=== PATIENT | female | born 1940 | race Caucasian/White ===

== ENCOUNTER → 2016-04-29 | Outpatient (CLI) | payer OTHER, MEDICARE ==
[~2016-04-29] MED LIST: ACET-1256 PO; AMR2 PO; ASPCH81 PO; ASPI81TA28 PO; ATOR10TA88 PO; CHOL2000 PO; CLC100 PO; CLTP PO; DIAZ5TAB PO; DILT-119 PO; FURO-85 PO; GLC500 PO; GLIM1TAB2 PO; LSX20 PO; MECL1TAB42 PO; METO25TA56 PO; MULT-506 PO; MULTCHW PO; PRLSR20 PO; STLS PO
[2016-04-29 13:01] LABS: ESTIMATED AVERAGE GLUCOSE 163 mg/dl; HA1C FLAG Normal (Normal)
[2016-04-29 13:10] LABS: BLOOD UREA NITROGEN 42 mg/dl (7-18); BUN/CREATININE RATIO 24.9 (10-20); CALCIUM 9.4 mg/dl (8.5-10.1); CARBON DIOXIDE 29 mmol/L (21-32); CHLORIDE 107 mmol/L (98-107); GLUCOSE 173 mg/dl (70-99); PHOSPHORUS 3.7 mg/dl (2.5-4.9); POTASSIUM 4.7 mmol/L (3.5-5.1); SODIUM 142 mmol/L (136-145)
[2016-04-29 17:45] LABS: URINE APPEARANCE CLEAR (CLEAR); URINE BILIRUBIN NEG (NEG); URINE COLOR YELLOW; URINE NITRITE NEG (NEG); URINE SPECIFIC GRAVITY 1.017 (1.000-1.030); UROBILINOGEN NEG (NEG); ZZUR CULT IF INDIC CLEAN CATCH NO
[2016-04-29 17:56] LABS: MANUAL MICROSCOPIC REQUIRED? NO; REVIEW REQ? NO
[2016-04-29 18:41] LABS: RATIO 1227.3 mcg/mg (0-30.0)
== END | disposition home or self-care (01) ==
LOC: C.LABBFT 08:37
PROVIDERS: ATTEND Internal Medicine
DX: E11.9 Type 2 diabetes mellitus without complications (principal); E55.9 Vitamin D deficiency, unspecified

== ENCOUNTER → 2016-05-13 | Outpatient (CLI) | payer OTHER, MEDICARE ==
[2016-05-13 12:47] LABS: BLOOD UREA NITROGEN 37 mg/dl (7-18); BUN/CREATININE RATIO 26.7 (10-20); CALCIUM 9.1 mg/dl (8.5-10.1); CARBON DIOXIDE 28 mmol/L (21-32); CHLORIDE 105 mmol/L (98-107); GLUCOSE 201 mg/dl (70-99); PHOSPHORUS 3.3 mg/dl (2.5-4.9); POTASSIUM 4.3 mmol/L (3.5-5.1); SODIUM 141 mmol/L (136-145)
== END | disposition home or self-care (01) ==
LOC: C.LABBFT 10:59
PROVIDERS: ATTEND Internal Medicine
DX: N18.3 Chronic kidney disease, stage 3 (moderate) (principal)

== ENCOUNTER 2016-06-02 09:24 | Emergency (ER) | payer OTHER, MEDICARE ==
[~2016-06-02] VITALS: Ht 152.4 cm; Wt 81.7 kg
[~2016-06-02 09:24] MED LIST changes: -ASPI81TA28 PO; -CHOL2000 PO; -DIAZ5TAB PO; -FURO-85 PO; -GLIM1TAB2 PO; -MECL1TAB42 PO; -MULTCHW PO
[2016-06-02 09:32] VITALS: TEMP 36.7; Ht 152.4 cm; Wt 81.7 kg
[2016-06-02] MEDS ORDERED: GLIM1TAB2 PO (10:00)
[2016-06-02] MEDS ORDERED: ATOR10TA88 PO (10:00)
[2016-06-02] MEDS ORDERED: DILT-119 PO (10:00)
[2016-06-02] MEDS ORDERED: FURO-85 PO (10:00)
[2016-06-02] MEDS ORDERED: CHOL2000 PO (10:00)
[2016-06-02] MEDS ORDERED: MULTCHW PO (10:00)
[2016-06-02] MEDS ORDERED: ACET-1256 PO (10:00)
[2016-06-02] MEDS ORDERED: PRLSR20 PO (10:00)
[2016-06-02] MEDS ORDERED: ASPI81TA28 PO (10:00)
[2016-06-02 10:49] LABS: BASO % 0.4 %; BASO ABS # 0.03 K/uL (0-0.2); COMPLETE YES; EOS % 2.2 %; HEMATOCRIT 35.1 % (37-47); IG% 0.1 %; LYMPH % 21.4 %; LYMPH ABS # 1.57 K/uL (1.2-3.4); MEAN CELL VOLUME 87.8 fL (80-100); MEAN CORPUSCULAR HEMOGLOBIN 30.5 pg (25-34); MEAN CORPUSCULAR HGB CONC 34.8 g/dl (32-36); MEAN PLATELET VOLUME 10.1 fL (7.4-10.4); NEUT % 69.9 %; PLATELET COUNT 220 K/uL (130-400); WHITE BLOOD COUNT 7.32 K/uL (4.8-10.8)
[2016-06-02] MEDS ORDERED: ASPIRIN 81 MG ECTAB PO STA (10:55)
--- NOTE | 2016-06-02 10:55 | EMERGENCY ROOM VISIT NOTE ---
History Report prepared by Jazmín: [facility] Under the Supervision of: Dr. Jesse Victoria M.D. First contact with patient: 10:47 Chief Complaint: OTHER COMPLAINT Stated Complaint: VOMITING/ RINGING IN EARS History of Present Illness The patient is a 75 year old female who presents to the Emergency Room with complaints of persistent weakness for the past few days. The patient also complains of ringing in her ears, feeling dizzy and lightheaded, nausea, vomiting, and high blood pressure. She notes that this morning it was difficult for her to get out of bed and she had to use her walker for support to walk to the restroom. She denies any changes in her hearing besides the ringing, difficulty moving her bowels or urinating. Medical command was given on the patient prior to her arrival at the ED. The patient is on multiple daily medications for blood pressure and blood sugar that she has not taken yet today. Source of History: patient Onset: the past few days Position: other (global) Timing: other (persistent) Associated Symptoms: + nausea, + vomiting, No urinary symptoms Note: Other associated symptoms: ringing in her ears, feeling dizzy and lightheaded, high blood pressure Denies: difficulty moving bowels. Review of Systems All systems have been listed, reviewed, and are negative other than those previously mentioned. Please see Additional Medical History Sheet. Past Medical & Surgical Medical Problems: (1) Diabetes (2) Heart disease (3) Hypertension Surgical Problems: (1) Carpal tunnel syndrome (2) Cataract (3) History of bilateral oophorectomy Family History FH: diabetes mellitus FH: heart disease FHx: hypertension Social History Smoking Status: Former Smoker Alcohol Use: none Drug Use: none Marital Status: single Occupation Status: employed Current/Historical Medications Scheduled Aspirin (Aspirin Ec), 81 MG PO DAILY Atorvastatin (Lipitor), 10 MG PO DAILY Cholecalciferol (Vitamin D3), 2,000 UNITS PO DAILY Diltiazem Hcl Ext Rel (Tiazac), 360 MG PO DAILY Furosemide (Lasix), 20 MG PO DAILY Glimepiride (Glimepiride), 2 MG PO DAILY Multiple Vitamins W/ Minerals (Centrum Silver), 1 TAB PO DAILY Omeprazole (Prilosec), 20 MG PO BID Scheduled PRN Acetaminophen (Tylenol), 1,000 MG PO DIRECTED PRN for Pain Diazepam (Valium), 5 MG PO Q6 PRN for vertigo Meclizine Hcl (Meclizine Hcl), 1 TAB PO Q6 PRN for vertigo Allergies Coded Allergies: No Known Allergies (Verified , 04/23/05) Physical Exam Vital Signs Date Time Temp Pulse Resp B/P Pulse Ox O2 Delivery O2 Flow Rate FiO2 06/02/16 15:40 68 18 146/71 92 06/02/16 14:36 64 20 150/50 95 Room Air 06/02/16 12:54 72 20 186/114 95 Room Air 06/02/16 11:38 62 16 183/87 96 Room Air 06/02/16 10:42 62 20 175/112 97 Room Air 06/02/16 09:32 73 06/02/16 09:32 36.7 76 17 164/67 93 Room Air Physical Exam GENERAL: Patient awake, alert, oriented x 3. Patient follows commands. Patient does not appear toxic. Patient is adequately hydrated and well- nourished. SKIN: No erythema, pallor, cyanosis or rash HEENT: Normal head, pupils equal, reactive to light and accommodation. Vision diminished through macular degeneration. Ears normal. Oral cavity and posterior pharynx: mucus membranes are dry. Neck: Without adenopathy, no neck vein distention. LUNGS: Clear to auscultation. No wheezes, no rales, no rhonchi. HEART: No murmurs. No gallops. No rubs ABDOMEN: Obese, No masses, no rebound, no hepatomegaly or splenomegaly. EXTREMITIES: No signs of trauma. No pedal or pretibial edema. No calf or thigh tenderness. NEUROLOGIC: Cranial nerves II-XII within normal limits. No gross motor sensory function deficits. Medical Decision & Procedures ER Provider Diagnostic Interpretation: Radiology results as stated below per my review and radiologist interpretation:' CHEST ONE VIEW PORTABLE CLINICAL HISTORY: Dizziness, hypertension. COMPARISON STUDY: No previous studies for comparison. FINDINGS: The cardiac and mediastinal contours are normal. There is no evidence of focal pulmonary consolidation. There is no evidence of failure. No pleural effusions are visualized.[ IMPRESSION: No active disease in the chest. Electronically signed by: Shun Gonzalez M.D. 06/02/2016 11:27 AM Dictated Date/Time: 06/02/2016 11:[address] HEAD WITHOUT CONTRAST (CT) CLINICAL HISTORY: Dizziness, vomiting, tinnitus. COMPARISON STUDY: 12/18/2005, MRI the brain dated 04/25/2013 TECHNIQUE: Axial CT of the brain is performed from the vertex to the skull base. IV contrast was not administered for this examination. CT DOSE: 537.48 mGy.cm FINDINGS: No intra or extra-axial mass lesions are visualized. There is no CT evidence of acute cortical infarction. There is no evidence of midline shift. There is no acute hemorrhage. No calvarial fractures are visualized. There are mild white matter hypodensities likely on a small vessel basis. There is no evidence of pathologic ventricular dilatation. There is no evidence of acute sinusitis IMPRESSION: No acute intracranial findings Electronically signed by: Shun Gonzalez M.D. 06/02/2016 1:20 PM Dictated Date/Time: 06/02/2016 1:19 PM Laboratory Results 06/02/16 09:40 Red Blood Count 4.00, Mean Corpuscular Volume 87.8, Mean Corpuscular Hemoglobin 30.5, Mean Corpuscular Hemoglobin Concent 34.8, Mean Platelet Volume 10.1, Neutrophils (%) (Auto) 69.9, Lymphocytes (%) (Auto) 21.4, Monocytes (%) (Auto) 6.0, Eosinophils (%) (Auto) 2.2, Basophils (%) (Auto) 0.4, Neutrophils # (Auto) 5.11, Lymphocytes # (Auto) 1.57, Monocytes # (Auto) 0.44, Eosinophils # (Auto) 0.16, Basophils # (Auto) 0.03 06/02/16 09:40 Test 06/02/16 09:40 White Blood Count 7.32 K/uL (4.8-10.8) Red Blood Count 4.00 M/uL (4.2-5.4) Hemoglobin 12.2 g/dL (12.0-16.0) Hematocrit 35.1 % (37-47) Mean Corpuscular Volume 87.8 fL (80-100) Mean Corpuscular Hemoglobin 30.5 pg (25-34) Mean Corpuscular Hemoglobin Concent 34.8 g/dl (32-36) Platelet Count 220 K/uL (130-400) Mean Platelet Volume 10.1 fL (7.4-10.4) Neutrophils (%) (Auto) 69.9 % Lymphocytes (%) (Auto) 21.4 % Monocytes (%) (Auto) 6.0 % Eosinophils (%) (Auto) 2.2 % Basophils (%) (Auto) 0.4 % Neutrophils # (Auto) 5.11 K/uL (1.4-6.5) Lymphocytes # (Auto) 1.57 K/uL (1.2-3.4) Monocytes # (Auto) 0.44 K/uL (0.11-0.59) Eosinophils # (Auto) 0.16 K/uL (0-0.5) Basophils # (Auto) 0.03 K/uL (0-0.2) RDW Standard Deviation 42.4 fL (36.4-46.3) RDW Coefficient of Variation 13.1 % (11.5-14.5) Immature Granulocyte % (Auto) 0.1 % Immature Granulocyte # (Auto) 0.01 K/uL (0.00-0.02) Anion Gap 9.0 mmol/L (3-11) Est Creatinine Clear Calc Drug Dose 38.4 ml/min Estimated GFR () 51.2 Estimated GFR (Non- 44.2 BUN/Creatinine Ratio 36.5 (10-20) Calcium Level 9.4 mg/dl (8.5-10.1) Total Bilirubin 0.3 mg/dl (0.2-1) Aspartate Amino Transf (AST/SGOT) 25 U/L (15-37) Alanine Aminotransferase (ALT/SGPT) 32 U/L (12-78) Alkaline Phosphatase 95 U/L (45-117) Total Protein 7.0 gm/dl (6.4-8.2) Albumin 3.6 gm/dl (3.4-5.0) Globulin 3.4 gm/dl (2.5-4.0) Albumin/Globulin Ratio 1.1 (0.9-2) Laboratory results as stated above per my review. Medications Administered Medications (Trade) Dose Ordered Sig/Eliud Route Start Time Stop Time Status Last Admin Dose Admin Diazepam (Valium Tab) 5 mg NOW ONCE PO 06/02/16 11:00 06/02/16 11:02 DC 06/02/16 11:40 5 MG Atorvastatin Calcium (Lipitor Tab) 10 mg NOW ONCE PO 06/02/16 11:00 06/02/16 11:03 DC 06/02/16 11:39 10 MG Furosemide (Lasix Tab) 40 mg NOW ONCE PO 06/02/16 11:00 06/02/16 11:03 DC 06/02/16 11:40 40 MG Aspirin (Ecotrin Tab) 81 mg NOW STAT PO 06/02/16 10:55 06/02/16 11:02 DC 06/02/16 11:39 81 MG Glimepiride (Amaryl Tab) 1 mg NOW ONCE PO 06/02/16 11:00 06/02/16 11:03 DC 06/02/16 11:41 1 MG Pantoprazole Sodium (Protonix Tab) 20 mg NOW STAT PO 06/02/16 11:04 06/02/16 11:06 DC 06/02/16 11:40 20 MG Diltiazem HCl (Dilacor Xr Cap) 360 mg NOW STAT PO 06/02/16 12:07 06/02/16 12:08 DC 06/02/16 12:56 360 MG Meclizine HCl (Antivert Tab) 25 mg NOW STAT PO 06/02/16 12:42 06/02/16 12:46 DC 06/02/16 12:56 25 MG Acetaminophen (Tylenol Tab) 1,000 mg NOW STAT PO 06/02/16 12:42 06/02/16 12:46 DC 06/02/16 12:57 1,000 MG ED Course 1048: Past medical records reviewed. The patient was evaluated in room B8. A complete history and physical examination was performed. 1055: Ordered Aspirin 81 mg PO. 1100: Ordered Glimepiride 1 mg PO, Lasix Tab 40 mg PO, Lipitor Tab 10 mg PO, Diazepam 5 mg PO. 1104: Ordered Protonix Tab 20 mg PO. 1207: Ordered Diltiazem HCl 360 mg PO. 1242: Ordered Tylenol Tab 1000 mg PO, Antivert Tab 25 mg PO. 1420: At this time, I reevaluated the patient and she was feeling better after her nap. The patient was going to try to walk and she how if she felt well enough to go home. Medical Decision Differential diagnoses include hypertension lack of control, Meniere's disease, benign positional vertigo, vestibular neuronitis, CVA/TIA. Multiple labs, EKG and imaging were obtained. Please see above. The patient has no evidence of an acute stroke was TIA. The patient presents vestibular disequilibrium. The patient denies fever or chills. She has no dysuria or other urinary symptoms. Patient does have ringing in her ears in addition to vertigo. She does not appear to have any acute change in her hearing. Mnire' s disease remains in the differential. Patient did get some relief with Antivert and Valium. She will be sent home with prescriptions for both. The patient was able to ambulate in the ED prior to discharge. Patient should follow-up with her family physician within the next week. Impression Primary Impression: Vertigo Scribe Attestation The scribe's documentation has been prepared under my direction and personally reviewed by me in its entirety. I confirm that the note above accurately reflects all work, treatment, procedures, and medical decision making performed by me. Departure Information Dispostion Home / Self-Care Prescriptions Diazepam (VALIUM) 5 Mg Tab 5 MG PO Q6 Y for vertigo, #20 TAB Prov: Bill Mcqueen M.D. 06/02/16 Meclizine Hcl (MECLIZINE HCL) 25 Mg Tab 1 TAB PO Q6 Y for vertigo, #20 TAB Prov: Bill Mcqueen M.D. 06/02/16 Referrals Felice Stubsb M.D. (PCP) Forms HOME CARE DOCUMENTATION FORM, IMPORTANT VISIT INFORMATION, WORK / SCHOOL INSTRUCTIONS Patient Instructions My [facility] Additional Instructions 25 mg of meclizine every 6 hours as needed for vertigo. You may add 5 mg of Valium every 6 hours if meclizine is not controlling the vertigo. Both of the above medications, sedation. Continue all of your current medications as prescribed. Follow-up with your family physician within the next 7 days. Return here sooner if symptoms get worse.
[2016-06-02 10:58] LABS: BUN/CREATININE RATIO 36.5 (10-20); CALCIUM 9.4 mg/dl (8.5-10.1); CREATININE 1.2 mg/dl (0.60-1.20); POTASSIUM 4.2 mmol/L (3.5-5.1)
[2016-06-02] MEDS ORDERED: DILTIAZEM HCL 30 MG TAB PO ONE (11:00)
[2016-06-02] MEDS ORDERED: GLIMEPIRIDE 2 MG TAB PO ONE (11:00)
[2016-06-02] MEDS ORDERED: FUROSEMIDE 40 MG TAB PO ONE (11:00)
[2016-06-02] MEDS ORDERED: DIAZEPAM 5MG TAB PO ONE (11:00)
[2016-06-02] MEDS ORDERED: ATORVASTATIN 10 MG TAB PO ONE (11:00)
[2016-06-02 11:01] LABS: ALB/GLOB RATIO 1.1 (0.9-2)
[2016-06-02] MEDS ORDERED: PANTOprazole SOD 40 MG TAB PO STA (11:04)
--- NOTE | 2016-06-02 11:28 | DIAGNOSTIC IMAGING REPORT ---
CHEST ONE VIEW PORTABLE CLINICAL HISTORY: Dizziness, hypertension. COMPARISON STUDY: No previous studies for comparison. FINDINGS: The cardiac and mediastinal contours are normal. There is no evidence of focal pulmonary consolidation. There is no evidence of failure. No pleural effusions are visualized.[ IMPRESSION: No active disease in the chest. Electronically signed by: Shun Gonzalez M.D. 06/02/2016 11:27 AM Dictated Date/Time: 06/02/2016 11:26 AM
[2016-06-02] MEDS ORDERED: DILTIAZEM HCL 180 MG ER CAP PO STA (12:07)
[2016-06-02] MEDS ORDERED: ACETAMINOPHEN 500 MG TAB PO STA (12:42)
[2016-06-02] MEDS ORDERED: MECLIZINE HCL 25 MG TAB PO STA (12:42)
--- NOTE | 2016-06-02 13:22 | DIAGNOSTIC IMAGING REPORT ---
CT HEAD WITHOUT CONTRAST (CT) CLINICAL HISTORY: Dizziness, vomiting, tinnitus. COMPARISON STUDY: 12/18/2005, MRI the brain dated 04/25/2013 TECHNIQUE: Axial CT of the brain is performed from the vertex to the skull base. IV contrast was not administered for this examination. CT DOSE: 537.48 mGy.cm FINDINGS: No intra or extra-axial mass lesions are visualized. There is no CT evidence of acute cortical infarction. There is no evidence of midline shift. There is no acute hemorrhage. No calvarial fractures are visualized. There are mild white matter hypodensities likely on a small vessel basis. There is no evidence of pathologic ventricular dilatation. There is no evidence of acute sinusitis IMPRESSION: No acute intracranial findings Electronically signed by: Shun Gonzalez M.D. 06/02/2016 1:20 PM Dictated Date/Time: 06/02/2016 1:19 PM
[2016-06-02] MEDS ORDERED: DIAZ5TAB PO (15:07)
[2016-06-02] MEDS ORDERED: MECL1TAB42 PO (15:07)
[2016-06-02 15:40] VITALS: BP 146/71; PULSE 68; O2SAT 92
== END 2016-06-02 15:41 | disposition home or self-care (01) ==
LOC: EDBD 09:24 → C.EDB 09:25
DX: R42 Dizziness and giddiness (principal); I10 Essential (primary) hypertension; E11.9 Type 2 diabetes mellitus without complications; I51.9 Heart disease, unspecified; Z87.891 Personal history of nicotine dependence; Z90.722 Acquired absence of ovaries, bilateral; Z79.82 Long term (current) use of aspirin; Z79.899 Other long term (current) drug therapy; Z83.3 Family history of diabetes mellitus; Z82.49 Family history of ischemic heart disease and other diseases of the circulatory system

== ENCOUNTER → 2016-06-17 | Outpatient (CLI) | payer OTHER, MEDICARE ==
[~2016-06-17] MED LIST changes: -AMR2 PO; -ASPCH81 PO; +ASPI81TA28 PO; +ATOR10TA82 PO; -ATOR10TA88 PO; +CHOL2000 PO; -CLC100 PO; -CLTP PO; +FURO-85 PO; -GLC500 PO; +GLIM1TAB2 PO; -LSX20 PO; +MECL1TAB42 PO; -METO25TA56 PO; -MULT-506 PO; +MULTCHW PO; -STLS PO
--- NOTE | 2016-06-17 16:46 | MAMMOGRAPHY REPORT ---
BILATERAL DIGITAL SCREENING MAMMOGRAM WITH CAD: 06/17/2016 CLINICAL HISTORY: Routine screening. Patient has no complaints. TECHNIQUE: Bilateral CC and MLO views were obtained. Current study was also evaluated with a Comput er Aided Detection (CAD) system. COMPARISON: Comparison is made to exams dated: 06/14/2015 mammogram, 06/12/2014 mammogram, 06/09/2013 [facility], 06/08/2012 mammogram, 06/06/2011 mammogram, and 06/03/2010 mammogram - [facility]. BREAST COMPOSITION: The tissue of both breasts is heterogeneously dense, which may obscure small ma sses. FINDINGS: There are diffuse bilateral rodlike secretory calcifications and coarse benign calcificati ons throughout the breasts. Mild vascular calcification as well. No suspicious mass, architectural distortion or cluster of new, suspicious microcalcifications is seen. IMPRESSION: ACR BI-RADS CATEGORY 1: NEGATIVE There is no mammographic evidence of malignancy. A 1 year screening mammogram is recommended. The p atient will receive written notification of the results. Approximately 10% of breast cancers are not detected with mammography. A negative mammographic repor t should not delay biopsy if a clinically suggestive mass is present. Asuncion Moss M.D. ay/:06/17/2016 16:04:04 Wood Handler: Annie SANCHEZ)(Jeri), [facility] letter sent: Normal 1/2 BI-RADS Code: ACR BI-RADS Category 1: Negative
== END | disposition home or self-care (01) ==
LOC: C.MAMM 10:52
PROVIDERS: ATTEND Internal Medicine
DX: Z12.31 Encounter for screening mammogram for malignant neoplasm of breast (principal)

== ENCOUNTER → 2016-08-25 | Outpatient (CLI) | payer OTHER, MEDICARE ==
[2016-08-25 13:11] LABS: CALCIUM 9.5 mg/dl (8.5-10.1)
[2016-08-25 13:13] LABS: ALT/SGPT 33 U/L (12-78); AST/SGOT 17 U/L (15-37); BLOOD UREA NITROGEN 36 mg/dl (7-18); BUN/CREATININE RATIO 23.7 (10-20); CARBON DIOXIDE 27 mmol/L (21-32); CHLORIDE 109 mmol/L (98-107); CHOLESTEROL 155 mg/dl (0-200); GLUCOSE 101 mg/dl (70-99); POTASSIUM 4.3 mmol/L (3.5-5.1); SODIUM 144 mmol/L (136-145); TRIGLYCERIDES 98 mg/dl (0-150); VERY LOW DENSITY LIPOPROT CALC 20 mg/dl
[2016-08-25 13:15] LABS: ESTIMATED AVERAGE GLUCOSE 160 mg/dl; HA1C FLAG Normal (Normal)
[2016-08-25 13:19] LABS: ALB/GLOB RATIO 1.1 (0.9-2); ALKALINE PHOSPHATASE 85 U/L (45-117); CHOLESTEROL/HDL RATIO 2.3; HDL CHOLESTEROL 67 mg/dl; LDL CHOLESTEROL CALCULATED 68 mg/dl
== END | disposition home or self-care (01) ==
LOC: C.LABBFT 09:23
PROVIDERS: ATTEND Internal Medicine
DX: E11.42 Type 2 diabetes mellitus with diabetic polyneuropathy (principal); E78.00 Pure hypercholesterolemia, unspecified; N18.3 Chronic kidney disease, stage 3 (moderate)

== ENCOUNTER → 2017-04-30 | Outpatient (CLI) | payer OTHER, MEDICARE ==
[~2017-04-30] MED LIST changes: -MECL1TAB42 PO
[2017-04-30 13:16] LABS: ALBUMIN 3.7 gm/dl (3.4-5.0); BLOOD UREA NITROGEN 40 mg/dl (7-18); CALCIUM 9.5 mg/dl (8.5-10.1); CARBON DIOXIDE 27 mmol/L (21-32); CREATININE 1.46 mg/dl (0.60-1.20); GLUCOSE 136 mg/dl (70-99); POTASSIUM 4.1 mmol/L (3.5-5.1); SODIUM 140 mmol/L (136-145)
[2017-04-30 13:21] LABS: PHOSPHORUS 3.7 mg/dl (2.5-4.9)
[2017-04-30 13:22] LABS: HEMOGLOBIN A1C 7.9 % (4.5-5.6)
== END | disposition home or self-care (01) ==
LOC: C.LABBFT 08:47
PROVIDERS: ATTEND Internal Medicine
DX: E11.21 Type 2 diabetes mellitus with diabetic nephropathy (principal); E55.9 Vitamin D deficiency, unspecified; N18.3 Chronic kidney disease, stage 3 (moderate); E11.22 Type 2 diabetes mellitus with diabetic chronic kidney disease

== ENCOUNTER → 2017-05-01 | Outpatient (CLI) | payer OTHER, MEDICARE ==
[2017-05-01 17:14] LABS: CREATININE RANDOM URINE 38.2 mg/dl
== END | disposition home or self-care (01) ==
LOC: C.LABBFT 13:22
PROVIDERS: ATTEND Internal Medicine
DX: E11.21 Type 2 diabetes mellitus with diabetic nephropathy (principal)

== ENCOUNTER → 2017-06-18 | Outpatient (CLI) | payer OTHER, MEDICARE ==
--- NOTE | 2017-06-19 07:46 | MAMMOGRAPHY REPORT ---
BILATERAL DIGITAL SCREENING MAMMOGRAM TOMOSYNTHESIS WITH CAD: 06/18/2017 CLINICAL HISTORY: Routine screening. Patient has no complaints. TECHNIQUE: Breast tomosynthesis in addition to standard 2D mammography was performed. Current study was also evaluated with a Computer Aided Detection (CAD) system. COMPARISON: Comparison is made to exams dated: 06/17/2016 mammogram, 06/14/2015 mammogram, 06/12/2014 [facility], 06/09/2013 mammogram, 06/08/2012 mammogram, and 06/06/2011 mammogram - [facility] BREAST COMPOSITION: The tissue of both breasts is heterogeneously dense, which may obscure small mas ses. FINDINGS: No suspicious masses, calcifications, or areas of architectural distortion are noted in ei ther breast. There has been no significant interval change compared to prior exams. Scattered bilater al benign-appearing calcifications are not significantly changed. IMPRESSION: ACR BI-RADS CATEGORY 2: BENIGN There is no mammographic evidence of malignancy. A 1 year screening mammogram is recommended. The pa tient will receive written notification of the results. Approximately 10% of breast cancers are not detected with mammography. A negative mammographic report should not delay biopsy if a clinically suggestive mass is present. Meghan Duggan M.D. ah/:06/18/2017 14:41:31 Binder Coverstitch: Rose Marie SANCHEZ)(M), [facility] letter sent: Normal 1/2 BI-RADS Code: ACR BI-RADS Category 2: Benign
== END | disposition home or self-care (01) ==
LOC: C.MAMM 11:04
PROVIDERS: ATTEND Internal Medicine
DX: Z12.31 Encounter for screening mammogram for malignant neoplasm of breast (principal)

== ENCOUNTER → 2017-09-23 | Outpatient (CLI) | payer OTHER, MEDICARE ==
[2017-09-23 12:57] LABS: ALBUMIN 3.8 gm/dl (3.4-5.0); ALKALINE PHOSPHATASE 68 U/L (45-117); ALT/SGPT 21 U/L (12-78); AST/SGOT 18 U/L (15-37); BLOOD UREA NITROGEN 36 mg/dl (7-18); CALCIUM 9.6 mg/dl (8.5-10.1); CARBON DIOXIDE 29 mmol/L (21-32); CHOLESTEROL 159 mg/dl (0-200); CREATININE 1.68 mg/dl (0.60-1.20); GLUCOSE 115 mg/dl (70-99); LDL CHOLESTEROL CALCULATED 69 mg/dl; POTASSIUM 4.2 mmol/L (3.5-5.1); SODIUM 143 mmol/L (136-145); TOTAL PROTEIN 7.3 gm/dl (6.4-8.2)
[2017-09-23 13:18] LABS: HEMOGLOBIN A1C 7.6 % (4.5-5.6)
== END | disposition home or self-care (01) ==
LOC: C.LABBFT 08:20
PROVIDERS: ATTEND Physician Assistant Medical
DX: E11.21 Type 2 diabetes mellitus with diabetic nephropathy (principal); E78.00 Pure hypercholesterolemia, unspecified

== ENCOUNTER → 2017-10-27 | Outpatient (CLI) | payer OTHER, MEDICARE | END | disposition home or self-care (01) | LOC: C.MAMM 10:46 | PROVIDERS: ATTEND Internal Medicine | DX: M81.0 Age-related osteoporosis without current pathological fracture (principal) ==

== ENCOUNTER 2019-11-18 08:06 | Inpatient (IN) ==
[2019-11-18] MEDS ORDERED: ONDANSETRON INJ 2 MG/ML 2 ML VIAL IV STA (08:37)
[2019-11-18 09:03] LABS: Basophils # (auto) 0.03 K/uL (0-0.2); Basophils % (auto) 0.4 %; Eosinophils # (auto) 0.12 K/uL (0-0.5); Eosinophils % (auto) 1.6 %; Hematocrit (blood only) 31.3 % (37-47); Immature Granulocytes # (auto) 0.01 K/uL (0.00-0.02); Immature Granulocytes % (auto) 0.1 %; Lymphocytes # (auto) 0.81 K/uL (1.2-3.4); Lymphocytes % (auto) 10.8 %; Mean Corpuscular Hemoglobin 29.4 pg (25-34); Mean Corpuscular Hgb Conc 31.9 g/dL (32-36); Mean Corpuscular Volume 92.1 fL (80-100); Mean Platelet Volume 9.3 fL (7.4-10.4); Monocytes # (auto) 0.44 K/uL (0.11-0.59); Monocytes % (auto) 5.9 %; Neutrophils # (auto) 6.08 K/uL (1.4-6.5); Neutrophils % (auto) 81.2 %; Platelet Count 291 K/uL (130-400); RDW Coefficient of Variation 14.3 % (11.5-14.5); RDW Standard Deviation 47.4 fL (36.4-46.3); White Blood Count 7.49 K/uL (4.8-10.8)
[2019-11-18 09:16] LABS: Partial Thromboplastin Ratio 0.9; Partial Thromboplastin Time 24.2 Seconds (21.0-31.0); Prothrombin Time 10.6 Seconds (9.0-12.0)
--- NOTE | 2019-11-18 09:21 | XRay Report ---
XR chest 1V portable HISTORY: Dyspnea COMPARISON: Chest 10/20/2019. FINDINGS: No pneumothorax. The heart remains mildly enlarged. Progressive interstitial and vascular t hickening consistent with pulmonary edema. Small bilateral pleural effusions have also slightly progr essed. IMPRESSION: Interval progression of the pulmonary edema and small bilateral pleural effusions. ACT 112: Negative or not required by law. Electronically signed by: Abad Dunbar M.D. 11/18/2019 9:20 AM
[2019-11-18] MEDS ORDERED: FUROSEMIDE 40 MG/4 ML VIAL IV STA ×2 (09:24→11:06)
[2019-11-18 09:47] LABS: Alanine Aminotransferase 17 U/L (12-78); Albumin Globulin Ratio 0.9 (0.9-2); Albumin Level 3.2 gm/dl (3.4-5.0); Alkaline Phosphatase 69 U/L (45-117); Aspartate Aminotransferase 14 U/L (15-37); BUN Creatinine Ratio 11.7 (10-20); Bilirubin,Total 0.5 mg/dl (0.2-1); Blood Urea Nitrogen 60 mg/dl (7-18); Calcium 10.1 mg/dl (8.5-10.1); Carbon Dioxide 21 mmol/L (21-32); Chloride 108 mmol/L (98-107); Est GFR (African American) 8.6; Est GFR (Non-African American) 7.4; Globulin 3.4 gm/dl (2.5-4.0); Glucose 189 mg/dl (70-99); Lipase 112 U/L (73-393); NT Pro B Type Natriuretic Pept > 35000 pg/ml (0-1800); Potassium 5.5 mmol/L (3.5-5.1); Sodium 139 mmol/L (136-145); Total Protein 6.6 gm/dl (6.4-8.2); Troponin I 0.017 ng/ml (0-0.045)
--- NOTE | 2019-11-18 09:48 | Emergency Department Note ---
History of Present Illness General Chief complaint: Shortness of Breath/Dyspnea Stated complaint: SOB,VOMITING Time Seen by Provider: 11/18/19 08:16 Source: patient Mode of arrival: ambulatory Limitations: no limitations History of Present Illness Provider complaint: Shortness of breath This is a 79-year-old female who presents to the ED with a chief complaint of shortness of breath. The patient states that she has been short of breath for the past 2 to 3 weeks but it worsened over the past couple of days. She is also noticed increased pedal edema. The patient states that her breathing is worsened with lying flat as well as with exertion. She denies any sick contacts. She has been taking her Lasix 20 mg daily at home. Denies any fevers or cough. Symptoms are mild to moderate. Home Medications Home Medications Medication Instructions Recorded Confirmed Type acetaminophen 500 mg tablet 1,000 mg PO BID tab 10/11/18 11/18/19 History aspirin 81 mg tablet,delayed 81 mg PO QPM 10/11/18 11/18/19 History release cholecalciferol (vitamin D3) 2,000 units PO QAM 10/14/19 11/18/19 History fluticasone propionate [Allergy 2 sprays INTNAS DAILY PRN 10/14/19 11/18/19 History Relief (fluticasone)] furosemide 20 mg PO QAM 10/14/19 11/18/19 History multivitamin 1 tab PO QAM 10/14/19 11/18/19 History atorvastatin 10 mg PO HS 10/16/19 11/18/19 History calcitriol 0.25 mcg PO MOWEFR 10/16/19 11/18/19 History meclizine 12.5 mg PO TID PRN 10/16/19 11/18/19 History ferrous sulfate 325 mg (65 mg 325 mg PO DAILY #90 tab 11/07/19 11/18/19 Rx iron) tablet darbepoetin ilia in polysorbat 200 200 mcg SUBCUT .COMPLEX #1 ml 11/10/19 11/18/19 Rx mcg/mL in polysorbate injection diltiazem HCl 180 mg capsule,24 180 mg PO DAILY #30 cap 11/15/19 11/18/19 Rx hr,extended release metoprolol succinate 50 mg 50 mg PO DAILY #30 tab 11/15/19 11/18/19 Rx tablet,extended release 24 hr Allergies Allergy/AdvReac Type Severity Reaction Status Date / Time No Known Allergies Allergy Verified 11/18/19 08:55 Past Med/Surg History Medical History Anemia Arthritis Cardiac murmur LAST ECHO 2013- NO NOTED VALVE ISSUES- NO MURMUR NOTED ON EXAM AT PAT ON 10/20/19 Chronic kidney disease, stage V Diabetes Blood sugar fluctuates - had low blood sugar- in ER on 10/16/19- follows with PCP- had med changes Diabetic nephropathy Hyperlipidemia Hypertension Legally blind READS WITH MAGNIFYING GLASSES Surgical History History of bilateral oophorectomy History of colonoscopy History of esophagogastroduodenoscopy (EGD) Hx of cataract surgery R/L Family History Father No problems noted. Mother Family history of diabetes mellitus Denies family history of Kidney disease Social History Smoking Status: Former smoker Second Hand Exposure: Yes (ON OCC); Hx Alcohol Use: No Hx Substance Use: No Preferred Language: Mac[place] Communication Ability: Impaired Canvas Shrinker Required: No Beliefs That Will Affect Care: None Current Living Situation: Alone Feels Safe at Home: Yes Review of Systems A total of 10 systems reviewed and were otherwise negative Physical Exam Vital Signs Vital Signs - 24 hr 11/18/19 08:10 11/18/19 08:16 11/18/19 08:17 Temperature 36.9 C Temperature Source Oral Pulse Rate 92 H Pulse Rate [Left Finger] Respiratory Rate 20 Respiratory Effort / Characteristics Spontaneous Blood Pressure 162/78 H Blood Pressure [Left Arm] Blood Pressure Mean 106 Blood Pressure Mean [Left Arm] Blood Pressure Position Sitting Pulse Oximetry 97 Oxygen Delivery Method Room Air Room Air Nasal Cannula Oxygen Flow Rate 2 Sepsis Recent Fever Within 48 Hours No Sepsis New/Unexplained Change in Mental Status No Sepsis Action Taken by Nursing No Action Required 11/18/19 08:45 11/18/19 08:53 11/18/19 09:34 Temperature Temperature Source Pulse Rate Pulse Rate [Left Finger] 92 H 92 H Respiratory Rate 20 22 Respiratory Effort / Characteristics Blood Pressure Blood Pressure [Left Arm] 179/84 H 166/77 H Blood Pressure Mean Blood Pressure Mean [Left Arm] 115 106 Blood Pressure Position Pulse Oximetry 95 98 98 Oxygen Delivery Method Nasal Cannula Nasal Cannula Nasal Cannula Oxygen Flow Rate 2 2 2 Sepsis Recent Fever Within 48 Hours Sepsis New/Unexplained Change in Mental Status Sepsis Action Taken by Nursing CONSTITUTIONAL/VITAL SIGNS: Reviewed / noted above. GENERAL: Non-toxic in appearance. INTEGUMENTARY: Warm, dry, and [place]. HEAD: Normocephalic. EYES: without scleral icterus or trauma. ENT/OROPHARYNX: clear and moist. LYMPHADENOPATHY/NECK: Is supple without lymphadenopathy or meningismus. RESPIRATORY: Lungs diminished with basilar crackles bilaterally. CARDIOVASCULAR: Regular rate and rhythm. GI/ABDOMEN: Soft and nontender. No organomegaly or pulsatile mass. No rebound or guarding. Normal bowel sounds. EXTREMITIES: Warm and well perfused. BACK: No CVA tenderness. NEUROLOGICAL: Intact without focal deficits. PSYCHIATRIC: normal affect. MUSCULOSKELETAL: Normally developed with good muscle tone. TRIAGE NURSING DOCUMENTATION REVIEWED. Course Administered Medications Discontinued Medications Furosemide (Furosemide 40 Mg/4 Ml Vial) 40 mg IV NOW STA Stop: 11/18/19 09:25 Last Admin: 11/18/19 09:33 Dose: 40 mg Documented by: [id number] Ondansetron HCl (Ondansetron Inj 2 Mg/Ml 2 Ml Vial) 4 mg IV NOW STA Stop: 11/18/19 08:38 Last Admin: 11/18/19 08:52 Dose: 4 mg Documented by: [id number] Medical Decision Making Differential Diagnosis The differential was considered includes acute myocardial infarction, acute coronary syndrome, myocarditis, pericarditis, pericardial effusions /tamponad, esophageal perforation, pulmonary embolism, pneumonia, pneumothorax, cardiomyopathy, congestive heart, anemia , COPD/asthma exacerbation. Medical Records Attestation: I reviewed the patient's medical records. Home Medications Current Medication List: was personally reviewed by me Laboratory Data Attestation: I reviewed the patient's lab results. Result diagrams: 11/18/19 08:49 11/18/19 08:49 Lab Results 11/18/19 11/18/19 11/18/19 Range/Units 08:49 08:49 08:49 WBC 7.49 (4.8-10.8) K/uL RBC 3.40 L (4.2-5.4) M/uL Hgb 10.0 L (12.0-16.0) g/dL Hct 31.3 L (37-47) % MCV 92.1 (80-100) fL MCH 29.4 (25-34) pg MCHC 31.9 L (32-36) g/dL RDW Std Deviation 47.4 H (36.4-46.3) fL RDW Coeff of Yin 14.3 (11.5-14.5) % Plt Count 291 (130-400) K/uL MPV 9.3 (7.4-10.4) fL Immature Gran % (Auto) 0.1 % Neut % (Auto) 81.2 % Lymph % (Auto) 10.8 % Andrews % (Auto) 5.9 % Eos % (Auto) 1.6 % Baso % (Auto) 0.4 % Neut # (Auto) 6.08 (1.4-6.5) K/uL Lymph # (Auto) 0.81 L (1.2-3.4) K/uL Andrews # (Auto) 0.44 (0.11-0.59) K/uL Eos # (Auto) 0.12 (0-0.5) K/uL Baso # (Auto) 0.03 (0-0.2) K/uL Immature Gran # (Auto) 0.01 (0.00-0.02) K/uL PT 10.6 (9.0-12.0) Seconds INR 1.0 (0.9-1.1) APTT 24.2 (21.0-31.0) Seconds PTT Ratio 0.9 Sodium 139 (136-145) mmol/L Potassium 5.5 H (3.5-5.1) mmol/L Chloride 108 H (98-107) mmol/L Carbon Dioxide 21 (21-32) mmol/L Anion Gap 10.0 (3-11) BUN 60 H (7-18) mg/dl Creatinine 5.12 H* (0.6-1.2) mg/dl Est Cr Clr Drug Dosing Not Reportable Est GFR ( Amer) 8.6 Est GFR (Non-Af Amer) 7.4 BUN/Creatinine Ratio 11.7 (10-20) Glucose 189 H (70-99) mg/dl Calcium 10.1 (8.5-10.1) mg/dl Total Bilirubin 0.5 (0.2-1) mg/dl AST 14 L (15-37) U/L ALT 17 (12-78) U/L Alkaline Phosphatase 69 (45-117) U/L Troponin I 0.017 (0-0.045) ng/ml NT-Pro-B Natriuret Pep > 78866 H (0-1800) pg/ml Total Protein 6.6 (6.4-8.2) gm/dl Albumin 3.2 L (3.4-5.0) gm/dl Globulin 3.4 (2.5-4.0) gm/dl Albumin/Globulin Ratio 0.9 (0.9-2) Lipase 112 (73-393) U/L Imaging Data Radiologist's Impression: XR chest 1V portable HISTORY: Dyspnea COMPARISON: Chest 10/20/2019. FINDINGS: No pneumothorax. The heart remains mildly enlarged. Progressive interstitial and vascular thickening consistent with pulmonary edema. Small bilateral pleural effusions have also slightly progressed. IMPRESSION: Interval progression of the pulmonary edema and small bilateral pleural e ffusions. ECG Data Attestation: I personally reviewed and interpreted this ECG as follows: Indication: + SOB/dyspnea Rate (beats per minute): 96 Rhythm: + normal sinus ECG Intervals/blocks: + Normal QT-c ECG ST segments: + T-wave inversions (Lateral); no ST elevation ECG Findings: no PVCs Blood Pressure Blood Pressure Findings: Elevated blood pressure MDM Narrative The patient presents with worsening shortness of breath over the past couple of days with some chronic shortness of breath over the past 2 to 3 weeks. Her chest x-ray suggest congestive heart failure. The CBC was unremarkable. Potassium is 5.5. BUN is 16 creatinine is 5.12. Glucose is 189. BNP is greater than 35,000. Lipase was negative. The x-ray is suggestive of pulmonary edema and congestive heart failure. Because of the patient's ongoing issues with her chronic renal insufficiency as well as congestive heart failure pulmonary edema, the patient will require inpatient hospitalization. She was given Lasix 40 mg IV here. Impression & Plan Acute CHF (congestive heart failure), Chronic kidney insufficiency Discharge Plan Visit Data Chief Complaint: Shortness of Breath/Dyspnea Stated Complaint: SOB,VOMITING ED Provider: Sundar Fontaine ED Midlevel Provider: Raisa Willett Discharge Problem: Acute CHF (congestive heart failure), Chronic kidney insufficiency Patient Disposition: Being Evaluated by Hospitalist Forms Stand Alone Forms: My [facility], Virtual Emergency Department, Important Visit Information Prescriptions Prescriptions: No Action darbepoetin ilia in polysorbat 200 mcg/mL solution 200 mcg subcut .COMPLEX Qty: 1 RF: 0 diltiazem HCl 180 mg capsule,extended release 24 hr 180 mg PO DAILY Qty: 30 RF: 3 metoprolol succinate 50 mg tablet extended release 24 hr 50 mg PO DAILY Qty: 30 RF: 3 aspirin [Aspir-81] 81 mg tablet,delayed release (DR/EC) 81 mg PO QPM RF: 0 acetaminophen [Tylenol Extra Strength] 500 mg tablet 1,000 mg PO BID RF: 0 ferrous sulfate 325 mg (65 mg iron) tablet 325 mg PO DAILY Qty: 90 RF: 3 cholecalciferol (vitamin D3) 2,000 unit tablet 2,000 units PO QAM RF: 0 furosemide 20 mg tablet 20 mg PO QAM RF: 0 fluticasone propionate [Allergy Relief (fluticasone)] 50 mcg/actuation spray,suspension 2 sprays INTNAS DAILY PRN (Reason: Allergy Symptoms) RF: 0 multivitamin Tablet 1 tab PO QAM RF: 0 calcitriol 0.25 mcg capsule 0.25 mcg PO MOWEFR RF: 0 atorvastatin 10 mg tablet 10 mg PO HS RF: 0 meclizine 12.5 mg tablet 12.5 mg PO TID PRN (Reason: Dizziness) RF: 0 Referrals Referrals: Tramaine Stubbs MD [Primary Care Provider] -
--- NOTE | 2019-11-18 10:58 | History & Physical Report ---
Date of Service November 18, 2019 Assessment & Plan (1) Acute CHF (congestive heart failure): Patient is a 79 yo female with NYLA, CKD stage V AND acute systolic CHF, Will admit to Tele received 60 mg in ER of lasix will place on lasixIV 40 mg BID, will consult nephro concern over fact that patient may require HD Patient has AV fistula but is it not mature yet as it is only2 weeks old will closely monitor creatinine response holding diltiazem and metoprolol for now. may resume in AM. (2) Gastroesophageal reflux disease: will resume home meds and monitor. stable (3) Diabetes mellitus type 2 with complications: will monitor blood glucose ACHS. currently A1C only 6.5 if sugar is elevated will place on insulin (4) Chronic kidney disease, stage V: creatinine has worsened over course of month. will monitor (5) Hypercholesterolemia: stable resume atorvastatine (6) Legally blind: (7) Vitamin D deficiency: stable. resume home meds (8) Anemia: hemoglobin stable will monitor dvt: heparin History of Present Illness Chief Complaint: SOB Primary Care Provider: Felice Stubbs MD This is a pleasant 79 yo female with history of advacned CKD stage 5 and Systolic CHF who had a recent AV fistula placed 2 weeks ago, comes in to the ER with SOB at rest and orthopnea. She states that she has not felt herself for the past 2-3 weeks and she reports her SOB on exertion has been worsening where she walking short distances would precipitate dyspnea. She also reports she has been sleeping in her chair upright for the past couple of days as she would complain of orthopnea. This past evenening though, she could not sleep even upright which prompted to bring her to the hospital. Allergies Allergy/AdvReac Type Severity Reaction Status Date / Time No Known Allergies Allergy Verified 11/18/19 08:55 Home Medications Home Medications Medication Instructions Recorded Confirmed Type acetaminophen 500 mg tablet 1,000 mg PO BID tab 10/11/18 11/18/19 History aspirin 81 mg tablet,delayed 81 mg PO QPM 10/11/18 11/18/19 History release cholecalciferol (vitamin D3) 2,000 units PO QAM 10/14/19 11/18/19 History fluticasone propionate [Allergy 2 sprays INTNAS DAILY PRN 10/14/19 11/18/19 History Relief (fluticasone)] furosemide 20 mg PO QAM 10/14/19 11/18/19 History multivitamin 1 tab PO QAM 10/14/19 11/18/19 History atorvastatin 10 mg PO HS 10/16/19 11/18/19 History calcitriol 0.25 mcg PO MOWEFR 10/16/19 11/18/19 History meclizine 12.5 mg PO TID PRN 10/16/19 11/18/19 History ferrous sulfate 325 mg (65 mg 325 mg PO DAILY #90 tab 11/07/19 11/18/19 Rx iron) tablet darbepoetin ilia in polysorbat 200 200 mcg SUBCUT .COMPLEX #1 ml 11/10/19 11/18/19 Rx mcg/mL in polysorbate injection diltiazem HCl 180 mg capsule,24 180 mg PO DAILY #30 cap 11/15/19 11/18/19 Rx hr,extended release metoprolol succinate 50 mg 50 mg PO DAILY #30 tab 11/15/19 11/18/19 Rx tablet,extended release 24 hr Past Med/Surg History Medical History Anemia Arthritis Cardiac murmur LAST ECHO 2012- NO NOTED VALVE ISSUES- NO MURMUR NOTED ON EXAM AT PAT ON 10/20/19 Chronic kidney disease, stage V Diabetes Blood sugar fluctuates - had low blood sugar- in ER on 10/16/19- follows with PCP- had med changes Diabetic nephropathy Hyperlipidemia Hypertension Legally blind READS WITH MAGNIFYING GLASSES Surgical History History of bilateral oophorectomy History of colonoscopy History of esophagogastroduodenoscopy (EGD) Hx of cataract surgery R/L Family History Father No problems noted. 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 Required: No Beliefs That Will Affect Care: None Current Living Situation: Alone Feels Safe at Home: Yes Review of Systems Constitutional: + weakness; no fever, no sweats and no body aches Eyes: no diplopia Ear, Nose, Mouth, Throat: no ear trauma and no hyperacusis Respiratory: + dyspnea and + dyspnea on exertion; no cough Cardiovascular: + dyspnea and + orthopnea; no chest pain and no chest pain with activity Gastrointestinal: no abdominal pain and no early satiety Genitourinary: no dysuria and no difficulty urinating Musculoskeletal: no back pain Integumentary: no acne Neurologic: no gait abnormality Psychiatric: no hopelessness Endocrine: + fatigue Hematologic / Lymphatic: no easy bleeding Allergy / Immunological: no lip swelling Physical Exam Constitutional: WD/WN, vitals as above Eyes: PERRL, conjunctivae normal, anicteric sclerae ENMT: external ear and nose normal, oropharynx normal Neck: trachea midline, no thyromegaly Respiratory: normal respiratory effort and + uses accessory muscles Auscultation: + rales Cardiovascular: RRR, no murmur, no edema Gastrointestinal (Abdomen): normal bowel sounds, soft, nontender, no hepatosplenomegaly Musculoskeletal: no cyanosis or clubbing, extremities motor strength 5/5 Skin: no rashes, warm and dry Neurologic: PERRL, EOMI, accommodation nl, no face palsy, no dysarthria Psychiatric: A+Ox3, euthymic affect Results & Data Results & Data ([facility]) Vital Signs (Past 12 Hours) Vital Signs Temp Pulse Pulse Resp BP BP Pulse Ox 11/18/19 09:34 92 H 22 166/77 H 98 11/18/19 08:53 92 H 20 179/84 H 98 11/18/19 08:45 95 11/18/19 08:10 36.9 C 92 H 20 162/78 H 97 PG Care Time/CCT Total # of Minutes Spent Total Time Spent with Patient: Total time spent is greater than 50% in coordination of care (as documented) at patient's floor/unit and/or counseling patient: Coding Level of Care Code 45139 Initial Inpt Care Lvl 3 Diagnoses Acute CHF (congestive heart failure) I50.9 Heart failure type: unspecified Gastroesophageal reflux disease K21.9 Diabetes mellitus type 2 with complications E11.8 Chronic kidney disease, stage V N18.5 Hypercholesterolemia E78.00 Legally blind H54.8 Vitamin D deficiency E55.9 Anemia D64.9 (1) Acute CHF (congestive heart failure) Heart failure type: unspecified Qualified Code(s): I50.9 - Heart failure, unspecified
[2019-11-18] MEDS ORDERED: MECLIZINE 12.5 MG TAB PO PRN (11:09)
[2019-11-18 11:22] LABS: Appearance Urine Clear (Clear); Bacteria Urine Automated Negative (Negative); Bilirubin Urine Negative (Negative); Blood Urine Trace (Negative); Color Urine Yellow; Glucose Urine UA 1+ (Negative); Ketones Urine Negative (Negative); Leukocyte Esterase Urine Negative (Negative); Nitrite Urine Negative (Negative); Protein Urine 3+ (Negative); RBC Urine Automated 0-4 /hpf (0-4); Specific Gravity Urine 1.015 (1.000-1.030); Urobilinogen Urine Negative (Negative)
--- NOTE | 2019-11-18 11:32 | Emergency Department Note ---
ED Visit Note Today I saw this patient for shortness of breath and discussed my findings with Dr. Fontaine who evaluated her separately. Please see his documentation for assessment and plan. . Resident Activity Tracking Resident Involvement: Resident Care Provided Care Provided: Adult ED : Acute CHF (congestive heart failure) Qualifiers: Heart failure type: unspecified Qualified Code(s): I50.9 - Heart failure, unspecified
--- NOTE | 2019-11-18 11:37 | Nephrology Consultation ---
Date of Consultation November 18, 2019 Assessment & Plan (1) Chronic kidney disease, stage V: * Kidney function is relatively stable but patient now has mild CHF and early uremic symptoms * AVF created 11/02/19: + bruit but not yet mature for use * Will provide Furosemide 80 mg IV x1 and monitor UO and electrolyte balance * If poor response to diuretic therapy will need to consult vascular surgery Thursday for IJ THC * Recheck PRP and UO this afternoon (2) Acute CHF (congestive heart failure): * Symptomatically improved following application of O2 * Echocardiogram 11/09/19: LVEF 40 - 45%, global hypokinesis of LV, mild LVH, mod MR, mild TR * Provide trial of high dose loop diuretic therapy as outlined above (3) Anemia: * Hgb acceptable at 10.0. No acute indication for CHRIS * Continue oral iron therapy (4) Diabetes mellitus type 2 with complications: (5) Legally blind: History of Present Illness Reason for Consultation: Stage V CKD, pulmonary edema History of Present Illness Ms. Rodriguez is a 79 year old white female who is seen at the request of Dr. Epstein for evaluation of stage V CKD w/ pulmonary edema. Medical records in the EMR were reviewed today and are summarized as follows: Ms. Rodriguez has stage V CKD and has undergone Nephrology evaluation by Dr. Rock. Her renal impairment is due to diabetic nephropathy. Her medical history is also significant for HTN, iron deficiency anemia and secondary hyperparathyroidism. Ms. Rodriguez's baseline Cr has been 4.9 w/ EGFR 8 cc/min. She resides w/ a friend in [place], [place] and has completed dialysis education classes at [facility]. Ms. Rodriguez underwent L BC AVF by Dr. Mercedes 11/02/19. She reports that over the last two weeks she has suffered from progressive dyspnea and orthopnea. She now has dysgeusia as well. Evaluation in the ED revealed CHF on CXR. SaO2 improved from 88% to 93% following application of O2 at 2 L/min NC Allergies Allergy/AdvReac Type Severity Reaction Status Date / Time No Known Allergies Allergy Verified 11/18/19 08:55 Home Medications Home Medications Medication Instructions Recorded Confirmed Type acetaminophen 500 mg tablet 1,000 mg PO BID tab 10/11/18 11/18/19 History aspirin 81 mg tablet,delayed 81 mg PO QPM 10/11/18 11/18/19 History release cholecalciferol (vitamin D3) 2,000 units PO QAM 10/14/19 11/18/19 History fluticasone propionate [Allergy 2 sprays INTNAS DAILY PRN 10/14/19 11/18/19 History Relief (fluticasone)] furosemide 20 mg PO QAM 10/14/19 11/18/19 History multivitamin 1 tab PO QAM 10/14/19 11/18/19 History atorvastatin 10 mg PO HS 10/16/19 11/18/19 History calcitriol 0.25 mcg PO MOWEFR 10/16/19 11/18/19 History meclizine 12.5 mg PO TID PRN 10/16/19 11/18/19 History ferrous sulfate 325 mg (65 mg 325 mg PO DAILY #90 tab 11/07/19 11/18/19 Rx iron) tablet darbepoetin ilia in polysorbat 200 200 mcg SUBCUT .COMPLEX #1 ml 11/10/19 11/18/19 Rx mcg/mL in polysorbate injection diltiazem HCl 180 mg capsule,24 180 mg PO DAILY #30 cap 11/15/19 11/18/19 Rx hr,extended release metoprolol succinate 50 mg 50 mg PO DAILY #30 tab 11/15/19 11/18/19 Rx tablet,extended release 24 hr Patient History Medical History Anemia Arthritis Cardiac murmur LAST ECHO 2012- NO NOTED VALVE ISSUES- NO MURMUR NOTED ON EXAM AT PAT ON 10/20/19 Chronic kidney disease, stage V Diabetes Blood sugar fluctuates - had low blood sugar- in ER on 10/16/19- follows with PCP- had med changes Diabetic nephropathy Hyperlipidemia Hypertension Legally blind READS WITH MAGNIFYING GLASSES Surgical History History of bilateral oophorectomy History of colonoscopy History of esophagogastroduodenoscopy (EGD) Hx of cataract surgery R/L Family History Father No problems noted. Mother Family history of diabetes mellitus Denies family history of Kidney disease Social History Smoking Status: Former smoker Smoking End Date: 2000; Second Hand Exposure: No; Do You Dip or Chew Tobacco: No; Tobacco Cessation Education Requested by Patient: No Hx Alcohol Use: No Hx Substance Use: No Preferred Language: Czech Communication Ability: Impaired Communication Ability Comment: legally blind, uses magnifier to read American History Professor Required: No Beliefs That Will Affect Care: None Current Living Situation: Alone Other Information That Helps Us Care for You: No Feels Safe at Home: Yes Safety Concerns: Feels Safe At This Time Review of Systems Constitutional: + weakness; no fever Eyes: no problem reported Ear, Nose, Mouth, Throat: no problem reported Respiratory: + dyspnea Cardiovascular: + edema; no chest pain and no palpitations Gastrointestinal: + nausea; no abdominal pain and no vomiting Genitourinary: no dysuria and no hematuria Musculoskeletal: no back pain Integumentary: no rash Neurologic: no falls and no dizziness Physical Exam Constitutional: not in distress Eyes: PERRL, conjunctivae normal, anicteric sclerae ENMT: external ear and nose normal, oropharynx normal Neck: trachea midline, no thyromegaly Respiratory: normal respiratory effort, lungs clear to auscultation Cardiovascular: Rate/Rhythm: regular rate and regular rhythm Extremities: + edema (1+ pretibial pitting edema) Gastrointestinal (Abdomen): normal bowel sounds, soft, nontender, no hepatosplenomegaly Musculoskeletal: Extremities: no cyanosis Skin: no rashes, warm and dry Neurologic: awake; not confused Results & Data ([place]) Vital Signs (Past 12 Hours) Vital Signs Temp Pulse Pulse Resp BP BP Pulse Ox 11/18/19 11:05 93 H 22 161/80 H 94 11/18/19 09:34 92 H 22 166/77 H 98 11/18/19 08:53 92 H 20 179/84 H 98 11/18/19 08:45 95 11/18/19 08:10 36.9 C 92 H 20 162/78 H 97 Laboratory Results Laboratory Results WBC 7.49 K/uL (4.8-10.8) 11/18/19 08:49 RBC 3.40 M/uL (4.2-5.4) L 11/18/19 08:49 Hgb 10.0 g/dL (12.0-16.0) L 11/18/19 08:49 Hct 31.3 % (37-47) L 11/18/19 08:49 MCV 92.1 fL (80-100) 11/18/19 08:49 MCH 29.4 pg (25-34) 11/18/19 08:49 MCHC 31.9 g/dL (32-36) L 11/18/19 08:49 RDW Std Deviation 47.4 fL (36.4-46.3) H 11/18/19 08:49 RDW Coeff of Yin 14.3 % (11.5-14.5) 11/18/19 08:49 Plt Count 291 K/uL (130-400) 11/18/19 08:49 MPV 9.3 fL (7.4-10.4) 11/18/19 08:49 Immature Gran % (Auto) 0.1 % 11/18/19 08:49 Neut % (Auto) 81.2 % 11/18/19 08:49 Lymph % (Auto) 10.8 % 11/18/19 08:49 [place] % (Auto) 5.9 % 11/18/19 08:49 Eos % (Auto) 1.6 % 11/18/19 08:49 Baso % (Auto) 0.4 % 11/18/19 08:49 Neut # (Auto) 6.08 K/uL (1.4-6.5) 11/18/19 08:49 Lymph # (Auto) 0.81 K/uL (1.2-3.4) L 11/18/19 08:49 [place] # (Auto) 0.44 K/uL (0.11-0.59) 11/18/19 08:49 Eos # (Auto) 0.12 K/uL (0-0.5) 11/18/19 08:49 Baso # (Auto) 0.03 K/uL (0-0.2) 11/18/19 08:49 Immature Gran # (Auto) 0.01 K/uL (0.00-0.02) 11/18/19 08:49 PT 10.6 Seconds (9.0-12.0) 11/18/19 08:49 INR 1.0 (0.9-1.1) 11/18/19 08:49 APTT 24.2 Seconds (21.0-31.0) 11/18/19 08:49 PTT Ratio 0.9 11/18/19 08:49 Sodium 139 mmol/L (136-145) 11/18/19 08:49 Potassium 5.5 mmol/L (3.5-5.1) H 11/18/19 08:49 Chloride 108 mmol/L (98-107) H 11/18/19 08:49 Carbon Dioxide 21 mmol/L (21-32) 11/18/19 08:49 Anion Gap 10.0 (3-11) 11/18/19 08:49 BUN 60 mg/dl (7-18) H 11/18/19 08:49 Creatinine 5.12 mg/dl (0.6-1.2) H* 11/18/19 08:49 Est Cr Clr Drug Dosing Not Reportable 11/18/19 08:49 Est GFR ( Amer) 8.6 11/18/19 08:49 Est GFR (Non-Af Amer) 7.4 11/18/19 08:49 BUN/Creatinine Ratio 11.7 (-20) 11/18/19 08:49 Glucose 189 mg/dl (70-99) H 11/18/19 08:49 Calcium 10.1 mg/dl (8.5-10.1) 11/18/19 08:49 Total Bilirubin 0.5 mg/dl (0.2-1) 11/18/19 08:49 AST 14 U/L (15-37) L 11/18/19 08:49 ALT 17 U/L (12-78) 11/18/19 08:49 Alkaline Phosphatase 69 U/L (45-117) 11/18/19 08:49 Troponin I 0.017 ng/ml (0-0.045) 11/18/19 08:49 NT-Pro-B Natriuret Pep > 70318 pg/ml (0-1800) H 11/18/19 08:49 Total Protein 6.6 gm/dl (6.4-8.2) 11/18/19 08:49 Albumin 3.2 gm/dl (3.4-5.0) L 11/18/19 08:49 Globulin 3.4 gm/dl (2.5-4.0) 11/18/19 08:49 Albumin/Globulin Ratio 0.9 (0.9-2) 11/18/19 08:49 Lipase 112 U/L (73-393) 11/18/19 08:49 Urine Color Yellow 11/18/19 10:50 Urine Appearance Clear (Clear) 11/18/19 10:50 Urine pH 5.0 (4.5-7.5) 11/18/19 10:50 Ur Specific [place] 1.015 (1.000-1.030) 11/18/19 10:50 Urine Protein 3+ (Negative) H 11/18/19 10:50 Urine Glucose (UA) 1+ (Negative) H 11/18/19 10:50 Urine Ketones Negative (Negative) 11/18/19 10:50 Urine Blood Trace (Negative) H 11/18/19 10:50 Urine Nitrite Negative (Negative) 11/18/19 10:50 Urine Bilirubin Negative (Negative) 11/18/19 10:50 Urine Urobilinogen Negative (Negative) 11/18/19 10:50 Ur Leukocyte Esterase Negative (Negative) 11/18/19 10:50 Urine WBC (Auto) 1-5 /hpf (0-5) 11/18/19 10:50 Urine RBC (Auto) 0-4 /hpf (0-4) 11/18/19 10:50 U Hyaline Cast (Auto) 1-5 /lpf (0-5) 11/18/19 10:50 U Epithel Cells (Auto) 10-20 /lpf (0-5) H 11/18/19 10:50 Urine Bacteria (Auto) Negative (Negative) 11/18/19 10:50 PG Care Time/CCT Total # of Minutes Spent Total Time Spent with Patient: Total time spent is greater than 50% in coordination of care (as documented) at patient's floor/unit and/or counseling patient: Coding Level of Care Code 44686 Inpt Consult Level 5 Diagnoses Chronic kidney disease, stage V N18.5 Acute CHF (congestive heart failure) I50.9 Heart failure type: unspecified Anemia D64.9 Diabetes mellitus type 2 with complications E11.8 Legally blind H54.8 (1) Acute CHF (congestive heart failure) Heart failure type: unspecified Qualified Code(s): I50.9 - Heart failure, unspecified
[2019-11-18 12:16] LABS: Blood Urea Nitrogen 62 mg/dl (7-18); Calcium 9.6 mg/dl (8.5-10.1); Carbon Dioxide 22 mmol/L (21-32); Chloride 109 mmol/L (98-107); Est GFR (African American) 8.6; Est GFR (Non-African American) 7.4; Glucose 179 mg/dl (70-99); Potassium 5.9 mmol/L (3.5-5.1); Sodium 139 mmol/L (136-145)
[2019-11-18] MEDS ORDERED: SODIUM POLYSTYRENE SULFONATE 15G/60ML SUSP PO STA ×2 (12:39→15:48)
--- NOTE | 2019-11-18 12:46 | Electrocardiogram Report ---
Test Reason : Blood Pressure : / mmHG Vent. Rate : 096 BPM Atrial Rate : 096 BPM P-R Int : 198 ms QRS Dur : 084 ms QT Int : 338 ms P-R-T Axes : 053 020 194 degrees QTc Int : 427 ms Poor data quality, interpretation may be adversely affected Normal sinus rhythm Minimal voltage criteria for LVH, may be normal variant Abnormal ECG Confirmed by Felice Quinones ([id number]) on 11/18/2019 12:45:41 PM Referred By: REFERRED SELF Confirmed By:Antony Quinones
[2019-11-18] MEDS: CALCITRIOL 0.25 MCG CAPSULE PO SCH (13:49)
[2019-11-18] MEDS: HEPARIN SOD 5,000 UNIT/0.5 ML VIAL SQ SCH ×2 (14:44→20:52)
[2019-11-18 15:40] LABS: BUN Creatinine Ratio 11.9 (10-20); Calcium 9.8 mg/dl (8.5-10.1); Creatinine Clr Calc Pharmacy 7.5 ml/min; Est GFR (African American) 8.2; Est GFR (Non-African American) 7.1; Potassium 5.4 mmol/L (3.5-5.1)
[2019-11-18] MEDS ORDERED: PHARMACY GLYCEMIC MGMT CONSULT PRN (15:59)
[2019-11-18] MEDS ORDERED: DEXTROSE 50% 50 ML SYRINGE IV PRN (16:00)
[2019-11-18] MEDS ORDERED: GLUCOSE 40% GEL 15 GM TUBE PO PRN (16:00)
[2019-11-18] MEDS ORDERED: CARBOHYDRATES FOR HYPOGLYCEMIA PO PRN (16:00)
[2019-11-18] MEDS ORDERED: GLUCAGON FOR INJ 1 MG VIAL IM PRN (16:00)
[2019-11-18] MEDS ORDERED: GLUCOSE 10 TABS/TUBE PO PRN (16:00)
[2019-11-18] MEDS ORDERED: INSULIN GLARGINE SOLOSTAR 100 UNITS/ML 3 ML PEN SC ONE (16:30)
[2019-11-18] MEDS ORDERED: FUROSEMIDE 40 MG in SYRINGE 0 ML IV SCH (17:00)
[2019-11-18] MEDS: INSULIN ASPART 100 UNITS/ML 3 ML PEN SC SCH ×2 (17:06→20:53)
[2019-11-18] MEDS ORDERED: ONDANSETRON INJ 2 MG/ML 2 ML VIAL IV PRN (18:24)
[2019-11-18 20:43] LABS: BUN Creatinine Ratio 11.9 (10-20); Calcium 9.3 mg/dl (8.5-10.1); Creatinine Clr Calc Pharmacy 7.6 ml/min; Est GFR (African American) 8.3; Est GFR (Non-African American) 7.2; Potassium 4.9 mmol/L (3.5-5.1)
[2019-11-18] MEDS: ATORVASTATIN 10 MG TAB PO SCH (20:52)
[2019-11-18] MEDS: ASPIRIN 81 MG ECTAB PO SCH (20:52)
[2019-11-19 06:12] LABS: Hematocrit (blood only) 31.3 % (37-47); Hemoglobin 10.1 g/dL (12.0-16.0); Mean Corpuscular Hemoglobin 29.6 pg (25-34); Mean Corpuscular Hgb Conc 32.3 g/dL (32-36); Mean Corpuscular Volume 91.8 fL (80-100); Mean Platelet Volume 9.5 fL (7.4-10.4); Platelet Count 266 K/uL (130-400); RDW Coefficient of Variation 14.3 % (11.5-14.5); RDW Standard Deviation 47.2 fL (36.4-46.3); Red Blood Count 3.41 M/uL (4.2-5.4); White Blood Count 7.27 K/uL (4.8-10.8)
[2019-11-19] MEDS: HEPARIN SOD 5,000 UNIT/0.5 ML VIAL SQ SCH ×3 (06:12→20:22)
[2019-11-19 06:46] LABS: Estimated Average Glucose 151 mg/dl; Hemoglobin A1C 6.9 % (4.5-5.6)
[2019-11-19 06:48] LABS: Calcium 8.7 mg/dl (8.5-10.1); Creatinine Clr Calc Pharmacy 7.8 ml/min; Est GFR (African American) 8.6; Est GFR (Non-African American) 7.4
[2019-11-19] MEDS: FERROUS SULFATE 325 MG TAB PO SCH (07:56)
[2019-11-19] MEDS: CHOLECALCIFEROL 1,000 UNITS 25 MCG TAB PO SCH (07:56)
[2019-11-19] MEDS: MULTIVITAMIN TAB PO SCH (07:56)
[2019-11-19] MEDS: INSULIN ASPART 100 UNITS/ML 3 ML PEN SC SCH ×4 (08:36→20:22)
--- NOTE | 2019-11-19 12:16 | Nephrology Progress Note ---
Date of Service November 19, 2019 Assessment & Plan (1) Chronic kidney disease, stage V: Tory has stage 5 CKD, baseline creatinine lately has been around 4, secondary to diabetic nephropathy. She had left brachiocephalic AV fistula placed on which is currently maturing but not ready. She was admitted to the hospital with progressive shortness of breath over last few weeks. On admission she was found to be volume overloaded, started on IV diuretics with improvement in volume status. She was also found to have hyperkalemia, potassium was some above 6 which improved and now normalized. Renal function staying relatively stable with creatinine around 5.2, other electrolyte normal. She has been voiding normally with decent response to diuretics. Shortness of breath improved. Appetite decent with no overt uremic symptoms. -- As hyperkalemia resolved, renal function relatively stable, no indication for urgent dialysis at this time. Hopefully we can avoid dialysis this admission to avoid tunnel catheter as her fistula is not ready to be used yet. -- Strictly follow low-potassium diet, change diet to renal diet -- change diuretics to Lasix 40 mg twice a day continue to monitor her for improvement volume status, aim for net negative. If continues to have good response to diuretics, will consider decreasing Lasix eventual to 40 mg daily on discharge. -- check iron study, may need IV iron or Epogen -- dose medications for GFR less than 10, left arm nephrology precaution will follow (2) Anemia: (3) Hypertension: (4) Hyperkalemia: Admission and Anticipated Discharge Date Admission Date: November 18, 2019 Subjective Tory was seen and examined in her room this morning. She is overall feeling better, shortness of Breath improved. Having decent urine with net negative more than 600 mL. Blood pressure has been stable. Appetite decent. Hyperkalemia resolved, renal function staying relatively stable. Hemoglobin stable. Review of Systems Review of Systems: All systems reviewed & are unremarkable except as noted in HPI & below Physical Exam Constitutional: well developed and well nourished; no acute distress Respiratory: normal respiratory effort; no respiratory distress Auscultation: + crackles Cardiovascular: RRR, no murmur, no edema Neurologic: moves all extremities and awake; not confused Psychiatric: A+Ox3, euthymic affect Results & Data ([facility]) Vital Signs (Past 12 Hours) Vital Signs Temp Pulse Pulse Resp BP Pulse Ox 11/19/19 11:59 36.6 C 68 18 148/61 H 96 11/19/19 07:59 36.8 C 74 16 159/69 H 98 11/19/19 07:04 81 11/19/19 03:49 36.7 C 76 18 166/76 H 96 11/19/19 00:29 36.8 C 76 18 176/76 H 94 PG Care Time/CCT Total # of Minutes Spent Total Time Spent with Patient: Total time spent is greater than 50% in coordination of care (as documented) at patient's floor/unit and/or counseling patient: Coding Level of Care Code 77612 Subseq Hosp Care Lvl 3 Diagnoses Chronic kidney disease, stage V N18.5 Anemia D64.9 Hypertension I10 Hyperkalemia E87.5
--- NOTE | 2019-11-19 15:09 | Pharmacy Report ---
Pharmacy Glycemic Short Note 2 - Date of Service November 19, 2019 - Glycemic Short BSG Results (Last 24 hours): 11/18/19 11/18/19 11/18/19 14:57 17:02 19:28 Glucose 242 H 174 H POC Glucose 225 H 11/18/19 11/19/19 11/19/19 20:53 05:50 07:11 Glucose 89 POC Glucose 150 H 88 11/19/19 11:21 Glucose POC Glucose 255 H OUTPATIENT ANTIDIABETIC REGIMEN: * glimepiride 1 mg PO BID * A1c = 6.9& 11/19/19 ASSESSMENT: * Patient is a 79 yo female with NYLA, CKD stage V, acute systolic CHF, and T2DM * Oral agents were held for admission and patient was started on low dose Lantus + Novolog * Fasting BSG of 88 mg/dL is below goal. I would hold off on further basal insulin. * Lunch BSG was elevated at 255 mg/dL. Nursing notes indicate that patient had a late breakfast (carbs not covered) which explains BSG. PLAN FOR INPATIENT GLYCEMIC CONTROL: * Hold outpatient oral diabetes medications * Basal insulin * none * Bolus insulin * NovoLog per scale ACHS or Q6hrs while NPO * Goal Range: Low 110 mg/dL - High 140 mg/dL * Correction Factor: 35 mg/dL/unit * Nutritional / Prandial insulin per carb ratio of 1 unit per 9 grams CHO consumed PLAN FOR DISCHARGE: *
[2019-11-19] MEDS: ACETAMINOPHEN 500 MG TAB PO PRN ×2 (16:20→23:56)
[2019-11-19] MEDS: FUROSEMIDE 40 MG TAB PO SCH (16:21)
[2019-11-19] MEDS: ATORVASTATIN 10 MG TAB PO SCH (19:28)
[2019-11-19] MEDS: ASPIRIN 81 MG ECTAB PO SCH (19:29)
--- NOTE | 2019-11-19 20:07 | Hospitalist Progress Note ---
Date of Service November 19, 2019 Assessment & Plan (1) Volume overload: With a history of CKD stage V that is progressing, and now with pulmonary edema and shortness of breath secondary to volume overload from worsening renal failure, not CHF Received Lasix 80 mg IV x1 last night and is -600 mils today, and is less dyspneic today Appreciate nephrology consultation-convert to Lasix 40 mg p.o. twice daily for now Patient has AV fistula but is it not mature yet as it is only 2 weeks old-hoping to avoid need for temporary tunneled catheter placement for urgent dialysis Follow BMP, follow urine output (2) Chronic kidney disease, stage V: creatinine has worsened over course of month and now staying stable at 5.1. With early uremic symptoms as well as pulmonary edema and volume overload as above As above, appreciate nephrology consultation If poor response to diuretic therapy will need to consult vascular surgery on Thursday for IJ THC Control blood pressures-Home diltiazem and metoprolol were held upon admission- will restart metoprolol in the morning -Continue calcitriol, vitamin D, ferrous sulfate (3) Hyperkalemia: Potassium is elevated upon admission to 5.9 and this was treated with Janel xalate, IV Lasix Now improved down to 4.0 Follow BMP in the morning Low potassium diet (4) Diabetes mellitus type 2 with complications: will monitor blood glucose ACHS. With some intermittent hyperglycemia currently A1C is 6.9% It does not appear she is on medication for diabetes at home-previously was on glimepiride but appropriately held for worsening renal function Continue sliding scale insulin with NovoLog (5) Cardiomyopathy: Recent echocardiogram 2 weeks ago with LVEF 40-45% with some mild hypokinesis Cardiology PA recently prescribed metoprolol but she has not yet started it-we will start this tomorrow morning No BRIANDA inhibitor/ARB due to worsening renal failure (6) Hypertension: Blood pressures mildly elevated Starting metoprolol tomorrow morning Holding home diltiazem -Could add on amlodipine if needed instead -Continue aspirin 81 mg daily (7) Legally blind: Noted (8) Vitamin D deficiency: Continue home calcitriol and vitamin D as above (9) Anemia: Mild, secondary to chronic kidney disease, hemoglobin 10.1 -Check iron studies in the morning -Continue home ferrous sulfate (10) Hypercholesterolemia: stable Continue atorvastatin (11) Upper back pain: Seems MSK in nature Start Tylenol and heating pad Advised patient to get out of bed to chair and ambulate (12) DVT prophylaxis: Heparin SQ Disposition-remain on PCU Admission and Anticipated Discharge Date Admission Date: November 18, 2019 Subjective Patient feeling better than when she came in. Less short of breath today. She has diuresed some fluid with IV Lasix but reports that her urine output has decreased today as she did not receive IV Lasix this morning. She is having some upper back pain from being in the bed. I suggested she get out of bed to the chair and try Tylenol and heating pad. Denies chest pain or nausea, no abdominal pain. She is tolerating a diet. Telemetry with normal sinus rhythm with rates in the 70s to 80s Review of Systems Review of Systems: All systems reviewed & are unremarkable except as noted in HPI & below Physical Exam Constitutional: WD/WN, vitals as above Eyes: + anicteric sclerae ENMT: external ear and nose normal, oropharynx normal Neck: trachea midline, no thyromegaly Respiratory: normal respiratory effort Auscultation: + crackles (At the bases bilaterally); no rhonchi and no wheezes Cardiovascular: Rate/Rhythm: regular rate and regular rhythm Heart Sounds: no murmur Extremities: + edema (1+ pitting edema of the legs to the knees bilaterally) and + AV fistula (Left upper extremity, incision clean dry and intact) Chest (Breasts): Chest: normal inspection of chest Gastrointestinal (Abdomen): normal bowel sounds, soft, nontender, no hepatosplenomegaly Musculoskeletal: Extremities: extremities normal to inspection; no cyanosis and no clubbing Skin: no rashes, warm and dry Neurologic: moves all extremities and awake; no focal motor deficits Psychiatric: A+Ox3, euthymic affect Lymphatic: no lymphedema Results & Data Results & Data ([facility]) Vital Signs (Past 12 Hours) Vital Signs Temp Pulse Pulse Resp BP Pulse Ox 11/19/19 19:21 36.7 C 72 18 144/67 H 97 11/19/19 16:26 37.0 C 70 16 154/79 H 95 11/19/19 15:06 86 11/19/19 11:59 36.6 C 68 18 148/61 H 96 Laboratory Results 11/19/19 11/19/19 11/19/19 Range/Units 19:27 16:52 11:21 WBC (4.8-10.8) K/uL RBC (4.2-5.4) M/uL Hgb (12.0-16.0) g/dL Hct (37-47) % MCV (80-100) fL MCH (25-34) pg MCHC (32-36) g/dL RDW Std Deviation (36.4-46.3) fL RDW Coeff of Yin (11.5-14.5) % Plt Count (130-400) K/uL MPV (7.4-10.4) fL Sodium (136-145) mmol/L Potassium (3.5-5.1) mmol/L Chloride (98-107) mmol/L Carbon Dioxide (21-32) mmol/L Anion Gap (3-11) BUN (7-18) mg/dl Creatinine (0.6-1.2) mg/dl Est Cr Clr Drug Dosing ml/min Est GFR ( Amer) Est GFR (Non-Af Amer) BUN/Creatinine Ratio (10-20) Glucose (70-99) mg/dl POC Glucose 107 H 139 H 255 H (70-99) mg/dl Estimat Average Glucose mg/dl Hemoglobin A1c (4.5-5.6) % Calcium (8.5-10.1) mg/dl 11/19/19 11/19/19 11/19/19 Range/Units 07:11 05:50 05:50 WBC 7.27 (4.8-10.8) K/uL RBC 3.41 L (4.2-5.4) M/uL Hgb 10.1 L (12.0-16.0) g/dL Hct 31.3 L (37-47) % MCV 91.8 (80-100) fL MCH 29.6 (25-34) pg MCHC 32.3 (32-36) g/dL RDW Std Deviation 47.2 H (36.4-46.3) fL RDW Coeff of Yin 14.3 (11.5-14.5) % Plt Count 266 (130-400) K/uL MPV 9.5 (7.4-10.4) fL Sodium 142 (136-145) mmol/L Potassium 4.0 D (3.5-5.1) mmol/L Chloride 109 H (98-107) mmol/L Carbon Dioxide 23 (21-32) mmol/L Anion Gap 10.0 (3-11) BUN 62 H (7-18) mg/dl Creatinine 5.15 H* (0.6-1.2) mg/dl Est Cr Clr Drug Dosing 7.8 ml/min Est GFR ( Amer) 8.6 Est GFR (Non-Af Amer) 7.4 BUN/Creatinine Ratio 12.0 (10-20) Glucose 89 (70-99) mg/dl POC Glucose 88 (70-99) mg/dl Estimat Average Glucose mg/dl Hemoglobin A1c (4.5-5.6) % Calcium 8.7 (8.5-10.1) mg/dl 11/19/19 11/18/19 11/18/19 Range/Units 05:50 20:53 19:28 WBC (4.8-10.8) K/uL RBC (4.2-5.4) M/uL Hgb (12.0-16.0) g/dL Hct (37-47) % MCV (80-100) fL MCH (25-34) pg MCHC (32-36) g/dL RDW Std Deviation (36.4-46.3) fL RDW Coeff of Yin (11.5-14.5) % Plt Count (130-400) K/uL MPV (7.4-10.4) fL Sodium 141 (136-145) mmol/L Potassium 4.9 (3.5-5.1) mmol/L Chloride 108 H (98-107) mmol/L Carbon Dioxide 24 (21-32) mmol/L Anion Gap 9.0 (3-11) BUN 63 H (7-18) mg/dl Creatinine 5.27 H* (0.6-1.2) mg/dl Est Cr Clr Drug Dosing 7.6 ml/min Est GFR ( Amer) 8.3 Est GFR (Non-Af Amer) 7.2 BUN/Creatinine Ratio 11.9 (10-20) Glucose 174 H (70-99) mg/dl POC Glucose 150 H (70-99) mg/dl Estimat Average Glucose 151 mg/dl Hemoglobin A1c 6.9 H (4.5-5.6) % Calcium 9.3 (8.5-10.1) mg/dl PG Care Time/CCT Total # of Minutes Spent Total Time Spent with Patient: Total time spent is greater than 50% in coordination of care (as documented) at patient's floor/unit and/or counseling patient: Coding Level of Care Code 11333 Subseq Hosp Care Lvl 3 Diagnoses Volume overload E87.70 Chronic kidney disease, stage V N18.5 Hyperkalemia E87.5 Diabetes mellitus type 2 with complications E11.8 Cardiomyopathy I42.9 Hypertension I10 Legally blind H54.8 Vitamin D deficiency E55.9 Anemia D64.9 Hypercholesterolemia E78.00 Upper back pain M54.9 DVT prophylaxis Z29.9
[2019-11-20] MEDS: HEPARIN SOD 5,000 UNIT/0.5 ML VIAL SQ SCH ×3 (05:58→20:59)
[2019-11-20 06:24] LABS: Albumin Level 2.5 gm/dl (3.4-5.0); BUN Creatinine Ratio 13.9 (10-20); Calcium 8.8 mg/dl (8.5-10.1); Creatinine Clr Calc Pharmacy 7.4 ml/min; Est GFR (African American) 8.3; Est GFR (Non-African American) 7.1; Phosphorus 6.6 mg/dl (2.5-4.9); Potassium 3.7 mmol/L (3.5-5.1)
[2019-11-20] MEDS: METOPROLOL SUCC 50MG EXT REL TAB PO SCH (07:28)
[2019-11-20] MEDS: CHOLECALCIFEROL 1,000 UNITS 25 MCG TAB PO SCH (08:20)
[2019-11-20] MEDS: FUROSEMIDE 40 MG TAB PO SCH (08:20)
[2019-11-20] MEDS: FERROUS SULFATE 325 MG TAB PO SCH (08:21)
[2019-11-20] MEDS: MULTIVITAMIN TAB PO SCH (08:21)
[2019-11-20] MEDS: INSULIN ASPART 100 UNITS/ML 3 ML PEN SC SCH ×4 (08:21→20:39)
[2019-11-20] MEDS ORDERED: IRON SUCROSE 200 MG in 0.9 % SODIUM CHLORIDE 100 ML IV ONE (10:30)
[2019-11-20] MEDS: SEVELAMER HCL 800 MG TABLET PO SCH ×2 (12:07→17:19)
--- NOTE | 2019-11-20 12:13 | Nephrology Progress Note ---
Date of Service November 20, 2019 Assessment & Plan (1) Chronic kidney disease, stage V: Tory has stage 5 CKD, baseline creatinine lately has been around 4, secondary to diabetic nephropathy. She had left brachiocephalic AV fistula placed on which is currently maturing but not ready. She was admitted to the hospital with progressive shortness of breath over last few weeks. On admission she was found to be volume overloaded, started on IV diuretics with improvement in volume status. She was also found to have hyperkalemia, potassium was some above 6 which improved and now normalized. Renal function staying relatively stable with creatinine around 5.2, other electrolyte normal. She has been voiding normally with decent response to diuretics. Shortness of breath improved. Appetite decent with no overt uremic symptoms. Slight worsening renal function with shortness of breath and elevated blood pressure. Electrolyte acceptable. -- Lasix 40 mg IV x1 dose now -- start on Renvela 1 tab t.i.d. with male -- start on Venofer 100 mg IV daily for total of 5 doses -- Strictly follow low-potassium diet, change diet to renal diet -- dose medications for GFR less than 10, left arm nephrology precaution -- no indication for dialysis today if renal function continues to worsen and she continues to need dose of diuretics may need to get tunneled catheter and start hemodialysis in next 24-48 hours. will follow (2) Anemia: * Hgb acceptable at 10.0. No acute indication for CHRIS * Continue oral iron therapy (3) Hypertension: (4) Hyperkalemia: Admission and Anticipated Discharge Date Admission Date: November 18, 2019 Subjective Tory was seen and examined in her room this morning. She has been having shortness of breath this morning which now seems to be slightly better. still responding to diuretics net even. Blood pressure slightly elevated. Appetite decent. Hyperkalemia resolved, renal function slightly worsened, electrolyte acceptable. Hemoglobin with iron deficiency. Review of Systems Review of Systems: All systems reviewed & are unremarkable except as noted in HPI & below Physical Exam Constitutional: well developed and well nourished; no acute distress Respiratory: normal respiratory effort; no respiratory distress Auscultation: + crackles Cardiovascular: RRR, no murmur, no edema Neurologic: moves all extremities and awake; not confused Psychiatric: A+Ox3, euthymic affect Results & Data ([place]) Vital Signs (Past 12 Hours) Vital Signs Temp Pulse Pulse Resp BP BP Pulse Ox 11/20/19 08:20 73 154/73 H 11/20/19 07:22 36.7 C 77 18 172/82 H 95 11/20/19 07:00 68 11/20/19 03:23 36.7 C 70 18 158/74 H 95 11/20/19 00:44 86 PG Care Time/CCT Total # of Minutes Spent Total Time Spent with Patient: Total time spent is greater than 50% in coordination of care (as documented) at patient's floor/unit and/or counseling patient: Coding Level of Care Code 70224 Subseq Hosp Care Lvl 3 Diagnoses Chronic kidney disease, stage V N18.5 Anemia D64.9 Hypertension I10 Hyperkalemia E87.5
[2019-11-20] MEDS ORDERED: FUROSEMIDE 40 MG in SYRINGE 0 ML IV ONE (12:15)
--- NOTE | 2019-11-20 15:04 | Pharmacy Report ---
Pharmacy Glycemic Short Note 2 - Date of Service November 20, 2019 - Glycemic Short BSG Results (Last 24 hours): 11/19/19 11/19/19 11/20/19 16:52 19:27 05:24 Glucose 96 POC Glucose 139 H 107 H 11/20/19 11/20/19 07:36 11:18 Glucose POC Glucose 98 172 H OUTPATIENT ANTIDIABETIC REGIMEN: * glimepiride 1 mg PO BID * A1c = 6.9& 11/19/19 ASSESSMENT: 11/19: * Tory received 10 units of novolog yesterday with adequate glycemic control; BSG 88, 255, 139, 107 * Fasting BSG is at goal without basal insulin * Post prandial BSGs trending downward throughout the day yesterday, therefore carb coverage was decreased 11/18: * Patient is a 79 yo female with NYLA, CKD stage V, acute systolic CHF, and T2DM * Oral agents were held for admission and patient was started on low dose Lantus + Novolog * Fasting BSG of 88 mg/dL is below goal. I would hold off on further basal insulin. * Lunch BSG was elevated at 255 mg/dL. Nursing notes indicate that patient had a late breakfast (carbs not covered) which explains BSG. PLAN FOR INPATIENT GLYCEMIC CONTROL: * Hold outpatient oral diabetes medications * Basal insulin * none * Bolus insulin - loosen carb coverage * NovoLog per scale ACHS or Q6hrs while NPO * Goal Range: Low 110 mg/dL - High 140 mg/dL * Correction Factor: 35 mg/dL/unit * Nutritional / Prandial insulin per carb ratio of 1 unit per 11 grams CHO consumed
--- NOTE | 2019-11-20 18:59 | Hospitalist Progress Note ---
Date of Service November 20, 2019 Assessment & Plan (1) Volume overload: With a history of CKD stage V that is progressing, and now with pulmonary edema and shortness of breath secondary to volume overload from worsening renal failure, not CHF Received Lasix 80 mg IV x1 on the first day of admission and then another 40 mg IV the second day and again today as per nephrology Appreciate nephrology consultation Less dyspneic and lower extremity edema is improved, creatinine remains stable a t 5.3 -Continue furosemide 40 mg p.o. once daily Patient has AV fistula but is it not mature yet as it is only 2 weeks old-hoping to avoid need for temporary tunneled catheter placement for urgent dialysis Follow BMP, follow urine output, daily weights -Low-sodium and renal dialysis diet (2) Chronic kidney disease, stage V: creatinine has worsened over course of month and now staying stable at 5.1-5.3. With early uremic symptoms as well as pulmonary edema and volume overload as above As above, appreciate nephrology consultation If poor response to diuretic therapy will need to consult vascular surgery on Thursday for IJ THC Control blood pressures-Home diltiazem and metoprolol were held upon admission- have since restarted metoprolol -Continue calcitriol, vitamin D, ferrous sulfate -IV Venofer x5 doses started today -Starting sevelamer 800 mg p.o. 3 times daily with meals, Nephrocaps (3) Hyperkalemia: Potassium is elevated upon admission to 5.9 and this was treated with Kayexalate, IV Lasix Now improved Follow BMP in the morning Low potassium diet -Continue daily p.o. Lasix (4) Diabetes mellitus type 2 with complications: will monitor blood glucose ACHS. With some intermittent hyperglycemia, with labile glucose readings at times currently A1C is 6.9% It does not appear she is on medication for diabetes at home-previously was on glimepiride but appropriately held for worsening renal function Continue sliding scale insulin with NovoLog Consider starting Lantus once daily here and continuing on as an outpatient if continues with hyperglycemia tomorrow (5) Cardiomyopathy: Recent echocardiogram 2 weeks ago with LVEF 40-45% with some mild hypokinesis Cardiology PA recently prescribed metoprolol but she has not yet started it at home-now started here Toprol-XL 50 mg once daily every morning No BRIANDA inhibitor/ARB due to worsening renal failure Diuretics as above No need to follow in CHF clinic as volume management will be as per nephrology (6) Hypertension: Blood pressures mildly elevated Started metoprolol daily Holding home diltiazem -Could add on amlodipine if needed instead -Continue aspirin 81 mg daily (7) Legally blind: Noted (8) Vitamin D deficiency: Continue home calcitriol and vitamin D as above (9) Anemia: Mild, secondary to chronic kidney disease, hemoglobin 10.1 -Iron studies show transferrin saturation 8%, ferritin 41 Start Venofer 200 mg IV once daily x5 doses as per nephrology -Continue home ferrous sulfate (10) Hypercholesterolemia: stable Continue atorvastatin (11) Upper back pain: Seems MSK in nature-now resolved Continue Tylenol and heating pad as needed Advised patient to get out of bed to chair and ambulate which she is doing today (12) DVT prophylaxis: Heparin SQ Disposition-remain on PCU Admission and Anticipated Discharge Date Admission Date: November 18, 2019 Subjective Pt feeling better today. SOB improved, was able to get up and walk around the room today. Denies chest pain or nausea. She is eating somewhat. She feels she is urinating more today but not as much as the first day. Telemetry with normal sinus rhythm with PVCs and rates 70s-80s with a brief run of atrial tachycardia. Review of Systems Review of Systems: All systems reviewed & are unremarkable except as noted in HPI & below Physical Exam Constitutional: WD/WN, vitals as above Eyes: + anicteric sclerae Neck: trachea midline, no thyromegaly Respiratory: normal respiratory effort, lungs clear to auscultation Cardiovascular: Rate/Rhythm: regular rate and regular rhythm Heart Sounds: no murmur Extremities: + edema (Trace pitting edema of the legs to the knees bilaterally, improved from previous) and + AV fistula (Left upper extremity, incision clean dry and intact) Chest (Breasts): Chest: normal inspection of chest Gastrointestinal (Abdomen): normal bowel sounds, soft, nontender, no hepatosplenomegaly Musculoskeletal: Extremities: extremities normal to inspection; no cyanosis and no clubbing Skin: no rashes, warm and dry Neurologic: moves all extremities and awake; no focal motor deficits Psychiatric: A+Ox3, euthymic affect Lymphatic: no lymphedema Results & Data Results & Data ([facility]) Vital Signs (Past 12 Hours) Vital Signs Temp Pulse Pulse Resp BP BP Pulse Ox 11/20/19 16:00 70 11/20/19 15:48 36.5 C 80 18 158/83 H 96 11/20/19 12:13 36.5 C 80 18 160/73 H 96 11/20/19 08:20 73 154/73 H 11/20/19 07:22 36.7 C 77 18 172/82 H 95 11/20/19 07:00 68 Laboratory Results 11/20/19 11/20/19 11/20/19 Range/Units 16:15 11:18 07:36 Sodium (136-145) mmol/L Potassium (3.5-5.1) mmol/L Chloride (98-107) mmol/L Carbon Dioxide (21-32) mmol/L Anion Gap (3-11) BUN (7-18) mg/dl Creatinine (0.6-1.2) mg/dl Est Cr Clr Drug Dosing ml/min Est GFR ( Amer) Est GFR (Non-Af Amer) BUN/Creatinine Ratio (10-20) Glucose (70-99) mg/dl POC Glucose 227 H 172 H 98 (70-99) mg/dl Calcium (8.5-10.1) mg/dl Phosphorus (2.5-4.9) mg/dl Iron (35-150) mcg/dl Transferrin (200-360) mg/dl Transferrin % Sat (15-50) % Ferritin (8-388) ng/ml Albumin (3.4-5.0) gm/dl 11/20/19 Range/Units 05:24 Sodium 140 (136-145) mmol/L Potassium 3.7 (3.5-5.1) mmol/L Chloride 107 (98-107) mmol/L Carbon Dioxide 23 (21-32) mmol/L Anion Gap 9.0 (3-11) BUN 73 H (7-18) mg/dl Creatinine 5.30 H* (0.6-1.2) mg/dl Est Cr Clr Drug Dosing 7.4 ml/min Est GFR ( Amer) 8.3 Est GFR (Non-Af Amer) 7.1 BUN/Creatinine Ratio 13.9 (10-20) Glucose 96 (70-99) mg/dl POC Glucose (70-99) mg/dl Calcium 8.8 (8.5-10.1) mg/dl Phosphorus 6.6 H (2.5-4.9) mg/dl Iron 23 L (35-150) mcg/dl Transferrin 201 (200-360) mg/dl Transferrin % Sat 8 L (15-50) % Ferritin 41.0 (8-388) ng/ml Albumin 2.5 L (3.4-5.0) gm/dl PG Care Time/CCT Total # of Minutes Spent Total Time Spent with Patient: Total time spent is greater than 50% in coordination of care (as documented) at patient's floor/unit and/or counseling patient: Coding Level of Care Code 17266 Subseq Hosp Care Lvl 3 Diagnoses Volume overload E87.70 Chronic kidney disease, stage V N18.5 Hyperkalemia E87.5 Diabetes mellitus type 2 with complications E11.8 Cardiomyopathy I42.9 Hypertension I10 Legally blind H54.8 Vitamin D deficiency E55.9 Anemia D64.9 Hypercholesterolemia E78.00 Upper back pain M54.9 DVT prophylaxis Z29.9
[2019-11-20] MEDS: ATORVASTATIN 10 MG TAB PO SCH (19:46)
[2019-11-20] MEDS: ASPIRIN 81 MG ECTAB PO SCH (19:46)
[2019-11-21] MEDS: HEPARIN SOD 5,000 UNIT/0.5 ML VIAL SQ SCH ×2 (05:29→21:02)
[2019-11-21 05:46] LABS: Hematocrit (blood only) 29.4 % (37-47); Hemoglobin 9.6 g/dL (12.0-16.0); Mean Corpuscular Hemoglobin 29.8 pg (25-34); Mean Corpuscular Hgb Conc 32.7 g/dL (32-36); Mean Corpuscular Volume 91.3 fL (80-100); Platelet Count 258 K/uL (130-400); RDW Coefficient of Variation 14.2 % (11.5-14.5); RDW Standard Deviation 47.7 fL (36.4-46.3); Red Blood Count 3.22 M/uL (4.2-5.4); White Blood Count 6.45 K/uL (4.8-10.8)
[2019-11-21 06:20] LABS: Albumin Level 2.5 gm/dl (3.4-5.0); BUN Creatinine Ratio 14.6 (10-20); Calcium 8.6 mg/dl (8.5-10.1); Creatinine Clr Calc Pharmacy 6.9 ml/min; Est GFR (African American) 7.6; Est GFR (Non-African American) 6.6; Phosphorus 6.1 mg/dl (2.5-4.9); Potassium 3.7 mmol/L (3.5-5.1)
[2019-11-21] MEDS: FERROUS SULFATE 325 MG TAB PO SCH (08:01)
[2019-11-21] MEDS: SEVELAMER HCL 800 MG TABLET PO SCH ×3 (08:02→18:03)
[2019-11-21] MEDS: CALCITRIOL 0.25 MCG CAPSULE PO SCH (08:02)
[2019-11-21] MEDS: CHOLECALCIFEROL 1,000 UNITS 25 MCG TAB PO SCH (08:02)
[2019-11-21] MEDS: MULTIVITAMIN TAB PO SCH (08:02)
[2019-11-21] MEDS: METOPROLOL SUCC 50MG EXT REL TAB PO SCH (08:02)
[2019-11-21] MEDS: INSULIN ASPART 100 UNITS/ML 3 ML PEN SC SCH ×4 (08:03→20:58)
--- NOTE | 2019-11-21 08:45 | Pharmacy Report ---
Pharmacy Glycemic Short Note 2 - Date of Service November 21, 2019 - Glycemic Short BSG Results (Last 24 hours): 11/20/19 11/20/19 11/20/19 11:18 16:15 20:37 Glucose POC Glucose 172 H 227 H 89 11/21/19 11/21/19 05:16 07:21 Glucose 115 H POC Glucose 117 H OUTPATIENT ANTIDIABETIC REGIMEN: * glimepiride 1 mg PO BID * A1c = 6.9& 11/19/19 ASSESSMENT: 11/20: * BSGs of 98, 172, 227, and 89 mg/dL yesterday * Will tighten carb ratio slightly given elevated BSGs with lunch and dinner * Fasting BSG of 117 mg/dL this morning - still well controlled without basal insulin (continue to hold) * Consideration for HD if renal function continues to worsen - will monitor PLAN FOR INPATIENT GLYCEMIC CONTROL: * Hold outpatient oral diabetes medications * Basal insulin * none * Bolus insulin - slightly tighten carb coverage * NovoLog per scale ACHS or Q6hrs while NPO * Goal Range: Low 110 mg/dL - High 140 mg/dL * Correction Factor: 35 mg/dL/unit * Nutritional / Prandial insulin per carb ratio of 1 unit per 10 grams CHO consumed PLAN FOR DISCHARGE: * HbA1c of 6.9% is at goal (below 7%) - may even be reasonable to target goal of less than 8% given advanced CKD * Although patient is currently at goal, would suggest change in home regimen as glimepiride is not a recommended medication in patients with eGFR less than 15 mL/min. * Consider dose reduction to glimepiride 1 mg PO daily vs. change to preferred sulfonylurea in CKD, glipizide 2.5 mg PO daily before breakfast
[2019-11-21] MEDS ORDERED: METOPROLOL SUCC 25MG EXT REL TAB PO STA (08:59)
[2019-11-21] MEDS ORDERED: FUROSEMIDE 40 MG TAB PO SCH (09:00)
--- NOTE | 2019-11-21 10:09 | Nephrology Progress Note ---
Date of Service November 21, 2019 Assessment & Plan (1) Chronic kidney disease, stage V: Tory has stage 5 CKD, baseline creatinine lately has been around 4, secondary to diabetic nephropathy. She had left brachiocephalic AV fistula placed on which is currently maturing but not ready. She was admitted to the hospital with progressive shortness of breath over last few weeks. On admission she was found to be volume overloaded, started on IV diuretics with improvement in volume status. She was also found to have hyperkalemia, potassium was some above 6 which improved and now normalized. Renal function staying relatively stable with creatinine around 5.2, other electrolyte normal. She has been voiding normally with decent response to diuretics. Shortness of breath improved. Appetite decent with no overt uremic symptoms. slow progressive worsening of renal function although electrolyte stable, volume status seems to have improved. Net negative over last 24 hours with IV Lasix yesterday. -- Hold Lasix for now, monitor volume status and respiratory status and use as needed. no acute indication for dialysis at this time however since renal function progressively worsening, concern remains for needing dialysis in next 24-48 hours if volume status worsen or develop critical electrolyte abnormality. -- Continue on Renvela 1 tab t.i.d. with meal and Venofer 100 mg IV daily for total of 5 doses until 11/24/19 -- Strictly follow low-potassium diet, change diet to renal diet -- dose medications for GFR less than 10, left arm nephrology precaution -- recommend physical therapy will follow (2) Anemia: * Hgb acceptable at 10.0. No acute indication for CHRIS * Continue oral iron therapy (3) Hypertension: (4) Hyperkalemia: Admission and Anticipated Discharge Date Admission Date: November 18, 2019 Subjective Tory was seen and examined in her room this morning. She she is feeling better today, denies any further episode of shortness of breath. Net negative more than 700 mL last 24 hours after 1 dose of IV Lasix yesterday. Blood pressure slightly elevated. Appetite decent. Hyperkalemia resolved, renal function continues to worsened however, electrolyte acceptable. Hemoglobin stable with iron deficiency. Review of Systems Review of Systems: All systems reviewed & are unremarkable except as noted in HPI & below Physical Exam Constitutional: well developed and well nourished; no acute distress Respiratory: normal respiratory effort; no respiratory distress Auscultation: + crackles Cardiovascular: RRR, no murmur, no edema Neurologic: moves all extremities and awake; not confused Psychiatric: A+Ox3, euthymic affect Results & Data ([facility]) Vital Signs (Past 12 Hours) Vital Signs Temp Pulse Pulse Resp BP Pulse Ox 11/21/19 08:15 36.6 C 67 20 175/75 H 98 11/21/19 03:08 36.5 C 64 18 160/72 H 96 11/21/19 00:01 77 11/20/19 23:17 36.5 C 69 18 156/70 H 97 PG Care Time/CCT Total # of Minutes Spent Total Time Spent with Patient: Total time spent is greater than 50% in coordination of care (as documented) at patient's floor/unit and/or counseling patient: Coding Level of Care Code 20652 Subseq Hosp Care Lvl 3 Diagnoses Chronic kidney disease, stage V N18.5 Anemia D64.9 Hypertension I10 Hyperkalemia E87.5
--- NOTE | 2019-11-21 17:02 | Hospitalist Progress Note ---
Date of Service November 21, 2019 Assessment & Plan (1) Acute pulmonary edema: 2nd to worsening CKD stage 5. Pulmonary edema, respiratory status, and volume status improved. Stable in room air. Holding diuretics today due to rising BUN and Cr. Re-eval in am. (2) Chronic kidney disease, stage V: BUN and Cr continue to rise in face of diuresis for volume overload/pulm edema. Diuretics placed on hold today. Nephrology continues to follow. At current time no need for urgent hemodialysis. However, if BUN and Cr continue to rise over next few days may need HD catheter placement for initiation of HD. Defer that decision to nephrology. Appreciate their assistance. (3) Cardiomyopathy: EF 40-45%. Etiology of LV dysfunction uncertain. Most recent echo on 11/09/19 with global hypokinesis. Volume status appropriate today. Recent volume overload was due to CKD stage 5, not systolic CHF. Cont BB. (4) Hyperkalemia: 2nd to CKD stage 5 - resolved. BMP am. (5) Anemia: 2nd to CKD stage 5 - H/H remain acceptable. (6) Diabetes mellitus with diabetic nephropathy: BSGs remain acceptable at this time with novolog SSI. (7) Gastroesophageal reflux disease: (8) Legally blind: (9) Hypertension: Uncontrolled. Increase toprol xl to 75mg daily. Follow. (10) DVT prophylaxis: Change heparin q8h to q12h dosing due to CKD 5. left message for family today on voicemail PT, OT Admission and Anticipated Discharge Date Admission Date: November 18, 2019 Subjective patient feeling better than at admission. denies dyspnea at rest or orthopnea. minimal cough. eating well. no abd pain, nausea, emesis. no chest pain. Review of Systems Constitutional: + fatigue; no fever, no chills and no anorexia Respiratory: no sputum production Cardiovascular: no chest pain and no paroxysmal nocturnal dyspnea Gastrointestinal: no abdominal pain Physical Exam Constitutional: no acute distress and no altered mental status ENMT: external ear and nose normal, oropharynx normal Respiratory: Auscultation: + diminished lung sounds (bases); no crackles and no wheezes Cardiovascular: Rate/Rhythm: regular rate and regular rhythm Heart Sounds: normal S1, normal S2 and + murmur (2-3/6 systolic LSB) Vessels: posterior tibial pulses present and dorsalis pedis pulses present; no JVD Extremities: + edema (trace b/l ) and + AV fistula (left arm - with bruit ) Gastrointestinal (Abdomen): normal bowel sounds, soft, nontender, no hepatosplenomegaly Psychiatric: A+Ox3, euthymic affect Results & Data Results & Data ([facility]) Vital Signs (Past 12 Hours) Vital Signs Temp Pulse Resp BP Pulse Ox 11/21/19 15:50 36.9 C 62 19 152/66 H 97 11/21/19 12:01 36.8 C 65 18 153/69 H 96 11/21/19 08:15 36.6 C 67 20 175/75 H 98 Laboratory Results Laboratory Results - last 24 hr 11/20/19 11/21/19 11/21/19 20:37 05:16 05:16 WBC 6.45 RBC 3.22 L Hgb 9.6 L Hct 29.4 L MCV 91.3 MCH 29.8 MCHC 32.7 RDW Std Deviation 47.7 H RDW Coeff of Yin 14.2 Plt Count 258 MPV 10.0 Sodium 140 Potassium 3.7 Chloride 106 Carbon Dioxide 24 Anion Gap 10.0 BUN 81 H Creatinine 5.66 H* D Est Cr Clr Drug Dosing 6.9 Est GFR ( Amer) 7.6 Est GFR (Non-Af Amer) 6.6 BUN/Creatinine Ratio 14.6 Glucose 115 H POC Glucose 89 Calcium 8.6 Phosphorus 6.1 H Albumin 2.5 L 11/21/19 11/21/19 11/21/19 07:21 11:28 16:16 WBC RBC Hgb Hct MCV MCH MCHC RDW Std Deviation RDW Coeff of Yin Plt Count MPV Sodium Potassium Chloride Carbon Dioxide Anion Gap BUN Creatinine Est Cr Clr Drug Dosing Est GFR ( Amer) Est GFR (Non-Af Amer) BUN/Creatinine Ratio Glucose POC Glucose 117 H 152 H 107 H Calcium Phosphorus Albumin PG Care Time/CCT Total # of Minutes Spent Total Time Spent with Patient: Total time spent is greater than 50% in coordination of care (as documented) at patient's floor/unit and/or counseling patient: Coding Level of Care Code 84320 Subseq Hosp Care Lvl 2 Diagnoses Acute pulmonary edema J81.0 Chronic kidney disease, stage V N18.5 Cardiomyopathy I42.9 Cardiomyopathy type: unspecified Hyperkalemia E87.5 Anemia N18.5; D63.1 Anemia type: due to chronic kidney disease Chronic kidney disease stage: stage 5, not on chronic dialysis Diabetes mellitus with diabetic nephropathy E11.21 Diabetes mellitus continuous churn buttermaker insulin use: without continuous churn buttermaker use Diabetes mellitus type: type 2 Gastroesophageal reflux disease K21.9 Esophagitis presence: esophagitis presence not specified Legally blind H54.8 Hypertension I10 Hypertension type: essential hypertension DVT prophylaxis Z29.9 (1) Diabetes mellitus with diabetic nephropathy Diabetes mellitus nursing home insulin use: without nursing home use Diabetes mellitus type: type 2 Qualified Code(s): E11.21 - Type 2 diabetes mellitus with diabetic nephropathy (2) Anemia Anemia type: due to chronic kidney disease Chronic kidney disease stage: stage 5, not on chronic dialysis Qualified Code(s): N18.5 - Chronic kidney disease, stage 5; D63.1 - Anemia in chronic kidney disease (3) Gastroesophageal reflux disease Esophagitis presence: esophagitis presence not specified Qualified Code(s): K21.9 - Gastro-esophageal reflux disease without esophagitis (4) Hypertension Hypertension type: essential hypertension Qualified Code(s): I10 - Essential (primary) hypertension (5) Cardiomyopathy Cardiomyopathy type: unspecified Qualified Code(s): I42.9 - Cardiomyopathy, unspecified
[2019-11-21] MEDS: ATORVASTATIN 10 MG TAB PO SCH (20:59)
[2019-11-21] MEDS: ASPIRIN 81 MG ECTAB PO SCH (20:59)
[2019-11-21] MEDS: ACETAMINOPHEN 500 MG TAB PO PRN (22:17)
[2019-11-22 06:51] LABS: Albumin Level 2.6 gm/dl (3.4-5.0); BUN Creatinine Ratio 16.1 (10-20); Calcium 8.8 mg/dl (8.5-10.1); Creatinine Clr Calc Pharmacy 7.1 ml/min; Est GFR (African American) 7.9; Est GFR (Non-African American) 6.8; Phosphorus 6.7 mg/dl (2.5-4.9); Potassium 3.9 mmol/L (3.5-5.1)
[2019-11-22] MEDS: INSULIN ASPART 100 UNITS/ML 3 ML PEN SC SCH ×4 (08:02→21:25)
[2019-11-22] MEDS: FERROUS SULFATE 325 MG TAB PO SCH (08:03)
[2019-11-22] MEDS: MULTIVITAMIN TAB PO SCH (08:04)
[2019-11-22] MEDS: HEPARIN SOD 5,000 UNIT/0.5 ML VIAL SQ SCH ×2 (08:04→21:24)
[2019-11-22] MEDS: SEVELAMER HCL 800 MG TABLET PO SCH ×3 (08:04→17:02)
[2019-11-22] MEDS: CHOLECALCIFEROL 1,000 UNITS 25 MCG TAB PO SCH (08:05)
--- NOTE | 2019-11-22 08:44 | Hospitalist Progress Note ---
Date of Service November 22, 2019 Assessment & Plan (1) Acute pulmonary edema: 2nd to worsening CKD stage 5. Pulmonary edema, respiratory status, and volume status improved. Stable in room air. Again holding diuretics today due to rising BUN and Cr. Re-eval in am. Does have rales on exam but otherwise does not appear volume overloaded. (2) Chronic kidney disease, stage V: BUN and Cr are similar to slightly better today than previous. Diuretics on hold. Nephrology continues to follow. At current time no need for urgent hemodialysis. Spoke with Dr Sanchez - plan to simply follow labs for now. If Cr continues to worsen, she develops recurrent volume overload, or she has high K then HD catheter would be needed to start HD. Defer that decision to nephrology. Appreciate their assistance. (3) Cardiomyopathy: EF 40-45%. Etiology of LV dysfunction uncertain. Most recent echo on 11/09/19 with global hypokinesis. Volume status unchanged. Recent volume overload was due to CKD stage 5, not systolic CHF. Cont BB. (4) Hyperkalemia: 2nd to CKD stage 5 - resolved. BMP am. (5) Anemia: 2nd to CKD stage 5 - H/H remain acceptable. (6) Diabetes mellitus with diabetic nephropathy: BSGs controlled at this time with novolog SSI. (7) Gastroesophageal reflux disease: (8) Legally blind: Noted (9) Hypertension: improved with increase in toprol xl to 75mg daily. (10) DVT prophylaxis: heparin 5000 BID left message for family 11/20 PT, OT consults appreciated -- cleared for home when medically ready for d/c Admission and Anticipated Discharge Date Admission Date: November 18, 2019 Subjective patient sitting in chair comfortably during the visit and w/o complaints of dyspnea or orthopnea. tele stable overnight. eating ok. like yesterday only c/o fatigue. hopeful she won't have to start HD this hospitalization. Review of Systems Constitutional: no fever Respiratory: no dyspnea Cardiovascular: no chest pain, no orthopnea and no paroxysmal nocturnal dyspnea Gastrointestinal: no abdominal pain Physical Exam Constitutional: no acute distress and no altered mental status ENMT: external ear and nose normal, oropharynx normal Respiratory: Auscultation: + diminished lung sounds (bases) and + crackles (Mild - bases); no wheezes Cardiovascular: Rate/Rhythm: regular rate and regular rhythm Heart Sounds: normal S1, normal S2 and + murmur (2/6 systolic LSB) Vessels: posterior t ibial pulses present and dorsalis pedis pulses present; no JVD Extremities: + edema (trace b/l ) and + AV fistula (left arm - with bruit ) Gastrointestinal (Abdomen): normal bowel sounds, soft, nontender, no hepatosplenomegaly Psychiatric: A+Ox3, euthymic affect Results & Data Results & Data ([facility]) Vital Signs (Past 12 Hours) Vital Signs Temp Pulse Resp BP Pulse Ox 11/22/19 07:54 36.4 C L 63 20 166/77 H 97 11/22/19 03:49 36.3 C L 69 18 152/63 H 96 11/21/19 23:00 36.5 C 74 18 157/70 H 97 Laboratory Results Laboratory Results - last 24 hr 11/21/19 11/21/19 11/21/19 11:28 16:16 20:57 Sodium Potassium Chloride Carbon Dioxide Anion Gap BUN Creatinine Est Cr Clr Drug Dosing Est GFR ( Amer) Est GFR (Non-Af Amer) BUN/Creatinine Ratio Glucose POC Glucose 152 H 107 H 135 H Calcium Phosphorus Albumin 11/22/19 11/22/19 05:13 07:14 Sodium 140 Potassium 3.9 Chloride 108 H Carbon Dioxide 22 Anion Gap 10.0 BUN 88 H Creatinine 5.49 H* Est Cr Clr Drug Dosing 7.1 Est GFR ( Amer) 7.9 Est GFR (Non-Af Amer) 6.8 BUN/Creatinine Ratio 16.1 Glucose 90 POC Glucose 102 H Calcium 8.8 Phosphorus 6.7 H Albumin 2.6 L PG Care Time/CCT Total # of Minutes Spent Total Time Spent with Patient: Total time spent is greater than 50% in coordination of care (as documented) at patient's floor/unit and/or counseling patient: Coding Level of Care Code 72473 Subseq Hosp Care Lvl 2 Diagnoses Acute pulmonary edema J81.0 Chronic kidney disease, stage V N18.5 Cardiomyopathy I42.9 Cardiomyopathy type: unspecified Hyperkalemia E87.5 Anemia N18.5; D63.1 Anemia type: due to chronic kidney disease Chronic kidney disease stage: stage 5, not on chronic dialysis Diabetes mellitus with diabetic nephropathy E11.21 Diabetes mellitus parts counterman insulin use: without parts counterman use Diabetes mellitus type: type 2 Gastroesophageal reflux disease K21.9 Esophagitis presence: esophagitis presence not specified Legally blind H54.8 Hypertension I10 Hypertension type: essential hypertension DVT prophylaxis Z29.9 (1) Diabetes mellitus with diabetic nephropathy Diabetes mellitus mcfp insulin use: without parts counterman use Diabetes mellitus type: type 2 Qualified Code(s): E11.21 - Type 2 diabetes mellitus with diabetic nephropathy (2) Anemia Anemia type: due to chronic kidney disease Chronic kidney disease stage: stage 5, not on chronic dialysis Qualified Code(s): N18.5 - Chronic kidney disease, stage 5; D63.1 - Anemia in chronic kidney disease (3) Gastroesophageal reflux disease Esophagitis presence: esophagitis presence not specified Qualified Code(s): K21.9 - Gastro-esophageal reflux disease without esophagitis (4) Hypertension Hypertension type: essential hypertension Qualified Code(s): I10 - Essential (primary) hypertension (5) Cardiomyopathy Cardiomyopathy type: unspecified Qualified Code(s): I42.9 - Cardiomyopathy, unspecified
[2019-11-22] MEDS ORDERED: METOPROLOL SUCC 25MG EXT REL TAB PO SCH (09:00)
--- NOTE | 2019-11-22 10:13 | Nephrology Progress Note ---
Date of Service November 22, 2019 Assessment & Plan (1) Chronic kidney disease, stage V: Tory has stage 5 CKD, baseline creatinine lately has been around 4, secondary to diabetic nephropathy. She had left brachiocephalic AV fistula placed on which is currently maturing but not ready. She was admitted to the hospital with progressive shortness of breath over last few weeks. On admission she was found to be volume overloaded, started on IV diuretics with improvement in volume status. She was also found to have hyperkalemia, potassium was some above 6 which improved and now normalized. Renal function staying relatively stable with creatinine around 5.2, other electrolyte normal. She has been voiding normally with decent response to diuretics. Shortness of breath improved. Appetite decent with no overt uremic symptoms. slow progressive worsening of renal function although electrolyte stable, volume status seems to have improved. -- continue to Hold Lasix for now, monitor volume status and respiratory status and use as needed. no acute indication for dialysis at this time however since renal function progressively worsening, concern remains for needing dialysis in next 24-48 hours if volume status worsen or develop critical electrolyte abnormality. -- measure intaek and output -- Continue on Renvela 1 tab t.i.d. with meal and Venofer 100 mg IV daily for total of 5 doses until 11/25/19 -- Strictly follow low-potassium diet, change diet to renal diet -- dose medications for GFR less than 10, left arm nephrology precaution -- recommend physical therapy will follow Admission and Anticipated Discharge Date Admission Date: November 18, 2019 Subjective Tory was seen and examined in her room this morning. She is feeling better today, denies shortness of breath. Blood pressure slightly elevated. Appetite decent. Hyperkalemia resolved, renal function continues to worsened however, electrolyte acceptable. Hemoglobin stable with iron deficiency. Review of Systems Review of Systems: All systems reviewed & are unremarkable except as noted in HPI & below Physical Exam Constitutional: well developed and well nourished; no acute distress Respiratory: normal respiratory effort; no respiratory distress Auscultation: + crackles Cardiovascular: RRR, no murmur, no edema Neurologic: moves all extremities and awake; not confused Psychiatric: A+Ox3, euthymic affect Results & Data ([facility]) Vital Signs (Past 12 Hours) Vital Signs Temp Pulse Resp BP Pulse Ox 11/22/19 07:54 36.4 C L 63 20 166/77 H 97 11/22/19 03:49 36.3 C L 69 18 152/63 H 96 11/21/19 23:00 36.5 C 74 18 157/70 H 97 PG Care Time/CCT Total # of Minutes Spent Total Time Spent with Patient: Total time spent is greater than 50% in coordination of care (as documented) at patient's floor/unit and/or counseling patient: Coding Level of Care Code 92539 Subseq Hosp Care Lvl 3 Diagnoses Chronic kidney disease, stage V N18.5
[2019-11-22] MEDS: CALCITRIOL 0.25 MCG CAPSULE PO SCH (10:16)
[2019-11-22] MEDS: IRON SUCROSE 200 MG in 0.9 % SODIUM CHLORIDE 100 ML IV SCH (10:53)
[2019-11-22] MEDS: ACETAMINOPHEN 500 MG TAB PO PRN (21:23)
[2019-11-22] MEDS: ATORVASTATIN 10 MG TAB PO SCH (21:24)
[2019-11-22] MEDS: ASPIRIN 81 MG ECTAB PO SCH (21:24)
[2019-11-23 06:46] LABS: Albumin Level 2.7 gm/dl (3.4-5.0); BUN Creatinine Ratio 16.1 (10-20); Creatinine Clr Calc Pharmacy 6.4 ml/min; Est GFR (African American) 6.9; Phosphorus 6.4 mg/dl (2.5-4.9); Potassium 4.2 mmol/L (3.5-5.1)
[2019-11-23] MEDS: INSULIN ASPART 100 UNITS/ML 3 ML PEN SC SCH ×4 (07:57→20:34)
[2019-11-23] MEDS: HEPARIN SOD 5,000 UNIT/0.5 ML VIAL SQ SCH ×2 (08:00→20:35)
[2019-11-23] MEDS: METOPROLOL SUCC 50MG EXT REL TAB PO SCH (08:04)
[2019-11-23] MEDS: CALCITRIOL 0.25 MCG CAPSULE PO SCH (08:05)
[2019-11-23] MEDS: SEVELAMER HCL 800 MG TABLET PO SCH ×3 (08:05→18:01)
[2019-11-23] MEDS: IRON SUCROSE 200 MG in 0.9 % SODIUM CHLORIDE 100 ML IV SCH (08:06)
[2019-11-23] MEDS: MULTIVITAMIN TAB PO SCH (08:06)
[2019-11-23] MEDS: CHOLECALCIFEROL 1,000 UNITS 25 MCG TAB PO SCH (08:06)
--- NOTE | 2019-11-23 11:01 | Pharmacy Report ---
Pharmacy Glycemic Short Note 2 - Date of Service November 23, 2019 - Glycemic Short BSG Results (Last 24 hours): OUTPATIENT ANTIDIABETIC REGIMEN: * Glimepiride 1 mg PO BID * A1c = 6.9& 11/19/19 ASSESSMENT: 11/22: * BSGs acceptable yesterday: [phone] mg/dL * Received 12 units of insulin yesterday (all bolus) * Fasting BSG was 103 mg/dL this AM - continue to hold basal insulin * SCr is worsening so patient will be NPO after midnight for perm cath placement tomorrow 11/20: * BSGs of 98, 172, 227, and 89 mg/dL yesterday * Will tighten carb ratio slightly given elevated BSGs with lunch and dinner * Fasting BSG of 117 mg/dL this morning - still well controlled without basal insulin (continue to hold) * Consideration for HD if renal function continues to worsen - will monitor PLAN FOR INPATIENT GLYCEMIC CONTROL: * Hold outpatient oral diabetes medications * Basal insulin * none * Bolus insulin - no change * NovoLog per scale ACHS or Q6hrs while NPO * Goal Range: Low 110 mg/dL - High 140 mg/dL * Correction Factor: 35 mg/dL/unit * Nutritional / Prandial insulin per carb ratio of 1 unit per 10 grams CHO consumed PLAN FOR DISCHARGE: * HbA1c of 6.9% is at goal (below 7%) - may even be reasonable to target goal of less than 8% given advanced CKD. A1c may not be reliable given CKD. * Patient's Glimepiride was discontinued in October 2019 secondary to hypoglycemia. Patient is legally blind so has difficulty with SMBG. Agree with CDE that patient should continue diet control of T2DM and have sister SMBG when she visits.
--- NOTE | 2019-11-23 11:25 | Nephrology Progress Note ---
Date of Service November 23, 2019 Assessment & Plan (1) Chronic kidney disease, stage V: Tory has stage 5 CKD, baseline creatinine lately has been around 4, secondary to diabetic nephropathy. She had left brachiocephalic AV fistula placed on which is currently maturing but not ready. She was admitted to the hospital with progressive shortness of breath over last few weeks. On admission she was found to be volume overloaded, started on IV diuretics with improvement in volume status. She was also found to have hyperkalemia, potassium was some above 6 which improved and now normalized. Renal function staying relatively stable with creatinine around 5.2, other electrolyte normal. She has been voiding normally with decent response to diuretics. Shortness of breath improved. Appetite decent with no overt uremic symptoms. Progressive worsening of renal function , anemia , acidosis and hyperphosphatemia. -- Discussed at length with Tory and recommended to start on HD with [facility] considering progressive worsening of renal function and volume overload. Keep NPO overnight, tunneled dialysis catheter tomorrow morning and then 1st dialysis tomorrow 2 hours. Consult case management to set up outpatient dialysis at [facility] -- Continue on Renvela 1 tab t.i.d. with meal and Venofer 100 mg IV daily for total of 5 doses until 11/25/19 -- follow low-potassium diet, change diet to renal diet --[facility] [id number] unit with HD tomorrow --start on renal vitamin daily -- dose medications for GFR less than 10, left arm nephrology precaution -- recommend physical therapy will follow Admission and Anticipated Discharge Date Admission Date: November 18, 2019 Subjective Tory was seen and examined in her room this morning. She is feeling fine, denies shortness of breath. Blood pressure slightly elevated. Appetite decent. Renal function continues to worsened with anemia, metabolic acidosis. Review of Systems Review of Systems: All systems reviewed & are unremarkable except as noted in HPI & below Physical Exam Constitutional: well developed and well nourished; no acute distress Respiratory: normal respiratory effort; no respiratory distress Auscultation: + crackles Cardiovascular: RRR, no murmur, no edema Neurologic: moves all extremities and awake; not confused Psychiatric: A+Ox3, euthymic affect Results & Data ([facility]) Vital Signs (Past 12 Hours) Vital Signs Temp Pulse Pulse Resp BP Pulse Ox 11/23/19 07:30 61 11/23/19 07:08 37 C 66 18 165/70 H 98 11/23/19 02:59 36.7 C 68 17 148/77 H 97 11/23/19 00:00 63 PG Care Time/CCT Total # of Minutes Spent Total Time Spent with Patient: Total time spent is greater than 50% in coordination of care (as documented) at patient's floor/unit and/or counseling patient: Coding Level of Care Code 22702 Subseq Hosp Care Lvl 3 Diagnoses Chronic kidney disease, stage V N18.5
--- NOTE | 2019-11-23 12:12 | Hospitalist Progress Note ---
Date of Service November 23, 2019 Assessment & Plan (1) Acute pulmonary edema: 2nd to worsening CKD stage 5 / development of ESRD. Pulmonary edema, respiratory status, and volume status improved but still with rales on exam c/w residual edema. Stable in room air however. Diuretics on hold. To have permcath placement tomorrow by Dr Mercedes followed by HD session #1. (2) ESRD (end stage renal disease): CKD stage 5 with worsening BUN and Cr and refractory hypervolemia along with acidosis. To initiate HD tomorrow following permcath placement by Dr Mercedes. (3) Chronic kidney disease, stage V: see discussion above (4) Cardiomyopathy: EF 40-45%. Etiology of LV dysfunction uncertain. Most recent echo on 11/09/19 with global hypokinesis. Volume overload is 2nd CKD stage 5, not systolic CHF. Cont BB. Can initiate BRIANDA or ARB once on HD. (5) Hyperkalemia: 2nd to CKD stage 5 - resolved. BMP am. (6) Anemia: 2nd to CKD stage 5 - H/H remain acceptable. Defer Fe management to nephrology. (7) Diabetes mellitus with diabetic nephropathy: BSGs controlled at this time with novolog SSI. Appreciate pharmacy assistance. (8) Gastroesophageal reflux disease: (9) Legally blind: Noted (10) Hypertension: agree with increase in toprol xl to 100mg daily as ordered by Dr Sanchez. Follow response. (11) Paresthesias in left hand: 2nd to ulnar nerve irritation from edema in face of recent AV fistula creation?? numbness started following AV fistual surgery. Other? no neck pain to suggest cervical spine radiculopathy. follow. edema in L arm is improving. (12) DVT prophylaxis: heparin 5000 BID left message for family 11/20, and personally spoke with pt's sister Radha on 11/22 discussed care with social work today -- need to coordinate transportation to/from HD sessions, etc. PT, OT consults appreciated -- cleared for home when medically ready for d/c Admission and Anticipated Discharge Date Admission Date: November 18, 2019 Subjective patient c/o fatigue and HARRISON worked with PT and upon entering the hallway and walking a short distance she had dyspnea no dyspnea at rest eating fine no chest pain or abd pain still with mild swelling left hand/wrist c/o numbness on dorsum of hand, mainly lateral aspect present since her AV fistula creation tele stable overnight Review of Systems Constitutional: no fever Respiratory: + dyspnea on exertion; no cough Cardiovascular: no dyspnea at rest and no orthopnea Gastrointestinal: no abdominal pain, no nausea and no vomiting Physical Exam Constitutional: no acute distress and no altered mental status ENMT: external ear and nose normal, oropharynx normal Respiratory: Auscultation: + diminished lung sounds (bases) and + crackles (Mild - bases); no wheezes Cardiovascular: Rate/Rhythm: regular rate and regular rhythm Heart Sounds: normal S1, normal S2 and + murmur (2/6 systolic LSB) Vessels: posterior tibial pulses present and dorsalis pedis pulses present; no JVD Extremities: + edema (1+b/l ) and + AV fistula (left arm - with bruit ) Gastrointestinal (Abdomen): normal bowel sounds, soft, nontender, no hepatosplenomegaly Musculoskeletal: minimal swelling distal left arm and wrist Psychiatric: A+Ox3, euthymic affect Results & Data Results & Data ([facility]) Vital Signs (Past 12 Hours) Vital Signs Temp Pulse Pulse Resp BP Pulse Ox 11/23/19 11:37 36.9 C 64 18 137/72 97 11/23/19 07:30 61 11/23/19 07:08 37 C 66 18 165/70 H 98 11/23/19 02:59 36.7 C 68 17 148/77 H 97 Laboratory Results Laboratory Results - last 24 hr 11/22/19 11/22/19 11/23/19 16:22 20:08 05:43 Sodium 138 Potassium 4.2 Chloride 106 Carbon Dioxide 20 L Anion Gap 12.0 H BUN 99 H Creatinine 6.13 H* D Est Cr Clr Drug Dosing 6.4 Est GFR ( Amer) 6.9 Est GFR (Non-Af Amer) 6.0 BUN/Creatinine Ratio 16.1 Glucose 93 POC Glucose 156 H 138 H Calcium 9.0 Phosphorus 6.4 H Albumin 2.7 L 11/23/19 11/23/19 07:21 11:38 Sodium Potassium Chloride Carbon Dioxide Anion Gap BUN Creatinine Est Cr Clr Drug Dosing Est GFR ( Amer) Est GFR (Non-Af Amer) BUN/Creatinine Ratio Glucose POC Glucose 103 H 164 H Calcium Phosphorus Albumin PG Care Time/CCT Total # of Minutes Spent Total Time Spent with Patient: Total time spent is greater than 50% in coordination of care (as documented) at patient's floor/unit and/or counseling patient: Coding Level of Care Code 06758 Subseq Hosp Care Lvl 2 Diagnoses Acute pulmonary edema J81.0 ESRD (end stage renal disease) N18.6 Chronic kidney disease, stage V N18.5 Cardiomyopathy I42.9 Cardiomyopathy type: unspecified Hyperkalemia E87.5 Anemia N18.5; D63.1 Anemia type: due to chronic kidney disease Chronic kidney disease stage: stage 5, not on chronic dialysis Diabetes mellitus with diabetic nephropathy E11.21 Diabetes mellitus type: type 2 Diabetes mellitus superintendent container terminal insulin use: without senior care use Gastroesophageal reflux disease K21.9 Esophagitis presence: esophagitis presence not specified Legally blind H54.8 Hypertension I10 Hypertension type: essential hypertension Paresthesias in left hand R20.2 DVT prophylaxis Z29.9 (1) Cardiomyopathy Cardiomyopathy type: unspecified Qualified Code(s): I42.9 - Cardiomyopathy, unspecified (2) Anemia Anemia type: due to chronic kidney disease Chronic kidney disease stage: stage 5, not on chronic dialysis Qualified Code(s): N18.5 - Chronic kidney dise ase, stage 5; D63.1 - Anemia in chronic kidney disease (3) Diabetes mellitus with diabetic nephropathy Diabetes mellitus type: type 2 Diabetes mellitus superintendent container terminal insulin use: without superintendent container terminal use Qualified Code(s): E11.21 - Type 2 diabetes mellitus with diabetic nephropathy (4) Gastroesophageal reflux disease Esophagitis presence: esophagitis presence not specified Qualified Code(s): K21.9 - Gastro-esophageal reflux disease without esophagitis (5) Hypertension Hypertension type: essential hypertension Qualified Code(s): I10 - Essential (primary) hypertension
[2019-11-23] MEDS: ATORVASTATIN 10 MG TAB PO SCH (20:09)
[2019-11-23] MEDS: ACETAMINOPHEN 500 MG TAB PO PRN (20:22)
[2019-11-24 06:00] LABS: Hematocrit (blood only) 27.2 % (37-47); Hemoglobin 8.9 g/dL (12.0-16.0); Mean Corpuscular Hemoglobin 29.2 pg (25-34); Mean Corpuscular Hgb Conc 32.7 g/dL (32-36); Mean Corpuscular Volume 89.2 fL (80-100); Mean Platelet Volume 10.6 fL (7.4-10.4); Platelet Count 197 K/uL (130-400); RDW Standard Deviation 45.8 fL (36.4-46.3); Red Blood Count 3.05 M/uL (4.2-5.4); White Blood Count 5.98 K/uL (4.8-10.8)
[2019-11-24 06:38] LABS: Albumin Level 2.6 gm/dl (3.4-5.0); Calcium 9.2 mg/dl (8.5-10.1); Creatinine Clr Calc Pharmacy 6.3 ml/min; Est GFR (African American) 6.6; Est GFR (Non-African American) 5.7; Phosphorus 7.2 mg/dl (2.5-4.9); Potassium 4.2 mmol/L (3.5-5.1)
[2019-11-24 07:13] LABS: Hepatitis B Surface Ab Quant < 3.10 mIU/mL (>or=10mIU/mL Immune); Hepatitis B Surface Antibody Non-Immune
[2019-11-24 07:24] LABS: Hepatitis B Surface Antigen Neg (Neg)
[2019-11-24] MEDS ORDERED: LIDOCAINE HCL 1% 20 ML VIAL ONE (07:37)
[2019-11-24] MEDS ORDERED: HEPARIN SOD (PORCINE) 5,000 UNITS/ML VIAL ONE (07:37)
--- NOTE | 2019-11-24 07:43 | Consultation ---
Date of Consultation November 24, 2019 History of Present Illness Attending Physician: Rj Rutherford History of Present Illness Date of Service November 01, 2019 History of Present Illness Chief Complaint: End stage renal disease Primary Care Provider: Felice Stubbs MD Chief Complaint rm#[id number] here for AVF creations scheduling, right hand domnant. VISUAL DIFFICULTIES- LEGALLY BLIND History of Present Illness I had the pleasure of seeing Tory today for evaluation for fistula placement. As you know she is a 78-year-old female with end-stage renal disease in need of fistula placement for possible dialysis in the future. She does have a history of cardiac murmur and hypertension. Review of Systems Review of 10 systems were done. Other than the HPI there are no positive findings. Physical Exam Vitals & Measurements HR: 77(Monitored) RR: 96 BP: 164/66 WT: 70.31 kg On exam patient is awake and alert and oriented x3. Blood pressure 160/66. She has good radial pulses in both wrists. Her cephalic veins at the wrist level are small and very tortuous. Her lungs are clear. Heart had a regular rhythm with a 2/6 systolic ejection murmur. Abdominal exam is benign. She has good femoral pulses. Neurologic exam is grossly intact. There is good capillary refill in all extremities. Ultrasound showed that the cephalic vein was usable in the antecubital fossa on both sides. She is right-handed. Assessment/Plan 1. End stage renal disease We recommend that we place a left antecubital cephalic vein fistula. She understands the risks options and benefits and agrees to go ahead with this procedure. Thank you very much for letting us participate in the care of this patient. Sincerely, Paco Mercedes MD Body mass index (BMI) 30.0-30.9, adult Problem List/Past Medical History Ongoing Arthritis End stage renal disease GERD (gastroesophageal reflux disease) High cholesterol HTN (hypertension) Skin lesion Historical No qualifying data Procedure/Surgical History Procedure--GI series (10/12/2015) Carpal tunnel release Cataract Surgery Medications Inpatient No active inpatient medications Home aspirin 81 mg oral tablet, 81 mg= 1 tab, PO, Daily atorvastatin 10 mg oral tablet, 10 mg= 1 tab, PO, Daily calcitriol 0.25 mcg oral capsule, 0.25 mcg= 1 cap, PO, qMonWedFri diltiazem, 360 mg, PO, Daily ferrous fumarate 325 mg (106 mg elemental iron) oral tablet, 325 mg= 1 tab, PO, bid furosemide 20 mg oral tablet, 20 mg= 1 tab, PO, Daily glimepiride 1 mg oral tablet, 1 mg= 1 tab, PO, bid multivitamin, 1 tab, PO, Daily Tylenol, PO, bid Vitamin D3 2000 intl units oral tablet, 2000 Int_Unit= 1 tab, PO, Daily Allergies NKA Social History Smoking Status - 10/03/2019 Former Smoker, quit > 1 yr Tobacco Former smoker, Stopped age 59 Years., 10/03/2019 Signature Line Electronic Signature on File Jemal Mercedes MD Author Signature Dt/Tm: 10/03/2019 02:52 PM Senior Program Planner Adriano Casillas [facility] [place], [address] [place] [address] EJS Result Type: .Outpt Ltr Date of Service: October 03, 2019 14:52 EDT Authorization Status: Final Subject: Consult Note Author or Import Date: MD Mercedes Eugene J on October 03, 2019 14:52 EDT Verified By: MD Mercedes Eugene J on October 03, 2019 14:52 EDT Encounter info: [id number], [place] [id number], Clinic, 10/03/2019 - 10/03/2019 Allergies Allergy/AdvReac Type Severity Reaction Status Date / Time No Known Allergies Allergy Verified 10/26/19 11:48 Home Medications Home Medications Medication Instructions Recorded Confirmed Type acetaminophen 500 mg tablet 1,000 mg PO BID tab 10/11/18 10/26/19 History aspirin 81 mg tablet,delayed 81 mg PO QPM 10/11/18 10/26/19 History release cholecalciferol (vitamin D3) 2,000 units PO QAM 10/14/19 10/26/19 History diltiazem HCl 360 mg PO QAM 10/14/19 10/26/19 History fluticasone propionate [Allergy 2 sprays INTNAS DAILY PRN 10/14/19 10/26/19 History Relief (fluticasone)] furosemide 20 mg PO QAM 10/14/19 10/26/19 History multivitamin 1 tab PO QAM 08/07/20 08/19/20 History atorvastatin 10 mg PO HS 10/16/19 10/26/19 History calcitriol 0.25 mcg PO 3XWK 10/16/19 10/26/19 History meclizine 12.5 mg PO TID PRN 10/16/19 10/26/19 History darbepoetin ilia in polysorbat 100 100 mcg SUBCUT .COMPLEX #1 ml 10/20/19 Rx mcg/mL in polysorbate injection ferrous sulfate 325 mg (65 mg 325 mg PO BID #180 tab 10/24/19 10/26/19 Rx iron) tablet,delayed release Past Med/Surg History Medical History (Updated 10/31/19 @ 00:02 by Slade Estevez) Anemia Arthritis Cardiac murmur LAST ECHO 2012- NO NOTED VALVE ISSUES- NO MURMUR NOTED ON EXAM AT PAT ON 10/20/19 Chronic kidney disease, stage V Diabetes Blood sugar fluctuates - had low blood sugar- in ER on 10/16/19- follows with PCP- had med changes Diabetic nephropathy Hyperlipidemia Hypertension Legally blind READS WITH MAGNIFYING GLASSES Surgical History History of bilateral oophorectomy History of colonoscopy History of esophagogastroduodenoscopy (EGD) Hx of cataract surgery R/L Family History Father No problems noted. Mother Family history of diabetes mellitus Denies family history of Kidney disease Social History Smoking Status: Former smoker Smoking End Date: QUIT 2000; Second Hand Exposure: Yes (ON OCC); Do You Dip or Chew Tobacco: No; Hx Alcohol Use: No Hx Substance Use: No Preferred Language: Bangladeshi Communication Ability: Impaired Communication Ability Comment: LEGALLY BLIND Remote Control Mirror Installer Required: No Beliefs That Will Affect Care: None Current Living Situation: Alone Other Information That Helps Us Care for You: No Feels Safe at Home: Yes Safety Concerns: Feels Safe At This Time Signed By:<Electronically signed by Jemal Mercedes MD>11/01/19 1553 Created: 11/01/19 1552 The status of this report is Signed. Draft = Not yet reviewed or approved by Medical Physician. Signed = Reviewed and approved by Medical Physician. Allergies Allergy/AdvReac Type Severity Reaction Status Date / Time No Known Allergies Allergy Verified 11/18/19 08:55 Home Medications Home Medications Medication Instructions Recorded Confirmed Type acetaminophen 500 mg tablet 1,000 mg PO BID tab 10/11/18 11/18/19 History aspirin 81 mg tablet,delayed 81 mg PO QPM 10/11/18 11/18/19 History release cholecalciferol (vitamin D3) 2,000 units PO QAM 10/14/19 11/18/19 History fluticasone propionate [Allergy 2 sprays INTNAS DAILY PRN 10/14/19 11/18/19 History Relief (fluticasone)] furosemide 20 mg PO QAM 10/14/19 11/18/19 History multivitamin 1 tab PO QAM 10/14/19 11/18/19 History atorvastatin 10 mg PO HS 10/16/19 11/18/19 History calcitriol 0.25 mcg PO MOWEFR 10/16/19 11/18/19 History meclizine 12.5 mg PO TID PRN 10/16/19 11/18/19 History ferrous sulfate 325 mg (65 mg 325 mg PO DAILY #90 tab 11/07/19 11/18/19 Rx iron) tablet darbepoetin ilia in polysorbat 200 200 mcg SUBCUT .COMPLEX #1 ml 11/10/19 11/18/19 Rx mcg/mL in polysorbate injection diltiazem HCl 180 mg capsule,24 180 mg PO DAILY #30 cap 11/15/19 11/18/19 Rx hr,extended release metoprolol succinate 50 mg 50 mg PO DAILY #30 tab 11/15/19 11/18/19 Rx tablet,extended release 24 hr Patient History Medical History Anemia Arthritis Cardiac murmur LAST ECHO 2012- NO NOTED VALVE ISSUES- NO MURMUR NOTED ON EXAM AT PAT ON 10/20/19 Chronic kidney disease, stage V Diabetes Blood sugar fluctuates - had low blood sugar- in ER on 10/16/19- follows with PCP- had med changes Diabetic nephropathy Hyperlipidemia Hypertension Legally blind READS WITH MAGNIFYING GLASSES Surgical History History of bilateral oophorectomy History of colonoscopy History of esophagogastroduodenoscopy (EGD) Hx of cataract surgery R/L Family History Father No problems noted. Mother Family history of diabetes mellitus Denies family history of Kidney disease Social History Smoking Status: Former smoker Second Hand Exposure: No; Hx Alcohol Use: No Hx Substance Use: No Preferred Language: Bangladeshi Communication Ability: Effective Remote Control Mirror Installer Required: No Beliefs That Will Affect Care: None Current Living Situation: Alone Feels Safe at Home: Yes Results & Data ([facility]) Vital Signs (Past 12 Hours) Vital Signs Temp Pulse Resp BP Pulse Ox 11/24/19 07:34 36.6 C 75 18 185/69 H 97 11/24/19 03:46 36.5 C 67 18 168/72 H 96 11/23/19 23:35 36.5 C 56 L 17 175/70 H 97 11/23/19 20:47 37 C 66 16 161/66 H 94
[2019-11-24] MEDS ORDERED: CEFAZOLIN 1000MG 1,000 MG/7.5 ML SYR IV ONE (07:44)
--- NOTE | 2019-11-24 07:44 | History & Physical Bridge Note ---
Date of Service November 24, 2019 History & Physical Bridge Note Patient had fistula created recently. Now in need of dialysis. Her fistula is not matured. She will require a permcath. I have discussed the risks options and benefits of the procedure with the patient. The patient understands the risks options and benefits and agrees to the procedure. I have examined the patient, reviewed the History & Physical and in the interval since the performance of the History & Physical I have noted the following changes of clinical significance: no changes noted
--- NOTE | 2019-11-24 07:45 | Pre Anesthesia Assessment ---
Date of Service November 24, 2019 Pre Sedation Assessment Vital Signs Temp Pulse Pulse Resp BP Pulse Ox 11/24/19 07:34 36.6 C 75 18 185/69 H 97 11/24/19 03:46 36.5 C 67 18 168/72 H 96 11/23/19 23:35 36.5 C 56 L 17 175/70 H 97 11/23/19 20:47 37 C 66 16 161/66 H 94 11/23/19 15:30 37 C 60 16 151/72 H 96 11/23/19 15:00 60 11/23/19 11:37 36.9 C 64 18 137/72 97 Cardiovascular RRR, no murmur, no edema Respiratory normal respiratory effort, lungs clear to auscultation Pre-Sedation Airway Assessment Smoking Status: Former smoker Hx Sleep Apnea: No Short, Thick Neck: No Thyromental Distance: > or= 3.5 Finger Breadths Oral Cavity: + WNL Mallampati Class: II ASA: ASA4 NPO Status Date of Last Intake of Fluids: 11/24/19 Time of Last Intake of Fluids: 06:00 Date of Last Intake of Solid Food: 11/24/19 Time of Last Intake of Solid Foods: 19:00 Procedure Planning Contraindications for Sedation: none Current Medications Reviewed: Yes Notes The planned sedation has been discussed with the patient. Informed Consent was obtained. I have identified the patient, determined the appropriateness of s edation and have assessed the patient immediately prior to the procedure. All medicine(s) and interventions are by my order.
[2019-11-24] MEDS ORDERED: CEFAZOLIN 2,000 MG/15 ML IV PUSH IV ONE (07:47)
[2019-11-24] MEDS ORDERED: MIDAZOLAM HCL 1 MG/ML 2ML VIAL ONE (08:09)
[2019-11-24] MEDS ORDERED: fentaNYL citrate 100 MCG/2 ML VIAL ONE (08:09)
--- NOTE | 2019-11-24 08:51 | Operative Report ---
Post Operative Report Pre & Post Diagnosis Operation Date: 11/24/19 08:00 Pre-Op Diagnosis: Chronic Renal Failure Post-Op Diagnosis: Chronic Renal Failure I identified the patient and participated in the time-out.: Yes Procedure Operation Date: 11/24/19 08:00 Actual Procedures p Insertion of Perm Catheter, Right Internal Jugular Approach, Ultrasound Localization of Right Internal Jugular Vein, Fluoroscopy for Positioning; Moderate Sedation From 832 to 08(Right) - Jemal Mercedes MD Surgeon Jemal Mercedes MD Hse Manager none Estimated Blood Loss 5 Findings Consistent with Post-Op Diagnosis Specimens none Anesthesia Type RN Sedation Complications none Disposition Accompanied Patient To Recovery: No Disposition: Recovery Room Indications Patient is a 79yo female who recently had an av fistula created. It is not mature enough to use. She is in need of dialysis. Permcaht was recommended for dialysis access. I have discussed the risks options and benefits of the procedure with the patien t. The patient understands the risks options and benefits and agrees to the procedure. Description of Procedure Patient was taken to the angio suite and placed in the supine position. The right side of the neck and chest wall were prepped and draped in a sterile manner. The patient was identified and a timeout performed. Local anesthesia was then administered to the appropriate areas of the neck and chest wall. Ultrasound was then used to locate the right internal jugular vein. The vein compressed easily, had no filing defects, and was patent. The vein was then punctured under direct ultrasound imaging. A guidewire was then passed centrally under fluoroscopic imaging. A stab wound was then made in the anterior chest wall and a 19 cm permcath was passed from the stab wound on the chest wall to the puncture site on the neck. The puncture site was then dilated till the 14Fr peel away sheath was inserted. The permcath was then inserted through the sheath to a central position in the distal superior vena cava. The peel away sheath was then removed. The catheter was then sutured in place using nylon sutures. The puncture was then closed using a 4-0 Vicryl subcuticular suture. Dermabond was used for a dressing on the puncture site. Both ports aspirated and flushed easily and were then packed with heparin. A sterile dr essing was applied to the catheter. The patient left the operation room in satisfactory condition and tolerated the procedure well. All needle and sponge counts were correct at the end of the procedure. ` I attest to the content of the Intraoperative Record and any orders documented therein. Any exceptions are noted below.
--- NOTE | 2019-11-24 08:52 | Post Anesthesia Assessment ---
Date of Service November 24, 2019 Post Sedation Assessment Vital Signs Temp Pulse Pulse Resp BP Pulse Ox 11/24/19 08:48 76 16 203/89 H 11/24/19 08:43 70 16 207/97 H 100 11/24/19 08:38 73 14 221/82 H 100 11/24/19 08:33 75 12 224/84 H 100 11/24/19 08:16 74 12 181/83 H 99 11/24/19 07:34 36.6 C 75 18 185/69 H 97 11/24/19 03:46 36.5 C 67 18 168/72 H 96 11/23/19 23:35 36.5 C 56 L 17 175/70 H 97 11/23/19 20:47 37 C 66 16 161/66 H 94 11/23/19 15:30 37 C 60 16 151/72 H 96 11/23/19 15:00 60 11/23/19 11:37 36.9 C 64 18 137/72 97 Recovery Score Activity: Moves 4 extremities Respiration: Deep Breath/Cough Circulation: +/-20% PreAnes Value Consciousness: Arouseable (by name) Oxygen Saturation: > 92% On Room Air Post Anesthesia Score: 9 Discharge Sedation Level of Care: Fast Track Phase II Post Sedation Plan On clinical assessment, the patient appears to have tolerated the sedation without complications. Patient is recovering as anticipated. Patient will continue to be monitored by nursing and may be discharged when sedation discharge criteria are met per below protocol. Upon Completions of procedure up to 15 minutes continue every 5 minute vital signs and the P.A.R. score; then discharge to a Phase I or Fast Track to Phase II per the following guidelines: * Discharge Patient to appropriate Phase II area if PAR is 8 or greater or return to pre- procedure baseline. The post - procedure orders will be as directed. * If PAR score is less than 8 or not return to pre-procedure baseline then patient will follow Phase I monitoring till PAR is reached for Phase II. The Phase I may be done in procedure room or may call to secure a Phase I area. * If naloxone or flumazenil are used for reversal, hold in Phase I for continued monitoring from when last reversal dose was given for a minimum of 60 minutes or longer pending the nurse and/or physician discretion of patient condition before discharge to Phase II. Please call the Sedation Physician to re-evaluate and complete post-note for discharge to Phase II area. Do NOT discharge from procedure sedation or Phase 1 until post- sedation evaluation note is complete by procedure /sedation MD Sedation Discharge Instructions to be given to the patient at discharge to home.
[2019-11-24] MEDS: INSULIN ASPART 100 UNITS/ML 3 ML PEN SC SCH ×4 (08:59→21:03)
[2019-11-24] MEDS: SEVELAMER HCL 800 MG TABLET PO SCH ×3 (09:00→17:21)
[2019-11-24] MEDS: CHOLECALCIFEROL 1,000 UNITS 25 MCG TAB PO SCH (09:16)
[2019-11-24] MEDS: IRON SUCROSE 200 MG in 0.9 % SODIUM CHLORIDE 100 ML IV SCH (09:16)
[2019-11-24] MEDS: METOPROLOL SUCC 50MG EXT REL TAB PO SCH (09:17)
[2019-11-24] MEDS: HEPARIN SOD 5,000 UNIT/0.5 ML VIAL SQ SCH ×2 (09:17→21:03)
[2019-11-24] MEDS: CALCITRIOL 0.25 MCG CAPSULE PO SCH (09:17)
[2019-11-24] MEDS: MULTIVITAMIN TAB PO SCH (09:17)
[2019-11-24] MEDS ORDERED: EPOETIN ALFA 20,000 UNITS/ML VIAL IV ONE (10:00)
--- NOTE | 2019-11-24 10:11 | Nephrology Progress Note ---
Date of Service November 24, 2019 Assessment & Plan (1) Chronic kidney disease, stage V: Tory has stage 5 CKD, baseline creatinine lately has been around 4, secondary to diabetic nephropathy. She had left brachiocephalic AV fistula placed on which is currently maturing but not ready. She was admitted to the hospital with progressive shortness of breath over last few weeks. On admission she was found to be volume overloaded, started on IV diuretics with improvement in volume status. She was also found to have hyperkalemia. Renal function progressively worsened over last few days with anemia , acidosis and hyperphosphatemia. had tunnel dialysis catheter placed on 11/24/2019 a.m. and 1st dialysis treatment.. -- Dialysis for 2 hours this morning with low blood flow and gentle UF, case management to set up outpatient dialysis at [facility] -- Continue on Renvela 1 tab t.i.d. with meal and Venofer 100 mg IV daily for total of 5 doses until 11/25/19, renal vitamin daily -- follow low-potassium diet, change diet to renal diet -- [facility] [id number] unit with HD 11/24/19 -- dose medications for GFR less than 10, left arm nephrology precaution will follow Admission and Anticipated Discharge Date Admission Date: November 18, 2019 Subjective Tory was seen and examined in her room this morning. She just came back after having tunneled dialysis catheter placed this morning. Denies any discomfort at the catheter site. Denies shortness of breath or chest pain. Appetite seems to be decent. BP has been running high. Review of Systems Review of Systems: All systems reviewed & are unremarkable except as noted in HPI & below Physical Exam Constitutional: well developed and well nourished; no acute distress Respiratory: normal respiratory effort; no respiratory distress Auscultation: + crackles Cardiovascular: RRR, no murmur, no edema Neurologic: moves all extremities and awake; not confused Psychiatric: A+Ox3, euthymic affect Results & Data ([facility]) Vital Signs (Past 12 Hours) Vital Signs Temp Pulse Pulse Resp BP Pulse Ox 11/24/19 08:53 74 16 211/100 H 11/24/19 08:48 76 16 203/89 H 11/24/19 08:43 70 16 207/97 H 100 11/24/19 08:38 73 14 221/82 H 100 11/24/19 08:33 75 12 224/84 H 100 11/24/19 08:16 74 12 181/83 H 99 11/24/19 08:00 74 11/24/19 07:34 36.6 C 75 18 185/69 H 97 11/24/19 03:46 36.5 C 67 18 168/72 H 96 11/23/19 23:35 36.5 C 56 L 17 175/70 H 97 PG Care Time/CCT Total # of Minutes Spent Total Time Spent with Patient: Total time spent is greater than 50% in coordination of care (as documented) at patient's floor/unit and/or counseling patient: Coding Level of Care Code 71132 Subseq Hosp Care Lvl 3 Diagnoses Chronic kidney disease, stage V N18.5
--- NOTE | 2019-11-24 11:41 | Hospitalist Progress Note ---
Date of Service November 24, 2019 Assessment & Plan (1) Acute pulmonary edema: 2nd to worsening CKD stage 5 / development of ESRD. Pt did improve with IV diuresis since admission but renal function worsened significantly over that time. Thus, s/p placement of tunneled permcath today by Dr Mercedes followed by HD session #1. appreciate vascular surgery and nephrology assistance. remains stable in room air. (2) ESRD (end stage renal disease): CKD stage 5 with worsening BUN and Cr and refractory hypervolemia along with acidosis. s/p permcath placement by Dr Mercedes this am. s/p HD session #1. appreciate nephrology assistance with HD. (3) Chronic kidney disease, stage V: see discussion above (4) Cardiomyopathy: EF 40-45%. Etiology of LV dysfunction uncertain. Most recent echo on 11/09/19 with global hypokinesis. Volume overload is 2nd CKD stage 5, not systolic CHF. Cont BB. Consider initiating BRIANDA or ARB low-dose. Volume status will improve with HD. (5) Hyperkalemia: 2nd to CKD stage 5 - resolved. no recurrence. (6) Anemia: 2nd to CKD stage 5 - H/H remain acceptable. Defer Fe management to nephrology. (7) Diabetes mellitus with diabetic nephropathy: BSGs controlled at this time with novolog SSI. DM diet. Appreciate pharmacy assistance. (8) Gastroesophageal reflux disease: (9) Legally blind: Noted (10) Hypertension: improved with titration of toprol xl to 100mg/day and initiation of HD. should continue to improve with volume removal. follow. (11) Paresthesias in left hand: 2nd to ulnar nerve irritation from edema in face of recent AV fistula creation?? numbness started following AV fistual surgery. Other? no neck pain to suggest cervical spine radiculopathy. cont to follow. edema in L arm is improving day to day. (12) DVT prophylaxis: heparin 5000 BID updated pt's sister Radha on 11/22 social work involved in aftercare for hemodialysis in [place], transportation needs, etc PT, OT consults appreciated -- cleared for home when medically ready for d/c Admission and Anticipated Discharge Date Admission Date: November 18, 2019 Subjective saw patient post-permcath placement and post-HD doing well tolerated HD w/o complications (no dizziness, etc) states breathing is already better post-HD mild soreness over permcath site but no substernal chest pain no abdominal pain had BM this am tele normal overnight Review of Systems Constitutional: no fever Respiratory: no cough and no dyspnea Cardiovascular: no chest pain Gastrointestinal: no abdominal pain, no nausea and no vomiting Genitourinary: no dysuria still making urine Physical Exam Constitutional: no acute distress and no altered mental status ENMT: external ear and nose normal, oropharynx normal Respiratory: Auscultation: + diminished lung sounds (bases) and + crackles (bases - improved today ); no wheezes Cardiovascular: Rate/Rhythm: regular rate and regular rhythm Heart Sounds: normal S1, normal S2 and + murmur (2/6 systolic LSB) Vessels: posterior tibial pulses present and dorsalis pedis pulses present; no JVD Extremities: + edema (trace b/l), + vascular access device (new - right IJ HD catheter with ecchymosis/mild swelling ) and + AV fistula (left arm - with bruit ) Gastrointestinal (Abdomen): normal bowel sounds, soft, nontender, no hepatosplenomegaly Musculoskeletal: mild edema of left hand/wrist - slightly improved from prior exams Psychiatric: A+Ox3, euthymic affect Results & Data Results & Data ([facility]) Vital Signs (Past 12 Hours) Vital Signs Temp Pulse Pulse Pulse Resp BP BP 11/24/19 11:20 59 L 131/51 L 11/24/19 11:00 59 L 134/50 L 11/24/19 10:40 60 126/47 L 11/24/19 10:20 59 L 130/56 L 11/24/19 09:59 36.8 C 67 67 147/72 H 11/24/19 08:53 74 16 211/100 H 11/24/19 08:48 76 16 203/89 H 11/24/19 08:43 70 16 207/97 H 11/24/19 08:38 73 14 221/82 H 11/24/19 08:33 75 12 224/84 H 11/24/19 08:16 74 12 181/83 H 11/24/19 08:00 74 11/24/19 07:34 36.6 C 75 18 185/69 H 11/24/19 03:46 36.5 C 67 18 168/72 H Pulse Ox 11/24/19 11:20 11/24/19 11:00 11/24/19 10:40 11/24/19 10:20 11/24/19 09:59 11/24/19 08:53 11/24/19 08:48 11/24/19 08:43 100 11/24/19 08:38 100 11/24/19 08:33 100 11/24/19 08:16 99 11/24/19 08:00 11/24/19 07:34 97 11/24/19 03:46 96 Laboratory Results Laboratory Results - last 24 hr 11/23/19 11/23/19 11/23/19 11:38 12:26 12:26 WBC RBC Hgb Hct MCV MCH MCHC RDW Std Deviation RDW Coeff of Yin Plt Count MPV Sodium Potassium Chloride Carbon Dioxide Anion Gap BUN Creatinine Est Cr Clr Drug Dosing Est GFR ( Amer) Est GFR (Non-Af Amer) BUN/Creatinine Ratio Glucose POC Glucose 164 H Calcium Phosphorus Albumin COVID-19 Eval [facility] Hep Bs Antigen Hep Bs Antibody Hep Bs Antibody, Quant SARS-CoV-2, RNA, NAAT NEGATIVE 11/23/19 11/23/19 11/24/19 16:27 20:32 05:28 WBC 5.98 RBC 3.05 L Hgb 8.9 L Hct 27.2 L MCV 89.2 MCH 29.2 MCHC 32.7 RDW Std Deviation 45.8 RDW Coeff of Yin 14.0 Plt Count 197 MPV 10.6 H Sodium Potassium Chloride Carbon Dioxide Anion Gap BUN Creatinine Est Cr Clr Drug Dosing Est GFR ( Amer) Est GFR (Non-Af Amer) BUN/Creatinine Ratio Glucose POC Glucose 97 166 H Calcium Phosphorus Albumin COVID-19 Eval Order Hep Bs Antigen Hep Bs Antibody Hep Bs Antibody, Quant SARS-CoV-2, RNA, NAAT 11/24/19 11/24/19 11/24/19 05:28 05:28 07:08 WBC RBC Hgb Hct MCV MCH MCHC RDW Std Deviation RDW Coeff of Yin Plt Count MPV Sodium 140 Potassium 4.2 Chloride 109 H Carbon Dioxide 19 L Anion Gap 12.0 H BUN 108 H Creatinine 6.38 H* Est Cr Clr Drug Dosing 6.3 Est GFR ( Amer) 6.6 Est GFR (Non-Af Amer) 5.7 BUN/Creatinine Ratio 17.0 Glucose 113 H POC Glucose 122 H Calcium 9.2 Phosphorus 7.2 H Albumin 2.6 L COVID-19 Eval Order Hep Bs Antigen Neg Hep Bs Antibody Non-Immune Hep Bs Antibody, Quant < 3.10 L SARS-CoV-2, RNA, NAAT PG Care Time/CCT Total # of Minutes Spent Total Time Spent with Patient: Total time spent is greater than 50% in coordination of care (as documented) at patient's floor/unit and/or counseling patient: Coding Level of Care Code 42547 Subseq Hosp Care Lvl 2 Diagnoses Acute pulmonary edema J81.0 ESRD (end stage renal disease) N18.6 Chronic kidney disease, stage V N18.5 Cardiomyopathy I42.9 Cardiomyopathy type: unspecified Hyperkalemia E87.5 Anemia N18.5; D63.1 Anemia type: due to chronic kidney disease Chronic kidney disease stage: stage 5, not on chronic dialysis Diabetes mellitus with diabetic nephropathy E11.21 Diabetes mellitus senior care insulin use: without ad terminal makeup operator use Diabetes mellitus type: type 2 Gastroesophageal reflux disease K21.9 Esophagitis presence: esophagitis presence not specified Legally blind H54.8 Hypertension I10 Hypertension type: essential hypertension Paresthesias in left hand R20.2 DVT prophylaxis Z29.9 (1) Diabetes mellitus with diabetic nephropathy Diabetes mellitus ad terminal makeup operator insulin use: without ad terminal makeup operator use Diabetes mellitus type: type 2 Qualified Code(s): E11.21 - Type 2 diabetes mellitus with diabetic nephropathy (2) Anemia Anemia type: due to chronic kidney disease Chronic kidney disease stage: stage 5, not on chronic dialysis Qualified Code(s): N18.5 - Chronic kidney disease, stage 5; D63.1 - Anemia in chronic kidney disease (3) Gastroesophageal reflux disease Esophagitis presence: esophagitis presence not specified Qualified Code(s): K21.9 - Gastro-esophageal reflux disease without esophagitis (4) Hypertension Hypertension type: essential hypertension Qualified Code(s): I10 - Essential (primary) hypertension (5) Cardiomyopathy Cardiomyopathy type: unspecified Qualified Code(s): I42.9 - Cardiomyopathy, unspecified
[2019-11-24] MEDS: ACETAMINOPHEN 500 MG TAB PO SCH ×2 (16:40→21:03)
[2019-11-24] MEDS: ATORVASTATIN 10 MG TAB PO SCH (21:03)
[2019-11-25] MEDS: ACETAMINOPHEN 500 MG TAB PO SCH ×3 (06:43→20:42)
[2019-11-25 08:08] LABS: Albumin Level 2.6 gm/dl (3.4-5.0); BUN Creatinine Ratio 14.9 (10-20); Calcium 9.1 mg/dl (8.5-10.1); Est GFR (African American) 7.6; Est GFR (Non-African American) 6.5; Phosphorus 5.7 mg/dl (2.5-4.9); Potassium 4.1 mmol/L (3.5-5.1)
[2019-11-25] MEDS: INSULIN ASPART 100 UNITS/ML 3 ML PEN SC SCH ×4 (08:12→20:42)
[2019-11-25] MEDS: HEPARIN SOD 5,000 UNIT/0.5 ML VIAL SQ SCH ×2 (08:13→20:42)
[2019-11-25] MEDS: SEVELAMER HCL 800 MG TABLET PO SCH ×3 (08:21→17:20)
[2019-11-25] MEDS: MULTIVITAMIN TAB PO SCH (08:21)
[2019-11-25] MEDS: METOPROLOL SUCC 50MG EXT REL TAB PO SCH (08:22)
[2019-11-25] MEDS: CALCITRIOL 0.25 MCG CAPSULE PO SCH (08:22)
[2019-11-25] MEDS: CHOLECALCIFEROL 1,000 UNITS 25 MCG TAB PO SCH (08:23)
[2019-11-25] MEDS: IRON SUCROSE 200 MG in 0.9 % SODIUM CHLORIDE 100 ML IV SCH (08:43)
--- NOTE | 2019-11-25 09:06 | Pharmacy Report ---
Pharmacy Glycemic Sign Off Nt - Date of Service November 25, 2019 - Assessment & Plan ASSESSMENT: * Pharmacy was consulted by Dr. Epstein on 11/18/2019 for glycemic control and to write orders per [facility] inpatient glycemic control protocol. * Patient has been requiring 12 units of bolus insulin per day for adequate glycemic control (no basal insulin since 11/17) * BSGs ranging 97 - 166 mg/dl over the past 72 hours * No adjustments have been made to insulin regimen since 11/20 * Do not anticipate further changes in patient status that would quickly deteriorate glycemic control (i.e. patient to be NPO for upcoming procedure, steroids tapering, starting tube feedings, etc). * Please see recommendations for outpatient antidiabetic regimen below. PLAN FOR INPATIENT GLYCEMIC CONTROL: No changes needed to current regimen. * No basal insulin * Continue NovoLog per scale ACHS/Q6hrs while NPO * Goal range = 110 - 140 mg/dl * CF = 35 mg/dl/unit * CR = 1 unit for ever 10 g CHO consumed * Pharmacy is signing off of glycemic consult and will no longer be making adjustments to inpatient regimen. Please feel free to re-consult if needed. Thank you. DISCHARGE RECOMMENDATIONS: * HbA1c of 6.9% is at goal (below 7%) - may even be reasonable to target goal of less than 8% given advanced CKD. A1c may not be reliable given CKD. * Patient's Glimepiride was discontinued in October 2019 secondary to hypoglycemia. Patient is legally blind so has difficulty with SMBG. Agree with CDE that patient should continue diet control of T2DM and have sister SMBG when she visits.
--- NOTE | 2019-11-25 09:52 | Nephrology Progress Note ---
Date of Service November 25, 2019 Assessment & Plan (1) Chronic kidney disease, stage V: Tory has stage 5 CKD, baseline creatinine lately has been around 4, secondary to diabetic nephropathy. She had left brachiocephalic AV fistula placed on which is currently maturing but not ready. She was admitted to the hospital with progressive shortness of breath over last few weeks. On admission she was found to be volume overloaded, started on IV diuretics with improvement in volume status. She was also found to have hyperkalemia. Renal function progressively worsened over last few days with anemia , acidosis and hyperphosphatemia. had tunnel dialysis catheter placed on 11/24/2019 a.m. and 1st dialysis treatment.. -- Dialysis for 3 hours this morning, case management to set up outpatient dialysis at [facility], dialysis unit aware and have chair time for TTS seco nd shift. Plan for next HD tomorrow and then next Thursday. -- Continue on Renvela 1 tab t.i.d. with meal and Venofer 100 mg IV daily for total of 5 doses until 11/25/19, renal vitamin daily -- follow low-potassium diet, change diet to renal diet -- [facility] [id number] unit with HD 11/24/19 -- dose medications for GFR less than 10, left arm nephrology precaution will follow (2) ESRD on hemodialysis: Admission and Anticipated Discharge Date Admission Date: November 18, 2019 Subjective Tory was seen and examined in her room this morning. She tolerated first HD yesterday. Denies any discomfort at the catheter site. Denies shortness of breath or chest pain. Appetite seems to be decent. BP improved. Review of Systems Review of Systems: All systems reviewed & are unremarkable except as noted in HPI & below Physical Exam Constitutional: well developed and well nourished; no acute distress Respiratory: normal respiratory effort; no respiratory distress Auscultation: + crackles Cardiovascular: RRR, no murmur, no edema Neurologic: moves all extremities and awake; not confused Psychiatric: A+Ox3, euthymic affect Results & Data ([facility]) Vital Signs (Past 12 Hours) Vital Signs Temp Pulse Pulse Resp BP Pulse Ox 11/25/19 08:08 37.1 C 50 L 18 147/80 H 96 11/25/19 03:46 36.6 C 61 16 173/69 H 96 11/24/19 23:30 36.5 C 64 18 155/68 H 94 PG Care Time/CCT Total # of Minutes Spent Total Time Spent with Patient: Total time spent is greater than 50% in coordination of care (as documented) at patient's floor/unit and/or counseling patient: Coding Level of Care Code 85861 Subseq Hosp Care Lvl 3 Diagnoses Chronic kidney disease, stage V N18.5 ESRD on hemodialysis N18.6; Z99.2
--- NOTE | 2019-11-25 16:47 | Hospitalist Progress Note ---
Date of Service November 25, 2019 Assessment & Plan (1) Acute pulmonary edema: 2nd to worsening CKD stage 5 / development of ESRD. Pt did improve with IV diuresis since admission but renal function worsened significantly over that time. Thus, s/p placement of tunneled permcath today by Dr Mercedes followed by HD session #1. appreciate vascular surgery and nephrology assistance. HD today. Plan for discharge to [facility] when able. Juan is holding HD tomorrow until we learn if she will get a bed. If she does, no HD. If no discharge tomorrow, please contact Dr. Rock to arrange HD. (2) ESRD (end stage renal disease): CKD stage 5 with worsening BUN and Cr and refractory hypervolemia along with acidosis. s/p permcath placement by Dr Mercedes this am. s/p HD session #1. appreciate nephrology assistance with HD. (3) Chronic kidney disease, stage V: see discussion above (4) Cardiomyopathy: EF 40-45%. Etiology of LV dysfunction uncertain. Most recent echo on 11/09/19 with global hypokinesis. Volume overload is 2nd CKD stage 5, not systolic CHF. Cont BB. Consider initiating BRIANDA or ARB low-dose. Volume status will improve with HD. (5) Hyperkalemia: 2nd to CKD stage 5 - resolved. no recurrence. (6) Anemia: 2nd to CKD stage 5 - H/H remain acceptable. Defer Fe management to nephrology. (7) Diabetes mellitus with diabetic nephropathy: BSGs controlled at this time with novolog SSI. DM diet. Appreciate pharmacy assistance. (8) Gastroesophageal reflux disease: will resume home meds and monitor. stable (9) Legally blind: Noted (10) Hypertension: improved with titration of toprol xl to 100mg/day and initiation of HD. should continue to improve with volume removal. follow. (11) Paresthesias in left hand: 2nd to ulnar nerve irritation from edema in face of recent AV fistula creation?? numbness started following AV fistual surgery. Other? no neck pain to suggest cervical spine radiculopathy. cont to follow. edema in L arm is improving day to day. (12) DVT prophylaxis: heparin 5000 BID social work involved in aftercare for hemodialysis in [place], transportation needs, etc PT, OT consults appreciated -- cleared for home when medically ready for d/c, but now wants to go to [facility]. Admission and Anticipated Discharge Date Admission Date: November 18, 2019 Subjective Feels tired overall. Reports no fevers/chills, chest pain, shortness of breath, abdominal pain, nausea, or vomiting. Physical Exam Constitutional: WD/WN, vitals as above Eyes: EOM intact bilaterally; no conjunctival abnormality ENMT: external ear and nose normal, oropharynx normal Neck: trachea midline, no thyromegaly normal visual inspection Respiratory: normal respiratory effort, lungs clear to auscultation no respiratory distress Cardiovascular: RRR, no murmur, no edema Chest (Breasts): Chest: + vascular access device or port (Bruising near right chest port.) Gastrointestinal (Abdomen): Inspection/Auscultation: abdomen normal to inspection; abdomen not distended Musculoskeletal: no cyanosis or clubbing, extremities motor strength 5/5 Skin: no rashes, warm and dry Neurologic: moves all extremities and awake Psychiatric: Orientation: alert, oriented to person and cooperative Results & Data Results & Data ([facility]) Vital Signs (Past 12 Hours) Vital Signs Temp Pulse Pulse Pulse Resp BP BP 11/25/19 15:20 36.6 C 67 21 156/66 H 11/25/19 14:23 36.7 C 62 172/71 H 11/25/19 14:00 58 L 153/60 H 11/25/19 13:40 59 L 175/68 H 11/25/19 13:20 59 L 162/65 H 11/25/19 13:00 58 L 162/64 H 11/25/19 12:40 62 147/68 H 11/25/19 12:20 62 160/65 H 11/25/19 12:00 60 164/61 H 11/25/19 11:40 58 L 158/73 H 11/25/19 11:20 64 154/72 H 11/25/19 11:07 64 167/77 H 11/25/19 10:59 36.7 C 65 11/25/19 08:08 37.1 C 50 L 18 147/80 H 11/25/19 08:00 70 Pulse Ox 11/25/19 15:20 98 11/25/19 14:23 11/25/19 14:00 11/25/19 13:40 11/25/19 13:20 11/25/19 13:00 11/25/19 12:40 11/25/19 12:20 11/25/19 12:00 11/25/19 11:40 11/25/19 11:20 11/25/19 11:07 11/25/19 10:59 11/25/19 08:08 96 11/25/19 08:00 PG Care Time/CCT Total # of Minutes Spent Total Time Spent with Patient: Total time spent is greater than 50% in coordination of care (as documented) at patient's floor/unit and/or counseling patient: Coding Level of Care Code 59787 Subseq Hosp Care Lvl 2 Diagnoses Acute pulmonary edema J81.0 ESRD (end stage renal disease) N18.6 Chronic kidney disease, stage V N18.5 Cardiomyopathy I42.9 Cardiomyopathy type: unspecified Hyperkalemia E87.5 Anemia N18.5; D63.1 Anemia type: due to chronic kidney disease Chronic kidney disease stage: stage 5, not on chronic dialysis Diabetes mellitus with diabetic nephropathy E11.21 Diabetes mellitus type: type 2 Diabetes mellitus long term acute care registered nurse insulin use: without long term acute care registered nurse use Gastroesophageal reflux disease K21.9 Esophagitis presence: esophagitis presence not specified Legally blind H54.8 Hypertension I10 Hypertension type: essential hypertension Paresthesias in left hand R20.2 DVT prophylaxis Z29.9 (1) Cardiomyopathy Cardiomyopathy type: unspecified Qualified Code(s): I42.9 - Cardiomyopathy, unspecified (2) Anemia Anemia type: due to chronic kidney disease Chronic kidney disease stage: stage 5, not on chronic dialysis Qualified Code(s): N18.5 - Chronic kidney disease, stage 5; D63.1 - Anemia in chronic kidney disease (3) Diabetes mellitus with diabetic nephropathy Diabetes mellitus type: type 2 Diabetes mellitus long term acute care registered nurse insulin use: without long term acute care registered nurse use Qualified Code(s): E11.21 - Type 2 diabetes mellitus with diabetic nephropathy (4) Gastroesophageal reflux disease Esophagitis presence: esophagitis presence not specified Qualified Code(s): K21.9 - Gastro-esophageal reflux disease without esophagitis (5) Hypertension Hypertension type: essential hypertension Qualified Code(s): I10 - Essential (primary) hypertension
[2019-11-25] MEDS: ATORVASTATIN 10 MG TAB PO SCH (20:42)
[2019-11-26] MEDS: ACETAMINOPHEN 500 MG TAB PO SCH ×3 (05:43→22:07)
[2019-11-26 07:08] LABS: Hematocrit (blood only) 29.7 % (37-47); Hemoglobin 9.6 g/dL (12.0-16.0); Mean Corpuscular Hemoglobin 29.2 pg (25-34); Mean Corpuscular Hgb Conc 32.3 g/dL (32-36); Mean Corpuscular Volume 90.3 fL (80-100); Mean Platelet Volume 11.2 fL (7.4-10.4); Platelet Count 191 K/uL (130-400); RDW Coefficient of Variation 14.2 % (11.5-14.5); RDW Standard Deviation 47.1 fL (36.4-46.3); Red Blood Count 3.29 M/uL (4.2-5.4); White Blood Count 5.61 K/uL (4.8-10.8)
[2019-11-26 07:47] LABS: Albumin Level 2.6 gm/dl (3.4-5.0); BUN Creatinine Ratio 12.3 (10-20); Calcium 9.4 mg/dl (8.5-10.1); Creatinine Clr Calc Pharmacy 9.2 ml/min; Est GFR (African American) 10.6; Est GFR (Non-African American) 9.2; Magnesium 2.2 mg/dl (1.8-2.4); Phosphorus 3.8 mg/dl (2.5-4.9); Potassium 4.1 mmol/L (3.5-5.1)
[2019-11-26] MEDS: SEVELAMER HCL 800 MG TABLET PO SCH ×3 (07:53→18:09)
[2019-11-26] MEDS: INSULIN ASPART 100 UNITS/ML 3 ML PEN SC SCH ×4 (09:05→22:12)
[2019-11-26] MEDS: HEPARIN SOD 5,000 UNIT/0.5 ML VIAL SQ SCH ×2 (09:06→22:11)
[2019-11-26] MEDS: MULTIVITAMIN TAB PO SCH (09:07)
[2019-11-26] MEDS: CHOLECALCIFEROL 1,000 UNITS 25 MCG TAB PO SCH (09:09)
[2019-11-26] MEDS: CALCITRIOL 0.25 MCG CAPSULE PO SCH (09:10)
[2019-11-26] MEDS: METOPROLOL SUCC 50MG EXT REL TAB PO SCH (09:11)
--- NOTE | 2019-11-26 11:04 | Nephrology Progress Note ---
Date of Service November 26, 2019 Assessment & Plan (1) Chronic kidney disease, stage V: CKD Vd secondary to diabetic nephropathy. Left brachiocephalic AV fistula placed on 10/27/[address] Mercedes is not mature for use. Tory started HD on 11/24/19. RIJ TDC placed on 11/24/19 has been functioning well. Tory completed her second treatment yesterday. Orders for HD today have been entered into the EMR and discussed with the dialysis nurse. -- HD today 3 hrs @ Qb 350 with 180 optiflux -- Post discharge outpatient dialysis has been arranged at [facility] -- I will coordinate HD for Tory at [facility] if needed -- For hyperphosphatemia continue Renvela 1 tab QAC -- Renal diet -- Volume status acceptable -- Medications appropriately dosed for IHD (2) ESRD on hemodialysis: (3) Anemia: -- Completed venofer infusions -- Epogen 77486 units provided 11/24/19 (4) Diabetic nephropathy: (5) Hypertension: -- Continue diuretic to encourage urine output -- BP reasonable, no intradialytic hypotension -- Medications appropriately dosed (6) Osteoporosis with fracture: -- Calcitriol QMWF for CKD/MBD Admission and Anticipated Discharge Date Admission Date: November 18, 2019 Subjective No acute events overnight. Tory feels well this morning. HD completed yesterday without complications. Breathing comfortably. Mild discomfort around TDC site. Review of Systems Review of Systems: All systems reviewed & are unremarkable except as noted in HPI & below Physical Exam Constitutional: well developed; no acute distress Eyes: no scleral abnormality and no periorbital abnormality ENMT: Mouth: no oral mucosal abnormality and oral mucous membranes not dry Neck: normal visual inspection and trachea midline RIJ TDC Respiratory: normal respiratory effort Auscultation: lungs clear to auscultation bilaterally Cardiovascular: Rate/Rhythm: regular rate Heart Sounds: normal S1, normal S2 and + murmur Extremities: + edema and + AV fistula Musculoskeletal: Extremities: no cyanosis and no clubbing Skin: normal turgor; no lesions Neurologic: Motor/Sensory: no tremor and no asterixis Psychiatric: Orientation: alert and oriented x 3 Results & Data ([facility]) Vital Signs (Past 12 Hours) Vital Signs Temp Pulse Pulse Resp BP Pulse Ox 11/26/19 07:32 36.5 C 70 20 165/70 H 97 11/26/19 03:40 36.6 C 66 16 156/66 H 96 11/25/19 23:33 36.4 C L 63 18 163/70 H 96 11/25/19 23:00 65 Laboratory Results Laboratory Results - last 24 hr 11/25/19 11/26/19 11/26/19 14:26 06:30 06:30 WBC 5.61 RBC 3.29 L Hgb 9.6 L Hct 29.7 L MCV 90.3 MCH 29.2 MCHC 32.3 RDW Std Deviation 47.1 H RDW Coeff of Yin 14.2 Plt Count 191 MPV 11.2 H Sodium 140 Potassium 4.1 Chloride 104 Carbon Dioxide 26 Anion Gap 10.0 BUN 53 H Creatinine 4.31 H D Est Cr Clr Drug Dosing 9.2 Est GFR ( Amer) 10.6 Est GFR (Non-Af Amer) 9.2 BUN/Creatinine Ratio 12.3 Glucose 118 H POC Glucose 99 Calcium 9.4 Phosphorus 3.8 D Magnesium 2.2 Albumin 2.6 L 11/26/19 07:30 WBC RBC Hgb Hct MCV MCH MCHC RDW Std Deviation RDW Coeff of Yin Plt Count MPV Sodium Potassium Chloride Carbon Dioxide Anion Gap BUN Creatinine Est Cr Clr Drug Dosing Est GFR ( Amer) Est GFR (Non-Af Amer) BUN/Creatinine Ratio Glucose POC Glucose 128 H Calcium Phosphorus Magnesium Albumin PG Care Time/CCT Total # of Minutes Spent Total Time Spent with Patient: Total time spent is greater than 50% in coordination of care (as documented) at patient's floor/unit and/or counseling patient: Coding Level of Care Code 25765 Subseq Hosp Care Lvl 3 Diagnoses Chronic kidney disease, stage V N18.5 ESRD on hemodialysis N18.6; Z99.2 Anemia N18.5; D63.1 Anemia type: due to chronic kidney disease Chronic kidney disease stage: stage 5, not on chronic dialysis Diabetic nephropathy E11.21 Hypertension I10 Hypertension type: essential hypertension Osteoporosis with fracture M80.80XA (1) Anemia Anemia type: due to chronic kidney disease Chronic kidney disease stage: stage 5, not on chronic dialysis Qualified Code(s): N18.5 - Chronic kidney disease, stage 5; D63.1 - Anemia in chronic kidney disease (2) Hypertension Hypertension type: essential hypertension Qualified Code(s): I10 - Essential (primary) hypertension
[2019-11-26] MEDS: ATORVASTATIN 10 MG TAB PO SCH (22:10)
--- NOTE | 2019-11-26 22:38 | Hospitalist Progress Note ---
Date of Service November 26, 2019 Assessment & Plan (1) Acute pulmonary edema: 2nd to worsening CKD stage 5 / development of ESRD. Pt did improve with IV diuresis since admission but renal function worsened significantly over that time. Thus, s/p placement of tunneled permcath today by Dr Mercedes followed by HD session #1. appreciate vascular surgery and nephrology assistance. HD today. Plan for discharge to [facility] tomorrow. (2) ESRD (end stage renal disease): CKD stage 5 with worsening BUN and Cr and refractory hypervolemia along with acidosis. s/p permcath placement by Dr Mercedes this am. s/p HD session #1. appreciate nephrology assistance with HD. (3) Chronic kidney disease, stage V: see discussion above (4) Cardiomyopathy: EF 40-45%. Etiology of LV dysfunction uncertain. Most recent echo on 11/09/19 with global hypokinesis. Volume overload is 2nd CKD stage 5, not systolic CHF. Cont BB. Consider initiating BRIANDA or ARB low-dose. Volume status will improve with HD. (5) Hyperkalemia: 2nd to CKD stage 5 - resolved. no recurrence. (6) Anemia: 2nd to CKD stage 5 - H/H remain acceptable. Defer Fe management to nephrology. (7) Diabetes mellitus with diabetic nephropathy: BSGs controlled at this time with novolog SSI. DM diet. Appreciate pharmacy assistance. (8) Gastroesophageal reflux disease: will resume home meds and monitor. stable (9) Legally blind: Noted (10) Hypertension: improved with titration of toprol xl to 100mg/day and initiation of HD. should continue to improve with volume removal. follow. (11) Paresthesias in left hand: 2nd to ulnar nerve irritation from edema in face of recent AV fistula creation?? numbness started following AV fistual surgery. Other? no neck pain to suggest cervical spine radiculopathy. cont to follow. edema in L arm is improving day to day. (12) DVT prophylaxis: heparin 5000 BID social work involved in aftercare for hemodialysis in [place], transportation needs, etc PT, OT consults appreciated -- cleared for home when medically ready for d/c, but now wants to go to [facility]. Admission and Anticipated Discharge Date Admission Date: November 18, 2019 Subjective 79 yo female reports feeling well. She has no new complaints at this time. Review of Systems Review of Systems: All systems reviewed & are unremarkable except as noted in HPI & below Physical Exam Constitutional: WD/WN, vitals as above Eyes: PERRL, conjunctivae normal, anicteric sclerae ENMT: external ear and nose normal, oropharynx normal Neck: trachea midline, no thyromegaly Respiratory: normal respiratory effort and + uses accessory muscles Auscultation: + rales Cardiovascular: RRR, no murmur, no edema Gastrointestinal (Abdomen): normal bowel sounds, soft, nontender, no hepatosplenomegaly Musculoskeletal: no cyanosis or clubbing, extremities motor strength 5/5 Skin: no rashes, warm and dry Neurologic: PERRL, EOMI, accommodation nl, no face palsy, no dysarthria Psychiatric: A+Ox3, euthymic affect Results & Data Results & Data ([facility]) Vital Signs (Past 12 Hours) Vital Signs Temp Pulse Pulse BP BP 11/26/19 20:59 66 11/26/19 18:50 37.0 C 68 168/73 H 11/26/19 18:40 59 L 148/64 H 11/26/19 18:20 67 158/83 H 11/26/19 18:00 64 156/62 H 11/26/19 17:40 67 153/111 H 11/26/19 17:20 64 153/67 H 11/26/19 17:00 64 146/53 H 11/26/19 16:50 68 168/73 H 11/26/19 16:40 62 140/60 11/26/19 16:09 56 L 135/64 11/26/19 16:00 62 147/66 H 11/26/19 15:49 37.1 C 66 67 159/78 H 11/26/19 15:25 66 PG Care Time/CCT Total # of Minutes Spent Total Time Spent with Patient: Total time spent is greater than 50% in coordination of care (as documented) at patient's floor/unit and/or counseling patient: Coding Level of Care Code 03685 Subseq Hosp Care Lvl 2 Diagnoses Acute pulmonary edema J81.0 ESRD (end stage renal disease) N18.6 Chronic kidney disease, stage V N18.5 Cardiomyopathy I42.9 Cardiomyopathy type: unspecified Hyperkalemia E87.5 Anemia N18.5; D63.1 Anemia type: due to chronic kidney disease Chronic kidney disease stage: stage 5, not on chronic dialysis Diabetes mellitus with diabetic nephropathy E11.21 Diabetes mellitus intermediate school 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 insulin use: without intermediate school teacher use Diabetes mellitus type: type 2 Gastroesophageal reflux disease K21.9 Esophagitis presence: esophagitis presence not specified Legally blind H54.8 Hypertension I10 Hypertension type: essential hypertension Paresthesias in left hand R20.2 DVT prophylaxis Z29.9 Time Spent (min) 25 (1) Diabetes mellitus with diabetic nephropathy Diabetes mellitus intermediate school teacher insulin use: without long-term use Diabetes mellitus type: type 2 Qualified Code(s): E11.21 - Type 2 diabetes mellitus with diabetic nephropathy (2) Anemia Anemia type: due to chronic kidney disease Chronic kidney disease stage: stage 5, not on chronic dialysis Qualified Code(s): N18.5 - Chronic kidney disease, stage 5; D63.1 - Anemia in chronic kidney disease (3) Gastroesophageal reflux disease Esophagitis presence: esophagitis presence not specified Qualified Code(s): K21.9 - Gastro-esophageal reflux disease without esophagitis (4) Hypertension Hypertension type: essential hypertension Qualified Code(s): I10 - Essential (primary) hypertension (5) Cardiomyopathy Cardiomyopathy type: unspecified Qualified Code(s): I42.9 - Cardiomyopathy, unspecified
[2019-11-27] MEDS: ACETAMINOPHEN 500 MG TAB PO SCH ×2 (05:35→11:49)
[2019-11-27 06:35] LABS: Hematocrit (blood only) 28.9 % (37-47); Hemoglobin 9.3 g/dL (12.0-16.0); Mean Corpuscular Hemoglobin 29.8 pg (25-34); Mean Corpuscular Hgb Conc 32.2 g/dL (32-36); Mean Corpuscular Volume 92.6 fL (80-100); Mean Platelet Volume 11.6 fL (7.4-10.4); Platelet Count 193 K/uL (130-400); RDW Coefficient of Variation 14.5 % (11.5-14.5); RDW Standard Deviation 48.5 fL (36.4-46.3); Red Blood Count 3.12 M/uL (4.2-5.4); White Blood Count 5.97 K/uL (4.8-10.8)
[2019-11-27] MEDS: SEVELAMER HCL 800 MG TABLET PO SCH ×2 (07:44→11:46)
[2019-11-27] MEDS: CALCITRIOL 0.25 MCG CAPSULE PO SCH (07:45)
[2019-11-27] MEDS: MULTIVITAMIN TAB PO SCH (07:45)
[2019-11-27] MEDS: METOPROLOL SUCC 50MG EXT REL TAB PO SCH (07:45)
[2019-11-27] MEDS: CHOLECALCIFEROL 1,000 UNITS 25 MCG TAB PO SCH (07:46)
[2019-11-27] MEDS: HEPARIN SOD 5,000 UNIT/0.5 ML VIAL SQ SCH (07:46)
[2019-11-27] MEDS: INSULIN ASPART 100 UNITS/ML 3 ML PEN SC SCH ×2 (07:47→11:48)
--- NOTE | 2019-11-27 12:01 | Nephrology Progress Note ---
Date of Service November 27, 2019 Assessment & Plan (1) Chronic kidney disease, stage V: CKD Vd secondary to diabetic nephropathy. Left brachiocephalic AV fistula placed on 10/27/[address] Mercedes is not yet mature for use. Tory started HD on 11/24/19. RIJ TDC placed on 11/24/19 has been functioning well. 3rd treatment was completed yesterday with adequate clearance. -- Plan to continue three times weekly HD, next treatment Thursday -- Post discharge outpatient dialysis has been arranged at [facility] -- I will coordinate HD for Tory at [facility] if needed -- For hyperphosphatemia continue Renvela 1 tab QAC -- Renal diet -- Volume status acceptable -- Medications appropriately dosed for IHD (2) ESRD on hemodialysis: (3) Anemia: -- Completed venofer infusions -- Epogen 37990 units provided 11/24/19 (4) Diabetic nephropathy: (5) Hypertension: -- Continue diuretic to encourage urine output -- BP reasonable, no intradialytic hypotension -- Medications appropriately dosed (6) Osteoporosis with fracture: -- Calcitriol QMWF for CKD/MBD Admission and Anticipated Discharge Date Admission Date: November 18, 2019 Subjective No acute events overnight. Tory had an episode of shortness of breath this morning that lasted several minutes but then resolved. No chest pain or palpitations. Denies significant orthopnea. No fevers or chills. Tolerated HD yesterday without complications. Review of Systems Review of Systems: All systems reviewed & are unremarkable except as noted in HPI & below Physical Exam Constitutional: well developed; no acute distress Eyes: no scleral abnormality and no periorbital abnormality ENMT: Mouth: no oral mucosal abnormality and oral mucous membranes not dry Neck: normal visual inspection and trachea midline Respiratory: normal respiratory effort Auscultation: lungs clear to auscultation bilaterally Cardiovascular: Rate/Rhythm: regular rate Heart Sounds: normal S1, normal S2 and + murmur Extremities: + edema and + AV fistula Musculoskeletal: Extremities: no cyanosis and no clubbing Skin: normal turgor; no lesions Neurologic: Motor/Sensory: no tremor and no asterixis Psychiatric: Orientation: alert and oriented x 3 Results & Data ([facility]) Vital Signs (Past 12 Hours) Vital Signs Temp Pulse Pulse Resp BP Pulse Ox 11/27/19 11:10 36.7 C 62 18 167/73 H 97 11/27/19 07:57 36.6 C 65 20 157/73 H 96 11/27/19 04:22 36.5 C 62 16 165/66 H 96 Laboratory Results Laboratory Results - last 24 hr 11/26/19 11/27/19 11/27/19 19:57 05:18 07:44 WBC 5.97 RBC 3.12 L Hgb 9.3 L Hct 28.9 L MCV 92.6 MCH 29.8 MCHC 32.2 RDW Std Deviation 48.5 H RDW Coeff of Yin 14.5 Plt Count 193 MPV 11.6 H POC Glucose 86 124 H 11/27/19 11:31 WBC RBC Hgb Hct MCV MCH MCHC RDW Std Deviation RDW Coeff of Yin Plt Count MPV POC Glucose 124 H PG Care Time/CCT Total # of Minutes Spent Total Time Spent with Patient: Total time spent is greater than 50% in coordination of care (as documented) at patient's floor/unit and/or counseling patient: Coding Level of Care Code 76425 Subseq Hosp Care Lvl 3 Diagnoses Chronic kidney disease, stage V N18.5 ESRD on hemodialysis N18.6; Z99.2 Anemia N18.5; D63.1 Anemia type: due to chronic kidney disease Chronic kidney disease stage: stage 5, not on chronic dialysis Diabetic nephropathy E11.21 Hypertension I10 Hypertension type: essential hypertension Osteoporosis with fracture M80.80XA (1) Anemia Anemia type: due to chronic kidney disease Chronic kidney disease stage: stage 5, not on chronic dialysis Qualified Code(s): N18.5 - Chronic kidney disease, stage 5; D63.1 - Anemia in chronic kidney disease (2) Hypertension Hypertension type: essential hypertension Qualified Code(s): I10 - Essential (primary) hypertension
--- NOTE | 2019-11-27 13:12 | XRay Report ---
XR chest 1V portable HISTORY: Shortness of breath. COMPARISON: Chest 11/18/2019. FINDINGS: There is mild interstitial pulmonary edema, cardiomegaly, small bilateral pleural effusions , bibasilar densities. This has improved in the interval. Right jugular central venous catheter termi nates at the [facility]. No pneumothorax. Old, healed left humeral neck fracture. IMPRESSION: Mild interstitial pulmonary edema, small bilateral pleural effusions, and bibasilar densities. This h as slightly improved compared to the prior study. ACT 112: Negative or not required by law. Electronically signed by: Abad Dunbar M.D. 11/27/2019 1:11 PM
--- NOTE | 2019-12-04 21:41 | Discharge Summary ---
Date of Service November 27, 2019 Admission HPI Per Admitting Provider This is a pleasant 79 yo female with history of advacned CKD stage 5 and Systolic CHF who had a recent AV fistula placed 2 weeks ago, comes in to the ER with SOB at rest and orthopnea. She states that she has not felt herself for the past 2-3 weeks and she reports her SOB on exertion has been worsening where she walking short distances would precipitate dyspnea. She also reports she has been sleeping in her chair upright for the past couple of days as she would complain of orthopnea. This past evenening though, she could not sleep even upright which prompted to bring her to the hospital. Principal Diagnosis acute pulmonary edema Discharge Exam Constitutional: WD/WN, vitals as above Eyes: PERRL, conjunctivae normal, anicteric sclerae ENMT: external ear and nose normal, oropharynx normal Neck: trachea midline, no thyromegaly Respiratory: normal respiratory effort and + uses accessory muscles A uscultation: + rales Cardiovascular: RRR, no murmur, no edema Gastrointestinal (Abdomen): normal bowel sounds, soft, nontender, no hepatosplenomegaly Musculoskeletal: no cyanosis or clubbing, extremities motor strength 5/5 Skin: no rashes, warm and dry Neurologic: PERRL, EOMI, accommodation nl, no face palsy, no dysarthria Psychiatric: A+Ox3, euthymic affect Discharge Data Allergies Allergy/AdvReac Type Severity Reaction Status Date / Time No Known Allergies Allergy Verified 11/18/19 08:55 Consultations 11/18/19 10:21 Consult Nephrology Routine 11/18/19 11:04 ED Decision to Admit Stat 11/18/19 11:05 [facility] Referral Routine 11/23/19 08:31 Consult Vascular Surgery Routine 11/23/19 11:14 Consult Case Management - Discharge Planning Routine Procedures Performed Operation Date: 11/24/19 08:00 Actual Procedures p Insertion of Perm Catheter, Right Internal Jugular Approach, Ultrasound Localization of Right Internal Jugular Vein, Fluoroscopy for Positioning; Moderate Sedation From 0833 to 0853.(Right) - Jemal Mercedes MD Ordered Studies 11/24/19 07:11 EV cvc insrt tunnel wo prt/pediatric social worker Routine US EV guide vascular access Routine Hospital Course (1) Acute pulmonary edema: 2nd to worsening CKD stage 5 / development of ESRD. Pt did improve with IV diuresis since admission but renal function worsened significantly over that time. Thus, s/p placement of tunneled permcath by Dr Mercedes followed by 2 HD sessions. appreciate vascular surgery and nephrology assistance. HD yesterday. Plan for discharge to [facility] today. (2) ESRD (end stage renal disease): CKD stage 5 with worsening BUN and Cr and refractory hypervolemia along with acidosis. s/p permcath placement by Dr Mercedes. s/p HD session #2. appreciate nephrology assistance with HD. (3) Chronic kidney disease, stage V: see discussion above (4) Cardiomyopathy: EF 40-45%. Etiology of LV dysfunction uncertain. Most recent echo on 11/09/19 with global hypokinesis. Volume overload is 2nd CKD stage 5, not systolic CHF. Cont BB. Consider initiating BRIANDA or ARB low-dose. Volume status will improve with HD. (5) Hyperkalemia: 2nd to CKD stage 5 - resolved. no recurrence. (6) Anemia: 2nd to CKD stage 5 - H/H remain acceptable. Defer Fe management to nephrology. (7) Diabetes mellitus with diabetic nephropathy: BSGs controlled at this time with novolog SSI. DM diet. Appreciate pharmacy assistance. (8) Gastroesophageal reflux disease: will resume home meds and monitor. stable (9) Legally blind: Noted (10) Hypertension: improved with titration of toprol xl to 100mg/day and initiation of HD. should continue to improve with volume removal. follow. (11) Paresthesias in left hand: 2nd to ulnar nerve irritation from edema in face of recent AV fistula creation?? numbness started following AV fistual surgery. Other? no neck pain to suggest cervical spine radiculopathy. cont to follow. edema in L arm is improving day to day. (12) DVT prophylaxis: heparin 5000 BID social work involved in aftercare for hemodialysis in [place], transportation needs, etc PT, OT consults appreciated -- cleared for home when medically ready for d/c, but now wants to go to [facility]. Total Time Total Time Spent Total Time Spent (In Minutes): 32 Total Time Includes: Examination of the Patient, Discharge Planning and Medication Reconciliation Discharge Plan Discharge Items Patient Disposition: Transfer Inpatient Rehab Fac Reason For Visit: ACUTE KIDNEY FAILURE WITH CHF Discharge Diagnosis: acute kidney failure with CHF Activity: Resume your previous activity Non-emergency contact: Primary Care Provider Call non-emergency contact if: you have any medication questions Follow-up/Referrals: Tramaine Stubbs MD [Primary Care Provider] - Diet: Carb Consistent or DM2, Low Potassium (2gm) and Low Sodium (2gm) Fluids: 1500ml (6 cups) Addtl Attending Provider Instructions: You have been hospitalized for an acute medical problem. During your stay at [facility], we have made an effort to correct the problem that brought you to the hospital while keeping you as comfortable as possible. Medications were used to bring your condition under control and your discharge instructions will include directions for any medications you should take after leaving the hospital. Please make sure you see your Primary Care Provider as part of your follow up plan. -- Plan to continue three times weekly HD, next treatment Thursday -- Post discharge outpatient dialysis has been arranged at [facility] -- For hyperphosphatemia continue Renvela 1 tab QAC -- Renal diet Pending Studies at Discharge: Yes Stand-Alone Forms: My [facility] Skilled Items Patient informed of condition?: Yes DNR: Yes (DNR/DNI) Discharge Level of Care: Skilled Communicable Disease: No Discharge Prognosis: Stable Lines: None Urinary Catheter: No Medications and DC Order Prescriptions: New sevelamer HCl [Renagel] 800 mg Tablet 800 mg PO TIDM Qty: 90 RF: 0 calcitriol 0.25 mcg Capsule 0.5 mcg PO QAM Qty: 30 RF: 0 losartan 25 mg tablet 25 mg PO PM Qty: 30 RF: 0 Continued darbepoetin ilia in polysorbat 200 mcg/mL solution 200 mcg subcut .COMPLEX Qty: 1 RF: 0 metoprolol succinate 50 mg tablet extended release 24 hr 50 mg PO DAILY Qty: 30 RF: 3 aspirin [Aspir-81] 81 mg tablet,delayed release (DR/EC) 81 mg PO QPM RF: 0 acetaminophen [Tylenol Extra Strength] 500 mg tablet 1,000 mg PO BID RF: 0 ferrous sulfate 325 mg (65 mg iron) tablet 325 mg PO DAILY Qty: 90 RF: 3 cholecalciferol (vitamin D3) 2,000 unit tablet 2,000 units PO QAM RF: 0 fluticasone propionate [Allergy Relief (fluticasone)] 50 mcg/actuation spray,suspension 2 sprays INTNAS DAILY PRN (Reason: Allergy Symptoms) RF: 0 multivitamin Tablet 1 tab PO QAM RF: 0 calcitriol 0.25 mcg capsule 0.25 mcg PO MOWEFR RF: 0 atorvastatin 10 mg tablet 10 mg PO HS RF: 0 meclizine 12.5 mg tablet 12.5 mg PO TID PRN (Reason: Dizziness) RF: 0 Discontinued diltiazem HCl 180 mg capsule,extended release 24 hr 180 mg PO DAILY Qty: 30 RF: 3 furosemide 20 mg tablet 20 mg PO QAM RF: 0 Discharge Orders: Discharge Order (Routine); Ordered 11/27/19 Ordered By: Talha Epstein Admission Data Admit Date/Time: 11/18/19 11:08 Attending Provider: Talha Epstein Admit Provider: Talha Epstein Primary Care Provider: Tramaine Stubbs Other Providers: [facility] ; Mario Anne ; Eleanor Salazar ; Jemal Mercedes ; Burke Zapata ; [facility] Other Interventions: Discharge Summary Assessment (RN) Last Done: 11/27/19 14:06 Coding Level of Care Code D/C Day Management >30 mins Diagnoses Acute pulmonary edema J81.0 ESRD (end stage renal disease) N18.6 Chronic kidney disease, stage V N18.5 Cardiomyopathy I42.9 Cardiomyopathy type: unspecified Hyperkalemia E87.5 Anemia N18.5; D63.1 Anemia type: due to chronic kidney disease Chronic kidney disease stage: stage 5, not on chronic dialysis Diabetes mellitus with diabetic nephropathy E11.21 Diabetes mellitus type: type 2 Diabetes mellitus meterman insulin use: without mcc use Gastroesophageal reflux disease K21.9 Esophagitis presence: esophagitis presence not specified Legally blind H54.8 Hypertension I10 Hypertension type: essential hypertension Paresthesias in left hand R20.2 DVT prophylaxis Z29.9 Time Spent (min) 32
== END 2019-11-27 15:16 | DRG 682 ==
LOC: ED 08:06 → SUATTDRO 11:08 → 2S 11:08
DX: Z79.82 Long term (current) use of aspirin; Z79.899 Other long term (current) drug therapy; E55.9 Vitamin D deficiency, unspecified; R20.2 Paresthesia of skin; D63.1 Anemia in chronic kidney disease; E87.5 Hyperkalemia; E87.70 Fluid overload, unspecified; Z99.2 Dependence on renal dialysis; I42.9 Cardiomyopathy, unspecified; K21.9 Gastro-esophageal reflux disease without esophagitis; H54.8 Legal blindness, as defined in USA; E78.00 Pure hypercholesterolemia, unspecified; J81.0 Acute pulmonary edema; E11.22 Type 2 diabetes mellitus with diabetic chronic kidney disease; N18.6 End stage renal disease; I12.0 Hypertensive chronic kidney disease with stage 5 chronic kidney disease or end stage renal disease

== ENCOUNTER 2020-06-26 21:34 | Inpatient (IN) ==
[2020-06-26] MEDS ORDERED: SODIUM CHLORIDE 0.9% 250 ML IV ONE (22:21)
[2020-06-26 22:37] LABS: Basophils # (auto) 0.03 K/uL (0-0.2); Basophils % (auto) 0.4 %; Eosinophils # (auto) 0.48 K/uL (0-0.5); Hematocrit (blood only) 32.2 % (37-47); Hemoglobin 10.5 g/dL (12.0-16.0); Immature Granulocytes # (auto) 0.01 K/uL (0.00-0.02); Immature Granulocytes % (auto) 0.1 %; Lymphocytes # (auto) 1.21 K/uL (1.2-3.4); Lymphocytes % (auto) 17.7 %; Mean Corpuscular Hgb Conc 32.6 g/dL (32-36); Mean Corpuscular Volume 98.2 fL (80-100); Mean Platelet Volume 9.7 fL (7.4-10.4); Monocytes # (auto) 0.52 K/uL (0.11-0.59); Monocytes % (auto) 7.6 %; Neutrophils % (auto) 67.2 %; Platelet Count 213 K/uL (130-400); RDW Coefficient of Variation 15.6 % (11.5-14.5); RDW Standard Deviation 54.8 fL (36.4-46.3); Red Blood Count 3.28 M/uL (4.2-5.4); White Blood Count 6.85 K/uL (4.8-10.8)
[2020-06-26 22:48] LABS: Prothrombin Time 10.2 Seconds (9.0-12.0)
[2020-06-26 23:03] LABS: Alanine Aminotransferase 16 U/L (12-78); Albumin Level 3.4 gm/dl (3.4-5.0); Aspartate Aminotransferase 16 U/L (15-37); BUN Creatinine Ratio 10.2 (10-20); Bilirubin Direct < 0.1 mg/dl (0-0.2); Blood Urea Nitrogen 27 mg/dl (7-18); Calcium 8.6 mg/dl (8.5-10.1); Carbon Dioxide 33 mmol/L (21-32); Chloride 97 mmol/L (98-107); Creatinine Clr Calc Pharmacy 15.4 ml/min; Est GFR (African American) 18.9; Est GFR (Non-African American) 16.3; Glucose 251 mg/dl (70-99); Lipase 112 U/L (73-393); Magnesium 2.2 mg/dl (1.8-2.4); Potassium 3.6 mmol/L (3.5-5.1); Sodium 135 mmol/L (136-145)
[2020-06-26 23:12] LABS: Alkaline Phosphatase 124 U/L (45-117); Bilirubin,Total 0.4 mg/dl (0.2-1); Globulin 3.4 gm/dl (2.5-4.0); Phosphorus 2.3 mg/dl (2.5-4.9); Total Protein 6.8 gm/dl (6.4-8.2); Troponin I < 0.015 ng/ml (0-0.045)
[2020-06-26 23:42] LABS: Influenza A virus by PCR Negative (Neg); Influenza B virus by PCR Negative (Neg); RSV by PCR Negative (Neg); SARS CoV2 RNA(COVID-19) InHosp NEGATIVE (Negative)
--- NOTE | 2020-06-27 00:14 | Emergency Department Note ---
Impression & Plan Generalized weakness, ESRD on hemodialysis, Paresthesias, Hypertensive urgency ED Provider Note NAME: PK VYAS AGE: 79 SEX: F ARRIVES VIA: Ambulance INFORMANT: Patient, ED PROVIDER(S): Cipriano Blount MD CHIEF COMPLAINT: Weakness PLAN: Disposition: Admit MEDICAL DECISION MAKING: The patient is a pleasant 79-year-old woman with a past medical history of end- stage renal disease on hemodialysis on Thursday with dialysis completed this morning, cardiomyopathy, hypertension, hyperlipidemia who presents emergency department for evaluation of right upper extremity paresthesias and sensation of weakness in bilateral upper extremities that happened approximately 2 hours prior to arrival where she felt too weak in her arms to get out of her chair. She denies any headache, dizziness, unilateral weakness. She reports she still does urinate and denies any GI or symptoms. She denies any cough, congestion, fevers, chills, known COVID-19 exposures. On arrival the patient is chronically ill-appearing in no distress, afebrile with blood pressure in the 170s-180s/80s-100s and vital signs otherwise stable. She has subjective paresthesias of the volar aspect of her right upper extremity without objective loss of sensation. She has sensation of subjective weakness of bilateral upper extremities but has symmetric 4+/5 strength x 4 ext. WBC and platelets within normal limits. H/H 10.5/32.2 within prior range of values. Chemistry without metabolic acidosis. Creatinine 2.6 similar to prior range in the setting of the patient's known end-stage renal disease. Electrolytes without significant abnormality. LFTs unremarkable. Troponin negative/undetectable. TSH within normal limits. COVID-19 PCR negative. Influenza and RSV PCR also negative. CT of the head was negative for acute process per preliminary stat rad report. Upon reevaluation the patient continued to report paresthesias in her ex tremities and signs of generalized weakness. We did attempt ambulatory trial with a walker at the bedside and she was unable to ambulate safely even with additional two person assist. Therefore she was in agreement with plan for admission for further evaluation. Is unclear at this time what may be contributing the patient's symptoms though she does have a history of diabetic neuropathy. It is also unclear why she is not on medications for diabetes. She was given her home dose of losartan with subsequent improvement in blood pressures. Case was discussed with Dr. Pierre, [facility] hospitalist, who will evaluate the patient for admission. Triage Nursing notes reviewed and agree them. Prior medical records reviewed Vital Signs: reviewed and remarkable for hypertension. Differential diagnosis: Infection, dehydration, metabolic abnormality, hypo/hyperglycemia, electrolyte disturbance, anemia, hypoxia, cardiac sources, intracerebral event, toxicologic, neurologic, as well as other pathologies. ER treatment provided: See below. Diagnostics interpreted by me: ECG: Normal sinus rhythm, 84 bpm, no ectopy, LVH with repolarization abnormality without overt ST elevation, QTc 477, QRS 100. Similar to November 18, 2019. Cardiac Monitoring: An order for continuous cardiac monitoring was placed and demonstrated Normal sinus rhythm, 84 bpm, no ectopy. Laboratory studies: See below Imaging studies: CXR: Cardiomegaly with interstitial thickening similar to prior without focal infiltrates, per my preliminary review. [facility] Preliminary Findings Only See Final Report For Complete Findings CT HEAD: Compared to 06/02/16 No acute intracranial process. Redemonstrated involutional and microvascular ischemic changes. Ventriculomegaly is stable and may reflect central atrophy, but correlate for symptoms of normal pressure hydrocephalus. Radiologist: Rj Villalobos M.D. Study ready at 22:57 and initial results transmitted at 23:08 Consultation(s): Case was discussed with FAVIAN Le hospitalist, who will evaluate the patient for admission. HPI: The patient is a pleasant 79-year-old woman with a past medical history of end-stage renal disease on hemodialysis on Thursday with dialysis completed this morning, cardiomyopathy, hypertension, hyperlipidemia who presents emergency department for evaluation of right upper extremity paresthesias and sensation of weakness in bilateral upper extremities that silva ppened approximately 2 hours prior to arrival where she felt too weak in her arms to get out of her chair. She denies any headache, dizziness, unilateral weakness. She reports she still does urinate and denies any GI or symptoms. She denies any cough, congestion, fevers, chills, known COVID-19 exposures. ROS: See above HPI for pertinent positives & negatives. A total of 10 systems reviewed and were otherwise negative. PAST MEDICAL HISTORY:See Below PAST SURGICAL HISTORY:See Below FAMILY HISTORY:See Below SOCIAL HISTORY:See Below HOME MEDICATIONS:See Below ALLERGIES:See Below VITALS:See Below PHYSICAL EXAMINATION: GENERAL: Awake, alert, chronically ill -appearing, in no distress HENT: Normocephalic, atraumatic. Oropharynx with dry mucous membranes and otherwise unremarkable. EYES: Normal conjunctiva. Sclera non-icteric. NECK: Supple. No nuchal rigidity. FROM. No JVD. RESPIRATORY: Clear to auscultation. CARDIAC: Regular rate, normal rhythm. Extremities warm and well perfused. Pulses equal. LUE AV fistula with palpable thrill. ABDOMEN: Soft, non-distended. No tenderness to palpation. No rebound or guarding. No masses. RECTAL: Deferred. MUSCULOSKELETAL: Chest examination reveals no tenderness. The back is symmetrical on inspection without obvious abnormality. There is no CVA tenderness to palpation. No joint edema. LOWER EXTREMITIES: Calves are equal size bilaterally and non-tender. No edema. No discoloration. NEURO: No focal sensory or motor deficits noted. Generalized weakness with 4+/5 strength and SILT x 4 extremities. SKIN: No rash or jaundice noted. Cipriano Blount MD Past Med/Surg History Medical History Anemia AV fistula left upper arm Cardiac murmur LAST ECHO 11/09/19= moderate MR/mild TR Cardiomyopathy follows Dr. Quinones Chronic kidney insufficiency follows Dr. Rock Diabetes Blood sugar fluctuates > can't see to check sugar Dialysis patient tues/ thurs/ sat to [place] Hyperlipidemia Hypertension Per records Legally blind READS WITH MAGNIFYING GLASSES Paresthesias in left hand Tinnitus Upper back pain Surgical History History of bilateral oophorectomy History of colonoscopy History of esophagogastroduodenoscopy (EGD) History of tooth extraction Hx of cataract surgery R/L Family History Mother Diabetes Father Myocardial infarction Denies family history of Ovarian cancer Prostate cancer Kidney disease Breast cancer Colorectal cancer Social History Smoking Status: Former smoker Tobacco Type: Cigarettes Age Started Using Tobacco: 17; Age Quit Using Tobacco: 58; packs per day: 0.25; Second Hand Exposure: No; Hx Alcohol Use: No Hx Substance Use: No Preferred Language: Lithuanian Communication Ability: Effective Visual Impairment: Blindness Hearing Ability: Normal Clinical Reimbursement Specialist Required: Yes Beliefs That Will Affect Care: None marital status: single Current Living Situation: Alone current occupational status: retired 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 Feels Safe at Home: Yes Childhood Exposure to Second-Hand Smoke: No caffeine: Yes Dental Care, Regularly: Yes Physical Activity Frequency: Does not Exercise Seatbelt Use: always Sunscreen Use: No Assistive Devices: Cane Allergies Allergies Allergy/AdvReac Type Severity Reaction Status Date / Time No Known Allergies Allergy Verified 06/26/20 22:30 Home Meds Home Medications Medication Instructions Recorded Confirmed acetaminophen 500 mg tablet 1,000 mg PO BID tab 10/11/18 06/26/20 aspirin 81 mg tablet,delayed 81 mg PO QPM 10/11/18 06/26/20 release cholecalciferol (vitamin D3) 2,000 units PO QAM 10/14/19 06/26/20 multivitamin 1 tab PO QAM 10/14/19 06/26/20 atorvastatin 10 mg PO HS 10/16/19 06/26/20 calcitriol 0.5 mcg capsule 0.5 mcg PO QAM 02/10/20 06/26/20 ferrous sulfate 325 mg PO QAM 04/06/20 06/26/20 metoprolol succinate 50 mg PO QAM 04/06/20 06/26/20 Previous Rx's Medication Instructions Recorded darbepoetin ilia in polysorbat 200 200 mcg SUBCUT .COMPLEX #1 ml 11/10/19 mcg/mL in polysorbate injection losartan 25 mg PO PM #30 tab 11/27/19 sevelamer HCl 800 mg tablet 800 mg PO TIDM #90 tab 05/07/20 Results & Data (ED) Vital Signs Vital Signs - 24 hr 06/26/20 21:39 06/26/20 21:40 06/26/20 21:41 Temperature 37.0 C Temperature Source Oral Pulse Rate 78 62 79 Pulse Rate [Right Finger] Pulse Rate from SpO2 Sensor 79 79 Respiratory Rate 18 18 24 Respiratory Depth Normal Blood Pressure 177/71 H 177/71 H Blood Pressure [Right Arm] Blood Pressure Mean 106 106 Blood Pressure Mean [Right Arm] Blood Pressure Position Lying Blood Pressure Position [Right Arm] Pulse Oximetry 94 96 96 Oxygen Delivery Method Room Air Sepsis Recent Fever Within 48 Hours No Sepsis New/Unexplained Change in Mental Status No Sepsis Action Taken by Nursing No Action Required 06/26/20 22:00 06/26/20 22:13 06/26/20 22:30 Temperature Temperature Source Pulse Rate 77 79 83 Pulse Rate [Right Finger] Pulse Rate from SpO2 Sensor 78 79 82 Respiratory Rate 24 27 H 24 Respiratory Depth Blood Pressure 174/106 H 180/101 H Blood Pressure [Right Arm] Blood Pressure Mean 128 127 Blood Pressure Mean [Right Arm] Blood Pressure Position Blood Pressure Position [Right Arm] Pulse Oximetry 98 95 96 Oxygen Delivery Method Sepsis Recent Fever Within 48 Hours Sepsis New/Unexplained Change in Mental Status Sepsis Action Taken by Nursing 06/26/20 22:49 06/26/20 22:53 06/26/20 22:54 Temperature Temperature Source Pulse Rate 84 Pulse Rate [Right Finger] 86 Pulse Rate from SpO2 Sensor 83 Respiratory Rate 23 18 Respiratory Depth Blood Pressure 185/108 H Blood Pressure [Right Arm] 185/108 H Blood Pressure Mean 133 Blood Pressure Mean [Right Arm] 133 Blood Pressure Position Blood Pressure Position [Right Arm] Lying Pulse Oximetry 92 94 95 Oxygen Delivery Method Room Air Room Air Sepsis Recent Fever Within 48 Hours Sepsis New/Unexplained Change in Mental Status Sepsis Action Taken by Nursing 06/26/20 23:00 06/26/20 23:30 06/27/20 00:00 Temperature Temperature Source Pulse Rate 82 82 79 Pulse Rate [Right Finger] Pulse Rate from SpO2 Sensor 82 82 78 Respiratory Rate 27 H 32 H 24 Respiratory Depth Blood Pressure 190/78 H Blood Pressure [Right Arm] Blood Pressure Mean 115 Blood Pressure Mean [Right Arm] Blood Pressure Position Blood Pressure Position [Right Arm] Pulse Oximetry 94 94 94 Oxygen Delivery Method Sepsis Recent Fever Within 48 Hours Sepsis New/Unexplained Change in Mental Status Sepsis Action Taken by Nursing 06/27/20 00:01 06/27/20 00:02 06/27/20 00:30 Temperature Temperature Source Pulse Rate 79 78 73 Pulse Rate [Right Finger] Pulse Rate from SpO2 Sensor 78 78 75 Respiratory Rate 21 17 13 Respiratory Depth Blood Pressure 178/76 H Blood Pressure [Right Arm] Blood Pressure Mean 110 Blood Pressure Mean [Right Arm] Blood Pressure Position Blood Pressure Position [Right Arm] Pulse Oximetry 94 94 95 Oxygen Delivery Method Sepsis Recent Fever Within 48 Hours Sepsis New/Unexplained Change in Mental Status Sepsis Action Taken by Nursing 06/27/20 01:00 06/27/20 01:27 06/27/20 01:30 Temperature Temperature Source Pulse Rate 78 74 Pulse Rate [Right Finger] 73 Pulse Rate from SpO2 Sensor 78 75 Respiratory Rate 24 20 19 Respiratory Depth Blood Pressure 194/87 H 164/79 H Blood Pressure [Right Arm] 194/87 H Blood Pressure Mean 122 107 Blood Pressure Mean [Right Arm] 122 Blood Pressure Position Blood Pressure Position [Right Arm] Sitting Pulse Oximetry 95 94 96 Oxygen Delivery Method Room Air Sepsis Recent Fever Within 48 Hours Sepsis New/Unexplained Change in Mental Status Sepsis Action Taken by Nursing 06/27/20 01:52 06/27/20 02:00 06/27/20 02:01 Temperature Temperature Source Pulse Rate 75 75 73 Pulse Rate [Right Finger] Pulse Rate from SpO2 Sensor 74 74 Respiratory Rate 19 23 Respiratory Depth Blood Pressure 164/79 H 166/73 H Blood Pressure [Right Arm] Blood Pressure Mean 107 104 Blood Pressure Mean [Right Arm] Blood Pressure Position Blood Pressure Position [Right Arm] Pulse Oximetry 93 94 Oxygen Delivery Method Sepsis Recent Fever Within 48 Hours Sepsis New/Unexplained Change in Mental Status Sepsis Action Taken by Nursing 06/27/20 02:30 Temperature Temperature Source Pulse Rate 73 Pulse Rate [Right Finger] Pulse Rate from SpO2 Sensor 72 Respiratory Rate 20 Respiratory Depth Blood Pressure Blood Pressure [Right Arm] Blood Pressure Mean Blood Pressure Mean [Right Arm] Blood Pressure Position Blood Pressure Position [Right Arm] Pulse Oximetry 94 Oxygen Delivery Method Sepsis Recent Fever Within 48 Hours Sepsis New/Unexplained Change in Mental Status Sepsis Action Taken by Nursing Laboratory Data Attestation: I reviewed the patient's lab results. Result diagrams: 06/26/20 22:26 06/26/20 22:26 Lab Results 06/26/20 06/26/20 06/26/20 Range/Units 22:26 22:26 22:26 WBC 6.85 (4.8-10.8) K/uL RBC 3.28 L (4.2-5.4) M/uL Hgb 10.5 L (12.0-16.0) g/dL Hct 32.2 L (37-47) % MCV 98.2 (80-100) fL MCH 32.0 (25-34) pg MCHC 32.6 (32-36) g/dL RDW Std Deviation 54.8 H (36.4-46.3) fL RDW Coeff of Yin 15.6 H (11.5-14.5) % Plt Count 213 (130-400) K/uL MPV 9.7 (7.4-10.4) fL Immature Gran % (Auto) 0.1 % Neut % (Auto) 67.2 % Lymph % (Auto) 17.7 % Metcalfe % (Auto) 7.6 % Eos % (Auto) 7.0 % Baso % (Auto) 0.4 % Neut # (Auto) 4.60 (1.4-6.5) K/uL Lymph # (Auto) 1.21 (1.2-3.4) K/uL Metcalfe # (Auto) 0.52 (0.11-0.59) K/uL Eos # (Auto) 0.48 (0-0.5) K/uL Baso # (Auto) 0.03 (0-0.2) K/uL Immature Gran # (Auto) 0.01 (0.00-0.02) K/uL PT 10.2 (9.0-12.0) Seconds INR 1.0 (0.9-1.1) Sodium 135 L (136-145) mmol/L Potassium 3.6 (3.5-5.1) mmol/L Chloride 97 L (98-107) mmol/L Carbon Dioxide 33 H (21-32) mmol/L Anion Gap 5.0 (3-11) BUN 27 H (7-18) mg/dl Creatinine 2.67 H (0.6-1.2) mg/dl Est Cr Clr Drug Dosing 15.4 ml/min Est GFR ( Amer) 18.9 Est GFR (Non-Af Amer) 16.3 BUN/Creatinine Ratio 10.2 (10-20) Glucose 251 H (70-99) mg/dl Calcium 8.6 (8.5-10.1) mg/dl Phosphorus 2.3 L (2.5-4.9) mg/dl Magnesium 2.2 (1.8-2.4) mg/dl Total Bilirubin 0.4 (0.2-1) mg/dl Direct Bilirubin < 0.1 (0-0.2) mg/dl AST 16 (15-37) U/L ALT 16 (12-78) U/L Alkaline Phosphatase 124 H (45-117) U/L Troponin I < 0.015 (0-0.045) ng/ml Total Protein 6.8 (6.4-8.2) gm/dl Albumin 3.4 (3.4-5.0) gm/dl Globulin 3.4 (2.5-4.0) gm/dl Albumin/Globulin Ratio 1.0 (0.9-2) Lipase 112 (73-393) U/L TSH 1.290 (0.300-4.500) uIu/ml COVID-19 Eval Order SARS-CoV-2 (PCR) (Negative) Influenza Type A (PCR) (Neg) Influenza Type B (PCR) (Neg) RSV (RT-PCR) (Neg) 06/26/20 06/26/20 Range/Units 22:53 22:53 WBC (4.8-10.8) K/uL RBC (4.2-5.4) M/uL Hgb (12.0-16.0) g/dL Hct (37-47) % MCV (80-100) fL MCH (25-34) pg MCHC (32-36) g/dL RDW Std Deviation (36.4-46.3) fL RDW Coeff of Yin (11.5-14.5) % Plt Count (130-400) K/uL MPV (7.4-10.4) fL Immature Gran % (Auto) % Neut % (Auto) % Lymph % (Auto) % Metcalfe % (Auto) % Eos % (Auto) % Baso % (Auto) % Neut # (Auto) (1.4-6.5) K/uL Lymph # (Auto) (1.2-3.4) K/uL Metcalfe # (Auto) (0.11-0.59) K/uL Eos # (Auto) (0-0.5) K/uL Baso # (Auto) (0-0.2) K/uL Immature Gran # (Auto) (0.00-0.02) K/uL PT (9.0-12.0) Seconds INR (0.9-1.1) Sodium (136-145) mmol/L Potassium (3.5-5.1) mmol/L Chloride (98-107) mmol/L Carbon Dioxide (21-32) mmol/L Anion Gap (3-11) BUN (7-18) mg/dl Creatinine (0.6-1.2) mg/dl Est Cr Clr Drug Dosing ml/min Est GFR ( Amer) Est GFR (Non-Af Amer) BUN/Creatinine Ratio (10-20) Glucose (70-99) mg/dl Calcium (8.5-10.1) mg/dl Phosphorus (2.5-4.9) mg/dl Magnesium (1.8-2.4) mg/dl Total Bilirubin (0.2-1) mg/dl Direct Bilirubin (0-0.2) mg/dl AST (15-37) U/L ALT (12-78) U/L Alkaline Phosphatase (45-117) U/L Troponin I (0-0.045) ng/ml Total Protein (6.4-8.2) gm/dl Albumin (3.4-5.0) gm/dl Globulin (2.5-4.0) gm/dl Albumin/Globulin Ratio (0.9-2) Lipase (73-393) U/L TSH (0.300-4.500) uIu/ml COVID-19 Eval Order Cov[facility]sv at [facility] SARS-CoV-2 (PCR) NEGATIVE (Negative) Influenza Type A (PCR) Negative (Neg) Influenza Type B (PCR) Negative (Neg) RSV (RT-PCR) Negative (Neg) Administered Medications Discontinued Medications Sodium Chloride (Nss) 250 mls @ 999 mls/hr IV .Q16M ONE Stop: 06/26/20 22:36 Last Infusion: 06/26/20 23:14 Dose: 0 mls/hr Documented by: [id number] Admin: 06/26/20 22:33 Dose: 999 mls/hr Documented by: [id number] Losartan Potassium (Losartan Potassium 25 Mg Tab) 25 mg PO NOW STA Stop: 06/27/20 01:13 Last Admin: 06/27/20 01:56 Dose: 25 mg Documented by: [id number] Discharge Plan Visit Data Chief Complaint: Neuro Symptoms/Deficit Stated Complaint: R ARM NUMBNESS, ILLNESS ED Provider: Cipriano Blount Discharge Problem: Generalized weakness, ESRD on hemodialysis, Paresthesias, Hypertensive urgency Patient Disposition: Admitted As Inpatient Discharge Instructions Interventions: ED Discharge Assessment Last Done: 06/27/20 03:46
[2020-06-27] MEDS ORDERED: LOSARTAN POTASSIUM 25 MG TAB PO STA (01:12)
--- NOTE | 2020-06-27 03:11 | History & Physical Report ---
Date of Service June 27, 2020 Assessment & Plan (1) ESRD on hemodialysis: (2) Paresthesias: (3) Carotid artery plaque: (4) Hyperlipidemia: (5) Diabetes: (6) Hypertension: Admission and Anticipated Discharge Date Admission Date: 79 yo F w/ pMHx. of Cardiomyopathy, HTN, HLD, ESRD (dialysis e, , Thu), carotid plaque and DM (not on medication) presents with right arm paresthesias with waxing and waning concerning for cervical radiculopathy vs. nerve compression along with some global weakness. Right arm paresthesias CT-H w/ STATRAD findings of no acute intracranial findings (chronic findings of involution, microvascular changes and ventriculomegaly) reassuring that symptoms are are waxing and waning - XR neck ordered to look for spinal canal which could explain symptomatology Global weakness and ambulatory dysfunction new onset concerning for dialysis side effect vs. deconditioning vs. worsening cardiac function - PT/OT ordered along with case mgmgt d/c planning ESRD (dialysis , , Thu) - continue to monitor BMP - will need to coordinate dialysis if the patient is not discharged on 06/27 DM II, not on home meds, last a1c 6.9 - continue to check blood sugars - hypoglycemic meds ordered - A1c ordered for AM labs Cardiomyopathy Myocardial perfusion scan with EF 29%, global hypokinesis and no significant transient ischemic dilation TSH nl HTN - continue home losartan and metoprolol HLD - continue Atorvastatin Carotid plaques - continue asa and statin Code: DNR DNI Diet: CC DM II DVT prophylaxis: Heparin History of Present Illness Chief Complaint: right arm paresthesia Primary Care Provider: Felice Stubbs MD Tory GailLadarius is here for right arm paresthesia. She has ESRD and gets dialysis , , Thu and after receiving dialysis on 06/26 she went home and ate dinner and did the dishes. She developed right arm numbness and tingling without weakness. The numbness would "come and go". She initially had numbness up to the shoulder but this improved and then only occurred in her palm and finger. This has never happened to her before and she was concerned about a stroke so came to the ER. She was not able to stand when the ambulance came to take her to the ER. She has not had any recent changes in her medications. She only walks between rooms in her house and had a fall around [facility] without hitting her head. Allergies Allergy/AdvReac Type Severity Reaction Status Date / Time No Known Allergies Allergy Verified 06/26/20 22:30 Home Medications Medication Instructions Recorded Confirmed Type acetaminophen 500 mg tablet 1,000 mg PO BID tab 10/11/18 06/26/20 History aspirin 81 mg tablet,delayed 81 mg PO QPM 10/11/18 06/26/20 History release cholecalciferol (vitamin D3) 2,000 units PO QAM 10/14/19 06/26/20 History multivitamin 1 tab PO QAM 10/14/19 06/26/20 History atorvastatin 10 mg PO HS 10/16/19 06/26/20 History darbepoetin ilia in polysorbat 200 200 mcg SUBCUT .COMPLEX #1 ml 11/10/19 06/26/20 Rx mcg/mL in polysorbate injection losartan 25 mg PO PM #30 tab 11/27/19 06/26/20 Rx calcitriol 0.5 mcg capsule 0.5 mcg PO QAM 02/10/20 06/26/20 History ferrous sulfate 325 mg PO QAM 04/06/20 06/26/20 History metoprolol succinate 50 mg PO QAM 04/06/20 06/26/20 History sevelamer HCl 800 mg tablet 800 mg PO TIDM #90 tab 05/07/20 06/26/20 Rx Past Med/Surg History Medical History Anemia AV fistula left upper arm Cardiac murmur LAST ECHO 11/09/19= moderate MR/mild TR Cardiomyopathy follows Dr. Quinones Chronic kidney insufficiency follows Dr. Rock Diabetes Blood sugar fluctuates > can't see to check sugar Dialysis patient tues/ th/ sat to [place] Hyperlipidemia Hypertension Per records Legally blind READS WITH MAGNIFYING GLASSES Paresthesias in left hand Tinnitus Upper back pain Surgical History History of bilateral oophorectomy History of colonoscopy History of esophagogastroduodenoscopy (EGD) History of tooth extraction Hx of cataract surgery R/L Family History Mother Diabetes Father Myocardial infarction Denies family history of Ovarian cancer Prostate cancer Kidney disease Breast cancer Colorectal cancer Social History Smoking Status: Former smoker Tobacco Type: Cigarettes Age Started Using Tobacco: 17; Age Quit Using Tobacco: 58; packs per day: 0.25; Second Hand Exposure: No; Hx Alcohol Use: No Hx Substance Use: No Preferred Language: Cymro Communication Ability: Effective Visual Impairment: Blindness Hearing Ability: Normal Electrician Substation Required: Yes Beliefs That Will Affect Care: None marital status: single Current Living Situation: Alone current occupational status: retired 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 Feels Safe at Home: Yes Childhood Exposure to Second-Hand Smoke: No caffeine: Yes Dental Care, Regularly: Yes Physical Activity Frequency: Does not Exercise Seatbelt Use: always Sunscreen Use: No Assistive Devices: Cane Assistive Devices Comment: glasses at home Review of Systems Review of Systems: Constitutional: denies fevers, chills, nausea, vomiting, diaphoresis, night sweats, weight changes Head: denies trauma, headache, confusion, lightheadedness admits vision changes neuro: denies syncope, slurring of speech, dysphagia, focal weakness, decreased sensation, admits numbness and tingling ENT: denies sneezing sore throat, stuffiness admits rhinorrhea Cardiac: chest pain, palpitations Pulm.: admits cough, sputum production (small, clear, no smell) GI: denies indigestion, constipation, diarrhea, blood in stool GI: denies dysuria Physical Exam Constitutional: WD/WN, vitals as above Eyes: PERRL, conjunctivae normal, anicteric sclerae ENMT: external ear and nose normal, oropharynx normal Neck: normal visual inspection Respiratory: normal respiratory effort, lungs clear to auscultation Cardiovascular: RRR, no murmur, no edema Chest (Breasts): Additional Comments: catheter in place, c/d/i Gastrointestinal (Abdomen): normal bowel sounds, soft, nontender, no hepatosplenomegaly Skin: no rashes, warm and dry Neurologic: - chronic vision loss in right eye - chronic decreased hearing in left ear - otherwise CN II-XII intact - no diplopia, no nystagmus - strength intact full to upper extremity on elbow extension, flexion, wrist flexion, extension, global head advertiser solutions strength - strength in bilateral lower extremity decreased symmetrically w/ 4/5 hip flexion, dorsiflexion and plantarflexion - sensation intact to bl upper and lower extremity symmetrically - paresthesia of the right arm from the shoulder to the fingers Psychiatric: Orientation: alert Eye Contact: good eye contact Results & Data Results & Data ([facility]) Vital Signs (Past 12 Hours) Vital Signs Temp Pulse Pulse Resp BP BP Pulse Ox 06/27/20 02:01 73 06/27/20 02:00 75 23 166/73 H 94 06/27/20 01:52 75 19 164/79 H 93 06/27/20 01:30 74 19 164/79 H 96 06/27/20 01:27 73 20 194/87 H 94 06/27/20 01:00 78 24 194/87 H 95 06/27/20 00:30 73 13 95 06/27/20 00:02 78 17 94 06/27/20 00:01 79 21 178/76 H 94 06/27/20 00:00 79 24 94 06/26/20 23:30 82 32 H 94 06/26/20 23:00 82 27 H 190/78 H 94 06/26/20 22:54 95 06/26/20 22:53 86 18 185/108 H 94 06/26/20 22:49 84 23 185/108 H 92 06/26/20 22:30 83 24 96 06/26/20 22:13 79 27 H 180/101 H 95 06/26/20 22:00 77 24 174/106 H 98 06/26/20 21:41 79 24 96 06/26/20 21:40 37.0 C 62 18 177/71 H 96 06/26/20 21:39 78 18 177/71 H 94 Code Status & VTE Plan VTE Prophylaxis Plan VTE Prophylaxis will be ordered: Yes Supervising Physician Co-Signing Physician Notes Patient seen and examined, chart reviewed, case discussed with Dr. Renee and I agree with his assessment and plan as documented above. In brief, patient is a 79yo female with history of ESRD on HD, DM, HTN presenting with RUE paresthesias, waxing and waning, currently involving the palm and middle finger. No additional complaints - no focal weakness, visual disturbance, COLUNGA, CP, palpitations, dizziness On exam she is afebrile HD stable, NAD HEENT - NC/AT, blind in right eye at baseline Heart- +S1/S2, regular Lungs - CTA Abd - +BS, soft, NT/ND Ext - MS equal bilaterally, diminished sensation right palm and middle finger Labs and images reviewed Assessment/Plan - suspect paresthesias, etiology unclear PT/OT evaluation Image cervical spine Remainder of plan as above
--- NOTE | 2020-06-27 04:04 | Billing Data ---
Date of Service June 27, 2020 Coding Level of Care Code 37953 OBS Care - Level 3
[2020-06-27] MEDS ORDERED: CARBOHYDRATES FOR HYPOGLYCEMIA PO PRN (04:18)
[2020-06-27] MEDS ORDERED: DARBEPOETIN ALFA IN POLYSORBAT SQ SCH (04:18)
[2020-06-27] MEDS ORDERED: GLUCOSE 40% GEL 15 GM TUBE PO PRN (04:18)
[2020-06-27] MEDS ORDERED: DEXTROSE 50% 50 ML SYRINGE IV PRN (04:18)
[2020-06-27] MEDS ORDERED: GLUCAGON FOR INJ 1 MG VIAL SQ PRN (04:18)
[2020-06-27] MEDS ORDERED: GLUCOSE 10 TABS/TUBE PO PRN (04:18)
[2020-06-27] MEDS ORDERED: POLYETHYLENE (MIRALAX) 17 GM PACK PO PRN (04:18)
--- NOTE | 2020-06-27 07:11 | CT Scan Report ---
CT OF THE HEAD WITHOUT CONTRAST CLINICAL HISTORY: BUE weakness, RUE paraesthesias COMPARISON STUDY: MRI of the brain April 25, 2013. Head CT June 02, 2016. CT DOSE: 614.27 mGy.cm TECHNIQUE: Helical axial images of the head were obtained without IV contrast. Automated exposure con trol was utilized for the study. A dose lowering technique was utilized adhering to the principles o f ALARA. FINDINGS: No acute intracranial hemorrhage, midline shift or mass effect is present. Mild ventricular dilatation is similar to prior CT of June 02, 2016. Basal cisterns are patent. There are no extra-a xial collections. There are no findings to suggest acute dural sinus thrombosis or acute territorial infarct. Mild white matter hypodensity suggests small vessel disease. There are no calvarial fracture . IMPRESSION: 1. No acute intracranial hemorrhage or mass effect. 2. Stable mild ventricular dilatation. This is likely due to central atrophy. Normal pressure hydroce phalus could appear similar but is considered less likely. ACT 112: Negative or not required by law. Electronically signed by: Rosas Mcmanus M.D. 06/27/2020 7:10 AM
[2020-06-27] MEDS ORDERED: PHARMACY GLYCEMIC MGMT CONSULT PRN (07:12)
--- NOTE | 2020-06-27 07:41 | XRay Report ---
SINGLE VIEW CHEST CLINICAL HISTORY: Atypical chest pain. FINDINGS: An AP, portable, upright chest radiograph is compared to study dated 11/27/2019. The examina tion is degraded by portable technique and patient rotation. A right-sided central venous catheter is unchanged in position. The heart is enlarged noting atherosclerotic calcification of the thoracic ao rta. There is mild pulmonary vascular congestion. Scarring/atelectasis is noted at the lung bases. No airspace consolidation or large pleural effusion is identified. No pneumothorax is seen. The skeleta l structures are osteopenic. There is chronic posttraumatic deformity of the left proximal humerus. IMPRESSION: Cardiomegaly with mild pulmonary vascular congestion. ACT 112: Negative or not required by law. Electronically signed by: Paras Nichole M.D. 06/27/2020 7:39 AM
[2020-06-27 08:25] LABS: Basophils # (auto) 0.03 K/uL (0-0.2); Basophils % (auto) 0.5 %; Eosinophils # (auto) 0.39 K/uL (0-0.5); Eosinophils % (auto) 6.1 %; Hematocrit (blood only) 31.7 % (37-47); Hemoglobin 10.5 g/dL (12.0-16.0); Immature Granulocytes # (auto) 0.01 K/uL (0.00-0.02); Immature Granulocytes % (auto) 0.2 %; Lymphocytes # (auto) 1.34 K/uL (1.2-3.4); Mean Corpuscular Hemoglobin 32.3 pg (25-34); Mean Corpuscular Hgb Conc 33.1 g/dL (32-36); Mean Corpuscular Volume 97.5 fL (80-100); Mean Platelet Volume 9.5 fL (7.4-10.4); Monocytes # (auto) 0.46 K/uL (0.11-0.59); Monocytes % (auto) 7.2 %; Neutrophils # (auto) 4.14 K/uL (1.4-6.5); Platelet Count 218 K/uL (130-400); RDW Coefficient of Variation 15.6 % (11.5-14.5); RDW Standard Deviation 54.8 fL (36.4-46.3); Red Blood Count 3.25 M/uL (4.2-5.4); White Blood Count 6.37 K/uL (4.8-10.8)
[2020-06-27 08:32] LABS: Estimated Average Glucose 140 mg/dl; Hemoglobin A1C 6.5 % (4.5-5.6)
[2020-06-27 08:59] LABS: BUN Creatinine Ratio 10.7 (10-20); Calcium 9.6 mg/dl (8.5-10.1); Creatinine Clr Calc Pharmacy 13.9 ml/min; Est GFR (African American) 16.6; Est GFR (Non-African American) 14.4; Potassium 3.8 mmol/L (3.5-5.1)
--- NOTE | 2020-06-27 09:13 | Pharmacy Report ---
Pharmacy Glycemic Sign Off Nt - Date of Service June 27, 2020 - Assessment & Plan ASSESSMENT: * Pharmacy consulted for glycemic overnight based on elevated BSG * AM BSG wnl with no insulin administered * Patient not on diabetes medications at home * No notable stressors that would impact glycemic control * Weight-based Novolog entered. This likely will be sufficient to manage BSG's while inpatient * Discussed w Victoria MCMAHAN for pharmacy to sign off PLAN FOR INPATIENT GLYCEMIC CONTROL: * NovoLog per scale ACHS/Q6hrs while NPO * Goal range = 110 140 mg/dl * CF = 35 mg/dl/unit * CR = 1 unit for ever 11 g CHO consumed * Pharmacy is signing off of glycemic consult and will no longer be making adjustments to inpatient regimen. Please feel free to re-consult if needed. Thank you.
[2020-06-27] MEDS: SEVELAMER HCL 800 MG TABLET PO SCH (09:33)
[2020-06-27] MEDS: ACETAMINOPHEN 500 MG TAB PO SCH ×2 (09:34→21:22)
[2020-06-27] MEDS: CALCITRIOL 0.25 MCG CAPSULE PO SCH (09:34)
[2020-06-27] MEDS: METOPROLOL SUCC 50MG EXT REL TAB PO SCH (09:35)
[2020-06-27] MEDS: FERROUS SULFATE 325 MG TAB PO SCH (09:35)
[2020-06-27] MEDS: CHOLECALCIFEROL 1,000 UNITS 25 MCG TAB PO SCH (09:35)
--- NOTE | 2020-06-27 09:35 | XRay Report ---
XR cervical [id number] routine CLINICAL HISTORY: Paresthesias. Bilateral arm numbness. COMPARISON STUDY: No previous studies for comparison. FINDINGS: Dual-lumen right internal jugular central venous catheter is incidentally noted. There is r eversal of the normal cervical lordosis. Severe multilevel degenerative disc disease is noted. There is partial fusion of C5 and C6. Loss of height of several cervical vertebral bodies is chronic. There is moderate multilevel facet arthrosis. Multilevel bony neural foraminal narrowing is noted. IMPRESSION: 1. Severe multilevel degenerative disc disease and facet arthrosis within the cervical spine, as desc ribed above. Loss of height of several mid cervical vertebral bodies is chronic. 2. No acute cervical spine fracture identified. ACT 112: Negative or not required by law. Electronically signed by: Rosas Mcmanus M.D. 06/27/2020 9:34 AM
[2020-06-27] MEDS: MULTIVITAMIN TAB PO SCH (09:36)
--- NOTE | 2020-06-27 09:38 | Neurology Consultation ---
Date of Consultation June 27, 2020 Assessment & Plan (1) Stroke-like symptoms: (2) Generalized weakness: Rather acute onset right upper extremity paresthesias and associated mild weakness beginning last night after returning home from a hemodialysis session. I would like this patient to have an MRI of the brain and cervical spine completed to exclude a small ischemic stroke or possibly spinal stenosis. I would also recommend a carotid ultrasound. Patient should continue with aspirin 81 mg/day and atorvastatin. Would consider obtaining an up-to-date echocardiogram if MRI reveals an acute or subacute infarct. This patient also has some proximal weakness of the lower extremities with inability to arise from a chair on her own. She has chronic weakness and deconditioning and relies on a rolling walker but is admittedly weaker than usual. I am uncertain if her reported decline in leg strength is related to her right arm paresthesias at this time. Her lower extremity weakness is symmetrical and may be an exacerbation of a chronic problem. Likely multifactorial and occurring in the context of end-stage renal disease, low vitamin D status, and deconditioning. An acquired myopathy is not completely excluded. I would recommend checking a CK and aldolase. Would also check an up-to-date vitamin D level. Would also consider obtaining an outpatient EMG of the right arm and leg. This patient also has a history of chronic tremor, currently mixed type with resting postural and action components, fairly symmetrical. Associated head tremor as well. Does not look like Parkinson's disease. She has chronic ataxia/ambulatory dysfunction as well. 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 She does have an element of central atrophy on neuroimaging. NPH is not completely excluded but not strongly suspected as the degree of central atrophy has been relatively stable for several years. Up-to-date brain MRI as above. I will make further recommendations pending completion of the above testing. History of Present Illness Reason for Consultation: RUE numbness Requesting Physician: iVctoria Palencia PA-C Attending Physician: Estela Gómez MD History of Present Illness The patient is a 79-year old former patient of mine, last evaluated in neurology clinic in 2013 for ataxia and tremor potentially related to diabetic peripheral neuropathy and essential tremor with an element of central atrophy on MRI at that time. The patient presented to the emergency department overnight with a chief complaint of rather sudden onset right upper extremity numbness and tingling affecting the entire hand and forearm and occurring with some associated mild weakness but no motor or sensory symptoms affecting the face. Although she has chronic weakness and ambulatory dysfunction requiring a rolling walker, she also complains of weakness of the legs with inability to stand up out of a chair recently, which may be associated with her right upper extremity numbness and tingling as well. She denies experiencing any associated neck or spinal pain. History notable for end-stage renal disease for which she is on hemodialysis. In fact, her symptoms began after returning home from a he modialysis session last night. The patient does have a cardiomyopathy with a low EF (29%) identified on a myocardial perfusion stress test completed this past December. Patient follows regularly with cardiology. She is prescribed daily low-dose aspirin and atorvastatin. She does not complain of muscle pain. She has a normocytic anemia and had mild hyponatremia upon presentation, corrected at this point in time. Troponins at the time of presentation normal. Normal TSH. Borderline low vitamin D levels the past few years. She did have a CT of the head completed yesterday which was negative for hemorrhage or acute process. There is mild atrophy with associated ventricular dilatation, unchanged compared with previous imaging. These findings were observed by the interpreting radiologist. I reviewed the images as well and agree. Allergies Allergy/AdvReac Type Severity Reaction Status Date / Time No Known Allergies Allergy Verified 06/26/20 22:30 Home Medications Medication Instructions Recorded Confirmed Type acetaminophen 500 mg tablet 1,000 mg PO BID tab 10/11/18 06/26/20 History aspirin 81 mg tablet,delayed 81 mg PO QPM 10/11/18 06/26/20 History release cholecalciferol (vitamin D3) 2,000 units PO QAM 10/14/19 06/26/20 History multivitamin 1 tab PO QAM 10/14/19 06/26/20 History atorvastatin 10 mg PO HS 10/16/19 06/26/20 History darbepoetin ilia in polysorbat 200 200 mcg SUBCUT .COMPLEX #1 ml 11/10/19 06/26/20 Rx mcg/mL in polysorbate injection losartan 25 mg PO PM #30 tab 11/27/19 06/26/20 Rx calcitriol 0.5 mcg capsule 0.5 mcg PO QAM 02/10/20 06/26/20 History ferrous sulfate 325 mg PO QAM 04/06/20 06/26/20 History metoprolol succinate 50 mg PO QAM 04/06/20 06/26/20 History sevelamer HCl 800 mg tablet 800 mg PO TIDM #90 tab 05/07/20 06/26/20 Rx Patient History Medical History Anemia AV fistula left upper arm Cardiac murmur LAST ECHO 11/09/19= moderate MR/mild TR Cardiomyopathy follows Dr. Quinones Chronic kidney insufficiency follows Dr. Rock Diabetes Blood sugar fluctuates > can't see to check sugar Dialysis patient tues/ thurs/ sat to [place] Hyperlipidemia Hypertension Per records Legally blind READS WITH MAGNIFYING GLASSES Paresthesias in left hand Tinnitus Upper back pain Surgical History History of bilateral oophorectomy History of colonoscopy History of esophagogastroduodenoscopy (EGD) History of tooth extraction Hx of cataract surgery R/L Family History Mother Diabetes Father Myocardial infarction Denies family history of Ovarian cancer Prostate cancer Kidney disease Breast cancer Colorectal cancer Social History Smoking Status: Former smoker Tobacco Type: Cigarettes Age Started Using Tobacco: 17; Age Quit Using Tobacco: 58; packs per day: 0.25; Second Hand Exposure: No; Hx Alcohol Use: No Hx Substance Use: No Preferred Language: Ukrainian Communication Ability: Effective Visual Impairment: Blindness Hearing Ability: Normal Cork Grinder Required: Yes Beliefs That Will Affect Care: None marital status: single Current Living Situation: Alone current occupational status: retired 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 Feels Safe at Home: Yes Childhood Exposure to Second-Hand Smoke: No caffeine: Yes Dental Care, Regularly: Yes Physical Activity Frequency: Does not Exercise Seatbelt Use: always Sunscreen Use: No Assistive Devices: Walker Review of Systems Constitutional: no fever and no chills Eyes: + blind spots Chronic vision loss right eye Ear, Nose, Mouth, Throat: + hearing loss Respiratory: no cough and no dyspnea Cardiovascular: no chest pain and no palpitations Gastrointestinal: no nausea and no vomiting Genitourinary: no dysuria Musculoskeletal: no back pain, no neck pain and no myalgia Integumentary: no rash and no lesions Neurologic: as per Subjective / HPI, + gait abnormality, + generalized weakness, + paresthesia and + tremor(s); no headache(s), no confusion and no memory loss Psychiatric: no depression and no anxiety Hematologic / Lymphatic: no easy bleeding and no easy bruising Exam (Neuro) Constitutional: well developed and well nourished; no acute distress Eyes: EOM intact bilaterally; + abnormal visual field confrontation, + no PERRL, + abnormal accommodation and no nystagmus Right pupil is round, relatively small and minimally reactive to light as compared to the left. Patient is able to perceive some light in color with the right eye but otherwise acuity is extremely poor. I am unable to visualize the optic nerves with direct ophthalmoscopic examination. Cardiovascular: Vessels: normal carotid upstroke; no carotid bruit Neurologic: Oriented to:: Person, Place and Time Memory: Short Term Intact and Remote Intact Attention: Span Intact and Concentration Intact Language: Naming Objects and Repeating Phrases Speech Fluency: negative Dysarthria Speech Aphasia: negative Aphasia Fund of Knowledge: Current Events, Past History and Vocabulary Cranial Nerves: Normal III, IV, (As above, right pupil relatively small, minimally reactive as compared to the left. Ocular movements intact.), V (Facial sensation intact), VII (There is no facial droop or weakness), VIII (Hearing intact), IX, X (Palate elevates to midline), XI (Shoulder shrug intact) and XII (Tongue protrudes to midline); Abnorm II (Impaired visual field and acuity for the right eye noted. Normal field and acuity for the left eye.) Motor Strength: Normal Upper Extremities; negative Normal Lower Extremities (Mild proximal weakness for the lower extremities noted) and Pronator Drift Motor Tone: Normal Lower Extremities and Normal Upper Extremities Muscle Bulk/Involuntary Movements: Rest Tremor (Arm) and Action Tremor; negative Muscle Atrophy Sensation: Light Touch Intact and Proprioception Intact; negative Pain/Temperature Intact and Vibration Intact Coordination: Normal, Limited Balance and Finger-Nose Abnormal (Very mild dysmetria with [id number] on the right noted) Laterality: Right; negative Dysdiadochokinesia and Heel-Sheriff Abnormal Deep Tendon Reflexes: Rt Triceps: 1+, Lt Triceps: 1+, Rt Biceps: 1+, Lt Biceps: 1+, Rt Brachioradialis: 1+, Lt Brachioradialis: 1+, Rt Patellar: 0, Lt Patellar: 0, Rt Ankle: 0 and Lt Ankle: 0 Special Tests: negative Babinski Present Details: Patient unable to stand up out of bedside chair on her own due to lower extremity weakness. Results & Data ([facility]) Vital Signs (Past 12 Hours) Vital Signs Temp Pulse Pulse Resp BP BP Pulse Ox 06/27/20 07:00 36.8 C 76 16 178/75 H 96 06/27/20 05:13 36.9 C 78 18 179/90 H 92 06/27/20 03:37 73 23 172/66 H 94 06/27/20 03:30 75 23 93 06/27/20 03:00 75 22 95 06/27/20 02:30 73 20 94 06/27/20 02:01 73 06/27/20 02:00 75 23 166/73 H 94 06/27/20 01:52 75 19 164/79 H 93 06/27/20 01:30 74 19 164/79 H 96 06/27/20 01:27 73 20 194/87 H 94 06/27/20 01:00 78 24 194/87 H 95 06/27/20 00:30 73 13 95 06/27/20 00:02 78 17 94 06/27/20 00:01 79 21 178/76 H 94 06/27/20 00:00 79 24 94 06/26/20 23:30 82 32 H 94 06/26/20 23:00 82 27 H 190/78 H 94 06/26/20 22:54 95 06/26/20 22:53 86 18 185/108 H 94 06/26/20 22:49 84 23 185/108 H 92 06/26/20 22:30 83 24 96 06/26/20 22:13 79 27 H 180/101 H 95 06/26/20 22:00 77 24 174/106 H 98 06/26/20 21:41 79 24 96 06/26/20 21:40 37.0 C 62 18 177/71 H 96 06/26/20 21:39 78 18 177/71 H 94 Laboratory Results WBC 6.37, hemoglobin 10.5, hematocrit 31.7, platelet count 218, sodium 137, potassium 3.8, BUN 32, creatinine 2.97, glucose 127, hemoglobin A1c 6.5, calcium 9.6, magnesium 2.2, troponin 0 0.026, vitamin B12 1042, TSH 1.[address] of the head is as described in the history of present illness. An electrocardiogram reveals a normal sinus rhythm, 84 bpm. Coding Level of Care Code 31026 Initial In Care Lvl 3 Diagnoses Stroke-like symptoms R29.90 Generalized weakness R53.1
[2020-06-27] MEDS: HEPARIN SOD 5,000 UNIT/0.5 ML VIAL SQ SCH ×2 (09:39→21:23)
[2020-06-27] MEDS: INSULIN ASPART 100 UNITS/ML 3 ML PEN SC SCH ×4 (09:40→21:36)
[2020-06-27 10:32] LABS: C Reactive Protein 0.84 mg/dl (0-0.29)
--- NOTE | 2020-06-27 10:56 | Hospitalist Progress Note ---
Date of Service June 27, 2020 Assessment & Plan (1) ESRD on hemodialysis: Admission Date: 79 yo F w/ pMHx. of Cardiomyopathy, HTN, HLD, ESRD (dialysis Thu, , Thu), carotid plaque and DM (not on medication) presents with right arm paresthesias with waxing and waning concerning for cervical radiculopathy vs. nerve compression along with some global weakness. Right arm paresthesias * CT-H w/ STATRAD findings of no acute intracranial findings (chronic findings of involution, microvascular changes and ventriculomegaly, possible NPH but not likely per neuro but not excluded) * XR neck ordered to look for spinal canal which could explain symptomatology * --> Severe multilevel degenerative disc disease and facet arthrosis within the cervical spine, as described above. Loss of height of several mid cervical vertebral bodies is chronic. There is partial fusion of C5 and C6. * Neurology consulted * MRI Brain pending * MRI Cervical Spine pending * PT/OT consults pending * NIHSS * No dysphagia and tolerated diet without issue --- no need for speech eval * Per neuro, no need for stroke alert given not candidate for TPA and will await MRI Brain for further work-up * ECHO pending -- prior myocardial scan with EF 29% global hypokinesis and no significant transient ischemic dilation November 2019. [address] Quinones and initially wanted to increase losartan to 50mg daily (will increase tonight given HTN) * CK, ALdolase, ESR also pending * A1c 6.5 (down from 6.9 not on medications) * Lipid panel added to labs (on lipitor 10mg HS) * Will also check urine given weakness for possible infection although afebrile/no wbc elevation on admission ESRD (dialysis , , Thu), Hypophosphatemia * Cr elevated but stable * Will consult Nephrology for AM for HD * Holding sevelamer for today and given potassium phos PO x 4 doses. * Repeat BMP, Phos in AM DM II, * not on home meds, * last a1c 6.9 -- repeat A1c 6.5 * ISS while inpatient Cardiomyopathy * Myocardial perfusion Shawn without significant ischemia although some small defects noted and not likely account for reduced LV function * Repeating ECHO as above (FAIRLY MURMUR ON EXAMINATION given only mod MR on prior) SYSTOLIC although does not appear to be worsening but possible MR, with possible S3. * Prior Echo Nov 2019 with EF 40-45% moderate MR, mild TR * TSH nl * Follows with Dr. Quinones -- increased losartan to 50mg HS as above * Continue metoprolol succinate 50mg daily, ASA 81mg, Atorvastatin 10mg HS (may need increased based on lipid panel as ordered above) * No chest pain reported, trop <0.015 on admission however repeat 0.028 and will trend another in 6 hours * Continue to monitor HTN * Chronic. Issues reported with low BP in dialysis however BP elevated to 185/108 on admission * BP currently 178/75 * Increased losartan as above to 50mg HS * Continued metoprolol succinate 50mg daily * Continue to monitor HLD * continue Atorvastatin 10mg HS * Repeating Lipid Panel Carotid plaques * Continue ASA, Lipitor as above * Lipid panel pending * Carotid Dopplers pending Code: DNR DNI Diet: CC DM II DVT prophylaxis: Heparin Continued inpatient stay -- likely change to admission (2) Paresthesias: (3) Carotid artery plaque: (4) Hyperlipidemia: (5) Diabetes: (6) Hypertension: Admission and Anticipated Discharge Date Admission Date: June 27, 2020 Supervising Physician Co-Signing Physician Notes PA Supervision Note: I did not personally see or examine the patient today, but I verified all pinedo points of FLACO Palencia's assessment and plan with the following exceptions/additions: None Subjective BRIDGE NOTE: Patient seen this morning. States weakness happened yesterday after dialysis at dinner time and persisted and by the time ambulance got to house she was unable to get up by herself. Generalized weakness improved and no longer needing assist x 2 and was gotten into the chair this morning with contact assist. She states still has numbness/tingling. Bilaterally but worse to her RUE and lateral aspect as well as palms. No pain or weakness per se, primarily numbness/tingling. 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 LUE with fistula. BPs lower in dialysis reported but only sometimes symptomatic. Dr Quinones wanted to increase her losartan to 50mg daily which we will do to see if BPs are causing some of these issues. Chronic issues with R eye blindness but states intermittent issues with vision to her left eye that come and go. Discussed this could also have been warning signs for possible stroke and we willl obtain MRI/Carotid US and further lab trenton ting for eval but will also need EMG outpatient as well. Moving to telemetry for closer monitoring. Results & Data Results & Data ([facility]) Vital Signs (Past 12 Hours) Vital Signs Temp Pulse Pulse Resp BP BP Pulse Ox 06/27/20 07:00 36.8 C 76 16 178/75 H 96 06/27/20 05:13 36.9 C 78 18 179/90 H 92 06/27/20 03:37 73 23 172/66 H 94 06/27/20 03:30 75 23 93 06/27/20 03:00 75 22 95 06/27/20 02:30 73 20 94 06/27/20 02:01 73 06/27/20 02:00 75 23 166/73 H 94 06/27/20 01:52 75 19 164/79 H 93 06/27/20 01:30 74 19 164/79 H 96 06/27/20 01:27 73 20 194/87 H 94 06/27/20 01:00 78 24 194/87 H 95 06/27/20 00:30 73 13 95 06/27/20 00:02 78 17 94 06/27/20 00:01 79 21 178/76 H 94 06/27/20 00:00 79 24 94 06/26/20 23:30 82 32 H 94 06/26/20 23:00 82 27 H 190/78 H 94 06/26/20 22:54 95 06/26/20 22:53 86 18 185/108 H 94 06/26/20 22:49 84 23 185/108 H 92 Laboratory Results 06/27/20 06/27/20 06/27/20 Range/Units 09:49 09:49 09:49 WBC (4.8-10.8) K/uL RBC (4.2-5.4) M/uL Hgb (12.0-16.0) g/dL Hct (37-47) % MCV (80-100) fL MCH (25-34) pg MCHC (32-36) g/dL RDW Std Deviation (36.4-46.3) fL RDW Coeff of Yin (11.5-14.5) % Plt Count (130-400) K/uL MPV (7.4-10.4) fL Immature Gran % (Auto) % Neut % (Auto) % Lymph % (Auto) % Lee % (Auto) % Eos % (Auto) % Baso % (Auto) % Neut # (Auto) (1.4-6.5) K/uL Lymph # (Auto) (1.2-3.4) K/uL Lee # (Auto) (0.11-0.59) K/uL Eos # (Auto) (0-0.5) K/uL Baso # (Auto) (0-0.2) K/uL Immature Gran # (Auto) (0.00-0.02) K/uL ESR (0-30) mm/hr PT (9.0-12.0) Seconds INR (0.9-1.1) Sodium (136-145) mmol/L Potassium (3.5-5.1) mmol/L Chloride (98-107) mmol/L Carbon Dioxide (21-32) mmol/L Anion Gap (3-11) BUN (7-18) mg/dl Creatinine (0.6-1.2) mg/dl Est Cr Clr Drug Dosing ml/min Est GFR ( Amer) Est GFR (Non-Af Amer) BUN/Creatinine Ratio (10-20) Glucose (70-99) mg/dl POC Glucose (70-99) mg/dl Estimat Average Glucose mg/dl Hemoglobin A1c (4.5-5.6) % Calcium (8.5-10.1) mg/dl Phosphorus (2.5-4.9) mg/dl Magnesium (1.8-2.4) mg/dl Total Bilirubin (0.2-1) mg/dl Direct Bilirubin (0-0.2) mg/dl AST (15-37) U/L ALT (12-78) U/L Alkaline Phosphatase (45-117) U/L Total Creatine Kinase 63 (26-192) U/L Troponin I (0-0.045) ng/ml C-Reactive Protein 0.84 H (0-0.29) mg/dl NT-Pro-B Natriuret Pep (0-1800) pg/ml Total Protein (6.4-8.2) gm/dl Albumin (3.4-5.0) gm/dl Globulin (2.5-4.0) gm/dl Albumin/Globulin Ratio (0.9-2) Triglycerides 99 (0-150) mg/dl Cholesterol 131 (0-200) mg/dl LDL Cholesterol, Calc 29 mg/dl VLDL Cholesterol, Calc 20 mg/dl HDL Cholesterol 82 mg/dl Cholesterol/HDL Ratio 2 Lipase (73-393) U/L Aldolase Pending Vitamin B12 (193-986) pg/ml 25-OH Vitamin D Total 41.5 (30-100) ng/ml TSH (0.300-4.500) uIu/ml COVID-19 Eval Order SARS-CoV-2 (PCR) (Negative) Influenza Type A (PCR) (Neg) Influenza Type B (PCR) (Neg) RSV (RT-PCR) (Neg) 06/27/20 06/27/20 06/27/20 Range/Units 09:49 08:11 08:11 WBC (4.8-10.8) K/uL RBC (4.2-5.4) M/uL Hgb (12.0-16.0) g/dL Hct (37-47) % MCV (80-100) fL MCH (25-34) pg MCHC (32-36) g/dL RDW Std Deviation (36.4-46.3) fL RDW Coeff of Yin (11.5-14.5) % Plt Count (130-400) K/uL MPV (7.4-10.4) fL Immature Gran % (Auto) % Neut % (Auto) % Lymph % (Auto) % Lee % (Auto) % Eos % (Auto) % Baso % (Auto) % Neut # (Auto) (1.4-6.5) K/uL Lymph # (Auto) (1.2-3.4) K/uL Lee # (Auto) (0.11-0.59) K/uL Eos # (Auto) (0-0.5) K/uL Baso # (Auto) (0-0.2) K/uL Immature Gran # (Auto) (0.00-0.02) K/uL ESR 25 (0-30) mm/hr PT (9.0-12.0) Seconds INR (0.9-1.1) Sodium (136-145) mmol/L Potassium (3.5-5.1) mmol/L Chloride (98-107) mmol/L Carbon Dioxide (21-32) mmol/L Anion Gap (3-11) BUN (7-18) mg/dl Creatinine (0.6-1.2) mg/dl Est Cr Clr Drug Dosing ml/min Est GFR ( Amer) Est GFR (Non-Af Amer) BUN/Creatinine Ratio (10-20) Glucose (70-99) mg/dl POC Glucose (70-99) mg/dl Estimat Average Glucose mg/dl Hemoglobin A1c (4.5-5.6) % Calcium (8.5-10.1) mg/dl Phosphorus (2.5-4.9) mg/dl Magnesium (1.8-2.4) mg/dl Total Bilirubin (0.2-1) mg/dl Direct Bilirubin (0-0.2) mg/dl AST (15-37) U/L ALT (12-78) U/L Alkaline Phosphatase (45-117) U/L Total Creatine Kinase (26-192) U/L Troponin I 0.026 (0-0.045) ng/ml C-Reactive Protein (0-0.29) mg/dl NT-Pro-B Natriuret Pep > 94869 H (0-1800) pg/ml Total Protein (6.4-8.2) gm/dl Albumin (3.4-5.0) gm/dl Globulin (2.5-4.0) gm/dl Albumin/Globulin Ratio (0.9-2) Triglycerides (0-150) mg/dl Cholesterol (0-200) mg/dl LDL Cholesterol, Calc mg/dl VLDL Cholesterol, Calc mg/dl HDL Cholesterol mg/dl Cholesterol/HDL Ratio Lipase (73-393) U/L Aldolase Vitamin B12 (193-986) pg/ml 25-OH Vitamin D Total (30-100) ng/ml TSH (0.300-4.500) uIu/ml COVID-19 Eval Order SARS-CoV-2 (PCR) (Negative) Influenza Type A (PCR) (Neg) Influenza Type B (PCR) (Neg) RSV (RT-PCR) (Neg) 06/27/20 06/27/20 06/27/20 Range/Units 08:11 08:11 08:11 WBC (4.8-10.8) K/uL RBC (4.2-5.4) M/uL Hgb (12.0-16.0) g/dL Hct (37-47) % MCV (80-100) fL MCH (25-34) pg MCHC (32-36) g/dL RDW Std Deviation (36.4-46.3) fL RDW Coeff of Yin (11.5-14.5) % Plt Count (130-400) K/uL MPV (7.4-10.4) fL Immature Gran % (Auto) % Neut % (Auto) % Lymph % (Auto) % Lee % (Auto) % Eos % (Auto) % Baso % (Auto) % Neut # (Auto) (1.4-6.5) K/uL Lymph # (Auto) (1.2-3.4) K/uL Lee # (Auto) (0.11-0.59) K/uL Eos # (Auto) (0-0.5) K/uL Baso # (Auto) (0-0.2) K/uL Immature Gran # (Auto) (0.00-0.02) K/uL ESR (0-30) mm/hr PT (9.0-12.0) Seconds INR (0.9-1.1) Sodium 137 (136-145) mmol/L Potassium 3.8 (3.5-5.1) mmol/L Chloride 101 (98-107) mmol/L Carbon Dioxide 31 (21-32) mmol/L Anion Gap 5.0 (3-11) BUN 32 H (7-18) mg/dl Creatinine 2.97 H D (0.6-1.2) mg/dl Est Cr Clr Drug Dosing 13.9 ml/min Est GFR ( Amer) 16.6 Est GFR (Non-Af Amer) 14.4 BUN/Creatinine Ratio 10.7 (10-20) Glucose 127 H (70-99) mg/dl POC Glucose (70-99) mg/dl Estimat Average Glucose 140 mg/dl Hemoglobin A1c 6.5 H (4.5-5.6) % Calcium 9.6 (8.5-10.1) mg/dl Phosphorus (2.5-4.9) mg/dl Magnesium (1.8-2.4) mg/dl Total Bilirubin (0.2-1) mg/dl Direct Bilirubin (0-0.2) mg/dl AST (15-37) U/L ALT (12-78) U/L Alkaline Phosphatase (45-117) U/L Total Creatine Kinase (26-192) U/L Troponin I (0-0.045) ng/ml C-Reactive Protein (0-0.29) mg/dl NT-Pro-B Natriuret Pep (0-1800) pg/ml Total Protein (6.4-8.2) gm/dl Albumin (3.4-5.0) gm/dl Globulin (2.5-4.0) gm/dl Albumin/Globulin Ratio (0.9-2) Triglycerides (0-150) mg/dl Cholesterol (0-200) mg/dl LDL Cholesterol, Calc mg/dl VLDL Cholesterol, Calc mg/dl HDL Cholesterol mg/dl Cholesterol/HDL Ratio Lipase (73-393) U/L Aldolase Vitamin B12 1042 H (193-986) pg/ml 25-OH Vitamin D Total (30-100) ng/ml TSH (0.300-4.500) uIu/ml COVID-19 Eval Order SARS-CoV-2 (PCR) (Negative) Influenza Type A (PCR) (Neg) Influenza Type B (PCR) (Neg) RSV (RT-PCR) (Neg) 06/27/20 06/27/20 06/27/20 Range/Units 08:11 08:10 06:48 WBC 6.37 (4.8-10.8) K/uL RBC 3.25 L (4.2-5.4) M/uL Hgb 10.5 L (12.0-16.0) g/dL Hct 31.7 L (37-47) % MCV 97.5 (80-100) fL MCH 32.3 (25-34) pg MCHC 33.1 (32-36) g/dL RDW Std Deviation 54.8 H (36.4-46.3) fL RDW Coeff of Yin 15.6 H (11.5-14.5) % Plt Count 218 (130-400) K/uL MPV 9.5 (7.4-10.4) fL Immature Gran % (Auto) 0.2 % Neut % (Auto) 65.0 % Lymph % (Auto) 21.0 % Lee % (Auto) 7.2 % Eos % (Auto) 6.1 % Baso % (Auto) 0.5 % Neut # (Auto) 4.14 (1.4-6.5) K/uL Lymph # (Auto) 1.34 (1.2-3.4) K/uL Lee # (Auto) 0.46 (0.11-0.59) K/uL Eos # (Auto) 0.39 (0-0.5) K/uL Baso # (Auto) 0.03 (0-0.2) K/uL Immature Gran # (Auto) 0.01 (0.00-0.02) K/uL ESR (0-30) mm/hr PT (9.0-12.0) Seconds INR (0.9-1.1) Sodium (136-145) mmol/L Potassium (3.5-5.1) mmol/L Chloride (98-107) mmol/L Carbon Dioxide (21-32) mmol/L Anion Gap (3-11) BUN (7-18) mg/dl Creatinine (0.6-1.2) mg/dl Est Cr Clr Drug Dosing ml/min Est GFR ( Amer) Est GFR (Non-Af Amer) BUN/Creatinine Ratio (10-20) Glucose (70-99) mg/dl POC Glucose 119 H 129 H (70-99) mg/dl Estimat Average Glucose mg/dl Hemoglobin A1c (4.5-5.6) % Calcium (8.5-10.1) mg/dl Phosphorus (2.5-4.9) mg/dl Magnesium (1.8-2.4) mg/dl Total Bilirubin (0.2-1) mg/dl Direct Bilirubin (0-0.2) mg/dl AST (15-37) U/L ALT (12-78) U/L Alkaline Phosphatase (45-117) U/L Total Creatine Kinase (26-192) U/L Troponin I (0-0.045) ng/ml C-Reactive Protein (0-0.29) mg/dl NT-Pro-B Natriuret Pep (0-1800) pg/ml Total Protein (6.4-8.2) gm/dl Albumin (3.4-5.0) gm/dl Globulin (2.5-4.0) gm/dl Albumin/Globulin Ratio (0.9-2) Triglycerides (0-150) mg/dl Cholesterol (0-200) mg/dl LDL Cholesterol, Calc mg/dl VLDL Cholesterol, Calc mg/dl HDL Cholesterol mg/dl Cholesterol/HDL Ratio Lipase (73-393) U/L Aldolase Vitamin B12 (193-986) pg/ml 25-OH Vitamin D Total (30-100) ng/ml TSH (0.300-4.500) uIu/ml COVID-19 Eval Order SARS-CoV-2 (PCR) (Negative) Influenza Type A (PCR) (Neg) Influenza Type B (PCR) (Neg) RSV (RT-PCR) (Neg) 06/26/20 06/26/20 06/26/20 Range/Units 22:53 22:53 22:26 WBC (4.8-10.8) K/uL RBC (4.2-5.4) M/uL Hgb (12.0-16.0) g/dL Hct (37-47) % MCV (80-100) fL MCH (25-34) pg MCHC (32-36) g/dL RDW Std Deviation (36.4-46.3) fL RDW Coeff of Yin (11.5-14.5) % Plt Count (130-400) K/uL MPV (7.4-10.4) fL Immature Gran % (Auto) % Neut % (Auto) % Lymph % (Auto) % Lee % (Auto) % Eos % (Auto) % Baso % (Auto) % Neut # (Auto) (1.4-6.5) K/uL Lymph # (Auto) (1.2-3.4) K/uL Lee # (Auto) (0.11-0.59) K/uL Eos # (Auto) (0-0.5) K/uL Baso # (Auto) (0-0.2) K/uL Immature Gran # (Auto) (0.00-0.02) K/uL ESR (0-30) mm/hr PT (9.0-12.0) Seconds INR (0.9-1.1) Sodium 135 L (136-145) mmol/L Potassium 3.6 (3.5-5.1) mmol/L Chloride 97 L (98-107) mmol/L Carbon Dioxide 33 H (21-32) mmol/L Anion Gap 5.0 (3-11) BUN 27 H (7-18) mg/dl Creatinine 2.67 H (0.6-1.2) mg/dl Est Cr Clr Drug Dosing 15.4 ml/min Est GFR ( Amer) 18.9 Est GFR (Non-Af Amer) 16.3 BUN/Creatinine Ratio 10.2 (10-20) Glucose 251 H (70-99) mg/dl POC Glucose (70-99) mg/dl Estimat Average Glucose mg/dl Hemoglobin A1c (4.5-5.6) % Calcium 8.6 (8.5-10.1) mg/dl Phosphorus 2.3 L (2.5-4.9) mg/dl Magnesium 2.2 (1.8-2.4) mg/dl Total Bilirubin 0.4 (0.2-1) mg/dl Direct Bilirubin < 0.1 (0-0.2) mg/dl AST 16 (15-37) U/L ALT 16 (12-78) U/L Alkaline Phosphatase 124 H (45-117) U/L Total Creatine Kinase (26-192) U/L Troponin I < 0.015 (0-0.045) ng/ml C-Reactive Protein (0-0.29) mg/dl NT-Pro-B Natriuret Pep (0-1800) pg/ml Total Protein 6.8 (6.4-8.2) gm/dl Albumin 3.4 (3.4-5.0) gm/dl Globulin 3.4 (2.5-4.0) gm/dl Albumin/Globulin Ratio 1.0 (0.9-2) Triglycerides (0-150) mg/dl Cholesterol (0-200) mg/dl LDL Cholesterol, Calc mg/dl VLDL Cholesterol, Calc mg/dl HDL Cholesterol mg/dl Cholesterol/HDL Ratio Lipase 112 (73-393) U/L Aldolase Vitamin B12 (193-986) pg/ml 25-OH Vitamin D Total (30-100) ng/ml TSH 1.290 (0.300-4.500) uIu/ml COVID-19 Eval Order CovFluRsv at [facility] SARS-CoV-2 (PCR) NEGATIVE (Negative) Influenza Type A (PCR) Negative (Neg) Influenza Type B (PCR) Negative (Neg) RSV (RT-PCR) Negative (Neg) 06/26/20 06/26/20 Range/Units 22:26 22:26 WBC 6.85 (4.8-10.8) K/uL RBC 3.28 L (4.2-5.4) M/uL Hgb 10.5 L (12.0-16.0) g/dL Hct 32.2 L (37-47) % MCV 98.2 (80-100) fL MCH 32.0 (25-34) pg MCHC 32.6 (32-36) g/dL RDW Std Deviation 54.8 H (36.4-46.3) fL RDW Coeff of Yin 15.6 H (11.5-14.5) % Plt Count 213 (130-400) K/uL MPV 9.7 (7.4-10.4) fL Immature Gran % (Auto) 0.1 % Neut % (Auto) 67.2 % Lymph % (Auto) 17.7 % Lee % (Auto) 7.6 % Eos % (Auto) 7.0 % Baso % (Auto) 0.4 % Neut # (Auto) 4.60 (1.4-6.5) K/uL Lymph # (Auto) 1.21 (1.2-3.4) K/uL Lee # (Auto) 0.52 (0.11-0.59) K/uL Eos # (Auto) 0.48 (0-0.5) K/uL Baso # (Auto) 0.03 (0-0.2) K/uL Immature Gran # (Auto) 0.01 (0.00-0.02) K/uL ESR (0-30) mm/hr PT 10.2 (9.0-12.0) Seconds INR 1.0 (0.9-1.1) Sodium (136-145) mmol/L Potassium (3.5-5.1) mmol/L Chloride (98-107) mmol/L Carbon Dioxide (21-32) mmol/L Anion Gap (3-11) BUN (7-18) mg/dl Creatinine (0.6-1.2) mg/dl Est Cr Clr Drug Dosing ml/min Est GFR ( Amer) Est GFR (Non-Af Amer) BUN/Creatinine Ratio (10-20) Glucose (70-99) mg/dl POC Glucose (70-99) mg/dl Estimat Average Glucose mg/dl Hemoglobin A1c (4.5-5.6) % Calcium (8.5-10.1) mg/dl Phosphorus (2.5-4.9) mg/dl Magnesium (1.8-2.4) mg/dl Total Bilirubin (0.2-1) mg/dl Direct Bilirubin (0-0.2) mg/dl AST (15-37) U/L ALT (12-78) U/L Alkaline Phosphatase (45-117) U/L Total Creatine Kinase (26-192) U/L Troponin I (0-0.045) ng/ml C-Reactive Protein (0-0.29) mg/dl NT-Pro-B Natriuret Pep (0-1800) pg/ml Total Protein (6.4-8.2) gm/dl Albumin (3.4-5.0) gm/dl Globulin (2.5-4.0) gm/dl Albumin/Globulin Ratio (0.9-2) Triglycerides (0-150) mg/dl Cholesterol (0-200) mg/dl LDL Cholesterol, Calc mg/dl VLDL Cholesterol, Calc mg/dl HDL Cholesterol mg/dl Cholesterol/HDL Ratio Lipase (73-393) U/L Aldolase Vitamin B12 (193-986) pg/ml 25-OH Vitamin D Total (30-100) ng/ml TSH (0.300-4.500) uIu/ml COVID-19 Eval Order SARS-CoV-2 (PCR) (Negative) Influenza Type A (PCR) (Neg) Influenza Type B (PCR) (Neg) RSV (RT-PCR) (Neg) Diagnostic Findings XR cervical [id number] routine CLINICAL HISTORY: Paresthesias. Bilateral arm numbness. COMPARISON STUDY: No previous studies for comparison. FINDINGS: Dual-lumen right internal jugular central venous catheter is incidentally noted. There is reversal of the normal cervical lordosis. Severe multilevel degenerative disc disease is noted. There is partial fusion of C5 and C6. Loss of height of several cervical vertebral bodies is chronic. There is moderate multilevel facet arthrosis. Multilevel bony neural foraminal narrowing is noted. IMPRESSION: 1. Severe multilevel degenerative disc disease and facet arthrosis within the cervical spine, as described above. Loss of height of several mid cervical vertebral bodies is chronic. 2. No acute cervical spine fracture identified. CT OF THE HEAD WITHOUT CONTRAST CLINICAL HISTORY: BUE weakness, RUE paraesthesias COMPARISON STUDY: MRI of the brain April 25, 2013. Head CT June 02, 2016. CT DOSE: 614.27 mGy.cm TECHNIQUE: Helical axial images of the head were obtained without IV contrast. Automated exposure control was utilized for the study. A dose lowering techniqu e was utilized adhering to the principles of ALARA. FINDINGS: No acute intracranial hemorrhage, midline shift or mass effect is present. Mild ventricular dilatation is similar to prior CT of June 02, 2016. Basal cisterns are patent. There are no extra-axial collections. There are no findings to suggest acute dural sinus thrombosis or acute territorial infarct. Mild white matter hypodensity suggests small vessel disease. There are no calvarial fracture. IMPRESSION: 1. No acute intracranial hemorrhage or mass effect. 2. Stable mild ventricular dilatation. This is likely due to central atrophy. Normal pressure hydrocephalus could appear similar but is considered less likely. SINGLE VIEW CHEST CLINICAL HISTORY: Atypical chest pain. FINDINGS: An AP, portable, upright chest radiograph is compared to study dated 11/27/2019. The examination is degraded by portable technique and patient rotation. A right-sided central venous catheter is unchanged in position. The heart is enlarged noting atherosclerotic calcification of the thoracic aorta. There is mild pulmonary vascular congestion. Scarring/atelectasis is noted at the lung bases. No airspace consolidation or large pleural effusion is identified. No pneumothorax is seen. The skeletal structures are osteopenic. There is chronic posttraumatic deformity of the left proximal humerus. IMPRESSION: Cardiomegaly with mild pulmonary vascular congestion. PG Care Time/CCT Total # of Minutes Spent Total Time Spent with Patient: Total time spent is greater than 50% in coordination of care (as documented) at patient's floor/unit and/or counseling patient: Coding Level of Care Code None Diagnoses ESRD on hemodialysis N18.6; Z99.2 Paresthesias R20.2 Carotid artery plaque I65.29 Hyperlipidemia E78.5 Diabetes E11.9 Hypertension I10
--- NOTE | 2020-06-27 11:17 | Ultrasound Report ---
BILATERAL CAROTID DOPPLER STUDY HISTORY: Bilateral upper extremity weakness. Right arm paresthesias. stroke like symptoms COMPARISON: Carotid Doppler 07/06/2013. TECHNIQUE: Real-time, grayscale, and color Doppler sonography of the carotid arteries was performed. Imaging reviewed in the transverse and longitudinal planes. All measurements were calculated based on NASCET criteria. FINDINGS: Antegrade flow is seen in the bilateral vertebral arteries. The brachial pressures were not obtained. Mild calcified plaque within the bilateral carotid bifurcations. The peak systolic velocity within the right ICA is 99 cm/s. The right systolic ratio is 2.0. The peak systolic velocity within the left ICA is 70 cm/s. The left systolic ratio is 1.1. IMPRESSION: No hemodynamically significant stenosis seen within the carotid arteries. ACT 112: Negative or not required by law. Electronically signed by: Abad Dunbar M.D. 06/27/2020 11:16 AM
--- NOTE | 2020-06-27 12:07 | Magnetic Resonance Report ---
MRI OF THE BRAIN WITHOUT CONTRAST CLINICAL HISTORY: Right upper extremity numbness and weakness. COMPARISON STUDY: MRI of the brain April 25, 2013. Head CT June 26, 2020. TECHNIQUE: Utilizing a 1.5 Allison magnet and dedicated coil, multiplanar, multiecho imaging of the bra in was performed without IV contrast. FINDINGS: There are no foci of restricted diffusion to suggest acute infarct. No acute intracranial h emorrhage, midline shift or mass effect is present. Mild ventricular dilatation is likely due to atro phy. This is unchanged. Basal cisterns are patent. There are no extra axial collections. Flow-voids f or the major intracranial vessels are present. White matter T2 hyperintense foci are similar to previ ous MRI. These suggest small vessel disease. Calvarial signal is normal. No intracranial masses are i dentified on this unenhanced examination. IMPRESSION: 1. No acute intracranial findings. 2. Stable ventricular dilatation which is likely due to atrophy. 3. White matter T2 hyperintense foci which are similar to prior exam. These favor small vessel diseas e. ACT 112: Negative or not required by law. Electronically signed by: Rosas Mcmanus M.D. 06/27/2020 12:06 PM
[2020-06-27] MEDS ORDERED: FUROSEMIDE 60 MG in SYRINGE 0 ML IV ONE (12:15)
--- NOTE | 2020-06-27 12:58 | Magnetic Resonance Report ---
MRI OF THE CERVICAL SPINE WITHOUT IV CONTRAST CLINICAL HISTORY: Right upper extremity numbness. COMPARISON STUDY: Radiographs of the cervical spine dated 06/27/2020. TECHNIQUE: MRI of the cervical spine is performed utilizing various T1 and T2-weighted sequences in t he axial and sagittal planes. IV contrast was not administered for this examination. FINDINGS: Cervical spine: Vertebral body height is maintained throughout the cervical spine. There is minimal r etrolisthesis at C3-C4 and C4-C5. Minimal anterolisthesis is noted at C7-T1. There is near-complete b adalgisa fusion of C5 and C6. The atlantodental articulation is maintained noting productive degenerative change. Anterior osteophytes are seen throughout. The spinous processes appear intact. Advanced chron ic degenerative endplate change is seen at all levels between C3-C4 and T1-T2. Significant endplate e negro is noted at C3-C4, C4-C5, and C6-C7. No destructive bony lesion is seen. Intervertebral discs: Degenerative disc desiccation and loss of height is seen throughout the cervica l spine. Loss of height is severe at all levels between C3-C4 and T1-T2. Spinal cord: The cervical spinal cord is normal in morphology. Mild edema is suggested within the cer vical cord at C3-C4, C4-C5, and C6 secondary to severe spinal stenosis. C2-C3: A posterior disc osteophyte complex is of no consequence. Uncovertebral and facet arthropathy contribute to minimal left greater than right neural foraminal stenosis. C3-C4: A posterior disc osteophyte complex effaces the ventral cord with a fragment extruded to the l eft. The minimum AP canal diameter measures 5.5 mm. Uncovertebral and facet arthropathy contribute to severe left greater than right neural foraminal stenosis. There is impingement on the exiting bilate ral C4 nerve roots. C4-C5: A posterior disc osteophyte complex effaces the ventral cord. The minimum AP canal diameter me asures 6 mm. Uncovertebral and facet arthropathy contributes to severe right greater than left neural foraminal stenosis. There is likely impingement on the exiting bilateral C5 nerve roots. C5-C6: A posterior osteophyte abuts the ventral cord. Uncovertebral and facet arthropathy contribute to severe right greater than left neural foraminal stenosis. There is likely impingement on the exiti ng bilateral C6 nerve roots. C6-C7: A central posterior disc protrusion effaces the ventral cord. Uncovertebral and facet arthropa thy contribute to severe bilateral neural foraminal stenosis. There is likely impingement on the exit ing bilateral C7 nerve roots. C7-T1: The central canal and neural foramina are patent. T1-T2: There is broad-based posterior disc bulge. No significant acquired compromise of the central c anal is identified. Soft tissues: The prevertebral and paraspinous soft tissues are normal as visualized. Brain parenchyma: The visualized brain parenchyma at the skull base is normal in appearance. IMPRESSION: 1. Severe multilevel cervical spondylosis as above with severe multilevel acquired compromise of the central canal. This is greatest from C3-C4 through C6-C7. See discussion for detailed level by level analysis. 2. There is mild edema suggested within the cervical cord at several levels, likely related to spinal stenosis. 3. Advanced degenerative disc disease with chronic endplate change and endplate edema. 4. No destructive bony lesion is identified. Dictated: 06/27/2020 12:02 PM Transcribed: 06/27/2020 12:47 PM Cindy [id number] BRIAN_[email or web address] Electronically signed by: Paras Nichole M.D. 06/27/2020 12:56 PM
[2020-06-27] MEDS: POT PHOSPHATE MONOBASIC W/ SOD TAB PO SCH ×4 (13:26→21:23)
[2020-06-27] MEDS ORDERED: hydrALAZINE HCL 20 MG/ML VIAL IV PRN (14:11)
--- NOTE | 2020-06-27 14:37 | Electrocardiogram Report ---
Test Reason : Blood Pressure : / mmHG Vent. Rate : 084 BPM Atrial Rate : 084 BPM P-R Int : 206 ms QRS Dur : 100 ms QT Int : 404 ms P-R-T Axes : 043 031 -79 degrees QTc Int : 477 ms Poor data quality, interpretation may be adversely affected Normal sinus rhythm Left ventricular hypertrophy with repolarization abnormality Abnormal ECG Confirmed by Felice Quinones ([id number]) on 06/27/2020 2:36:35 PM Referred By: REFERRED SELF Confirmed By:Antony Quinones
[2020-06-27 14:40] LABS: Appearance Urine Clear (Clear); Bacteria Urine Automated Negative (Negative); Bilirubin Urine Negative (Negative); Blood Urine Negative (Negative); Color Urine Yellow; Glucose Urine UA Negative (Negative); Ketones Urine Negative (Negative); Leukocyte Esterase Urine 1+ (Negative); Nitrite Urine Negative (Negative); RBC Urine Automated 0-4 /hpf (0-4); Specific Gravity Urine 1.009 (1.000-1.030); Urobilinogen Urine Negative (Negative); pH Urine 8.5 (4.5-7.5)
[2020-06-27 14:45] LABS: Protein Urine 2+ (Negative)
[2020-06-27] MEDS ORDERED: INSULIN GLARGINE SOLOSTAR 100 UNITS/ML 3 ML PEN SC ONE (16:00)
[2020-06-27] MEDS: dexAMETHasone 4 MG in SYRINGE 0 ML IV SCH ×2 (17:28→21:27)
--- NOTE | 2020-06-27 17:56 | Nephrology Consultation ---
Date of Consultation June 27, 2020 Assessment & Plan (1) ESRD on hemodialysis: BP and volume status acceptable. Electrolytes controlled. Will coordinate HD for tomorrow per TTS schedule. Outpatient Rx: 3.5 hrs, 180 opti, 350/800, 2 K. EDW 68 kg. TDC used for HD while AVF recovers from recent infiltration. Medications appropriate for kidney function. (2) Hypertension: BP acceptable. Losartan increased to 50 mg this admission. (3) Anemia: Chronic, stable. Epogen to be provided with HD. (4) Chronic kidney disease-mineral and bone disorder: Sevelamer held due to hypophosphatemia. Continue calcitriol. History of Present Illness Reason for Consultation: ESRD Requesting Physician: Estela Gómez MD Attending Physician: Estela Gómez MD History of Present Illness Ms. Rodriguez is a 79 year-old female with ESRD. Tory is on chronic maintenance hemodialysis at [facility]. She dialyzes under my care on a TTS schedule. Tory has been tolerating HD well. She completed her scheduled treatment yesterday without complications. I discussed the patient with staff at the dialysis facility today and reviewed the plan of care with Victoria Palencia PA-C earlier today. Tory's renal impairment is due to diabetic nephropathy. Her medical history is also significant for HTN, iron deficiency anemia and secondary hy perparathyroidism. Ms. Rodriguez underwent L BC AVF by Dr. Mercedes 11/02/19. AVF infiltrated during recent treatment and has been rested. A tunneled dialysis catheter has been used for treatment in the interim. Tory presented to the ER yesterday evening with right arm paresthesias. Evaluation notable for spinal stenosis within the cervical spine. Allergies Allergy/AdvReac Type Severity Reaction Status Date / Time No Known Allergies Allergy Verified 06/26/20 22:30 Home Medications Medication Instructions Recorded Confirmed Type acetaminophen 500 mg tablet 1,000 mg PO BID tab 10/11/18 06/26/20 History aspirin 81 mg tablet,delayed 81 mg PO QPM 10/11/18 06/26/20 History release cholecalciferol (vitamin D3) 2,000 units PO QAM 10/14/19 06/26/20 History multivitamin 1 tab PO QAM 10/14/19 06/26/20 History atorvastatin 10 mg PO HS 10/16/19 06/26/20 History darbepoetin ilia in polysorbat 200 200 mcg SUBCUT .COMPLEX #1 ml 11/10/19 06/26/20 Rx mcg/mL in polysorbate injection losartan 25 mg PO PM #30 tab 11/27/19 06/26/20 Rx calcitriol 0.5 mcg capsule 0.5 mcg PO QAM 02/10/20 06/26/20 History ferrous sulfate 325 mg PO QAM 04/06/20 06/26/20 History metoprolol succinate 50 mg PO QAM 04/06/20 06/26/20 History sevelamer HCl 800 mg tablet 800 mg PO TIDM #90 tab 05/07/20 06/26/20 Rx Patient History Medical History Anemia AV fistula left upper arm Cardiac murmur LAST ECHO 11/09/19= moderate MR/mild TR Cardiomyopathy follows Dr. Quinones Chronic kidney insufficiency follows Dr. Rock Diabetes Blood sugar fluctuates > can't see to check sugar Dialysis patient tues/ thurs/ sat to [place] Hyperlipidemia Hypertension Per records Legally blind READS WITH MAGNIFYING GLASSES Paresthesias in left hand Tinnitus Upper back pain Surgical History History of bilateral oophorectomy History of colonoscopy History of esophagogastroduodenoscopy (EGD) History of tooth extraction Hx of cataract surgery R/L Family History Mother Diabetes Father Myocardial infarction Denies family history of Ovarian cancer Prostate cancer Kidney disease Breast cancer Colorectal cancer Social History Smoking Status: Former smoker Tobacco Type: Cigarettes Age Started Using Tobacco: 17; Age Quit Using Tobacco: 58; packs per day: 0.25; Second Hand Exposure: No; Hx Alcohol Use: No Hx Substance Use: No Preferred Language: Ukrainian Communication Ability: Effective Visual Impairment: Blindness Hearing Ability: Normal Guide Domestic Tour Required: Yes Beliefs That Will Affect Care: None marital status: single Current Living Situation: Alone current occupational status: retired 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 Feels Safe at Home: Yes Childhood Exposure to Second-Hand Smoke: No caffeine: Yes Dental Care, Regularly: Yes Physical Activity Frequency: Does not Exercise Seatbelt Use: always Sunscreen Use: No Assistive Devices: Walker Review of Systems Constitutional: no weight loss, no weight gain and no problem reported Eyes: no problem reported Ear, Nose, Mouth, Throat: no problem reported Respiratory: no problem reported Cardiovascular: no problem reported Gastrointestinal: no problem reported Musculoskeletal: no problem reported Integumentary: no problem reported Neurologic: no problem reported Psychiatric: no problem reported Endocrine: no problem reported Hematologic / Lymphatic: no problem reported Physical Exam Constitutional: well developed; no acute distress Eyes: no scleral abnormality and no corneal abnormality ENMT: Mouth: no oral mucosal abnormality and oral mucous membranes not dry Neck: normal visual inspection and trachea midline TDC Respiratory: normal respiratory effort Auscultation: lungs clear to auscultation bilaterally Cardiovascular: Rate/Rhythm: regular rate Heart Sounds: normal S1 and normal S2 Extremities: + AV fistula; no edema Musculoskeletal: Extremities: no cyanosis and no clubbing Skin: normal turgor; no lesions Neurologic: Motor/Sensory: no tremor and no asterixis Psychiatric: Orientation: alert and oriented x 3 Results & Data ([facility]) Vital Signs (Past 12 Hours) Vital Signs Temp Pulse Resp BP Pulse Ox 06/27/20 14:52 36.3 C L 62 16 159/68 H 93 06/27/20 07:00 36.8 C 76 16 178/75 H 96 Laboratory Results Laboratory Results - last 24 hr 06/26/20 06/26/20 06/26/20 22:26 22:26 22:26 WBC 6.85 RBC 3.28 L Hgb 10.5 L Hct 32.2 L MCV 98.2 MCH 32.0 MCHC 32.6 RDW Std Deviation 54.8 H RDW Coeff of Iyn 15.6 H Plt Count 213 MPV 9.7 Immature Gran % (Auto) 0.1 Neut % (Auto) 67.2 Lymph % (Auto) 17.7 Mccone % (Auto) 7.6 Eos % (Auto) 7.0 Baso % (Auto) 0.4 Neut # (Auto) 4.60 Lymph # (Auto) 1.21 Mccone # (Auto) 0.52 Eos # (Auto) 0.48 Baso # (Auto) 0.03 Immature Gran # (Auto) 0.01 ESR PT 10.2 INR 1.0 Sodium 135 L Potassium 3.6 Chloride 97 L Carbon Dioxide 33 H Anion Gap 5.0 BUN 27 H Creatinine 2.67 H Est Cr Clr Drug Dosing 15.4 Est GFR ( Amer) 18.9 Est GFR (Non-Af Amer) 16.3 BUN/Creatinine Ratio 10.2 Glucose 251 H POC Glucose Estimat Average Glucose Hemoglobin A1c Calcium 8.6 Phosphorus 2.3 L Magnesium 2.2 Total Bilirubin 0.4 Direct Bilirubin < 0.1 AST 16 ALT 16 Alkaline Phosphatase 124 H Total Creatine Kinase Troponin I < 0.015 C-Reactive Protein NT-Pro-B Natriuret Pep Total Protein 6.8 Albumin 3.4 Globulin 3.4 Albumin/Globulin Ratio 1.0 Triglycerides Cholesterol LDL Cholesterol, Calc VLDL Cholesterol, Calc HDL Cholesterol Cholesterol/HDL Ratio Lipase 112 Aldolase Vitamin B12 25-OH Vitamin D Total TSH 1.290 Urine Color Urine Appearance Urine pH Ur Specific Lincoln Urine Protein Urine Glucose (UA) Urine Ketones Urine Blood Urine Nitrite Urine Bilirubin Urine Urobilinogen Ur Leukocyte Esterase Urine WBC (Auto) Urine RBC (Auto) U Hyaline Cast (Auto) U Epithel Cells (Auto) Urine Bacteria (Auto) COVID-19 Eval Order SARS-CoV-2 (PCR) Influenza Type A (PCR) Influenza Type B (PCR) RSV (RT-PCR) 06/26/20 06/26/20 06/27/20 22:53 22:53 06:48 WBC RBC Hgb Hct MCV MCH MCHC RDW Std Deviation RDW Coeff of Yin Plt Count MPV Immature Gran % (Auto) Neut % (Auto) Lymph % (Auto) Mccone % (Auto) Eos % (Auto) Baso % (Auto) Neut # (Auto) Lymph # (Auto) Mccone # (Auto) Eos # (Auto) Baso # (Auto) Immature Gran # (Auto) ESR PT INR Sodium Potassium Chloride Carbon Dioxide Anion Gap BUN Creatinine Est Cr Clr Drug Dosing Est GFR ( Amer) Est GFR (Non-Af Amer) BUN/Creatinine Ratio Glucose POC Glucose 129 H Estimat Average Glucose Hemoglobin A1c Calcium Phosphorus Magnesium Total Bilirubin Direct Bilirubin AST ALT Alkaline Phosphatase Total Creatine Kinase Troponin I C-Reactive Protein NT-Pro-B Natriuret Pep Total Protein Albumin Globulin Albumin/Globulin Ratio Triglycerides Cholesterol LDL Cholesterol, Calc VLDL Cholesterol, Calc HDL Cholesterol Cholesterol/HDL Ratio Lipase Aldolase Vitamin B12 25-OH Vitamin D Total TSH Urine Color Urine Appearance Urine pH Ur Specific Lincoln Urine Protein Urine Glucose (UA) Urine Ketones Urine Blood Urine Nitrite Urine Bilirubin Urine Urobilinogen Ur Leukocyte Esterase Urine WBC (Auto) Urine RBC (Auto) U Hyaline Cast (Auto) U Epithel Cells (Auto) Urine Bacteria (Auto) COVID-19 Eval Order CovFluRsv at [facility] SARS-CoV-2 (PCR) NEGATIVE Influenza Type A (PCR) Negative Influenza Type B (PCR) Negative RSV (RT-PCR) Negative 06/27/20 06/27/20 06/27/20 08:10 08:11 08:11 WBC 6.37 RBC 3.25 L Hgb 10.5 L Hct 31.7 L MCV 97.5 MCH 32.3 MCHC 33.1 RDW Std Deviation 54.8 H RDW Coeff of Yin 15.6 H Plt Count 218 MPV 9.5 Immature Gran % (Auto) 0.2 Neut % (Auto) 65.0 Lymph % (Auto) 21.0 Mccone % (Auto) 7.2 Eos % (Auto) 6.1 Baso % (Auto) 0.5 Neut # (Auto) 4.14 Lymph # (Auto) 1.34 Mccone # (Auto) 0.46 Eos # (Auto) 0.39 Baso # (Auto) 0.03 Immature Gran # (Auto) 0.01 ESR PT INR Sodium 137 Potassium 3.8 Chloride 101 Carbon Dioxide 31 Anion Gap 5.0 BUN 32 H Creatinine 2.97 H D Est Cr Clr Drug Dosing 13.9 Est GFR ( Amer) 16.6 Est GFR (Non-Af Amer) 14.4 BUN/Creatinine Ratio 10.7 Glucose 127 H POC Glucose 119 H Estimat Average Glucose Hemoglobin A1c Calcium 9.6 Phosphorus Magnesium Total Bilirubin Direct Bilirubin AST ALT Alkaline Phosphatase Total Creatine Kinase Troponin I C-Reactive Protein NT-Pro-B Natriuret Pep Total Protein Albumin Globulin Albumin/Globulin Ratio Triglycerides Cholesterol LDL Cholesterol, Calc VLDL Cholesterol, Calc HDL Cholesterol Cholesterol/HDL Ratio Lipase Aldolase Vitamin B12 25-OH Vitamin D Total TSH Urine Color Urine Appearance Urine pH Ur Specific [place] Urine Protein Urine Glucose (UA) Urine Ketones Urine Blood Urine Nitrite Urine Bilirubin Urine Urobilinogen Ur Leukocyte Esterase Urine WBC (Auto) Urine RBC (Auto) U Hyaline Cast (Auto) U Epithel Cells (Auto) Urine Bacteria (Auto) COVID-19 Eval Order SARS-CoV-2 (PCR) Influenza Type A (PCR) Influenza Type B (PCR) RSV (RT-PCR) 06/27/20 06/27/20 06/27/20 08:11 08:11 08:11 WBC RBC Hgb Hct MCV MCH MCHC RDW Std Deviation RDW Coeff of Yin Plt Count MPV Immature Gran % (Auto) Neut % (Auto) Lymph % (Auto) Mccone % (Auto) Eos % (Auto) Baso % (Auto) Neut # (Auto) Lymph # (Auto) Mccone # (Auto) Eos # (Auto) Baso # (Auto) Immature Gran # (Auto) ESR PT INR Sodium Potassium Chloride Carbon Dioxide Anion Gap BUN Creatinine Est Cr Clr Drug Dosing Est GFR ( Amer) Est GFR (Non-Af Amer) BUN/Creatinine Ratio Glucose POC Glucose Estimat Average Glucose 140 Hemoglobin A1c 6.5 H Calcium Phosphorus Magnesium Total Bilirubin Direct Bilirubin AST ALT Alkaline Phosphatase Total Creatine Kinase Troponin I 0.026 C-Reactive Protein NT-Pro-B Natriuret Pep Total Protein Albumin Globulin Albumin/Globulin Ratio Triglycerides Cholesterol LDL Cholesterol, Calc VLDL Cholesterol, Calc HDL Cholesterol Cholesterol/HDL Ratio Lipase Aldolase Vitamin B12 1042 H 25-OH Vitamin D Total TSH Urine Color Urine Appearance Urine pH Ur Specific [place] Urine Protein Urine Glucose (UA) Urine Ketones Urine Blood Urine Nitrite Urine Bilirubin Urine Urobilinogen Ur Leukocyte Esterase Urine WBC (Auto) Urine RBC (Auto) U Hyaline Cast (Auto) U Epithel Cells (Auto) Urine Bacteria (Auto) COVID-19 Eval Order SARS-CoV-2 (PCR) Influenza Type A (PCR) Influenza Type B (PCR) RSV (RT-PCR) 06/27/20 06/27/20 06/27/20 08:11 09:49 09:49 WBC RBC Hgb Hct MCV MCH MCHC RDW Std Deviation RDW Coeff of Yin Plt Count MPV Immature Gran % (Auto) Neut % (Auto) Lymph % (Auto) Mccone % (Auto) Eos % (Auto) Baso % (Auto) Neut # (Auto) Lymph # (Auto) Mccone # (Auto) Eos # (Auto) Baso # (Auto) Immature Gran # (Auto) ESR 25 PT INR Sodium Potassium Chloride Carbon Dioxide Anion Gap BUN Creatinine Est Cr Clr Drug Dosing Est GFR ( Amer) Est GFR (Non-Af Amer) BUN/Creatinine Ratio Glucose POC Glucose Estimat Average Glucose Hemoglobin A1c Calcium Phosphorus Magnesium Total Bilirubin Direct Bilirubin AST ALT Alkaline Phosphatase Total Creatine Kinase 63 Troponin I C-Reactive Protein 0.84 H NT-Pro-B Natriuret Pep > 57867 H Total Protein Albumin Globulin Albumin/Globulin Ratio Triglycerides 99 Cholesterol 131 LDL Cholesterol, Calc 29 VLDL Cholesterol, Calc 20 HDL Cholesterol 82 Cholesterol/HDL Ratio 2 Lipase Aldolase Vitamin B12 25-OH Vitamin D Total TSH Urine Color Urine Appearance Urine pH Ur Specific [place] Urine Protein Urine Glucose (UA) Urine Ketones Urine Blood Urine Nitrite Urine Bilirubin Urine Urobilinogen Ur Leukocyte Esterase Urine WBC (Auto) Urine RBC (Auto) U Hyaline Cast (Auto) U Epithel Cells (Auto) Urine Bacteria (Auto) COVID-19 Eval Order SARS-CoV-2 (PCR) Influenza Type A (PCR) Influenza Type B (PCR) RSV (RT-PCR) 06/27/20 06/27/20 06/27/20 09:49 09:49 13:26 WBC RBC Hgb Hct MCV MCH MCHC RDW Std Deviation RDW Coeff of Yin Plt Count MPV Immature Gran % (Auto) Neut % (Auto) Lymph % (Auto) Mccone % (Auto) Eos % (Auto) Baso % (Auto) Neut # (Auto) Lymph # (Auto) Mccone # (Auto) Eos # (Auto) Baso # (Auto) Immature Gran # (Auto) ESR PT INR Sodium Potassium Chloride Carbon Dioxide Anion Gap BUN Creatinine Est Cr Clr Drug Dosing Est GFR ( Amer) Est GFR (Non-Af Amer) BUN/Creatinine Ratio Glucose POC Glucose 111 H Estimat Average Glucose Hemoglobin A1c Calcium Phosphorus Magnesium Total Bilirubin Direct Bilirubin AST ALT Alkaline Phosphatase Total Creatine Kinase Troponin I C-Reactive Protein NT-Pro-B Natriuret Pep Total Protein Albumin Globulin Albumin/Globulin Ratio Triglycerides Cholesterol LDL Cholesterol, Calc VLDL Cholesterol, Calc HDL Cholesterol Cholesterol/HDL Ratio Lipase Aldolase Pending Vitamin B12 25-OH Vitamin D Total 41.5 TSH Urine Color Urine Appearance Urine pH Ur Specific [place] Urine Protein Urine Glucose (UA) Urine Ketones Urine Blood Urine Nitrite Urine Bilirubin Urine Urobilinogen Ur Leukocyte Esterase Urine WBC (Auto) Urine RBC (Auto) U Hyaline Cast (Auto) U Epithel Cells (Auto) Urine Bacteria (Auto) COVID-19 Eval Order SARS-CoV-2 (PCR) Influenza Type A (PCR) Influenza Type B (PCR) RSV (RT-PCR) 06/27/20 06/27/20 06/27/20 13:50 17:05 Unknown WBC RBC Hgb Hct MCV MCH MCHC RDW Std Deviation RDW Coeff of Yin Plt Count MPV Immature Gran % (Auto) Neut % (Auto) Lymph % (Auto) Mccone % (Auto) Eos % (Auto) Baso % (Auto) Neut # (Auto) Lymph # (Auto) Mccone # (Auto) Eos # (Auto) Baso # (Auto) Immature Gran # (Auto) ESR PT INR Sodium Potassium Chloride Carbon Dioxide Anion Gap BUN Creatinine Est Cr Clr Drug Dosing Est GFR ( Amer) Est GFR (Non-Af Amer) BUN/Creatinine Ratio Glucose POC Glucose 154 H Estimat Average Glucose Hemoglobin A1c Calcium Phosphorus Magnesium Total Bilirubin Direct Bilirubin AST ALT Alkaline Phosphatase Total Creatine Kinase Troponin I 0.042 C-Reactive Protein NT-Pro-B Natriuret Pep Total Protein Albumin Globulin Albumin/Globulin Ratio Triglycerides Cholesterol LDL Cholesterol, Calc VLDL Cholesterol, Calc HDL Cholesterol Cholesterol/HDL Ratio Lipase Aldolase Vitamin B12 25-OH Vitamin D Total TSH Urine Color Yellow Urine Appearance Clear Urine pH 8.5 H Ur Specific Lincoln 1.009 Urine Protein 2+ H Urine Glucose (UA) Negative Urine Ketones Negative Urine Blood Negative Urine Nitrite Negative Urine Bilirubin Negative Urine Urobilinogen Negative Ur Leukocyte Esterase 1+ H Urine WBC (Auto) 5-10 H Urine RBC (Auto) 0-4 U Hyaline Cast (Auto) 1-5 U Epithel Cells (Auto) 10-20 H Urine Bacteria (Auto) Negative COVID-19 Eval Order SARS-CoV-2 (PCR) Influenza Type A (PCR) Influenza Type B (PCR) RSV (RT-PCR) PG Care Time/CCT Total # of Minutes Spent Total Time Spent with Patient: Total time spent is greater than 50% in coordination of care (as documented) at patient's floor/unit and/or counseling patient: Coding Level of Care Code 20973 Inpt Consult Level 4 Diagnoses ESRD on hemodialysis N18.6; Z99.2 Hypertension I10 Anemia D64.9 Chronic kidney disease-mineral and bone disorder N18.9; E83.9; M89.9
[2020-06-27] MEDS ORDERED: LOSARTAN POTASSIUM 25 MG TAB PO SCH (21:00)
[2020-06-27] MEDS: ATORVASTATIN 10 MG TAB PO SCH (21:25)
[2020-06-27] MEDS: LOSARTAN POTASSIUM 50 MG TAB PO SCH (21:26)
[2020-06-27] MEDS: ASPIRIN 81 MG ECTAB PO SCH (21:26)
[2020-06-28] MEDS: INSULIN ASPART 100 UNITS/ML 3 ML PEN SC SCH ×6 (00:29→20:45)
[2020-06-28] MEDS: dexAMETHasone 4 MG in SYRINGE 0 ML IV SCH ×2 (04:54→09:05)
[2020-06-28 08:19] LABS: Mean Corpuscular Hemoglobin 32.1 pg (25-34); Mean Corpuscular Hgb Conc 33.3 g/dL (32-36); Mean Corpuscular Volume 96.2 fL (80-100); Mean Platelet Volume 9.7 fL (7.4-10.4); Platelet Count 220 K/uL (130-400); RDW Coefficient of Variation 15.6 % (11.5-14.5); RDW Standard Deviation 54.5 fL (36.4-46.3); Red Blood Count 3.43 M/uL (4.2-5.4); White Blood Count 4.12 K/uL (4.8-10.8)
[2020-06-28] MEDS: ACETAMINOPHEN 500 MG TAB PO SCH ×2 (08:30→20:45)
[2020-06-28] MEDS: MULTIVITAMIN TAB PO SCH (08:30)
[2020-06-28] MEDS: SEVELAMER HCL 800 MG TABLET PO SCH ×3 (08:30→17:18)
[2020-06-28] MEDS: CALCITRIOL 0.25 MCG CAPSULE PO SCH (08:31)
[2020-06-28] MEDS: CHOLECALCIFEROL 1,000 UNITS 25 MCG TAB PO SCH (08:31)
[2020-06-28] MEDS: FERROUS SULFATE 325 MG TAB PO SCH (08:31)
[2020-06-28] MEDS: HEPARIN SOD 5,000 UNIT/0.5 ML VIAL SQ SCH ×2 (08:31→20:36)
[2020-06-28] MEDS ORDERED: INSULIN GLARGINE SOLOSTAR 100 UNITS/ML 3 ML PEN SC ONE (09:00)
[2020-06-28 09:02] LABS: Albumin Level 3.3 gm/dl (3.4-5.0); BUN Creatinine Ratio 14.2 (10-20); Bilirubin,Total 0.6 mg/dl (0.2-1); Calcium 9.2 mg/dl (8.5-10.1); Creatinine Clr Calc Pharmacy 9.5 ml/min; Est GFR (African American) 10.8; Est GFR (Non-African American) 9.3; Globulin 3.3 gm/dl (2.5-4.0); Phosphorus 5.3 mg/dl (2.5-4.9); Potassium 4.4 mmol/L (3.5-5.1); Total Protein 6.6 gm/dl (6.4-8.2)
--- NOTE | 2020-06-28 09:17 | Hospitalist Progress Note ---
Date of Service June 28, 2020 Assessment & Plan (1) ESRD on hemodialysis: Admission Date: 79 yo F w/ pMHx. of Cardiomyopathy, HTN, HLD, ESRD (dialysis Thu, , Thu), carotid plaque and DM (not on medication) presents with right arm paresthesias with waxing and waning concerning for cervical radiculopathy vs. nerve compression along with some global weakness. * Admitted for Right arm paresthesias/Cervical Myelopathy * CT-H w/ STATRAD findings of no acute intracranial findings (chronic findings of involution, microvascular changes and ventriculomegaly, possible NPH but not likely per neuro but not excluded) * XR neck ordered to look for spinal canal which could explain symptomatology * --> Severe multilevel degenerative disc disease and facet arthrosis within the cervical spine, as described above. Loss of height of several mid cervical vertebral bodies is chronic. There is partial fusion of C5 and C6. * Neurology consulted * MRI Brain without acute CVA * Carotids without significant stenosis * CK wnl, ESR 25, Vit D wnl * ALdolase pending MRI Cervical Spine WITH SIGNIFICANT MYELOPATHY * DR FAULKNER CONSULTED -- TO SEE THIS AFTERNOON * Place on Dexamethasone 4mg Q6H on 06/27 and by this afternoon patient reported symptoms COMPLETELY GONE * --> Will decrease to 2mg Q12h to see if symptoms continue to remain resolved and hopefully taper without issue * Continue to monitor PT/OT consulted -- possible short term at [facility] which could help with insulin administration given visual issues. CM following and ref placed ESRD (dialysis , , Thu), Hypophosphatemia * BNP >63422 and was given IV lasix yesterday. No respiratory distress. Got HD today. 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 Lantus 18 units was given yesterday. Will increase today * Basal insulin: Lantus 10 units SQ x1 this AM. Additional 15-25 units tonight based on BSG * Bolus insulin:NovoLog per scale ACHS or Q6hrs while NPO. Goal Range: Low 110 mg/dL - High 140 mg/dL. Correction Factor: 25 mg/dL/unit. Nutritional / Prandial insulin per carb ratio of 1 unit per 8 grams CHO consumed Cardiomyopathy * Myocardial perfusion Shawn without significant ischemia although some small defects noted and not likely account for reduced LV function * Repeating ECHO as above (MURMUR ON EXAMINATION given only mod MR on prior) SYSTOLIC although does not appear to be worsening but possible MR, with possible S3. * Prior Echo Nov 2019 with EF 40-45% moderate MR, mild TR * TSH nl * Follows with Dr. Quinones -- increased losartan to 50mg HS as above * Continue metoprolol succinate 50mg daily, ASA 81mg, Atorvastatin 10mg HS (may need increased based on lipid panel as ordered above) * No chest pain reported, trop <0.015 on admission however repeat 0.028 and peaked at 0.48, trended down. * ECHO pending -- prior myocardial scan with EF 29% global hypokinesis and no significant transient ischemic dilation November 2019. Follows with Dr Quinones and initially wanted to increase losartan to 50mg daily (will increase tonight given HTN) * ECHO without source of emboli noted, LV systolic function moderately reduced. LA mod dilated. Moderate MR. RVSP elevated to 40-50mmHg (?ELMER). Diastolic dysfunction, Grade II, c/w elevated LA pressure * * Lipid panel wnl and continued statin 10mg * Continue to monitor HTN * Chronic. Issues reported with low BP in dialysis however BP elevated to 185/108 on admission * BP currently 178/75 * Increased losartan as above to 50mg HS * Continued metoprolol succinate 50mg daily * Continue to monitor HLD * continue Atorvastatin 10mg HS * Repeating Lipid Panel, acceptable. Continue current dose Carotid plaques * Carotid Dopplers w/o sig stenosis. Lipid panel acceptable * Continue ASA, Lipitor as above Code: DNR DNI Diet: CC DM II DVT prophylaxis: Heparin SQ while inpatient Changed to full admission Continued inpatient stay -- possible d/c next 24-48 hours if symptoms controlled and good glycemic plan for d/c if continued steroids (2) Paresthesias: (3) Carotid artery plaque: (4) Hyperlipidemia: (5) Diabetes: (6) Hypertension: Admission and Anticipated Discharge Date Admission Date: June 27, 2020 Supervising Physician Co-Signing Physician Notes PA Supervision Note: I did not personally see or examine the patient today, but I verified all pinedo points of FLACO Palencia's assessment and plan with the following exceptions/additions: None Subjective Patient evaluated this afternoon. Had dialysis this morning. Numbness and tingling reported to be GONE THIS AFTERNOON. Discussed elevated blood sugars and she had been on metformin and orals in the past but they had discontinued those. With her eye sight she is not sure she would be able to do insulin. Discussed [facility] at discharge and tapering her steroids to see if symptoms stay at bay and they would be able to help cover her sugars with insulin for help. Eating drinking without issue. Passing gas and feels like she has to have a BM. Eval by Dr. Faulkner this evening but she would like to avoid surgery if possible. No fever, chills, chest pain, shortness of breath, abdominal pain, nausea or vomiting. Review of Systems Review of Systems: All systems reviewed & are unremarkable except as noted in HPI & below Physical Exam Constitutional: well nourished, + ill appearing (chronically ill appearing), cooperative and comfortable; no acute distress Eyes: EOM intact bilaterally; + abnormal visual field confrontation, no scleral abnormality, no corneal abnormality, + no PERRL, + abnormal ac commodation and no nystagmus ENMT: Mouth: no oral mucosal abnormality and oral mucous membranes not dry Neck: normal visual inspection and trachea midline Respiratory: normal respiratory effort; no cough and not tachypneic Auscultation: lungs clear to auscultation bilaterally and + diminished lung sounds Cardiovascular: Rate/Rhythm: regular rate and regular rhythm Heart Sounds: normal S1, normal S2 and + murmur (3/6 systolic EM); no gallop Vessels: normal carotid upstroke; no carotid bruit Extremities: + AV fistula; no edema Gastrointestinal (Abdomen): normal bowel sounds, soft, nontender, no hepatosplenomegaly Musculoskeletal: Extremities: no cyanosis and no clubbing Skin: no rashes, warm and dry normal turgor; no lesions Neurologic: Motor/Sensory: + tremor (fine tremor); no asterixis Psychiatric: Orientation: alert and oriented x 3 Results & Data Results & Data ([facility]) Vital Signs (Past 12 Hours) Vital Signs Temp Pulse Resp BP Pulse Ox 06/28/20 07:24 36.7 C 70 14 186/82 H 94 06/27/20 22:19 36.5 C 67 20 175/76 H 96 06/27/20 21:27 66 165/76 H Laboratory Results 06/28/20 06/28/20 06/28/20 Range/Units 08:57 08:13 07:55 WBC (4.8-10.8) K/uL RBC (4.2-5.4) M/uL Hgb (12.0-16.0) g/dL Hct (37-47) % MCV (80-100) fL MCH (25-34) pg MCHC (32-36) g/dL RDW Std Deviation (36.4-46.3) fL RDW Coeff of Yin (11.5-14.5) % Plt Count (130-400) K/uL MPV (7.4-10.4) fL ESR (0-30) mm/hr Sodium 137 (136-145) mmol/L Potassium 4.4 D (3.5-5.1) mmol/L Chloride 101 (98-107) mmol/L Carbon Dioxide 27 (21-32) mmol/L Anion Gap 9.0 (3-11) BUN 60 H D (7-18) mg/dl Creatinine 4.25 H D (0.6-1.2) mg/dl Est Cr Clr Drug Dosing 9.5 ml/min Est GFR ( Amer) 10.8 Est GFR (Non-Af Amer) 9.3 BUN/Creatinine Ratio 14.2 (10-20) Glucose 189 H (70-99) mg/dl POC Glucose 172 H (70-99) mg/dl Calcium 9.2 (8.5-10.1) mg/dl Phosphorus 5.3 H D (2.5-4.9) mg/dl Total Bilirubin 0.6 (0.2-1) mg/dl AST 12 L (15-37) U/L ALT 15 (12-78) U/L Alkaline Phosphatase 114 (45-117) U/L Total Creatine Kinase (26-192) U/L Troponin I (0-0.045) ng/ml C-Reactive Protein (0-0.29) mg/dl NT-Pro-B Natriuret Pep (0-1800) pg/ml Total Protein 6.6 (6.4-8.2) gm/dl Albumin 3.3 L (3.4-5.0) gm/dl Globulin 3.3 (2.5-4.0) gm/dl Albumin/Globulin Ratio 1.0 (0.9-2) Triglycerides (0-150) mg/dl Cholesterol (0-200) mg/dl LDL Cholesterol, Calc mg/dl VLDL Cholesterol, Calc mg/dl HDL Cholesterol mg/dl Cholesterol/HDL Ratio Aldolase Vitamin B12 (193-986) pg/ml 25-OH Vitamin D Total (30-100) ng/ml Urine Color Urine Appearance (Clear) Urine pH (4.5-7.5) Ur Specific Wheeler (1.000-1.030) Urine Protein (Negative) Urine Glucose (UA) (Negative) Urine Ketones (Negative) Urine Blood (Negative) Urine Nitrite (Negative) Urine Bilirubin (Negative) Urine Urobilinogen (Negative) Ur Leukocyte Esterase (Negative) Urine WBC (Auto) (0-5) /hpf Urine RBC (Auto) (0-4) /hpf U Hyaline Cast (Auto) (0-5) /lpf U Epithel Cells (Auto) (0-5) /lpf Urine Bacteria (Auto) (Negative) Hep Bs Antigen Pending Hep Bs Antibody Pending Hep Bs Antibody, Quant Pending 06/28/20 06/28/20 06/28/20 Range/Units 07:55 04:51 00:28 WBC 4.12 L (4.8-10.8) K/uL RBC 3.43 L (4.2-5.4) M/uL Hgb 11.0 L (12.0-16.0) g/dL Hct 33.0 L (37-47) % MCV 96.2 (80-100) fL MCH 32.1 (25-34) pg MCHC 33.3 (32-36) g/dL RDW Std Deviation 54.5 H (36.4-46.3) fL RDW Coeff of Yin 15.6 H (11.5-14.5) % Plt Count 220 (130-400) K/uL MPV 9.7 (7.4-10.4) fL ESR (0-30) mm/hr Sodium (136-145) mmol/L Potassium (3.5-5.1) mmol/L Chloride (98-107) mmol/L Carbon Dioxide (21-32) mmol/L Anion Gap (3-11) BUN (7-18) mg/dl Creatinine (0.6-1.2) mg/dl Est Cr Clr Drug Dosing ml/min Est GFR ( Amer) Est GFR (Non-Af Amer) BUN/Creatinine Ratio (10-20) Glucose (70-99) mg/dl POC Glucose 187 H 252 H (70-99) mg/dl Calcium (8.5-10.1) mg/dl Phosphorus (2.5-4.9) mg/dl Total Bilirubin (0.2-1) mg/dl AST (15-37) U/L ALT (12-78) U/L Alkaline Phosphatase (45-117) U/L Total Creatine Kinase (26-192) U/L Troponin I (0-0.045) ng/ml C-Reactive Protein (0-0.29) mg/dl NT-Pro-B Natriuret Pep (0-1800) pg/ml Total Protein (6.4-8.2) gm/dl Albumin (3.4-5.0) gm/dl Globulin (2.5-4.0) gm/dl Albumin/Globulin Ratio (0.9-2) Triglycerides (0-150) mg/dl Cholesterol (0-200) mg/dl LDL Cholesterol, Calc mg/dl VLDL Cholesterol, Calc mg/dl HDL Cholesterol mg/dl Cholesterol/HDL Ratio Aldolase Vitamin B12 (193-986) pg/ml 25-OH Vitamin D Total (30-100) ng/ml Urine Color Urine Appearance (Clear) Urine pH (4.5-7.5) Ur Specific Wheeler (1.000-1.030) Urine Protein (Negative) Urine Glucose (UA) (Negative) Urine Ketones (Negative) Urine Blood (Negative) Urine Nitrite (Negative) Urine Bilirubin (Negative) Urine Urobilinogen (Negative) Ur Leukocyte Esterase (Negative) Urine WBC (Auto) (0-5) /hpf Urine RBC (Auto) (0-4) /hpf U Hyaline Cast (Auto) (0-5) /lpf U Epithel Cells (Auto) (0-5) /lpf Urine Bacteria (Auto) (Negative) Hep Bs Antigen Hep Bs Antibody Hep Bs Antibody, Quant 06/27/20 06/27/20 06/27/20 Range/Units Unknown 20:54 17:05 WBC (4.8-10.8) K/uL RBC (4.2-5.4) M/uL Hgb (12.0-16.0) g/dL Hct (37-47) % MCV (80-100) fL MCH (25-34) pg MCHC (32-36) g/dL RDW Std Deviation (36.4-46.3) fL RDW Coeff of Yin (11.5-14.5) % Plt Count (130-400) K/uL MPV (7.4-10.4) fL ESR (0-30) mm/hr Sodium (136-145) mmol/L Potassium (3.5-5.1) mmol/L Chloride (98-107) mmol/L Carbon Dioxide (21-32) mmol/L Anion Gap (3-11) BUN (7-18) mg/dl Creatinine (0.6-1.2) mg/dl Est Cr Clr Drug Dosing ml/min Est GFR ( Amer) Est GFR (Non-Af Amer) BUN/Creatinine Ratio (10-20) Glucose (70-99) mg/dl POC Glucose 229 H 154 H (70-99) mg/dl Calcium (8.5-10.1) mg/dl Phosphorus (2.5-4.9) mg/dl Total Bilirubin (0.2-1) mg/dl AST (15-37) U/L ALT (12-78) U/L Alkaline Phosphatase (45-117) U/L Total Creatine Kinase (26-192) U/L Troponin I (0-0.045) ng/ml C-Reactive Protein (0-0.29) mg/dl NT-Pro-B Natriuret Pep (0-1800) pg/ml Total Protein (6.4-8.2) gm/dl Albumin (3.4-5.0) gm/dl Globulin (2.5-4.0) gm/dl Albumin/Globulin Ratio (0.9-2) Triglycerides (0-150) mg/dl Cholesterol (0-200) mg/dl LDL Cholesterol, Calc mg/dl VLDL Cholesterol, Calc mg/dl HDL Cholesterol mg/dl Cholesterol/HDL Ratio Aldolase Vitamin B12 (193-986) pg/ml 25-OH Vitamin D Total (30-100) ng/ml Urine Color Yellow Urine Appearance Clear (Clear) Urine pH 8.5 H (4.5-7.5) Ur Specific Wheeler 1.009 (1.000-1.030) Urine Protein 2+ H (Negative) Urine Glucose (UA) Negative (Negative) Urine Ketones Negative (Negative) Urine Blood Negative (Negative) Urine Nitrite Negative (Negative) Urine Bilirubin Negative (Negative) Urine Urobilinogen Negative (Negative) Ur Leukocyte Esterase 1+ H (Negative) Urine WBC (Auto) 5-10 H (0-5) /hpf Urine RBC (Auto) 0-4 (0-4) /hpf U Hyaline Cast (Auto) 1-5 (0-5) /lpf U Epithel Cells (Auto) 10-20 H (0-5) /lpf Urine Bacteria (Auto) Negative (Negative) Hep Bs Antigen Hep Bs Antibody Hep Bs Antibody, Quant 06/27/20 06/27/20 06/27/20 Range/Units 13:50 13:26 09:49 WBC (4.8-10.8) K/uL RBC (4.2-5.4) M/uL Hgb (12.0-16.0) g/dL Hct (37-47) % MCV (80-100) fL MCH (25-34) pg MCHC (32-36) g/dL RDW Std Deviation (36.4-46.3) fL RDW Coeff of Yin (11.5-14.5) % Plt Count (130-400) K/uL MPV (7.4-10.4) fL ESR (0-30) mm/hr Sodium (136-145) mmol/L Potassium (3.5-5.1) mmol/L Chloride (98-107) mmol/L Carbon Dioxide (21-32) mmol/L Anion Gap (3-11) BUN (7-18) mg/dl Creatinine (0.6-1.2) mg/dl Est Cr Clr Drug Dosing ml/min Est GFR ( Amer) Est GFR (Non-Af Amer) BUN/Creatinine Ratio (10-20) Glucose (70-99) mg/dl POC Glucose 111 H (70-99) mg/dl Calcium (8.5-10.1) mg/dl Phosphorus (2.5-4.9) mg/dl Total Bilirubin (0.2-1) mg/dl AST (15-37) U/L ALT (12-78) U/L Alkaline Phosphatase (45-117) U/L Total Creatine Kinase (26-192) U/L Troponin I 0.042 (0-0.045) ng/ml C-Reactive Protein (0-0.29) mg/dl NT-Pro-B Natriuret Pep (0-1800) pg/ml Total Protein (6.4-8.2) gm/dl Albumin (3.4-5.0) gm/dl Globulin (2.5-4.0) gm/dl Albumin/Globulin Ratio (0.9-2) Triglycerides (0-150) mg/dl Cholesterol (0-200) mg/dl LDL Cholesterol, Calc mg/dl VLDL Cholesterol, Calc mg/dl HDL Cholesterol mg/dl Cholesterol/HDL Ratio Aldolase Vitamin B12 (193-986) pg/ml 25-OH Vitamin D Total 41.5 (30-100) ng/ml Urine Color Urine Appearance (Clear) Urine pH (4.5-7.5) Ur Specific Wheeler (1.000-1.030) Urine Protein (Negative) Urine Glucose (UA) (Negative) Urine Ketones (Negative) Urine Blood (Negative) Urine Nitrite (Negative) Urine Bilirubin (Negative) Urine Urobilinogen (Negative) Ur Leukocyte Esterase (Negative) Urine WBC (Auto) (0-5) /hpf Urine RBC (Auto) (0-4) /hpf U Hyaline Cast (Auto) (0-5) /lpf U Epithel Cells (Auto) (0-5) /lpf Urine Bacteria (Auto) (Negative) Hep Bs Antigen Hep Bs Antibody Hep Bs Antibody, Quant 06/27/20 06/27/20 06/27/20 Range/Units 09:49 09:49 09:49 WBC (4.8-10.8) K/uL RBC (4.2-5.4) M/uL Hgb (12.0-16.0) g/dL Hct (37-47) % MCV (80-100) fL MCH (25-34) pg MCHC (32-36) g/dL RDW Std Deviation (36.4-46.3) fL RDW Coeff of Yin (11.5-14.5) % Plt Count (130-400) K/uL MPV (7.4-10.4) fL ESR 25 (0-30) mm/hr Sodium (136-145) mmol/L Potassium (3.5-5.1) mmol/L Chloride (98-107) mmol/L Carbon Dioxide (21-32) mmol/L Anion Gap (3-11) BUN (7-18) mg/dl Creatinine (0.6-1.2) mg/dl Est Cr Clr Drug Dosing ml/min Est GFR ( Amer) Est GFR (Non-Af Amer) BUN/Creatinine Ratio (10-20) Glucose (70-99) mg/dl POC Glucose (70-99) mg/dl Calcium (8.5-10.1) mg/dl Phosphorus (2.5-4.9) mg/dl Total Bilirubin (0.2-1) mg/dl AST (15-37) U/L ALT (12-78) U/L Alkaline Phosphatase (45-117) U/L Total Creatine Kinase 63 (26-192) U/L Troponin I (0-0.045) ng/ml C-Reactive Protein 0.84 H (0-0.29) mg/dl NT-Pro-B Natriuret Pep (0-1800) pg/ml Total Protein (6.4-8.2) gm/dl Albumin (3.4-5.0) gm/dl Globulin (2.5-4.0) gm/dl Albumin/Globulin Ratio (0.9-2) Triglycerides 99 (0-150) mg/dl Cholesterol 131 (0-200) mg/dl LDL Cholesterol, Calc 29 mg/dl VLDL Cholesterol, Calc 20 mg/dl HDL Cholesterol 82 mg/dl Cholesterol/HDL Ratio 2 Aldolase Pending Vitamin B12 (193-986) pg/ml 25-OH Vitamin D Total (30-100) ng/ml Urine Color Urine Appearance (Clear) Urine pH (4.5-7.5) Ur Specific Wheeler (1.000-1.030) Urine Protein (Negative) Urine Glucose (UA) (Negative) Urine Ketones (Negative) Urine Blood (Negative) Urine Nitrite (Negative) Urine Bilirubin (Negative) Urine Urobilinogen (Negative) Ur Leukocyte Esterase (Negative) Urine WBC (Auto) (0-5) /hpf Urine RBC (Auto) (0-4) /hpf U Hyaline Cast (Auto) (0-5) /lpf U Epithel Cells (Auto) (0-5) /lpf Urine Bacteria (Auto) (Negative) Hep Bs Antigen Hep Bs Antibody Hep Bs Antibody, Quant 06/27/20 06/27/20 Range/Units 08:11 08:11 WBC (4.8-10.8) K/uL RBC (4.2-5.4) M/uL Hgb (12.0-16.0) g/dL Hct (37-47) % MCV (80-100) fL MCH (25-34) pg MCHC (32-36) g/dL RDW Std Deviation (36.4-46.3) fL RDW Coeff of Yin (11.5-14.5) % Plt Count (130-400) K/uL MPV (7.4-10.4) fL ESR (0-30) mm/hr Sodium (136-145) mmol/L Potassium (3.5-5.1) mmol/L Chloride (98-107) mmol/L Carbon Dioxide (21-32) mmol/L Anion Gap (3-11) BUN (7-18) mg/dl Creatinine (0.6-1.2) mg/dl Est Cr Clr Drug Dosing ml/min Est GFR ( Amer) Est GFR (Non-Af Amer) BUN/Creatinine Ratio (10-20) Glucose (70-99) mg/dl POC Glucose (70-99) mg/dl Calcium (8.5-10.1) mg/dl Phosphorus (2.5-4.9) mg/dl Total Bilirubin (0.2-1) mg/dl AST (15-37) U/L ALT (12-78) U/L Alkaline Phosphatase (45-117) U/L Total Creatine Kinase (26-192) U/L Troponin I (0-0.045) ng/ml C-Reactive Protein (0-0.29) mg/dl NT-Pro-B Natriuret Pep > 94370 H (0-1800) pg/ml Total Protein (6.4-8.2) gm/dl Albumin (3.4-5.0) gm/dl Globulin (2.5-4.0) gm/dl Albumin/Globulin Ratio (0.9-2) Triglycerides (0-150) mg/dl Cholesterol (0-200) mg/dl LDL Cholesterol, Calc mg/dl VLDL Cholesterol, Calc mg/dl HDL Cholesterol mg/dl Cholesterol/HDL Ratio Aldolase Vitamin B12 1042 H (193-986) pg/ml 25-OH Vitamin D Total (30-100) ng/ml Urine Color Urine Appearance (Clear) Urine pH (4.5-7.5) Ur Specific Wheeler (1.000-1.030) Urine Protein (Negative) Urine Glucose (UA) (Negative) Urine Ketones (Negative) Urine Blood (Negative) Urine Nitrite (Negative) Urine Bilirubin (Negative) Urine Urobilinogen (Negative) Ur Leukocyte Esterase (Negative) Urine WBC (Auto) (0-5) /hpf Urine RBC (Auto) (0-4) /hpf U Hyaline Cast (Auto) (0-5) /lpf U Epithel Cells (Auto) (0-5) /lpf Urine Bacteria (Auto) (Negative) Hep Bs Antigen Hep Bs Antibody Hep Bs Antibody, Quant PG Care Time/CCT Total # of Minutes Spent Total Time Spent with Patient: Total time spent is greater than 50% in coordination of care (as documented) at patient's floor/unit and/or counseling patient: Coding Level of Care Code 33195 Subseq Hosp Care Lvl 3 Diagnoses ESRD on hemodialysis N18.6; Z99.2 Paresthesias R20.2 Carotid artery plaque I65.29 Hyperlipidemia E78.5 Diabetes E11.9 Hypertension I10
--- NOTE | 2020-06-28 09:25 | XCELERA ---
[id number]
[2020-06-28 09:54] LABS: Hepatitis B Surface Ab Quant 105.95 mIU/mL (>or=10mIU/mL Immune); Hepatitis B Surface Antibody Immune
[2020-06-28 10:05] LABS: Hepatitis B Surf Ag Rflx Conf Neg (Neg)
--- NOTE | 2020-06-28 10:18 | Pharmacy Report ---
Pharmacy Glycemic Short Note 2 - Date of Service June 28, 2020 - Glycemic Short BSG Results (Last 24 hours): 06/27/20 06/27/20 06/27/20 13:26 17:05 20:54 Glucose POC Glucose 111 H 154 H 229 H 06/28/20 06/28/20 06/28/20 00:28 04:51 07:55 Glucose 189 H POC Glucose 252 H 187 H 06/28/20 08:13 Glucose POC Glucose 172 H OUTPATIENT ANTIDIABETIC REGIMEN: * No outpatient medications * HbA1c 6.5% on 06/27/20 ASSESSMENT: * Pharmacy had signed off yesterday, but then dexamethasone 4 mg IV q6h was initiated therefore ongoing consult appropriate * BSG's increased after starting dex. Lantus 18 units was given yesterday. Will increase today * Will tighten Novolog parameters to weight-based severe stress estimate PLAN FOR INPATIENT GLYCEMIC CONTROL: * Basal insulin * Lantus 10 units SQ x1 this AM. Additional 15-25 units tonight based on BSG * Bolus insulin * NovoLog per scale ACHS or Q6hrs while NPO * Goal Range: Low 110 mg/dL - High 140 mg/dL * Correction Factor: 25 mg/dL/unit * Nutritional / Prandial insulin per carb ratio of 1 unit per 8 grams CHO consumed PLAN FOR DISCHARGE: * Refer to outpatient provider as metformin may be appropriate
--- NOTE | 2020-06-28 11:54 | Nephrology Progress Note ---
Date of Service June 28, 2020 Assessment & Plan (1) ESRD on hemodialysis: Orders for HD today reviewed with dialysis nurse and entered into EMR. UF goal 1.5-2 L. Tory was seen and evaluated during HD. Tolerating treatment well. Qb acceptable via TDC. Outpatient Rx: 3.5 hrs, 180 opti, 350/800, 2 K. EDW 68 kg. TDC used for HD while AVF recovers from recent infiltration. Medications appropriate for kidney function. (2) Hypertension: BP acceptable. Losartan increased to 50 mg yesterday. (3) Anemia: Chronic, stable. Epogen held with Hgb >11. (4) Chronic kidney disease-mineral and bone disorder: Sevelamer held due to hypophosphatemia. Continue calcitriol. Admission and Anticipated Discharge Date Admission Date: June 27, 2020 Subjective No acute events overnight. Tory was seen and evaluated during hemodialysis this AM. She is tolerating HD well. Qb at goal. BP acceptable. Paraesthesias and weakness improved. Review of Systems Review of Systems: All systems reviewed & are unremarkable except as noted in HPI & below Physical Exam Constitutional: well developed; no acute distress Eyes: no scleral abnormality and no corneal abnormality ENMT: Mouth: no oral mucosal abnormality and oral mucous membranes not dry Neck: normal visual inspection and trachea midline Respiratory: normal respiratory effort Auscultation: lungs clear to auscultation bilaterally Cardiovascular: Rate/Rhythm: regular rate Heart Sounds: normal S1 and normal S2 Extremities: + AV fistula; no edema Musculoskeletal: Extremities: no cyanosis and no clubbing Skin: normal turgor; no lesions Neurologic: Motor/Sensory: no tremor and no asterixis Psychiatric: Orientation: alert and oriented x 3 Results & Data ([facility]) Vital Signs (Past 12 Hours) Vital Signs Temp Pulse Pulse Pulse Resp BP BP 06/28/20 10:40 48 L 146/59 H 06/28/20 10:20 68 146/72 H 06/28/20 10:00 53 L 140/71 06/28/20 09:54 55 L 170/77 H 06/28/20 09:40 63 158/66 H 06/28/20 09:15 36.7 C 70 06/28/20 07:24 36.7 C 70 14 186/82 H Pulse Ox 06/28/20 10:40 06/28/20 10:20 06/28/20 10:00 06/28/20 09:54 06/28/20 09:40 06/28/20 09:15 06/28/20 07:24 94 Laboratory Results Laboratory Results - last 24 hr 06/27/20 06/27/20 06/27/20 13:26 13:50 17:05 WBC RBC Hgb Hct MCV MCH MCHC RDW Std Deviation RDW Coeff of Yin Plt Count MPV Sodium Potassium Chloride Carbon Dioxide Anion Gap BUN Creatinine Est Cr Clr Drug Dosing Est GFR ( Amer) Est GFR (Non-Af Amer) BUN/Creatinine Ratio Glucose POC Glucose 111 H 154 H Calcium Phosphorus Total Bilirubin AST ALT Alkaline Phosphatase Troponin I 0.042 Total Protein Albumin Globulin Albumin/Globulin Ratio Urine Color Urine Appearance Urine pH Ur Specific [place] Urine Protein Urine Glucose (UA) Urine Ketones Urine Blood Urine Nitrite Urine Bilirubin Urine Urobilinogen Ur Leukocyte Esterase Urine WBC (Auto) Urine RBC (Auto) U Hyaline Cast (Auto) U Epithel Cells (Auto) Urine Bacteria (Auto) Hep Bs Antigen Hep Bs Antibody Hep Bs Antibody, Quant 06/27/20 06/27/20 06/28/20 20:54 Unknown 00:28 WBC RBC Hgb Hct MCV MCH MCHC RDW Std Deviation RDW Coeff of Yin Plt Count MPV Sodium Potassium Chloride Carbon Dioxide Anion Gap BUN Creatinine Est Cr Clr Drug Dosing Est GFR ( Amer) Est GFR (Non-Af Amer) BUN/Creatinine Ratio Glucose POC Glucose 229 H 252 H Calcium Phosphorus Total Bilirubin AST ALT Alkaline Phosphatase Troponin I Total Protein Albumin Globulin Albumin/Globulin Ratio Urine Color Yellow Urine Appearance Clear Urine pH 8.5 H Ur Specific [place] 1.009 Urine Protein 2+ H Urine Glucose (UA) Negative Urine Ketones Negative Urine Blood Negative Urine Nitrite Negative Urine Bilirubin Negative Urine Urobilinogen Negative Ur Leukocyte Esterase 1+ H Urine WBC (Auto) 5-10 H Urine RBC (Auto) 0-4 U Hyaline Cast (Auto) 1-5 U Epithel Cells (Auto) 10-20 H Urine Bacteria (Auto) Negative Hep Bs Antigen Hep Bs Antibody Hep Bs Antibody, Quant 06/28/20 06/28/20 06/28/20 04:51 07:55 07:55 WBC 4.12 L RBC 3.43 L Hgb 11.0 L Hct 33.0 L MCV 96.2 MCH 32.1 MCHC 33.3 RDW Std Deviation 54.5 H RDW Coeff of Yin 15.6 H Plt Count 220 MPV 9.7 Sodium 137 Potassium 4.4 D Chloride 101 Carbon Dioxide 27 Anion Gap 9.0 BUN 60 H D Creatinine 4.25 H D Est Cr Clr Drug Dosing 9.5 Est GFR ( Amer) 10.8 Est GFR (Non-Af Amer) 9.3 BUN/Creatinine Ratio 14.2 Glucose 189 H POC Glucose 187 H Calcium 9.2 Phosphorus 5.3 H D Total Bilirubin 0.6 AST 12 L ALT 15 Alkaline Phosphatase 114 Troponin I Total Protein 6.6 Albumin 3.3 L Globulin 3.3 Albumin/Globulin Ratio 1.0 Urine Color Urine Appearance Urine pH Ur Specific [place] Urine Protein Urine Glucose (UA) Urine Ketones Urine Blood Urine Nitrite Urine Bilirubin Urine Urobilinogen Ur Leukocyte Esterase Urine WBC (Auto) Urine RBC (Auto) U Hyaline Cast (Auto) U Epithel Cells (Auto) Urine Bacteria (Auto) Hep Bs Antigen Hep Bs Antibody Hep Bs Antibody, Quant 06/28/20 06/28/20 06/28/20 07:55 08:13 08:57 WBC RBC Hgb Hct MCV MCH MCHC RDW Std Deviation RDW Coeff of Yin Plt Count MPV Sodium Potassium Chloride Carbon Dioxide Anion Gap BUN Creatinine Est Cr Clr Drug Dosing Est GFR ( Amer) Est GFR (Non-Af Amer) BUN/Creatinine Ratio Glucose POC Glucose 172 H Calcium Phosphorus Total Bilirubin AST ALT Alkaline Phosphatase Troponin I 0.016 Total Protein Albumin Globulin Albumin/Globulin Ratio Urine Color Urine Appearance Urine pH Ur Specific [place] Urine Protein Urine Glucose (UA) Urine Ketones Urine Blood Urine Nitrite Urine Bilirubin Urine Urobilinogen Ur Leukocyte Esterase Urine WBC (Auto) Urine RBC (Auto) U Hyaline Cast (Auto) U Epithel Cells (Auto) Urine Bacteria (Auto) Hep Bs Antigen Neg Hep Bs Antibody Immune Hep Bs Antibody, Quant 105.95 PG Care Time/CCT Total # of Minutes Spent Total Time Spent with Patient: Total time spent is greater than 50% in coordination of care (as documented) at patient's floor/unit and/or counseling patient: Coding Level of Care Code 26265 Subseq Hosp Care Lvl 3 Diagnoses ESRD on hemodialysis N18.6; Z99.2 Hypertension I10 Anemia D64.9 Chronic kidney disease-mineral and bone disorder N18.9; E83.9; M89.9
[2020-06-28] MEDS: METOPROLOL SUCC 50MG EXT REL TAB PO SCH (13:19)
[2020-06-28] MEDS: DOCUSATE SODIUM 100 MG CAP PO SCH ×2 (13:19→20:36)
--- NOTE | 2020-06-28 14:58 | Orthopedic Consultation ---
Date of Consultation June 28, 2020 Assessment & Plan (1) Myelopathy concurrent with and due to spinal stenosis of cervical region: Patient has evidence of severe cervical spinal stenosis with myelopathy. She seems to have responded to IV steroids. Any surgical intervention in her case would be considerable. I would at least have to address the C6-C7 disc space but also the C3-4 C4-5 regions. This point I recommend light activity lifting no more than 5 pounds hopefully that she will maintain her current status without further decline. Present on Admission?: Yes History of Present Illness Reason for Consultation: Bilateral arm weakness with numbness and tingling Attending Physician: Estela Gómez MD History of Present Illness This is a very pleasant 79-year-old female who presents with marked decline in status with bilateral arm pain and weakness with numbness and tingling. She was started on IV steroids and this seems to have resolved over the past 48 hours. With my discussion with her today she states she has no longer any symptoms. She denies any Lhermitte's phenomenon. She denies any perceptible weakness balance disturbance or pain. Allergies Allergy/AdvReac Type Severity Reaction Status Date / Time No Known Allergies Allergy Verified 06/26/20 22:30 Home Medications Medication Instructions Recorded Confirmed Type acetaminophen 500 mg tablet 1,000 mg PO BID tab 10/11/18 06/26/20 History aspirin 81 mg tablet,delayed 81 mg PO QPM 10/11/18 06/26/20 History release cholecalciferol (vitamin D3) 2,000 units PO QAM 10/14/19 06/26/20 History multivitamin 1 tab PO QAM 10/14/19 06/26/20 History atorvastatin 10 mg PO HS 10/16/19 06/26/20 History darbepoetin ilia in polysorbat 200 200 mcg SUBCUT .COMPLEX #1 ml 11/10/19 06/26/20 Rx mcg/mL in polysorbate injection losartan 25 mg PO PM #30 tab 11/27/19 06/26/20 Rx calcitriol 0.5 mcg capsule 0.5 mcg PO QAM 02/10/20 06/26/20 History ferrous sulfate 325 mg PO QAM 04/06/20 06/26/20 History metoprolol succinate 50 mg PO QAM 04/06/20 06/26/20 History sevelamer HCl 800 mg tablet 800 mg PO TIDM #90 tab 05/07/20 06/26/20 Rx Patient History Medical History Anemia AV fistula left upper arm Cardiac murmur LAST ECHO 11/09/19= moderate MR/mild TR Cardiomyopathy follows Dr. Quinones Chronic kidney insufficiency follows Dr. Rock Diabetes Blood sugar fluctuates > can't see to check sugar Dialysis patient tues/ thurs/ sat to [place] Hyperlipidemia Hypertension Per records Legally blind READS WITH MAGNIFYING GLASSES Paresthesias in left hand Tinnitus Upper back pain Surgical History History of bilateral oophorectomy History of colonoscopy History of esophagogastroduodenoscopy (EGD) History of tooth extraction Hx of cataract surgery R/L Family History Mother Diabetes Father Myocardial infarction Denies family history of Ovarian cancer Prostate cancer Kidney disease Breast cancer Colorectal cancer Social History Smoking Status: Former smoker Tobacco Type: Cigarettes Age Started Using Tobacco: 17; Age Quit Using Tobacco: 58; packs per day: 0.25; Second Hand Exposure: No; Hx Alcohol Use: No Hx Substance Use: No Preferred Language: [place] Communication Ability: Effective Visual Impairment: Blindness Hearing Ability: Normal Animator Required: Yes Beliefs That Will Affect Care: None marital status: single Current Living Situation: Alone current occupational status: retired 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 She has full active range of motion of the cervical spine. She exhibits reasonable strength detailed testing the upper extremities. There is no evidence of a Shola sign. Sensory symmetric and intact in bilateral upper and lower extremities. Results & Data ([facility]) Vital Signs (Past 12 Hours) Vital Signs Temp Pulse Pulse Pulse Resp BP BP 06/28/20 13:25 36.7 C 54 L 155/71 H 06/28/20 13:18 36.7 C 61 20 178/73 H 06/28/20 12:54 58 L 173/68 H 06/28/20 12:40 58 L 176/72 H 06/28/20 12:20 53 L 149/70 H 06/28/20 12:00 57 L 142/73 H 06/28/20 11:40 54 L 119/70 06/28/20 11:20 53 L 139/63 06/28/20 11:00 48 L 145/70 H 06/28/20 10:40 48 L 146/59 H 06/28/20 10:20 68 146/72 H 06/28/20 10:00 53 L 140/71 06/28/20 09:54 55 L 170/77 H 06/28/20 09:40 63 158/66 H 06/28/20 09:15 36.7 C 70 06/28/20 07:24 36.7 C 70 14 186/82 H Pulse Ox 06/28/20 13:25 06/28/20 13:18 96 06/28/20 12:54 06/28/20 12:40 06/28/20 12:20 06/28/20 12:00 06/28/20 11:40 06/28/20 11:20 06/28/20 11:00 06/28/20 10:40 06/28/20 10:20 06/28/20 10:00 06/28/20 09:54 06/28/20 09:40 06/28/20 09:15 06/28/20 07:24 94
[2020-06-28] MEDS: LOSARTAN POTASSIUM 50 MG TAB PO SCH (20:34)
[2020-06-28] MEDS: ASPIRIN 81 MG ECTAB PO SCH (20:34)
[2020-06-28] MEDS: ATORVASTATIN 10 MG TAB PO SCH (20:34)
[2020-06-28] MEDS ORDERED: dexAMETHasone 2 MG in SYRINGE 0 ML IV SCH (21:00)
[2020-06-29] MEDS: SEVELAMER HCL 800 MG TABLET PO SCH ×3 (08:38→17:26)
[2020-06-29] MEDS: METOPROLOL SUCC 50MG EXT REL TAB PO SCH (08:38)
[2020-06-29] MEDS: MULTIVITAMIN TAB PO SCH (08:38)
[2020-06-29] MEDS: ACETAMINOPHEN 500 MG TAB PO SCH ×2 (08:38→20:02)
[2020-06-29] MEDS: FERROUS SULFATE 325 MG TAB PO SCH (08:38)
[2020-06-29] MEDS: CHOLECALCIFEROL 1,000 UNITS 25 MCG TAB PO SCH (08:38)
[2020-06-29] MEDS: CALCITRIOL 0.25 MCG CAPSULE PO SCH (08:39)
[2020-06-29] MEDS: DOCUSATE SODIUM 100 MG CAP PO SCH ×2 (08:44→20:04)
[2020-06-29] MEDS: HEPARIN SOD 5,000 UNIT/0.5 ML VIAL SQ SCH ×2 (08:45→20:04)
--- NOTE | 2020-06-29 08:45 | Hospitalist Progress Note ---
Date of Service June 29, 2020 Assessment & Plan (1) ESRD on hemodialysis: Admission Date: 79 yo F w/ pMHx. of Cardiomyopathy, HTN, HLD, ESRD (dialysis Thu, , Thu), carotid plaque and DM (not on medication) presents with right arm paresthesias with waxing and waning concerning for cervical radiculopathy vs. nerve compression along with some global weakness. Admitted for Right arm paresthesias/Cervical Myelopathy CT-H w/ STATRAD findings of no acute intracranial findings (chronic findings of involution, microvascular changes and ventriculomegaly, possible NPH but not likely per neuro but not excluded) XR neck ordered to look for spinal canal which could explain symptomatology --> Severe multilevel degenerative disc disease and facet arthrosis within the cervical spine, as described above. Loss of height of several mid cervical vertebral bodies is chronic. There is partial fusion of C5 and C6. Neurology consulted MRI Brain without acute CVA Carotids without significant stenosis CK wnl, ESR 25, Vit D wnl, ALdolase 5.1 wnl MRI Cervical Spine WITH SIGNIFICANT MYELOPATHY with cord edema * DR FAULKNER CONSULTED -- would like to avoid surgery however there may be area amenable to treatment if needed * MRI Cervical Spine with Severe multilevel cervical spondylosis as above with severe multilevel acquired compromise of the central canal. This is greatest from C3-C4 through C6-C7. Mild edema suggested within the cervical cord at these levels, related to spinal stenosis. * Placed on Dexamethasone 4mg Q6H on 06/27 and by afternoon 06/28 patient reported symptoms COMPLETELY GONE and dose was reduced, however this morning again with issues of numbness/tingling difficulty using silverware and will increase back to 4mg Q6 and re-discuss with Dr. Faulkner. * May need to consider intervention if unable to wean steroids at all * Continue to monitor PT/OT consulted -- possible short term at [facility] which could help with insulin administration given visual issues. CM following and ref placed, can take ESRD (dialysis , , Thu), Hypophosphatemia * BNP >49599 and was given IV lasix yesterday. No respiratory distress. Got HD today. * Volume status felt to be acceptable * Cr elevated but stable and got HD , 06/28 * Nephrology on consult * Resumed sevelamer . Phos wnl * Repeat BMP, Phos in AM DM II, * not on home meds * last a1c 6.9 -- repeat A1c 6.5 * ISS while inpatient Pharmacy on consult for glycemic management: * A1c 6.5 (down from 6.9 not on medications) and was previously on medications, since discontinued due to kidney disease and A1c 6.9 * BSG's increased after starting dex. Lantus 18 units was given yesterday. Will increase today * Basal insulin: Lantus 10 units SQ x1 this AM. Additional 15-25 units tonight based on BSG * Bolus insulin:NovoLog per scale ACHS or Q6hrs while NPO. Goal Range: Low 110 mg/dL - High 140 mg/dL. Correction Factor: 25 mg/dL/unit. Nutritional / Prandial insulin per carb ratio of 1 unit per 8 grams CHO consumed * 06/29 -- trial NPH in AM for plans for home but will continue coverage given increase in dexamethasone as above Cardiomyopathy * Myocardial perfusion Shawn without significant ischemia although some small defects noted and not likely account for reduced LV function * Repeating ECHO as above (MURMUR ON EXAMINATION given only mod MR on prior) SYSTOLIC although does not appear to be worsening but possible MR, with possible S3. * Prior Echo Nov 2019 with EF 40-45% moderate MR, mild TR * TSH nl * Follows with Dr. Quinones -- increased losartan to 50mg HS as above * Continue metoprolol succinate 50mg daily, ASA 81mg, Atorvastatin 10mg HS (may need increased based on lipid panel as ordered above) * No chest pain reported, trop <0.015 on admission however repeat 0.028 and peaked at 0.48, trended down. * ECHO pending -- prior myocardial scan with EF 29% global hypokinesis and no significant transient ischemic dilation November 2019. Follows with Dr Quinones and initially wanted to increase losartan to 50mg daily (will increase tonight given HTN) * ECHO without source of emboli noted, LV systolic function moderately reduced. LA mod dilated. Moderate MR. RVSP elevated to 40-50mmHg (?ELMER). Diastolic dysfunction, Grade II, c/w elevated LA pressure * Lipid panel wnl and continued statin 10mg * Continue to monitor HTN * Chronic. Issues reported with low BP in dialysis however BP elevated to 185/108 on admission * BP currently 162/77 * Increased losartan as above to 50mg HS * Continued metoprolol succinate 50mg daily * Continue to monitor HLD * continue Atorvastatin 10mg HS * Repeating Lipid Panel, acceptable. Continue current dose Carotid plaques * Carotid Dopplers w/o sig stenosis. Lipid panel acceptable * Continue ASA, Lipitor as above DNR DNI DVT prophylaxis Heparin SQ while inpatient Changed to full admission Continued inpatient stay (2) Paresthesias: (3) Carotid artery plaque: (4) Hyperlipidemia: (5) Diabetes: (6) Hypertension: Admission and Anticipated Discharge Date Admission Date: June 28, 2020 Supervising Physician Co-Signing Physician Notes PA Supervision Note: I did not personally see or examine the patient today, but I verified all pinedo points of FLACO Palencia's assessment and plan with the following exceptions/additions: None Subjective Patient evaluated at lunch time. She states symptoms completely resolved last evening however this morning at breakfast she noticed some issues with weakness/numbness/tingling when picking up her utensils. I was notified by RN and we increased her dexamethasone again and she states sy mptoms are much improved but still slightly present. Discussed increased steroids not residential option and discussion with Dr. Faulkner to have increased dose for today and attempt to taper over the weekend. Plans for [facility] at d/c given will need continuing BSG monitoring/insulin. +BM since yesterday. No fever, chills, chest pain, shortness of breath, abdominal pain, nausea reported. Questions/concerns addressed at this time. Review of Systems Review of Systems: All systems reviewed & are unremarkable except as noted in HPI & below Physical Exam Constitutional: WD/WN, vitals as above well nourished, + ill appearing (chronically ill appearing), cooperative and comfortable; no acute distress Eyes: PERRL, conjunctivae normal, anicteric sclerae EOM intact bilaterally; + abnormal visual field confrontation, no scleral abnormality, no corneal abnormality, + no PERRL, + abnormal accommodation and no nystagmus ENMT: external ear and nose normal, oropharynx normal Mouth: no oral mucosal abnormality and oral mucous membranes not dry Neck: normal visual inspection and trachea midline Respiratory: normal respiratory effort, lungs clear to auscultation normal respiratory effort; no cough and not tachypneic Auscultation: lungs clear to auscultation bilaterally and + diminished lung sounds Cardiovascular: RRR, no murmur, no edema Rate/Rhythm: regular rate and regular rhythm Heart Sounds: normal S1, normal S2 and + murmur (3/6 systolic EM); no gallop Vessels: normal carotid upstroke; no carotid bruit Extremities: + AV fistula; no edema Gastrointestinal (Abdomen): normal bowel sounds, soft, nontender, no hepatosplenomegaly Musculoskeletal: Extremities: no cyanosis and no clubbing able to lift arms to level of shoulder bilaterally improved sensation to b/l UE compared to this morning mild numbness to palmar aspect R hand pulses palpable bilaterally no edema/erythema Skin: no rashes, warm and dry normal turgor; no lesions Neurologic: Motor/Sensory: + tremor (fine tremor); no asterixis Psychiatric: Orientation: alert and oriented x 3 Eye Contact: good eye contact Results & Data Results & Data ([facility]) Vital Signs (Past 12 Hours) Vital Signs Temp Pulse Pulse Pulse Resp BP Pulse Ox 06/29/20 07:00 36.8 C 70 18 162/77 H 95 06/29/20 04:58 59 L 06/29/20 03:08 67 06/29/20 01:36 67 06/28/20 22:24 36.7 C 56 L 18 157/62 H 95 06/28/20 22:15 68 06/28/20 21:37 59 L Pulse Ox 06/29/20 07:00 06/29/20 04:58 98 06/29/20 03:08 95 06/29/20 01:36 95 06/28/20 22:24 06/28/20 22:15 96 06/28/20 21:37 97 Laboratory Results 06/29/20 06/29/20 06/29/20 Range/Units 12:00 08:32 08:32 WBC 7.41 (4.8-10.8) K/uL RBC 3.28 L (4.2-5.4) M/uL Hgb 10.6 L (12.0-16.0) g/dL Hct 31.5 L (37-47) % MCV 96.0 (80-100) fL MCH 32.3 (25-34) pg MCHC 33.7 (32-36) g/dL RDW Std Deviation 56.0 H (36.4-46.3) fL RDW Coeff of Yin 15.9 H (11.5-14.5) % Plt Count 234 (130-400) K/uL MPV 9.9 (7.4-10.4) fL Sodium 135 L (136-145) mmol/L Potassium 4.5 (3.5-5.1) mmol/L Chloride 102 (98-107) mmol/L Carbon Dioxide 25 (21-32) mmol/L Anion Gap 7.0 (3-11) BUN 49 H (7-18) mg/dl Creatinine 3.45 H D (0.6-1.2) mg/dl Est Cr Clr Drug Dosing 11.4 ml/min Est GFR ( Amer) 13.9 Est GFR (Non-Af Amer) 12.0 BUN/Creatinine Ratio 14.2 (10-20) Glucose 123 H (70-99) mg/dl POC Glucose 128 H (70-99) mg/dl Calcium 9.4 (8.5-10.1) mg/dl Phosphorus 4.2 D (2.5-4.9) mg/dl Total Bilirubin 0.5 (0.2-1) mg/dl AST 9 L (15-37) U/L ALT 16 (12-78) U/L Alkaline Phosphatase 107 (45-117) U/L Total Protein 6.5 (6.4-8.2) gm/dl Albumin 3.3 L (3.4-5.0) gm/dl Globulin 3.2 (2.5-4.0) gm/dl Albumin/Globulin Ratio 1.0 (0.9-2) Aldolase (< OR = 8.1) U/L 06/29/20 06/28/20 06/28/20 Range/Units 08:12 20:44 17:06 WBC (4.8-10.8) K/uL RBC (4.2-5.4) M/uL Hgb (12.0-16.0) g/dL Hct (37-47) % MCV (80-100) fL MCH (25-34) pg MCHC (32-36) g/dL RDW Std Deviation (36.4-46.3) fL RDW Coeff of Yin (11.5-14.5) % Plt Count (130-400) K/uL MPV (7.4-10.4) fL Sodium (136-145) mmol/L Potassium (3.5-5.1) mmol/L Chloride (98-107) mmol/L Carbon Dioxide (21-32) mmol/L Anion Gap (3-11) BUN (7-18) mg/dl Creatinine (0.6-1.2) mg/dl Est Cr Clr Drug Dosing ml/min Est GFR ( Amer) Est GFR (Non-Af Amer) BUN/Creatinine Ratio (10-20) Glucose (70-99) mg/dl POC Glucose 122 H 110 H 137 H (70-99) mg/dl Calcium (8.5-10.1) mg/dl Phosphorus (2.5-4.9) mg/dl Total Bilirubin (0.2-1) mg/dl AST (15-37) U/L ALT (12-78) U/L Alkaline Phosphatase (45-117) U/L Total Protein (6.4-8.2) gm/dl Albumin (3.4-5.0) gm/dl Globulin (2.5-4.0) gm/dl Albumin/Globulin Ratio (0.9-2) Aldolase (< OR = 8.1) U/L 06/28/20 06/27/20 Range/Units 13:19 09:49 WBC (4.8-10.8) K/uL RBC (4.2-5.4) M/uL Hgb (12.0-16.0) g/dL Hct (37-47) % MCV (80-100) fL MCH (25-34) pg MCHC (32-36) g/dL RDW Std Deviation (36.4-46.3) fL RDW Coeff of Yin (11.5-14.5) % Plt Count (130-400) K/uL MPV (7.4-10.4) fL Sodium (136-145) mmol/L Potassium (3.5-5.1) mmol/L Chloride (98-107) mmol/L Carbon Dioxide (21-32) mmol/L Anion Gap (3-11) BUN (7-18) mg/dl Creatinine (0.6-1.2) mg/dl Est Cr Clr Drug Dosing ml/min Est GFR ( Amer) Est GFR (Non-Af Amer) BUN/Creatinine Ratio (10-20) Glucose (70-99) mg/dl POC Glucose 120 H (70-99) mg/dl Calcium (8.5-10.1) mg/dl Phosphorus (2.5-4.9) mg/dl Total Bilirubin (0.2-1) mg/dl AST (15-37) U/L ALT (12-78) U/L Alkaline Phosphatase (45-117) U/L Total Protein (6.4-8.2) gm/dl Albumin (3.4-5.0) gm/dl Globulin (2.5-4.0) gm/dl Albumin/Globulin Ratio (0.9-2) Aldolase 5.1 (< OR = 8.1) U/L PG Care Time/CCT Total # of Minutes Spent Total Time Spent with Patient: Total time spent is greater than 50% in coordination of care (as documented) at patient's floor/unit and/or counseling patient: Coding Level of Care Code 51624 Subseq Hosp Care Lvl 3 Diagnoses ESRD on hemodialysis N18.6; Z99.2 Paresthesias R20.2 Carotid artery plaque I65.29 Hyperlipidemia E78.5 Diabetes E11.9 Hypertension I10
[2020-06-29] MEDS: INSULIN ASPART 100 UNITS/ML 3 ML PEN SC SCH ×4 (08:48→21:41)
[2020-06-29 08:56] LABS: Hematocrit (blood only) 31.5 % (37-47); Hemoglobin 10.6 g/dL (12.0-16.0); Mean Corpuscular Hemoglobin 32.3 pg (25-34); Mean Corpuscular Hgb Conc 33.7 g/dL (32-36); Mean Platelet Volume 9.9 fL (7.4-10.4); Platelet Count 234 K/uL (130-400); RDW Coefficient of Variation 15.9 % (11.5-14.5); Red Blood Count 3.28 M/uL (4.2-5.4); White Blood Count 7.41 K/uL (4.8-10.8)
[2020-06-29] MEDS ORDERED: dexAMETHasone 4 MG in SYRINGE 0 ML IV SCH (09:00)
[2020-06-29 09:22] LABS: Albumin Level 3.3 gm/dl (3.4-5.0); BUN Creatinine Ratio 14.2 (10-20); Calcium 9.4 mg/dl (8.5-10.1); Creatinine Clr Calc Pharmacy 11.4 ml/min; Est GFR (African American) 13.9; Potassium 4.5 mmol/L (3.5-5.1)
[2020-06-29 09:32] LABS: Bilirubin,Total 0.5 mg/dl (0.2-1); Globulin 3.2 gm/dl (2.5-4.0); Phosphorus 4.2 mg/dl (2.5-4.9); Total Protein 6.5 gm/dl (6.4-8.2)
[2020-06-29] MEDS ORDERED: NovoLIN-N (NPH) PER UNIT CHARGE SQ ONE (09:45)
--- NOTE | 2020-06-29 10:51 | Nephrology Progress Note ---
Date of Service June 29, 2020 Assessment & Plan (1) ESRD on hemodialysis: HD completed yesterday per TTS schedule. BP and volume status acceptable. Electrolytes controlled. TDC functioning well. Outpatient Rx: 3.5 hrs, 180 opti, 350/800, 2 K. EDW 68 kg. TDC used for HD while AVF recovers from recent infiltration. Medications appropriate for kidney function. [facility] nephrology will follow at [facility] if patient is discharged to rehab. (2) Hypertension: BP acceptable. Losartan increased to 50 mg this admission. Toelrated well. (3) Anemia: Chronic, stable. Epogen held with Hgb >11. (4) Chronic kidney disease-mineral and bone disorder: Sevelamer held due to hypophosphatemia. Continue calcitriol. Admission and Anticipated Discharge Date Admission Date: June 28, 2020 Subjective No acute events overnight. Tory continues to report some weakness in her hand and arm but otherwise she feels well. Overall improvement noted. Consult from Dr. Faulkner reviewed. Tolerated HD yesterday without complications. Review of Systems Review of Systems: All systems reviewed & are unremarkable except as noted in HPI & below Physical Exam Constitutional: well developed; no acute distress Eyes: no scleral abnormality and no corneal abnormality ENMT: Mouth: no oral mucosal abnormality and oral mucous membranes not dry Neck: normal visual inspection and trachea midline Respiratory: normal respiratory effort Auscultation: lungs clear to auscultation bilaterally Cardiovascular: Rate/Rhythm: regular rate Heart Sounds: normal S1 and normal S2 Extremities: + AV fistula; no edema Musculoskeletal: Extremities: no cyanosis and no clubbing Skin: normal turgor; no lesions Neurologic: Motor/Sensory: no tremor and no asterixis Psychiatric: Orientation: alert and oriented x 3 Results & Data ([facility]) Vital Signs (Past 12 Hours) Vital Signs Temp Pulse Pulse Resp BP Pulse Ox Pulse Ox 06/29/20 07:00 36.8 C 70 18 162/77 H 95 06/29/20 04:58 59 L 98 06/29/20 03:08 67 95 06/29/20 01:36 67 95 Laboratory Results Laboratory Results - last 24 hr 06/27/20 06/28/20 06/28/20 09:49 13:19 17:06 WBC RBC Hgb Hct MCV MCH MCHC RDW Std Deviation RDW Coeff of Yin Plt Count MPV Sodium Potassium Chloride Carbon Dioxide Anion Gap BUN Creatinine Est Cr Clr Drug Dosing Est GFR ( Amer) Est GFR (Non-Af Amer) BUN/Creatinine Ratio Glucose POC Glucose 120 H 137 H Calcium Phosphorus Total Bilirubin AST ALT Alkaline Phosphatase Total Protein Albumin Globulin Albumin/Globulin Ratio Aldolase 5.1 06/28/20 06/29/20 06/29/20 20:44 08:12 08:32 WBC 7.41 RBC 3.28 L Hgb 10.6 L Hct 31.5 L MCV 96.0 MCH 32.3 MCHC 33.7 RDW Std Deviation 56.0 H RDW Coeff of Yni 15.9 H Plt Count 234 MPV 9.9 Sodium Potassium Chloride Carbon Dioxide Anion Gap BUN Creatinine Est Cr Clr Drug Dosing Est GFR ( Amer) Est GFR (Non-Af Amer) BUN/Creatinine Ratio Glucose POC Glucose 110 H 122 H Calcium Phosphorus Total Bilirubin AST ALT Alkaline Phosphatase Total Protein Albumin Globulin Albumin/Globulin Ratio Aldolase 06/29/20 08:32 WBC RBC Hgb Hct MCV MCH MCHC RDW Std Deviation RDW Coeff of Yin Plt Count MPV Sodium 135 L Potassium 4.5 Chloride 102 Carbon Dioxide 25 Anion Gap 7.0 BUN 49 H Creatinine 3.45 H D Est Cr Clr Drug Dosing 11.4 Est GFR ( Amer) 13.9 Est GFR (Non-Af Amer) 12.0 BUN/Creatinine Ratio 14.2 Glucose 123 H POC Glucose Calcium 9.4 Phosphorus 4.2 D Total Bilirubin 0.5 AST 9 L ALT 16 Alkaline Phosphatase 107 Total Protein 6.5 Albumin 3.3 L Globulin 3.2 Albumin/Globulin Ratio 1.0 Aldolase PG Care Time/CCT Total # of Minutes Spent Total Time Spent with Patient: Total time spent is greater than 50% in coordination of care (as documented) at patient's floor/unit and/or counseling patient: Coding Level of Care Code 08817 Subseq Hosp Care Lvl 3 Diagnoses ESRD on hemodialysis N18.6; Z99.2 Hypertension I10 Anemia D64.9 Chronic kidney disease-mineral and bone disorder N18.9; E83.9; M89.9
--- NOTE | 2020-06-29 11:44 | Pharmacy Report ---
Pharmacy Glycemic Short Note 2 - Date of Service June 29, 2020 - Glycemic Short BSG Results (Last 24 hours): 06/28/20 06/28/20 06/28/20 13:19 17:06 20:44 Glucose POC Glucose 120 H 137 H 110 H 06/29/20 06/29/20 08:12 08:32 Glucose 123 H POC Glucose 122 H OUTPATIENT ANTIDIABETIC REGIMEN: * No outpatient medications * HbA1c 6.5% on 06/27/20 ASSESSMENT: 06/29 * Steroid dose has been frequently adjusted due to patient's response, now is dexamethasone 4 mg IV q6h * Spoke w Victoria Palencia - anticipate patient will need dexamethasone continued as an outpatient and also anticipate stay at [facility] therefore outpatient insulin could also be reasonably continued if necessary * Will change basal insulin to NPH as this may be the best once-daily insulin option as an outpatient as long as dexamethasone is continued * Will keep Novolog parameters as-is 06/28 * Pharmacy had signed off yesterday, but then dexamethasone 4 mg IV q6h was initiated therefore ongoing consult appropriate * BSG's increased after starting dex. Lantus 18 units was given yesterday. Will increase today * Will tighten Novolog parameters to weight-based severe stress estimate PLAN FOR INPATIENT GLYCEMIC CONTROL: * Basal insulin * NPH 18 units SC x1 this AM * Bolus insulin * NovoLog per scale ACHS or Q6hrs while NPO * Goal Range: Low 110 mg/dL - High 140 mg/dL * Correction Factor: 25 mg/dL/unit * Nutritional / Prandial insulin per carb ratio of 1 unit per 8 grams CHO consumed PLAN FOR DISCHARGE: * May benefit from NPH once daily as an outpatient *if* steroids are continued at discharge * If steroids are not continued at discharge, refer to outpatient provider as metformin may be appropriate chronic therapy
[2020-06-29] MEDS: dexAMETHasone 4 MG in SYRINGE 0 ML IV SCH ×3 (12:20→23:40)
[2020-06-29] MEDS: ASPIRIN 81 MG ECTAB PO SCH (20:03)
[2020-06-29] MEDS: LOSARTAN POTASSIUM 50 MG TAB PO SCH (20:04)
[2020-06-29] MEDS: ATORVASTATIN 10 MG TAB PO SCH (20:04)
[2020-06-30] MEDS: dexAMETHasone 4 MG in SYRINGE 0 ML IV SCH ×3 (06:03→17:39)
[2020-06-30 06:32] LABS: Hemoglobin 10.7 g/dL (12.0-16.0); Mean Corpuscular Hemoglobin 32.6 pg (25-34); Mean Corpuscular Hgb Conc 34.5 g/dL (32-36); Mean Corpuscular Volume 94.5 fL (80-100); Platelet Count 226 K/uL (130-400); RDW Coefficient of Variation 15.6 % (11.5-14.5); RDW Standard Deviation 53.7 fL (36.4-46.3); Red Blood Count 3.28 M/uL (4.2-5.4); White Blood Count 6.31 K/uL (4.8-10.8)
[2020-06-30 07:18] LABS: BUN Creatinine Ratio 18.3 (10-20); Calcium 9.1 mg/dl (8.5-10.1); Creatinine Clr Calc Pharmacy 9.7 ml/min; Est GFR (African American) 11.5; Potassium 5.4 mmol/L (3.5-5.1)
[2020-06-30] MEDS: CALCITRIOL 0.25 MCG CAPSULE PO SCH (08:35)
[2020-06-30] MEDS: SEVELAMER HCL 800 MG TABLET PO SCH ×3 (08:35→17:39)
[2020-06-30] MEDS: METOPROLOL SUCC 50MG EXT REL TAB PO SCH (08:35)
[2020-06-30] MEDS: MULTIVITAMIN TAB PO SCH (08:35)
[2020-06-30] MEDS: CHOLECALCIFEROL 1,000 UNITS 25 MCG TAB PO SCH (08:35)
[2020-06-30] MEDS: FERROUS SULFATE 325 MG TAB PO SCH (08:35)
--- NOTE | 2020-06-30 08:35 | Hospitalist Progress Note ---
Date of Service June 30, 2020 Assessment & Plan (1) ESRD on hemodialysis: Admission Date: 79 yo F w/ pMHx. of Cardiomyopathy, HTN, HLD, ESRD (dialysis Tue, Thur, Sat), carotid plaque and DM (not on medication any longer) presented with right arm paresthesias with waxing and waning concerning for cervical radiculopathy vs. nerve compression along with some global weakness. Admitted for Right arm paresthesias/Cervical Myelopathy CT-H w/ STATRAD findings of no acute intracranial findings (chronic findings of involution, microvascular changes and ventriculomegaly, possible NPH but not likely per neuro but not excluded) XR neck ordered to look for spinal canal which could explain symptomatology --> Severe multilevel degenerative disc disease and facet arthrosis within the cervical spine, as described above. Loss of height of several mid cervical vertebral bodies is chronic. There is partial fusion of C5 and C6. Neurology consulted MRI Brain without acute CVA Carotids without significant stenosis CK wnl, ESR 25, Vit D wnl, ALdolase 5.1 wnl MRI Cervical Spine WITH SIGNIFICANT MYELOPATHY with cord edema * DR FAULKNER CONSULTED -- would like to avoid surgery however there may be area amenable to treatment if needed * MRI Cervical Spine with Severe multilevel cervical spondylosis as above with severe multilevel acquired compromise of the central canal. This is greatest from C3-C4 through C6-C7. Mild edema suggested within the cervical cord at these levels, related to spinal stenosis. * Placed on Dexamethasone 4mg Q6H on 06/27 and by afternoon 06/28 patient reported symptoms COMPLETELY GONE * 06/29 morning again with issues of numbness/tingling difficulty using silverware and increased back to 4mg Q6 and re-discussed with Dr. Faulkner. Will be available if unable to wean successfully for possible intervention * Resolved 06/30 and will decrease to 3mg Q6H for today and 2mg Q6H tomorrow in hopes of continued symptom management. * Possible d/c taper at discharge as patient going to [facility] for rehab and would be able to assist with insulin due to her visual issues/dexterity * Pharmacy following for blood sugar control give her ESRD and continued steroids * --> Trying NPH today to see if we are able to get once daily dosing to help control sugars for ease of use at discharge * Continue to monitor PT/OT consulted -- possible short term at [facility] which could help with insulin administration given visual issues. CM following and ref placed, can take ESRD (dialysis Tues, Th, Sat), Hypophosphatemia * BNP >70960 and was given IV lasix yesterday. No respiratory distress. Got HD today. * Volume status felt to be acceptable * Cr elevated but stable and got HD , 06/28 and again 06/30 * Nephrology on consult * Phos wnl and resumed sevelamer . DM II, * not on home meds * last a1c 6.9 -- repeat A1c 6.5 * ISS while inpatient Pharmacy on consult for glycemic management: * A1c 6.5 (down from 6.9 not on medications) and was previously on medications, since discontinued due to kidney disease and A1c 6.9 * Titrating dexamethasone today as above * Pharmacy following for blood sugar control give her ESRD and continued steroids * --> Trying NPH today to see if we are able to get once daily dosing to help control sugars for ease of use at discharge * BSGs 187, 129 today * Continue to monitor Cardiomyopathy * Myocardial perfusion Shawn without significant ischemia although some small defects noted and not likely account for reduced LV function * Repeating ECHO as above (MURMUR ON EXAMINATION given only mod MR on prior) SYSTOLIC although does not appear to be worsening but possible MR, with possible S3. * Prior Echo Nov 2019 with EF 40-45% moderate MR, mild TR * TSH nl * Follows with Dr. Quinones -- increased losartan to 50mg HS per Dr. Quinones recom mendations and patient with continued elevated pressures * Continue metoprolol succinate 50mg daily, ASA 81mg, Atorvastatin 10mg HS * No chest pain reported, trop <0.015 on admission however repeat 0.028 and peaked at 0.48, trended down. * ECHO pending -- prior myocardial scan with EF 29% global hypokinesis and no significant transient ischemic dilation November 2019. Follows with Dr Quinones and initially wanted to increase losartan to 50mg daily * ECHO without source of emboli noted, LV systolic function moderately reduced. LA mod dilated. Moderate MR. RVSP elevated to 40-50mmHg. Diastolic dys function, Grade II, c/w elevated LA pressure * Lipid panel wnl and continued statin 10mg * Continue to monitor HTN * Chronic. Issues reported with low BP in dialysis however BP elevated to 185/108 on admission * BP currently 152/89 * Increased losartan as above to 50mg HS -- will need to monitor AM BMP given hyperkalemia 5.4 today. Discussed elevated BPs with Dr. Anne -- he stated he will look into her chart further for recommendations as needed * Continued metoprolol succinate 50mg daily * Continue to monitor HLD * continue Atorvastatin 10mg HS * Repeated Lipid Panel, acceptable. Carotid plaques * Carotid Dopplers w/o sig stenosis. Lipid panel acceptable * Continue ASA, Lipitor as above DNR DNI DVT prophylaxis Heparin SQ while inpatient Dispo: Continued inpatient stay Rehab at [facility] planned for d/c. CM following Attempting to wean steroids as above If unsuccessful, may need surgical intervention with Dr. Faulkner as above (2) Paresthesias: (3) Carotid artery plaque: (4) Hyperlipidemia: (5) Diabetes: (6) Hypertension: Admission and Anticipated Discharge Date Admission Date: June 28, 2020 Supervising Physician Co-Signing Physician Notes PA Supervision Note: I did not personally see or examine the patient today, but I verified all pinedo points of FLACO Palencia's assessment and plan with the following exceptions/additions: None Subjective Patient seen in HD this afternoon. Doing well. Numbness/tingling resolved. Discussed slowly decreasing today to prevent recurrence but if unable to wean successfully will need to have Dr Faulkner continued input/intervention if needed. Doing well otherwise. No issues reported. Review of Systems Review of Systems: All systems reviewed & are unremarkable except as noted in HPI & below Physical Exam Constitutional: well nourished, + ill appearing (chronically ill appearing), cooperative and comfortable; no acute distress Eyes: EOM intact bilaterally; + abnormal visual field confrontation, no scleral abnormality, no corneal abnormality, + no PERRL, + abnormal accommodation and no nystagmus ENMT: Mouth: no oral mucosal abnormality and oral mucous membranes not dry Neck: normal visual inspection and trachea midline Respiratory: normal respiratory effort; no cough and not tachypneic Auscultation: lungs clear to auscultation bilaterally and + diminished lung sounds Cardiovascular: Rate/Rhythm: regular rate and regular rhythm Heart Sounds: normal S1, normal S2 and + murmur (3/6 systolic EM); no gallop Vessels: normal carotid upstroke; no carotid bruit Extremities: + AV fistula; no edema Gastrointestinal (Abdomen): normal bowel sounds, soft, nontender, no hepatosplenomegaly Musculoskeletal: Extremities: no cyanosis and no clubbing Skin: normal turgor; no lesions Neurologic: Motor/Sensory: + tremor (fine tremor); no asterixis Psychiatric: Orientation: alert and oriented x 3 Eye Contact: good eye contact Results & Data Results & Data ([facility]) Vital Signs (Past 12 Hours) Vital Signs Temp Pulse Pulse Resp BP Pulse Ox 06/30/20 07:13 36.9 C 70 16 173/75 H 93 06/29/20 22:59 36.7 C 67 16 167/71 H 95 Laboratory Results 06/30/20 06/30/20 06/30/20 Range/Units 08:05 06:05 06:05 WBC 6.31 (4.8-10.8) K/uL RBC 3.28 L (4.2-5.4) M/uL Hgb 10.7 L (12.0-16.0) g/dL Hct 31.0 L (37-47) % MCV 94.5 (80-100) fL MCH 32.6 (25-34) pg MCHC 34.5 (32-36) g/dL RDW Std Deviation 53.7 H (36.4-46.3) fL RDW Coeff of Yin 15.6 H (11.5-14.5) % Plt Count 226 (130-400) K/uL MPV 10.0 (7.4-10.4) fL Sodium 132 L (136-145) mmol/L Potassium 5.4 H D (3.5-5.1) mmol/L Chloride 101 (98-107) mmol/L Carbon Dioxide 22 (21-32) mmol/L Anion Gap 9.0 (3-11) BUN 74 H D (7-18) mg/dl Creatinine 4.02 H D (0.6-1.2) mg/dl Est Cr Clr Drug Dosing 9.7 ml/min Est GFR ( Amer) 11.5 Est GFR (Non-Af Amer) 10.0 BUN/Creatinine Ratio 18.3 (10-20) Glucose 170 H (70-99) mg/dl POC Glucose 187 H (70-99) mg/dl Calcium 9.1 (8.5-10.1) mg/dl Phosphorus (2.5-4.9) mg/dl Total Bilirubin (0.2-1) mg/dl AST (15-37) U/L ALT (12-78) U/L Alkaline Phosphatase (45-117) U/L Total Protein (6.4-8.2) gm/dl Albumin (3.4-5.0) gm/dl Globulin (2.5-4.0) gm/dl Albumin/Globulin Ratio (0.9-2) 06/29/20 06/29/20 06/29/20 Range/Units 20:45 17:19 12:00 WBC (4.8-10.8) K/uL RBC (4.2-5.4) M/uL Hgb (12.0-16.0) g/dL Hct (37-47) % MCV (80-100) fL MCH (25-34) pg MCHC (32-36) g/dL RDW Std Deviation (36.4-46.3) fL RDW Coeff of Yin (11.5-14.5) % Plt Count (130-400) K/uL MPV (7.4-10.4) fL Sodium (136-145) mmol/L Potassium (3.5-5.1) mmol/L Chloride (98-107) mmol/L Carbon Dioxide (21-32) mmol/L Anion Gap (3-11) BUN (7-18) mg/dl Creatinine (0.6-1.2) mg/dl Est Cr Clr Drug Dosing ml/min Est GFR ( Amer) Est GFR (Non-Af Amer) BUN/Creatinine Ratio (10-20) Glucose (70-99) mg/dl POC Glucose 225 H 131 H 128 H (70-99) mg/dl Calcium (8.5-10.1) mg/dl Phosphorus (2.5-4.9) mg/dl Total Bilirubin (0.2-1) mg/dl AST (15-37) U/L ALT (12-78) U/L Alkaline Phosphatase (45-117) U/L Total Protein (6.4-8.2) gm/dl Albumin (3.4-5.0) gm/dl Globulin (2.5-4.0) gm/dl Albumin/Globulin Ratio (0.9-2) 06/29/20 06/29/20 Range/Units 08:32 08:32 WBC 7.41 (4.8-10.8) K/uL RBC 3.28 L (4.2-5.4) M/uL Hgb 10.6 L (12.0-16.0) g/dL Hct 31.5 L (37-47) % MCV 96.0 (80-100) fL MCH 32.3 (25-34) pg MCHC 33.7 (32-36) g/dL RDW Std Deviation 56.0 H (36.4-46.3) fL RDW Coeff of Yin 15.9 H (11.5-14.5) % Plt Count 234 (130-400) K/uL MPV 9.9 (7.4-10.4) fL Sodium 135 L (136-145) mmol/L Potassium 4.5 (3.5-5.1) mmol/L Chloride 102 (98-107) mmol/L Carbon Dioxide 25 (21-32) mmol/L Anion Gap 7.0 (3-11) BUN 49 H (7-18) mg/dl Creatinine 3.45 H D (0.6-1.2) mg/dl Est Cr Clr Drug Dosing 11.4 ml/min Est GFR ( Amer) 13.9 Est GFR (Non-Af Amer) 12.0 BUN/Creatinine Ratio 14.2 (10-20) Glucose 123 H (70-99) mg/dl POC Glucose (70-99) mg/dl Calcium 9.4 (8.5-10.1) mg/dl Phosphorus 4.2 D (2.5-4.9) mg/dl Total Bilirubin 0.5 (0.2-1) mg/dl AST 9 L (15-37) U/L ALT 16 (12-78) U/L Alkaline Phosphatase 107 (45-117) U/L Total Protein 6.5 (6.4-8.2) gm/dl Albumin 3.3 L (3.4-5.0) gm/dl Globulin 3.2 (2.5-4.0) gm/dl Albumin/Globulin Ratio 1.0 (0.9-2) PG Care Time/CCT Total # of Minutes Spent Total Time Spent with Patient: Total time spent is greater than 50% in coordination of care (as documented) at patient's floor/unit and/or counseling patient: Coding Level of Care Code 97272 Subseq Hosp Care Lvl 3 Diagnoses ESRD on hemodialysis N18.6; Z99.2 Paresthesias R20.2 Carotid artery plaque I65.29 Hyperlipidemia E78.5 Diabetes E11.9 Hypertension I10
[2020-06-30] MEDS: ACETAMINOPHEN 500 MG TAB PO SCH ×2 (08:36→20:58)
[2020-06-30] MEDS: HEPARIN SOD 5,000 UNIT/0.5 ML VIAL SQ SCH ×2 (08:36→20:59)
[2020-06-30] MEDS: DOCUSATE SODIUM 100 MG CAP PO SCH ×2 (08:38→20:58)
[2020-06-30] MEDS: INSULIN ASPART 100 UNITS/ML 3 ML PEN SC SCH ×4 (08:40→21:00)
--- NOTE | 2020-06-30 08:48 | Nephrology Progress Note ---
Date of Service June 30, 2020 Assessment & Plan (1) ESRD on hemodialysis: * Outpatient dialysis [facility] [place] TTS: 3.5 hrs, F-180NR, 350/800, 2 K 2 Ca, EDW 68 kg * HD today. Will use 2K bath and attempt 2 L UF (2) Hypertension: * On Losartan 25 mg daily * Attempting 2 L UF w/ HD today * Monitor BP (3) Anemia: * Chronic, stable. Epogen held with Hgb ~11 (4) Chronic kidney disease-mineral and bone disorder: * Sevelamer held due to hypophosphatemia. Continue calcitriol (5) Myelopathy concurrent with and due to spinal stenosis of cervical region: * On dexamethasone therapy. Spine surgery is monitoring Admission and Anticipated Discharge Date Admission Date: June 28, 2020 Subjective Mrs. Rodriguez was seen & examined in her hospital room this morning. She was being prepared for HD. Mrs. Rodriguez reports improvement in her arm discomfort after starting steroid therapy Review of Systems Constitutional: + weakness; no fever Eyes: no problem reported Ear, Nose, Mouth, Throat: no problem reported Respiratory: no dyspnea Cardiovascular: no chest pain and no edema Gastrointestinal: no abdominal pain and no nausea Integumentary: no rash Neurologic: no confusion Physical Exam Constitutional: + frail appearing; not in distress Eyes: PERRL, conjunctivae normal, anicteric sclerae ENMT: external ear and nose normal, oropharynx normal Neck: trachea midline, no thyromegaly (THC w/ clean, dry dressing in place) Respiratory: normal respiratory effort, lungs clear to auscultation Cardiovascular: RRR, no murmur, no edema Extremities: + AV fistula (+ bruit) Gastrointestinal (Abdomen): normal bowel sounds, soft, nontender, no hepatosplenomegaly Musculoskeletal: Extremities: no cyanosis Skin: no rashes, warm and dry Neurologic: awake; not confused Results & Data ([place]) Vital Signs (Past 12 Hours) Vital Signs Temp Pulse Pulse Resp BP Pulse Ox 06/30/20 07:13 36.9 C 70 16 173/75 H 93 06/29/20 22:59 36.7 C 67 16 167/71 H 95 Laboratory Tests 06/30/20 06/30/20 06:05 06:05 WBC 6.31 Hgb 10.7 L Hct 31.0 L Plt Count 226 Sodium 132 L Potassium 5.4 H D Chloride 101 Carbon Dioxide 22 BUN 74 H D Creatinine 4.02 H D Glucose 170 H PG Care Time/CCT Total # of Minutes Spent Total Time Spent with Patient: Total time spent is greater than 50% in coordination of care (as documented) at patient's floor/unit and/or counseling patient: Coding Level of Care Code 80074 Subseq Hosp Care Lvl 3 Diagnoses ESRD on hemodialysis N18.6; Z99.2 Hypertension I10 Anemia D64.9 Chronic kidney disease-mineral and bone disorder N18.9; E83.9; M89.9 Myelopathy concurrent with and due to spinal stenosis of cervical region M48.02; G99.2
[2020-06-30] MEDS: INSULIN HUMAN NPH SC STA ×2 (08:56→13:15)
[2020-06-30] MEDS ORDERED: FUROSEMIDE 20 MG in SYRINGE 0 ML IV ONE (09:00)
--- NOTE | 2020-06-30 11:46 | Pharmacy Report ---
Pharmacy Glycemic Short Note 2 - Date of Service June 30, 2020 - Glycemic Short BSG Results (Last 24 hours): 06/29/20 06/29/20 06/29/20 12:00 17:19 20:45 Glucose POC Glucose 128 H 131 H 225 H 06/30/20 06/30/20 06:05 08:05 Glucose 170 H POC Glucose 187 H OUTPATIENT ANTIDIABETIC REGIMEN: * No outpatient medications * HbA1c 6.5% on 06/27/20 ASSESSMENT: 06/30 * Patient received 36 units of insulin yesterday * 18 units basal + 18 units bolus * BSGs were: [phone] mg/dL * Fasting was elevated at 187 mg/dL * This is likely due to NPH wearing off since no evening dose was given * Patient received no correctional insulin this AM prior to going to dialysis. * Will have RN give 20 units of NPH once patient returns from dialysis since patient remains on [id number] steroids * No changes to Novolog yet 06/29 * Steroid dose has been frequently adjusted due to patient's response, now is dexamethasone 4 mg IV q6h * Spoke w Victoria Palencia - anticipate patient will need dexamethasone continued as an outpatient and also anticipate stay at [facility] therefore outpatient insulin could also be reasonably continued if necessary * Will change basal insulin to NPH as this may be the best once-daily insulin option as an outpatient as long as dexamethasone is continued * Will keep Novolog parameters as-is 06/28 * Pharmacy had signed off yesterday, but then dexamethasone 4 mg IV q6h was ini tiated therefore ongoing consult appropriate * BSG's increased after starting dex. Lantus 18 units was given yesterday. Will increase today * Will tighten Novolog parameters to weight-based severe stress estimate PLAN FOR INPATIENT GLYCEMIC CONTROL: * Basal insulin * NPH 20 units SC x 1 after dialysis * NPH 18-22 units SC BIDM starting this evening (if dexamethasone is discontinued or held, call glycemic pharmacist and hold NPH) * Bolus insulin * NovoLog per scale ACHS or Q6hrs while NPO * Goal Range: Low 110 mg/dL - High 140 mg/dL * Correction Factor: 25 mg/dL/unit * Nutritional / Prandial insulin per carb ratio of 1 unit per 8 grams CHO consumed PLAN FOR DISCHARGE: * May benefit from NPH once daily as an outpatient *if* steroids are continued at discharge * If steroids are not continued at discharge, refer to outpatient provider as metformin may be appropriate chronic therapy
[2020-06-30] MEDS ORDERED: dexAMETHasone 3 MG in SYRINGE 0 ML IV SCH (13:30)
[2020-06-30] MEDS: INSULIN HUMAN NPH SC SCH (17:37)
[2020-06-30] MEDS: ASPIRIN 81 MG ECTAB PO SCH (20:58)
[2020-06-30] MEDS: ATORVASTATIN 10 MG TAB PO SCH (20:58)
[2020-06-30] MEDS ORDERED: LOSARTAN POTASSIUM 25 MG TAB PO SCH (21:00)
[2020-06-30] MEDS: LOSARTAN POTASSIUM 50 MG TAB PO SCH (21:01)
[2020-07-01] MEDS: dexAMETHasone 4 MG in SYRINGE 0 ML IV SCH ×5 (00:25→23:56)
[2020-07-01 06:57] LABS: BUN Creatinine Ratio 18.2 (10-20); Calcium 9.2 mg/dl (8.5-10.1); Creatinine Clr Calc Pharmacy 13.4 ml/min; Est GFR (African American) 16.6; Est GFR (Non-African American) 14.4; Potassium 4.8 mmol/L (3.5-5.1)
--- NOTE | 2020-07-01 07:49 | Hospitalist Progress Note ---
Date of Service July 01, 2020 Assessment & Plan (1) ESRD on hemodialysis: Admission Date: 79 yo F w/ pMHx. of Cardiomyopathy, HTN, HLD, ESRD (dialysis Tue, Thur, Sat), carotid plaque and DM (not on medication any longer) presented with right arm paresthesias with waxing and waning concerning for cervical radiculopathy vs. nerve compression along with some global weakness. Admitted for Right arm paresthesias/Cervical Myelopathy CT-H w/ STATRAD findings of no acute intracranial findings (chronic findings of involution, microvascular changes and ventriculomegaly, possible NPH but not likely per neuro but not excluded) XR neck ordered to look for spinal canal which could explain symptomatology --> Severe multilevel degenerative disc disease and facet arthrosis within the cervical spine, as described above. Loss of height of several mid cervical vertebral bodies is chronic. There is partial fusion of C5 and C6. Neurology consulted MRI Brain without acute CVA Carotids without significant stenosis CK wnl, ESR 25, Vit D wnl, ALdolase 5.1 wnl MRI Cervical Spine WITH SIGNIFICANT MYELOPATHY with cord edema * DR FAULKNER CONSULTED -- would like to avoid surgery however there may be area amenable to treatment if needed * MRI Cervical Spine with Severe multilevel cervical spondylosis as above with severe multilevel acquired compromise of the central canal. This is greatest from C3-C4 through C6-C7. Mild edema suggested within the cervical cord at these levels, related to spinal stenosis. * Placed on Dexamethasone 4mg Q6H on 06/27 and by afternoon 06/28 patient reported symptoms COMPLETELY GONE * 06/29 morning again with issues of numbness/tingling difficulty using silverware and increased back to 4mg Q6 and re-discussed with Dr. Faulkner. Will be available if unable to wean successfully for possible intervention Resolved 06/30 and decreased to 3mg Q6H initially however after discussion with attending we decided to keep her at 4 mg every 6 hours for 06/30 07/01patient noted continued numbness and tingling to her right upper extremity forearm and hand despite no decrease in steroids however did have an increase in blurry vision and would not increase steroids at this time unless symptoms worsen This case was discussed with Dr. Faulkner 07/01 regarding continued numbness and tingling despite conservative treatment and may require surgery ultimately. This was also discussed with the patient who is agreeable if needed. Caseload is full for Thursday and he is to discuss with the patient about adding her onto Thursday schedule however if condition does decline rapidly may need to further evaluate Pharmacy has been consulted for glycemic control and is utilizing NPH to see if once daily dosing would be appropriate at discharge for ease of use however [facility] and they will be able to further titrate as needed if steroids are continued at discharge versus surgery as above. Blood sugars have been well controlled with current regimen and will continue to monitor make adjustments as needed PT/OT consulted -- possible short term at [facility] which could help with insulin administration given visual issues. CM following and ref placed, can take ESRD (dialysis , , Thu), Hypophosphatemia * BNP >72192 and was given IV lasix x 1. No respiratory distress. Got HD Sat * Volume status felt to be acceptable * Cr elevated but stable and got HD , 06/28 and again 06/30 * Nephrology on consult * Phos wnl and resumed sevelamer * She is a Thursday Sat dialysis patient will need to coordinate with nephrology as she would likely remain inpatient through Thursday for possible surgery as above DM II, * not on home meds * last a1c 6.9 -- repeat A1c 6.5 * ISS while inpatient Pharmacy on consult for glycemic management: * A1c 6.5 (down from 6.9 not on medications) and was previously on medications, since discontinued due to kidney disease and A1c 6.9 * Titrating dexamethasone today as above * Pharmacy following for blood sugar control give her ESRD and continued steroids * --> Trying NPH to see if we are able to get once daily dosing to help control sugars for ease of use at discharge * BSGs have been 102, 86, 209 after lunch this afternoon * Continue to monitor Cardiomyopathy * Myocardial perfusion Shawn without significant ischemia although some small defects noted and not likely account for reduced LV function * Repeating ECHO as above (MURMUR ON EXAMINATION given only mod MR on prior) SYSTOLIC although does not appear to be worsening but possible MR, with possible S3. * Prior Echo Nov 2019 with EF 40-45% moderate MR, mild TR * TSH nl * Follows with Dr. Quinones -- increased losartan to 50mg HS per Dr. Quinones recommendations and patient with continued elevated pressures * Continue metoprolol succinate 50mg daily, ASA 81mg, Atorvastatin 10mg HS * No chest pain reported, trop <0.015 on admission however repeat 0.028 and peaked at 0.048, trended down. * ECHO pending -- prior myocardial scan with EF 29% global hypokinesis and no significant transient ischemic dilation November 2019. Follows with Dr Quinones and initially wanted to increase losartan to 50mg daily * ECHO without source of emboli noted, LV systolic function moderately reduced. LA mod dilated. Moderate MR. RVSP elevated to 40-50mmHg. Diastolic dysfunction, Grade II, c/w elevated LA pressure * Lipid panel wnl and continued statin 10mg * Continue to monitor HTN * Chronic. Issues reported with low BP in dialysis however BP elevated to 185/108 on admission * BP currently 169/74 * Increased losartan as above to 50mg HS -- will need to monitor AM BMP given hyperkalemia 5.4 . Discussed elevated BPs with Dr. Anne -- he stated he will look into her chart further for recommendations as needed * Potassium resolved after dialysis treatment yesterday * Continued metoprolol succinate 50mg daily * Continue to monitor HLD * continue Atorvastatin 10mg HS * Repeated Lipid Panel, acceptable. Carotid plaques * Carotid Dopplers w/o sig stenosis. Lipid panel acceptable * Continue ASA, Lipitor as above DNR DNI DVT prophylaxis Heparin SQ while inpatient Dispo: Continued inpatient stay Continued use of steroids and will need further evaluation by Dr. Faulkner to see if surgery will be warranted early this upcoming week. This was discussed with Dr. Fauklner and he plans on seeing the patient either today or tomorrow morning Rehab at [facility] planned for d/c. CM following (2) Paresthesias: (3) Carotid artery plaque: (4) Hyperlipidemia: (5) Diabetes: (6) Hypertension: Admission and Anticipated Discharge Date Admission Date: June 28, 2020 Supervising Physician Co-Signing Physician Notes PA Supervision Note: I did not personally see or examine the patient today, but I verified all pinedo points of FLACO Palencia's assessment and plan with the following exceptions/additions: Pt would be high risk for CV perioperative if proceeds with surgery. Furthermore, with being ESRD on HD, she will have some element of platelet dysfunction and would be at risk for bleeding. However, if myelopathy progresses or not improving, then she likely will proceed with surgery Subjective Patient evaluated this morning. She did have a HD session yesterday and tolerated well. She notes that today she does have about the same amount of numbness and tingling to her right forearm and palmar aspect of her hand which is similar to presentation however she does note that the IV site in that hand could potentially be worsening this. We will discussed with nursing to obtain different IV site to see if this will have any effect.. Discussed that we did not decrease her steroids so this is concerning that her symptoms are still persistent and we may need to increase her steroids at this time. She does note that she has increased blurriness at time and her vision but does note that she does chronically have issues with her vision. No loss of bowel or bladder function worse than her baseline but she does have urinary incontinence. Lower extremity symptoms are not present and she has been ambulating in the room without much assistance. Discussed this may be worsened by steroids and will be hesitant to increase to worsening vision however she does deny any pain at this time. Discussed that Dr. Faulkner has a full case however he will be by to discuss onto the schedule for Thursday for surgery given persistent symptoms despite conservative treatment. She denies any fevers, chills, chest pain, shortness of breath, abdominal pain, nausea,, dysuria at this time. Review of Systems Review of Systems: All systems reviewed & are unremarkable except as noted in HPI & below Physical Exam Constitutional: well nourished, + ill appearing (chronically ill appearing), cooperative and comfortable; no acute distress Eyes: normal visual browning by confrontation (Normal browning by confrontation) and EOM intact bilaterally; no scleral abnormality, no corneal abnormality, + no PERRL, + abnormal accommodation, no nystagmus and no papilledema ENMT: Mouth: no oral mucosal abnormality and oral mucous membranes not dry Neck: normal visual inspection and trachea midline Respiratory: normal respiratory effort; no cough and not tachypneic Auscultation: lungs clear to auscultation bilaterally and + diminished lung sounds Cardiovascular: RRR, no murmur, no edema Rate/Rhythm: regular rate and regular rhythm Heart Sounds: normal S1, normal S2 and + murmur (3/6 systolic EM); no gallop Vessels: normal carotid upstroke; no carotid bruit Extremities: + AV fistula; no edema Gastrointestinal (Abdomen): normal bowel sounds, soft, nontender, no hepatosplenomegaly Musculoskeletal: Extremities: no cyanosis and no clubbing Skin: no rashes, warm and dry normal turgor; no lesions Neurologic: Motor/Sensory: + tremor (fine tremor); no asterixis Decreased sensation to light touch right lateral forearm and palmar aspect of her hand Equal arcade technician strength IV access is noted to her right wrist Pulses are palpable radial artery bilateral She is able to raise her arms up her shoulders without difficulty Psychiatric: Orientation: alert and oriented x 3 Eye Contact: good eye contact Results & Data Results & Data ([facility]) Vital Signs (Past 12 Hours) Vital Signs Temp Pulse Pulse Resp BP Pulse Ox 07/01/20 07:19 36.6 C 55 L 16 169/74 H 96 06/30/20 22:32 36.5 C 55 L 16 129/61 96 Laboratory Results 07/01/20 07/01/20 06/30/20 Range/Units 05:54 00:26 20:44 Sodium 135 L (136-145) mmol/L Potassium 4.8 (3.5-5.1) mmol/L Chloride 103 (98-107) mmol/L Carbon Dioxide 25 (21-32) mmol/L Anion Gap 7.0 (3-11) BUN 54 H (7-18) mg/dl Creatinine 2.97 H D (0.6-1.2) mg/dl Est Cr Clr Drug Dosing 13.4 ml/min Est GFR ( Amer) 16.6 Est GFR (Non-Af Amer) 14.4 BUN/Creatinine Ratio 18.2 (10-20) Glucose 80 (70-99) mg/dl POC Glucose 102 H 85 (70-99) mg/dl Calcium 9.2 (8.5-10.1) mg/dl 06/30/20 06/30/20 06/30/20 Range/Units 17:16 13:03 08:05 Sodium (136-145) mmol/L Potassium (3.5-5.1) mmol/L Chloride (98-107) mmol/L Carbon Dioxide (21-32) mmol/L Anion Gap (3-11) BUN (7-18) mg/dl Creatinine (0.6-1.2) mg/dl Est Cr Clr Drug Dosing ml/min Est GFR ( Amer) Est GFR (Non-Af Amer) BUN/Creatinine Ratio (10-20) Glucose (70-99) mg/dl POC Glucose 188 H 129 H 187 H (70-99) mg/dl Calcium (8.5-10.1) mg/dl PG Care Time/CCT Total # of Minutes Spent Total Time Spent with Patient: Total time spent is greater than 50% in coordination of care (as documented) at patient's floor/unit and/or counseling patient: Coding Level of Care Code 38384 Subseq Hosp Care Lvl 3 Diagnoses ESRD on hemodialysis N18.6; Z99.2 Paresthesias R20.2 Carotid artery plaque I65.29 Hyperlipidemia E78.5 Diabetes E11.9 Hypertension I10
[2020-07-01] MEDS: INSULIN HUMAN NPH SC SCH ×2 (08:43→17:47)
[2020-07-01] MEDS: INSULIN ASPART 100 UNITS/ML 3 ML PEN SC SCH ×4 (08:46→20:43)
[2020-07-01] MEDS: ACETAMINOPHEN 500 MG TAB PO SCH ×2 (08:47→20:42)
[2020-07-01] MEDS: MULTIVITAMIN TAB PO SCH (08:48)
[2020-07-01] MEDS: FERROUS SULFATE 325 MG TAB PO SCH (08:48)
[2020-07-01] MEDS: METOPROLOL SUCC 50MG EXT REL TAB PO SCH (08:48)
[2020-07-01] MEDS: SEVELAMER HCL 800 MG TABLET PO SCH ×4 (08:48→18:16)
[2020-07-01] MEDS: HEPARIN SOD 5,000 UNIT/0.5 ML VIAL SQ SCH ×2 (08:49→20:43)
[2020-07-01] MEDS: CHOLECALCIFEROL 1,000 UNITS 25 MCG TAB PO SCH (08:49)
[2020-07-01] MEDS: CALCITRIOL 0.25 MCG CAPSULE PO SCH (08:49)
[2020-07-01] MEDS: DOCUSATE SODIUM 100 MG CAP PO SCH ×2 (08:49→20:42)
--- NOTE | 2020-07-01 09:36 | Nephrology Progress Note ---
Date of Service July 01, 2020 Assessment & Plan (1) ESRD on hemodialysis: * Outpatient dialysis [facility] Ran TTS: 3.5 hrs, F-180NR, 350/800, 2 K 2 Ca, EDW 68 kg * Volume status and electrolyte balance are acceptable at this time. No acute indication for HD today * Last HD was performed using THC. AVF hematoma appears to have resolved. Will consider accessing AVF w/ next HD treatment (2) Hypertension: * On Losartan 25 mg daily * Monitor BP (3) Anemia: * Chronic, stable. Epogen held with Hgb ~11 (4) Chronic kidney disease-mineral and bone disorder: * Sevelamer held due to hypophosphatemia. Continue calcitriol (5) Myelopathy concurrent with and due to spinal stenosis of cervical region: * Remains on dexamethasone therapy * Await further input from spine surgery Admission and Anticipated Discharge Date Admission Date: June 28, 2020 Subjective Ms. Rodriguez was seen & examined in her hospital room this morning. She was dialyzed yesterday without complication. She reports that the neuropathy involving her arms has worsened as the steroids are being tapered. Review of Systems Constitutional: + weakness; no fever Eyes: no problem reported Ear, Nose, Mouth, Throat: no problem reported Respiratory: no dyspnea Cardiovascular: no chest pain and no edema Gastrointestinal: no abdominal pain and no nausea Integumentary: no rash Neurologic: no confusion Physical Exam Constitutional: + frail appearing; not in distress Eyes: PERRL, conjunctivae normal, anicteric sclerae ENMT: external ear and nose normal, oropharynx normal Neck: trachea midline, no thyromegaly (THC w/ clean, dry dressing in place) Respiratory: normal respiratory effort, lungs clear to auscultation Cardiovascular: RRR, no murmur, no edema Extremities: + AV fistula (+ bruit) Gastrointestinal (Abdomen): normal bowel sounds, soft, nontender, no hepatosplenomegaly Musculoskeletal: Extremities: no cyanosis Skin: no rashes, warm and dry Neurologic: awake; not confused Results & Data ([place]) Vital Signs (Past 12 Hours) Vital Signs Temp Pulse Pulse Resp BP Pulse Ox 07/01/20 07:19 36.6 C 55 L 16 169/74 H 96 06/30/20 22:32 36.5 C 55 L 16 129/61 96 Laboratory Tests 07/01/20 05:54 Sodium 135 L Potassium 4.8 Chloride 103 Carbon Dioxide 25 BUN 54 H Creatinine 2.97 H D Glucose 80 PG Care Time/CCT Total # of Minutes Spent Total Time Spent with Patient: Total time spent is greater than 50% in coordination of care (as documented) at patient's floor/unit and/or counseling patient: Coding Level of Care Code 88961 Subseq Hosp Care Lvl 3 Diagnoses ESRD on hemodialysis N18.6; Z99.2 Hypertension I10 Anemia D64.9 Chronic kidney disease-mineral and bone disorder N18.9; E83.9; M89.9 Myelopathy concurrent with and due to spinal stenosis of cervical region M48.02; G99.2
[2020-07-01] MEDS: NEPHROCAPS PO SCH (10:53)
[2020-07-01] MEDS ORDERED: PANTOprazole 40 MG in SYRINGE 0 ML IV ONE (14:45)
[2020-07-01] MEDS: LOSARTAN POTASSIUM 50 MG TAB PO SCH (20:42)
[2020-07-01] MEDS: ATORVASTATIN 10 MG TAB PO SCH (20:42)
[2020-07-01] MEDS: ASPIRIN 81 MG ECTAB PO SCH (20:42)
[2020-07-02] MEDS: dexAMETHasone 4 MG in SYRINGE 0 ML IV SCH ×2 (05:30→11:33)
--- NOTE | 2020-07-02 08:31 | Pharmacy Report ---
Pharmacy Glycemic Short Note 2 - Date of Service July 02, 2020 - Glycemic Short BSG Results (Last 24 hours): 07/01/20 07/01/20 07/01/20 12:03 17:07 20:33 POC Glucose 209 H 106 H 146 H 07/02/20 08:15 POC Glucose 148 H OUTPATIENT ANTIDIABETIC REGIMEN: * No outpatient medications * HbA1c 6.5% on 06/27/20 ASSESSMENT: 07/02 * BSGs yesterday of 86, 209, 106, and 146 mg/dL * Received 58 units of insulin (36 units of NPH, 22 units of prandial/correctional Novolog) * Fasting BSG of 148 mg/dL * Will receive 20 units of NPH this morning based on scale * Continues on dexamethasone 4 mg IV q6h - will continue to cover with NPH scale 06/30 * Patient received 36 units of insulin yesterday * 18 units basal + 18 units bolus * BSGs were: 311-750-020-225 mg/dL * Fasting was elevated at 187 mg/dL * This is likely due to NPH wearing off since no evening dose was given * Patient received no correctional insulin this AM prior to going to dialysis. * Will have RN give 20 units of NPH once patient returns from dialysis since patient remains on [id number] steroids * No changes to Novolog yet 06/29 * Steroid dose has been frequently adjusted due to patient's response, now is dexamethasone 4 mg IV q6h * Spoke w Victoria Palencia - anticipate patient will need dexamethasone continued as an outpatient and also anticipate stay at [facility] therefore outpatient insulin could also be reasonably continued if necessary * Will change basal insulin to NPH as this may be the best once-daily insulin option as an outpatient as long as dexamethasone is continued * Will keep Novolog parameters as-is 06/28 * Pharmacy had signed off yesterday, but then dexamethasone 4 mg IV q6h was initiated therefore ongoing consult appropriate * BSG's increased after starting dex. Lantus 18 units was given yesterday. Will increase today * Will tighten Novolog parameters to weight-based severe stress estimate PLAN FOR INPATIENT GLYCEMIC CONTROL: * Basal insulin * NPH 18-22 units SC BIDM * Bolus insulin * NovoLog per scale ACHS or Q6hrs while NPO * Goal Range: Low 110 mg/dL - High 140 mg/dL * Correction Factor: 25 mg/dL/unit * Nutritional / Prandial insulin per carb ratio of 1 unit per 8 grams CHO consumed PLAN FOR DISCHARGE: * May benefit from NPH once daily as an outpatient *if* steroids are continued at discharge * If steroids are not continued at discharge, refer to outpatient provider as metformin may be appropriate chronic therapy
[2020-07-02] MEDS: SEVELAMER HCL 800 MG TABLET PO SCH ×2 (08:48→11:32)
[2020-07-02] MEDS: CHOLECALCIFEROL 1,000 UNITS 25 MCG TAB PO SCH (08:48)
[2020-07-02] MEDS: ACETAMINOPHEN 500 MG TAB PO SCH (08:48)
[2020-07-02] MEDS: FERROUS SULFATE 325 MG TAB PO SCH (08:48)
[2020-07-02] MEDS: METOPROLOL SUCC 50MG EXT REL TAB PO SCH (08:48)
[2020-07-02] MEDS: NEPHROCAPS PO SCH (08:48)
[2020-07-02] MEDS: CALCITRIOL 0.25 MCG CAPSULE PO SCH (08:49)
[2020-07-02] MEDS: HEPARIN SOD 5,000 UNIT/0.5 ML VIAL SQ SCH (08:49)
[2020-07-02] MEDS: INSULIN HUMAN NPH SC SCH (08:49)
[2020-07-02] MEDS: INSULIN ASPART 100 UNITS/ML 3 ML PEN SC SCH (08:51)
[2020-07-02] MEDS: DOCUSATE SODIUM 100 MG CAP PO SCH (08:53)
--- NOTE | 2020-07-02 10:15 | Orthopedic Progress Note ---
Date of Service July 02, 2020 Assessment & Plan (1) Myelopathy concurrent with and due to spinal stenosis of cervical region: Admission and Anticipated Discharge Date Admission Date: June 28, 2020 This time the patient does not want to pursue any surgical intervention. I would agree with this plan. She is at high risk for any surgery. She is interested in discharge to rehab. Subjective Patient feels that her arm symptoms have improved since yesterday. She believes some of the numbness and tingling that she has intermittently is related to low blood sugar. Physical Exam Physical Exam: Patient is in the chair at the bedside. She is able to lift arms overhead. She exhibits a 4/5 strength detailed testing the upper extremities. There is no sensory deficit. There is negative Shola sign. Results & Data ([facility]) Vital Signs (Past 12 Hours) Vital Signs Temp Pulse Resp BP Pulse Ox 07/02/20 07:17 36.8 C 62 16 171/68 H 98
--- NOTE | 2020-07-02 10:29 | Nephrology Progress Note ---
Date of Service July 02, 2020 Assessment & Plan (1) ESRD on hemodialysis: * Outpatient dialysis [facility] Ran TTS: 3.5 hrs, F-180NR, 350/800, 2 K 2 Ca, EDW 68 kg * Bolume status is acceptable. No acute indication for HD today. Will schedule next HD for am * Patient is clinically euvolemic. Elevated BNP likely related to atrial stretch associated w/ valvular heart disease (MR) and pulmonary HTN (2) Hypertension: * On Losartan 25 mg daily * Monitor BP (3) Anemia: * Chronic, stable. Epogen held with Hgb ~11 (4) Chronic kidney disease-mineral and bone disorder: * Sevelamer held due to hypophosphatemia. Continue calcitriol (5) Myelopathy concurrent with and due to spinal stenosis of cervical region: * Remains on dexamethasone therapy * Await further input from spine surgery Admission and Anticipated Discharge Date Admission Date: June 28, 2020 Subjective Ms. Rodriguez was seen & examined in her hospital room this morning. She reports that her upper extremity paraesthesias has improved w/ steroid therapy. She is anxious to begin physical therapy Review of Systems Constitutional: + weakness; no fever Eyes: no problem reported Ear, Nose, Mouth, Throat: no problem reported Respiratory: no dyspnea Cardiovascular: no chest pain and no edema Gastrointestinal: no abdominal pain and no nausea Integumentary: no rash Neurologic: no confusion Physical Exam Constitutional: + frail appearing; not in distress Eyes: PERRL, conjunctivae normal, anicteric sclerae ENMT: external ear and nose normal, oropharynx normal Neck: trachea midline, no thyromegaly (THC w/ clean, dry dressing in place) Respiratory: normal respiratory effort, lungs clear to auscultation Cardiovascular: RRR, no murmur, no edema Extremities: + AV fistula (+ bruit) Gastrointestinal (Abdomen): normal bowel sounds, soft, nontender, no hepatosplenomegaly Musculoskeletal: Extremities: no cyanosis Skin: no rashes, warm and dry Neurologic: awake; not confused Results & Data ([facility]) Vital Signs (Past 12 Hours) Vital Signs Temp Pulse Resp BP Pulse Ox 07/02/20 07:17 36.8 C 62 16 171/68 H 98 06/28/20 Echocardiogram: LVEF 30 - 35%, mod MR, moderate dilation of LA, RVSP 40 - 50% PG Care Time/CCT Total # of Minutes Spent Total Time Spent with Patient: Total time spent is greater than 50% in coordination of care (as documented) at patient's floor/unit and/or counseling patient: Coding Level of Care Code 03323 Subseq Hosp Care Lvl 3 Diagnoses ESRD on hemodialysis N18.6; Z99.2 Hypertension I10 Anemia D64.9 Chronic kidney disease-mineral and bone disorder N18.9; E83.9; M89.9 Myelopathy concurrent with and due to spinal stenosis of cervical region M48.02; G99.2
[2020-07-02] MEDS ORDERED: PANTOprazole 40 MG in SYRINGE 0 ML IV SCH (11:00)
--- NOTE | 2020-07-02 18:46 | Discharge Summary ---
Date of Service July 02, 2020 Admission HPI Per Admitting Provider Tory Rodriguez is here for right arm paresthesia. She has ESRD and gets dialysis Tues, Thur, Sat and after receiving dialysis on 06/26 she went home and ate dinner and did the dishes. She developed right arm numbness and tingling without weakness. The numbness would "come and go". She initially had numbness up to the shoulder but this improved and then only occurred in her palm and finger. This has never happened to her before and she was concerned about a stroke so came to the ER. She was not able to stand when the ambulance came to take her to the ER. She has not had any recent changes in her medications. She only walks between rooms in her house and had a fall [place] without hitting her head. Principal Diagnosis Cervical myelopathy Discharge Exam Constitutional WD/WN, vitals as above Eyes EOM intact bilaterally; no conjunctival abnormality ENMT external ear and nose normal, oropharynx normal Neck trachea midline, no thyromegaly normal visual inspection Respiratory normal respiratory effort, lungs clear to auscultation no respiratory distress Cardiovascular RRR, no murmur, no edema Gastrointestinal (Abdomen) Inspection/Auscultation: abdomen normal to inspection; abdomen not distended Musculoskeletal no cyanosis or clubbing, extremities motor strength 5/5 Skin no rashes, warm and dry Neurologic moves all extremities and awake Psychiatric Orientation: alert, oriented to person and cooperative Discharge Data Allergies Allergy/AdvReac Type Severity Reaction Status Date / Time No Known Allergies Allergy Verified 06/26/20 22:30 Consultations 06/27/20 01:12 ED Decision to Admit Stat 06/27/20 07:50 Consult Neurology Routine 06/27/20 14:05 Consult Orthopedic Surgery Routine 06/27/20 14:10 Consult Nephrology Routine Ordered Studies 06/26/20 22:22 CT head/brain wo con Urgent 06/27/20 09:40 US carotid doppler BI Routine 06/27/20 10:05 MR brain wo con Stat MR cervical spine wo con Stat Hospital Course (1) ESRD on hemodialysis: Admission Date: 79 yo F w/ pMHx. of Cardiomyopathy, HTN, HLD, ESRD (dialysis Tue, Thur, Sat), carotid plaque and DM (not on medication any longer) presented with right arm paresthesias with waxing and waning concerning for cervical radiculopathy vs. nerve compression along with some global weakness. Admitted for Right arm paresthesias/Cervical Myelopathy CT-H w/ STATRAD findings of no acute intracranial findings (chronic findings of involution, microvascular changes and ventriculomegaly, possible NPH but not likely per neuro but not excluded) XR neck ordered to look for spinal canal which could explain symptomatology --> Severe multilevel degenerative disc disease and facet arthrosis within the cervical spine, as described above. Loss of height of several mid cervical vertebral bodies is chronic. There is partial fusion of C5 and C6. Neurology consulted MRI Brain without acute CVA Carotids without significant stenosis CK wnl, ESR 25, Vit D wnl, ALdolase 5.1 wnl MRI Cervical Spine WITH SIGNIFICANT MYELOPATHY with cord edema * DR FAULKNER CONSULTED -- would like to avoid surgery however there may be area amenable to treatment if needed * MRI Cervical Spine with Severe multilevel cervical spondylosis as above with severe multilevel acquired compromise of the central canal. This is greatest from C3-C4 through C6-C7. Mild edema suggested within the cervical cord at these levels, related to spinal stenosis. * Placed on Dexamethasone 4mg Q6H on 06/27 and by afternoon 06/28 patient reported symptoms COMPLETELY GONE * 06/29 morning again with issues of numbness/tingling difficulty using silverware and increased back to 4mg Q6 and re-discussed with Dr. Faulkner. Will be available if unable to wean successfully for possible intervention Resolved 06/30 and decreased to 3mg Q6H initially however after discussion with attending we decided to keep her at 4 mg every 6 hours for 06/30 07/01patient noted continued numbness and tingling to her right upper extremity forearm and hand despite no decrease in steroids however did have an increase in blurry vision and would not increase steroids at this time unless symptoms worsen This case was discussed with Dr. Faulkner 07/02. This would be a big surgery. The patient very much prefers to continue conservative therapies for now, and today actually felt better. Dr. Faulkner was in agreement. Plan for steroid taper and short term at [facility] which could help with myelopathy/pain/numbness. ESRD (dialysis Tues, Th, Sat), Hypophosphatemia * BNP >29985 and was given IV lasix x 1. No respiratory distress. Got HD Sat * Volume status felt to be acceptable * Cr elevated but stable and got HD , 4/22 and again 06/30 * Nephrology on consult * Phos wnl and resumed sevelamer * She is a Thursday Sat dialysis patient will need to coordinate with nephrology as she would likely remain inpatient through Thursday for possible surgery as above DM II, * not on home meds * last a1c 6.9 -- repeat A1c 6.5 * ISS while inpatient Pharmacy on consult for glycemic management: * A1c 6.5 (down from 6.9 not on medications) and was previously on medications, since discontinued due to kidney disease and A1c 6.9 * Titrating dexamethasone today as above * Pharmacy following for blood sugar control give her ESRD and continued steroids * --> Trying NPH to see if we are able to get once daily dosing to help control sugars for ease of use at discharge * BSGs have been 102, 86, 209 after lunch this afternoon * Continue to monitor Cardiomyopathy * Myocardial perfusion Shawn without significant ischemia although some small defects noted and not likely account for reduced LV function * Repeating ECHO as above (MURMUR ON EXAMINATION given only mod MR on prior) SYSTOLIC although does not appear to be worsening but possible MR, with possible S3. * Prior Echo Nov 2019 with EF 40-45% moderate MR, mild TR * TSH nl * Follows with Dr. Quinones -- increased losartan to 50mg HS per Dr. Quinones recommendations and patient with continued elevated pressures * Continue metoprolol succinate 50mg daily, ASA 81mg, Atorvastatin 10mg HS * No chest pain reported, trop <0.015 on admission however repeat 0.028 and peaked at 0.048, trended down. * ECHO pending -- prior myocardial scan with EF 29% global hypokinesis and no significant transient ischemic dilation November 2019. Follows with Dr Quinones and initially wanted to increase losartan to 50mg daily * ECHO without source of emboli noted, LV systolic function moderately reduced. LA mod dilated. Moderate MR. RVSP elevated to 40-50mmHg. Diastolic dysfunction, Grade II, c/w elevated LA pressure * Lipid panel wnl and continued statin 10mg * Continue to monitor HTN * Chronic. Issues reported with low BP in dialysis however BP elevated to 185/108 on admission * BP currently 169/74 * Increased losartan as above to 50mg HS -- will need to monitor AM BMP given hyperkalemia 5.4 . Discussed elevated BPs with Dr. Anne -- he stated he will look into her chart further for recommendations as needed * Potassium resolved after dialysis treatment yesterday * Continued metoprolol succinate 50mg daily * Continue to monitor HLD * continue Atorvastatin 10mg HS * Repeated Lipid Panel, acceptable. Carotid plaques * Carotid Dopplers w/o sig stenosis. Lipid panel acceptable * Continue ASA, Lipitor as above DNR DNI DVT prophylaxis Heparin SQ while inpatient Dispo: Continued inpatient stay Continued use of steroids and will need further evaluation by Dr. Faulkner to see if surgery will be warranted early this upcoming week. This was discussed with Dr. Faulkner and he plans on seeing the patient either today or tomorrow morning Rehab at [facility] planned for d/c. CM following (2) Paresthesias: (3) Carotid artery plaque: (4) Hyperlipidemia: (5) Diabetes: (6) Hypertension: Total Time Total Time Spent Total Time Spent (In Minutes): 35 Discharge Plan Discharge Items Patient Disposition: Transfer Inpatient Rehab Fac Reason For Visit: PARASTHESIA Discharge Diagnosis: Cervical myelopathy concurrent with and due to spinal stenosis Activity: Resume your previous activity Non-emergency contact: Primary Care Provider, Surgeon and Converter Supervisor Call non-emergency contact if: your symptoms worsen Follow-up/Referrals: Tramaine Stubbs MD [Primary Care Provider] - Silverio Faulnker DO [Surgeon] - (Please see Dr. Faulkner in 2-3 weeks for a check on your cervical stenosis symptoms.) Diet: Dialysis Renal Addtl Attending Provider Instructions: Ms. Kelly was admitted to the hospital with right arm paresthesias and weakness which we localized to the effects of cervical myelopathy. Dr. Faulkner was consulted, and he felt that surgery was possible, but fairly high risk because it would require two approaches (anterior and posterior) and given her medical issues, it would better to give conservative measures a concerted effort. Ms. Rodriguez felt similarly, and we tried steroids first. These seem to have improved her symptoms, and she asked to move toward PT/OT to help also mitigate symptoms as much as possible. We'll send her on a steroid taper as the steroids seemed to have helped. She will need close monitoring of her blood sugars. She is not normally on DM meds, but her sugars have been higher with the steroids. Her steroid taper should be as follows: Dexamethasone 6 mg PO TID x 3 days Dexamethasone 6 mg PO BID x 3 days Dexamethasone 6 mg PO daily x 3 days, then stop She will need to resume dialysis tomorrow with her normal nephrology team at [facility] . Held sevelamer for hypophosphatemia. Pending Studies at Discharge: No Stand-Alone Forms: My [facility] Skilled Items Patient informed of condition?: No DNR: Yes Discharge Level of Care: Acute rehab Communicable Disease: No Discharge Prognosis: Improving Lines: None Urinary Catheter: No Medications and DC Order Prescriptions: New insulin aspart U-100 [Novolog Flexpen U-100 Insulin] 100 unit/mL (3 mL) Insulin Pen See Rx Instructions .ROUTE .COMPLEX Qty: 0 RF: 0 Renal Caps 1 mg Capsule 1 cap PO QAM Qty: 0 RF: 0 dexamethasone 6 mg tablet 0 mg PO TID Qty: 1 RF: 0 Continued darbepoetin ilia in polysorbat 200 mcg/mL solution 200 mcg subcut .COMPLEX Qty: 1 RF: 0 aspirin [Aspir-81] 81 mg tablet,delayed release (DR/EC) 81 mg PO QPM RF: 0 acetaminophen [Tylenol Extra Strength] 500 mg tablet 1,000 mg PO BID RF: 0 calcitriol 0.5 mcg capsule 0.5 mcg PO QAM RF: 0 cholecalciferol (vitamin D3) 2,000 unit tablet 2,000 units PO QAM RF: 0 multivitamin Tablet 1 tab PO QAM RF: 0 atorvastatin 10 mg tablet 10 mg PO HS RF: 0 metoprolol succinate 50 mg tablet extended release 24 hr 50 mg PO QAM RF: 0 ferrous sulfate 325 mg (65 mg iron) tablet 325 mg PO QAM RF: 0 Changed losartan 25 mg tablet 50 mg PO PM Qty: 30 RF: 0 Discontinued sevelamer HCl [Renagel] 800 mg tablet 800 mg PO TIDM Qty: 90 RF: 3 Discharge Orders: Discharge Order (Routine); Ordered 07/02/20 Ordered By: Burke Edwards/Other Patient Handouts: Managing Type 2 Diabetes, Managing Diabetes: The A1C Test Admission Data Admit Date/Time: 06/28/20 14:25 Attending Provider: Burke Zapata Admit Provider: Gabriel Renee Primary Care Provider: Tramaine Stubbs Other Providers: Jesse Colmenares ; Sundar Rock ; Silverio Faulkner ; [facility] ; Burke Zapata. Other Interventions: Discharge Summary Assessment (RN) Last Done: 07/02/20 11:26 Coding Level of Care Code D/C Day Management >30 mins Diagnoses ESRD on hemodialysis N18.6; Z99.2 Paresthesias R20.2 Carotid artery plaque I65.29 Hyperlipidemia E78.5 Diabetes E11.9 Hypertension I10
[2020-07-03] MEDS ORDERED: SODIUM CHLORIDE 0.9% 1000ML 1,000 ML IV PRN (07:00)
[2020-07-03] MEDS ORDERED: HEPARIN SOD (PORCINE) 1000 UNIT/ML IV ONE (07:00)
== END 2020-07-02 12:47 | DRG 551 ==
LOC: ED 21:34 → 3E 21:34 → SUATTDRO 06-27 02:50 → 3E 06-27 03:46 → SUATTDRO 06-28 14:25

== ENCOUNTER 2024-12-21 12:54 | Observation (INO) ==
[2024-12-21 14:28] LABS: Hematocrit (blood only) 28.3 % (37.0-47.0); Hemoglobin 9.5 g/dl (12.0-16.0); Immature Granulocytes # (auto) 0.05 K/uL (0.01-0.20); Immature Granulocytes % (auto) 0.7 %; Mean Corpuscular Hemoglobin 31.6 pg (25.0-34.0); Mean Corpuscular Volume 94.0 fL (80.0-100.0); Platelet Count 185 K/uL (130-400); RDW Standard Deviation 52.5 fL (36.4-46.3); Red Blood Count 3.01 M/uL (4.20-5.40); White Blood Count 7.60 K/ul (4.8-10.8)
--- NOTE | 2024-12-21 14:36 | XRay Report ---
XR chest 1V portable CLINICAL HISTORY: cough COMPARISON STUDY: 07/12/2021 FINDINGS: There is stable cardiomegaly with mild pulmonary vascular congestion. No consolidation or p leural effusion. No pneumothorax. Stable old fracture proximal left humerus. IMPRESSION: Mild CHF. ACT 112: Negative or not required by law. Electronically signed by: Dionisio Sales M.D. 12/21/2024 2:34 PM
--- NOTE | 2024-12-21 14:43 | Emergency Department Note ---
Impression & Plan Vomiting, ESRD on hemodialysis, Acute hyperkalemia ED Provider Note CHIEF COMPLAINT: Vomiting HISTORY OF PRESENT ILLNESS: This 84-year-old female past medical history of end- stage renal disease on hemodialysis, secondary hyperparathyroidism, hypertension, cardiomyopathy with EF of 21 to 30%, CAD, diabetes, diabetic neuropathy, patient presents to the emergency department with complaints of a cough did not feel well yesterday and skipped her dialysis treatment. She is concerned that she is fluid overloaded. She denies any fevers. She is only slightly nauseated at this time. Patient states she is scheduled for dialysis tomorrow. REVIEW OF SYSTEMS: A review of systems was performed with positives and pertinent negatives listed in the history of present illness. 10 systems were reviewed and are otherwise negative. ALLERGIES: see below MEDICATIONS: see below PMH: see below SOCIAL HISTORY: see below DDx: Bowel obstruction, infectious pathology, aspiration, viral illness, foodborne process, pneumonia, heart failure among others. PHYSICAL EXAM: Vital signs reviewed. General: Elderly, generally well-appearing 84-year-old female, in no significant distress. HEENT: No scleral icterus, PERRLA, neck supple. moist mucous membranes Cardiovascular: Regular rate and rhythm, no extra sounds. Pulmonary: Clear to auscultation bilaterally, normal work of breathing. Abdomen: Soft, nontender, nondistended, positive bowel sounds. Musculoskeletal: Atraumatic, no peripheral edema. Neurologic: Patient awake alert and oriented x 3, speech is clear Skin: Warm, dry, no rash EMERGENCY DEPARTMENT COURSE/MDM: This patient was evaluated and appeared to be in no significant distress. IV access was obtained and laboratory work was drawn. The patient was placed on the hospital monitor and noted to be in a sinus rhythm with a first-degree AV block. Laboratory work reveals a slightly elevated potassium at 5.6. EKG is fairly reassuring with the possibility of peaked T waves, more likely related to LVH then hyperkalemia. Patient was given a dose of Lokelma. Nephrology, Dr. Rock was informed of the patient's admission to the hospital and will arrange for dialysis tomorrow. He stated that she had very little support at home and with her missed dialysis, vomiting and need for dialysis, she would best be served with hospitalization. Patient is aware of the plan and agrees. [id number] hospitalist service was contacted regarding admission. Patient will require dialysis for hyperkalemia and concerning EKG, although I believe the T waves are more likely to LVH. 1 dose of Lokelma was administered MONITORING: An order for cardiac monitoring was placed and the patient is noted to be in a normal sinus rhythm at 92 beats per minute. RADIOLOGY: chest x-ray to my interpretation reveals no focal lung consolidation or failure. KUB to my interpretation reveals no evidence of obstruction or free air. Positive fecal retention. EKG: EKG to my interpretation reveals a sinus rhythm with a first-degree AV block of 97 bpm. voltage consistent with LVH. Previous anterior septal infarct with peaked T waves however this may just be related to the higher voltage. No significant ischemia. QTc of 462. No ectopy. 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 Quinones Anemia Hypertension Per records Generalized weakness (Acute) Chronic kidney disease-mineral and bone disorder Secondary hyperparathyroidism Medical History Myelopathy concurrent with and due to spinal stenosis of cervical region Dialysis patient tues/ thurs/ sat to [place] AV fistula left upper arm Paresthesias in left hand Upper back pain DVT prophylaxis Volume overload Hyperkalemia Chronic kidney insufficiency follows Dr. 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 Gastroesophageal reflux disease Hypercholesterolemia Legally blind Osteoporosis with fracture Tinnitus Vitamin D deficiency Diabetic nephropathy Hypertension Surgical History History of tooth extraction History of esophagogastroduodenoscopy (EGD) History of colonoscopy History of bilateral oophorectomy Hx of cataract surgery R/L Family History Mother Diabetes Father Myocardial infarction Sister Healthy adult Denies family history of Ovarian cancer Prostate cancer Kidney disease Breast cancer Colorectal cancer Social History Smoking Status: Former smoker Tobacco Type: Cigarettes Age Started Using Tobacco: 17; Age Quit Using Tobacco: 58; packs per day: 0.25; Smoking End Date: 1999; Second Hand Exposure: No; Do You Dip or Chew Tobacco: No; Tobacco Cessation Education Requested by Patient: No Hx Alcohol Use: Yes Alcohol type: beer and wine Hx Substance Use: No Preferred Language: Albanian Communication Ability: Effective Communication Ability Comment: legally blind, uses magnifier to read Visual Impairment: Blindness Hearing Ability: Normal Biomass Technician Required: No Beliefs That Will Affect Care: None marital status: single Current Living Situation: Family Current Living Situation Comment: pt reports living at home w/ sister current occupational status: retired 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 Other Information That Helps Us Care for You: No Feels Safe at Home: Yes Safety Concerns: Feels Safe At This Time Childhood Exposure to Second-Hand Smoke: No Diet: regular caffeine: Yes Dental Care, Regularly: Yes Physical Activity Frequency: Does not Exercise Seatbelt Use: always Sunscreen Use: No Assistive Devices: Cane and Walker Allergies Allergies Allergy/AdvReac Type Severity Reaction Status Date / Time No Known Allergies Allergy Verified 12/21/24 17:54 Home Meds Home Medications Medication Instructions Recorded Confirmed acetaminophen 500 mg tablet 1,000 mg PO BID 10/11/18 12/21/24 (Tylenol Extra Strength) cholecalciferol (vitamin D3) 50 2,000 units PO QAM 10/14/19 12/21/24 mcg (2,000 unit) tablet aspirin 81 mg tablet,delayed 81 mg PO DAILY 07/30/20 12/21/24 release sevelamer carbonate 800 mg tablet 800 mg PO TIDM 08/19/24 12/21/24 vitamin B complex with C-folic 2 tab PO DAILY 12/21/24 12/21/24 acid 0.8 mg-zinc citrate 15 mg tablet (Dialyvite 800 with Zinc 15) Previous Rx's Medication Instructions Recorded losartan 50 mg tablet 50 mg PO DAILY #90 tabs 12/22/23 atorvastatin 10 mg tablet 10 mg PO HS #90 tabs 08/29/24 metoprolol succinate 50 mg 50 mg PO DAILY #90 tabs 11/02/24 tablet,extended release 24 hr Results & Data (ED) Vital Signs Vital Signs - 24 hr 12/21/24 13:09 12/21/24 14:30 12/21/24 15:00 Temperature 36.8 C Temperature Source Oral Pulse Rate 92 H 84 Pulse Rate [Apical] 82 Pulse Rate from SpO2 Sensor 84 Respiratory Rate 20 20 18 Respiratory Effort / Characteristics Non-Labored Spontaneous Non-Labored Spontaneous Respiratory Depth Normal Normal Respiratory Pattern Regular Blood Pressure 178/96 H 191/87 H Blood Pressure [Right Arm] 177/84 H Blood Pressure Mean 123 121 Blood Pressure Mean [Right Arm] 115 Blood Pressure Position [Right Arm] Lying Pulse Oximetry 97 96 94 Oxygen Delivery Method Room Air Room Air Sepsis Recent Fever Within 48 Hours No Sepsis New/Unexplained Change in Mental Status No Sepsis Action Taken by Nursing No Action Required 12/21/24 16:04 12/21/24 16:33 12/21/24 17:06 Temperature Temperature Source Pulse Rate 91 H 95 H 102 H Pulse Rate [Apical] Pulse Rate from SpO2 Sensor 102 H Respiratory Rate 21 24 Respiratory Effort / Characteristics Respiratory Depth Respiratory Pattern Blood Pressure 173/82 H Blood Pressure [Right Arm] Blood Pressure Mean 112 Blood Pressure Mean [Right Arm] Blood Pressure Position [Right Arm] Pulse Oximetry 93 Oxygen Delivery Method Sepsis Recent Fever Within 48 Hours Sepsis New/Unexplained Change in Mental Status Sepsis Action Taken by Nursing 12/21/24 17:30 12/21/24 17:30 12/21/24 17:30 Temperature Temperature Source Pulse Rate 96 H Pulse Rate [Apical] Pulse Rate from SpO2 Sensor 95 H Respiratory Rate 20 Respiratory Effort / Characteristics Respiratory Depth Respiratory Pattern Blood Pressure 174/80 H 174/80 H 174/80 H Blood Pressure [Right Arm] Blood Pressure Mean 111 138 138 Blood Pressure Mean [Right Arm] Blood Pressure Position [Right Arm] Pulse Oximetry 96 Oxygen Delivery Method Sepsis Recent Fever Within 48 Hours Sepsis New/Unexplained Change in Mental Status Sepsis Action Taken by Nursing 12/21/24 18:00 12/21/24 18:00 12/21/24 18:00 Temperature Temperature Source Pulse Rate 95 H Pulse Rate [Apical] Pulse Rate from SpO2 Sensor 94 H Respiratory Rate 15 Respiratory Effort / Characteristics Respiratory Depth Respiratory Pattern Blood Pressure 174/120 H 174/120 H Blood Pressure [Right Arm] Blood Pressure Mean 135 135 Blood Pressure Mean [Right Arm] Blood Pressure Position [Right Arm] Pulse Oximetry 98 Oxygen Delivery Method Sepsis Recent Fever Within 48 Hours Sepsis New/Unexplained Change in Mental Status Sepsis Action Taken by [facility] Medications Current Medication List: was personally reviewed by me Laboratory Data Attestation: I reviewed the patient's lab results. 12/21/24 14:08 12/21/24 14:08 Lab Results 12/21/24 12/21/24 Range/Units 14:08 17:05 WBC 7.60 (4.8-10.8) K/ul RBC 3.01 L (4.20-5.40) M/uL Hgb 9.5 L (12.0-16.0) g/dl Hct 28.3 L (37.0-47.0) % MCV 94.0 (80.0-100.0) fL MCH 31.6 (25.0-34.0) pg MCHC 33.6 (32.0-36.0) g/dL RDW Std Deviation 52.5 H (36.4-46.3) fL RDW Coeff of Yin 15.5 H (11.5-14.5) % Plt Count 185 (130-400) K/uL MPV 9.7 (9.4-12.4) fL Immature Gran % (Auto) 0.7 % Neut % (Auto) 84.8 % Lymph % (Auto) 7.2 % Tate % (Auto) 6.6 % Eos % (Auto) 0.3 % Baso % (Auto) 0.4 % Neut # (Auto) 6.45 (1.40-6.50) K/uL Lymph # (Auto) 0.55 L (1.20-3.40) K/uL Tate # (Auto) 0.50 (0.11-0.59) K/uL Eos # (Auto) 0.02 (0.00-0.50) K/uL Baso # (Auto) 0.03 (0.00-0.20) K/uL Immature Gran # (Auto) 0.05 (0.01-0.20) K/uL Sodium 138 (136-145) mmol/L Potassium 5.6 H (3.5-5.1) mmol/L Chloride 96 L (98-107) mmol/L Carbon Dioxide 23 (21-32) mmol/L Anion Gap 19 H (3-11) BUN 94 H (6-23) mg/dl Creatinine 6.85 H* (0.6-1.2) mg/dl Est Cr Clr Drug Dosing Not Reportable eGFR 5.52 BUN/Creatinine Ratio 13.7 (10-20) Glucose 190 H (70-99(Fasting)) mg/dl Calcium 9.9 (8.6-10.3) mg/dl Total Bilirubin 0.7 (0.2-1.0) mg/dl AST 15 (13-39) U/L ALT 15 (7-52) U/L Alkaline Phosphatase 58 (34-104) U/L Total Protein 7.3 (6.0-8.3) gm/dl Albumin 4.0 (3.4-5.0) gm/dl Globulin 3.3 (2.5-4.0) gm/dl Albumin/Globulin Ratio 1.2 (0.9-2) Urine Color Yellow Urine Appearance Clear (Clear) Urine pH 8.0 H (4.5-7.5) Ur Specific [place] 1.016 (1.000-1.030) Urine Protein 3+ H (Negative) Urine Glucose (UA) 2+ H (Negative) Urine Ketones Trace H (Negative) Urine Blood Negative (Negative) Urine Nitrite Negative (Negative) Urine Bilirubin Negative (Negative) Urine Urobilinogen Negative (Negative) Ur Leukocyte Esterase Negative (Negative) Urine WBC (Auto) 0-5 (0-5) /hpf Urine RBC (Auto) 0-2 (0-2) /hpf U Hyaline Cast (Auto) 0-2 (0-2) /lpf U Epithel Cells (Auto) 0-2 (0-2) /hpf Urine Bacteria (Auto) None Seen (None Seen) Urine Comment SARS-CoV-2 (PCR) NEGATIVE (Negative) Influenza Type A (PCR) Negative (Neg) Influenza Type B (PCR) Negative (Neg) RSV (RT-PCR) Negative (Neg) Administered Medications Aspirin (Aspirin 81 Mg Ectab) 81 mg PO DAILY NEIL Stop: 01/20/25 20:49 Last Admin: 12/21/24 21:13 Dose: 81 mg Documented By: VANGIE Atorvastatin Calcium (Atorvastatin 10 Mg Tab) 10 mg PO HS NEIL Stop: 01/20/25 20:59 Last Admin: 12/21/24 21:13 Dose: 10 mg Documented By: VANGIE Insulin Aspart (Insulin Aspart Per Unit Charge) 0 units SC ACHS NEIL Stop: 01/20/25 21:14 Last Admin: 12/21/24 21:18 Dose: 3 units Documented By: VANGIE Co-signed By: CHRIS Losartan Potassium (Losartan Potassium 50 Mg Tab) 50 mg PO DAILY NEIL Stop: 01/20/25 20:49 Last Admin: 12/21/24 21:12 Dose: 50 mg Documented By: VANGIE Metoprolol Succinate (Metoprolol Succ 50mg Ext Rel Tab) 50 mg PO DAILY NEIL Stop: 01/20/25 20:49 Last Admin: 12/21/24 21:13 Dose: 50 mg Documented By: VANGIE Sodium Zirconium Cyclosilicate (Sodium Zirconium Cyclosilicate 10 Gm Packet) 10 gm PO TID NEIL Stop: 12/23/24 14:01 Last Admin: 12/21/24 21:12 Dose: 10 gm Documented By: VANGIE Discontinued Medications Acetaminophen (Acetaminophen 325 Mg Tab) 975 mg PO NOW STA Stop: 12/21/24 17:42 Last Admin: 12/21/24 17:45 Dose: 975 mg Documented By: MAX Sodium Zirconium Cyclosilicate (Sodium Zirconium Cyclosilicate 10 Gm Packet) 10 gm PO NOW STA Stop: 12/21/24 17:28 Last Admin: 12/21/24 19:58 Dose: 10 gm Documented By: QGV Sodium Zirconium Cyclosilicate (Sodium Zirconium Cyclosilicate 10 Gm Packet) Confirm Administered Dose 10 gm .ROUTE .STK-MED ONE Stop: 12/21/24 19:56 Last Admin: 12/21/24 19:58 Dose: Not Given Documented By: QGV Imaging Data Radiologist's Impression: Chest X-Ray 12/21/24 13:14 XR chest 1V portable CLINICAL HISTORY: cough COMPARISON STUDY: 07/12/2021 FINDINGS: There is stable cardiomegaly with mild pulmonary vascular congestion. No consolidation or pleural effusion. No pneumothorax. Stable old fracture proximal left humerus. IMPRESSION: Mild CHF. ACT 112: Negative or not required by law. Electronically signed by: Dionisio Sales M.D. 12/21/2024 2:34 PM KUB X-Ray 12/21/24 14:43 KUB HISTORY: vomiting COMPARISON STUDY: None FINDINGS: There is moderate retained stool. No bowel obstruction seen. No gross free air. IMPRESSION: No acute findings. ACT 112: Negative or not required by law. The above report was generated using voice recognition software. It may contain grammatical, syntax or spelling errors. Electronically signed by: Dionisio Sales M.D. 12/21/2024 3:49 PM Discharge Plan Visit Data Chief Complaint: Vomiting Stated Complaint: NAUSEA, SORE THROAT, BACK PAIN, VOMITING ED Provider: Mercedes Chase Discharge Problem: Vomiting, ESRD on hemodialysis, Acute hyperkalemia Patient Disposition: Admitted As Inpatient Condition: Fair Discharge Instructions Interventions: ED Discharge Assessment Last Done: 12/21/24 19:54 Discharge Problem: Vomiting Qualifiers: Vomiting type: unspecified Nausea presence: with nausea Qualified Code(s): R 11.2 - Nausea with vomiting, unspecified
[2024-12-21 14:57] LABS: Influenza A virus by PCR Negative (Neg); Influenza B virus by PCR Negative (Neg); SARS CoV2 RNA(COVID-19) Ceph NEGATIVE (Negative)
[2024-12-21 15:24] LABS: Alanine Aminotransferase 15 U/L (7-52); Albumin Globulin Ratio 1.2 (0.9-2); Albumin Level 4.0 gm/dl (3.4-5.0); Alkaline Phosphatase 58 U/L (34-104); Anion Gap 19 (3-11); Bilirubin,Total 0.7 mg/dl (0.2-1.0); Blood Urea Nitrogen 94 mg/dl (6-23); Calcium 9.9 mg/dl (8.6-10.3); Carbon Dioxide 23 mmol/L (21-32); Chloride 96 mmol/L (98-107); Globulin 3.3 gm/dl (2.5-4.0); Glucose 190 mg/dl (70-99(Fasting)); Potassium 5.6 mmol/L (3.5-5.1); Sodium 138 mmol/L (136-145); Total Protein 7.3 gm/dl (6.0-8.3)
--- NOTE | 2024-12-21 15:51 | XRay Report ---
KUB HISTORY: vomiting COMPARISON STUDY: None FINDINGS: There is moderate retained stool. No bowel obstruction seen. No gross free air. IMPRESSION: No acute findings. ACT 112: Negative or not required by law. The above report was generated using voice recognition software. It may contain grammatical, syntax o r spelling errors. Electronically signed by: Dionisio Sales M.D. 12/21/2024 3:49 PM
[2024-12-21 17:26] LABS: Appearance Urine Clear (Clear); Bacteria Urine Automated None Seen (None Seen); Cast Urine Automated 0-2 /lpf (0-2); Epithelial Cell Urine Auto 0-2 /hpf (0-2); Glucose Urine UA 2+ (Negative); RBC Urine Automated 0-2 /hpf (0-2); WBC Urine Automated 0-5 /hpf (0-5)
[2024-12-21] MEDS: ACETAMINOPHEN 325 MG TAB PO STA (17:45)
--- NOTE | 2024-12-21 18:39 | History & Physical Report ---
Date of Service December 21, 2024 Assessment & Plan (1) Cardiac LV ejection fraction 21-30%: (2) Legally blind: (3) History of SCC (squamous cell carcinoma) of skin: (4) Hyperlipidemia: (5) SNHL (sensorineural hearing loss): (6) ESRD on hemodialysis: (7) Cardiomyopathy: (8) Hypertension: (9) Secondary hyperparathyroidism: (10) Volume overload state of heart: Plan #end-stage renal disease, dialysis dependent #secondary hyperparathyroidism - electively missed dialysis yesterday, was not feeling well. This is not an unusual thing for her to do on a however this 1 was earlier in the week - consulted nephrology, plan is to dialyze on the inpatient side, appreciate recommendations - Lokelma for hyperkalemia as below - symptomatic management - 1500 cc fluid restriction - continue sevelamer #type 2 diabetes - glucose 190 on admission, consulted pharmacy for glycemic management. Mostly dietary at home #nausea vomiting - improved since arrival to the emergency department, will continue with Zofran as needed for any recurrence #hyperkalemia - no significant EKG change, likely palliated by her emesis, Lokelma was started to the emergency department, will continue until dialysis complete #hypertension # diastolic hypertension - moderately elevated at this time, she missed all of her morning medicines, will start with her losartan and metoprolol tonight. Hydralazine as needed as needed for significant elevation #mixed cardiomyopathy #HFrEF - follows with cardiology, mild volume overload state, admit for dialysis as above, he is making some urine at this time. - No chest pain, lower extremity edema or significant signs of decompensation #hyperlipidemia - continue statin #sensorineural hearing loss #legal blindness - supportive measures, she was able to communicate with speaking in a clear loud voice. 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 in May of this year, Mohs procedure several years ago #FEN - renal/ diabetic diet #CODE STATUS - DNR/DNI per her wishes History of Present Illness Chief Complaint: 84-year-old female end-stage renal disease dialysis Thursday, history of coronary disease, mixed cardiomyopathy with HFrEF, type 2 diabetes, hypertension, hyperlipidemia, secondary hyperparathyroidism, history of squamous cell carcinoma of the head and neck treated as recently as this year, sensorineural hearing loss, legal blindness presented to the emergency department with a 12-hour history of increasing nausea vomiting, feelings of malaise. States that she was not feeling very well yesterday and missed her Thursday dialysis. Since then feels as though her breathing is become more difficult and the nausea and vomiting she was unable to keep her medicines down she is feeling worse more so she came to the emergency department for further evaluation. ER noted a modest volume overload state, given her history of HFrEF, nausea vomiting. Elevated blood pressures. She was referred for admission for dialysis. Nephrology was consulted. She has mild elevation of her potassium level. Lokelma was started. Otherwise patient symptoms have largely improved. She did make some urine which is unusual for her. Referred to the hospital service for admission for inpatient dialysis tomorrow or likely tomorrow morning. Primary Care Provider: Felice Stubbs MD nausea vomiting, shortness of breath Allergies Allergy/AdvReac Type Severity Reaction Status Date / Time No Known Allergies Allergy Verified 12/21/24 17:54 Home Medications Medication Instructions Recorded Confirmed Type acetaminophen 500 mg tablet 1,000 mg PO BID 10/11/18 12/21/24 History (Tylenol Extra Strength) cholecalciferol (vitamin D3) 50 2,000 units PO QAM 10/14/19 12/21/24 History mcg (2,000 unit) tablet aspirin 81 mg tablet,delayed 81 mg PO DAILY 07/30/20 12/21/24 History release losartan 50 mg tablet 50 mg PO DAILY #90 tabs 12/22/23 12/21/24 Rx sevelamer carbonate 800 mg tablet 800 mg PO TIDM 08/19/24 12/21/24 History atorvastatin 10 mg tablet 10 mg PO HS #90 tabs 08/29/24 12/21/24 Rx metoprolol succinate 50 mg 50 mg PO DAILY #90 tabs 11/02/24 12/21/24 Rx tablet,extended release 24 hr vitamin B complex with C-folic 2 tab PO DAILY 12/21/24 12/21/24 History acid 0.8 mg-zinc citrate 15 mg tablet (Dialyvite 800 with Zinc 15) Past Med/Surg History Problem List (Updated 12/21/24 @ 18:32 by Lorne Carlson MD) Volume overload state of heart Cardiac LV ejection fraction 21-30% Renal cyst Legally blind READS WITH MAGNIFYING GLASSES Osteoarthritis of left glenohumeral joint 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 Quinones Anemia Hypertension Per records Generalized weakness (Acute) Chronic kidney disease-mineral and bone disorder Secondary hyperparathyroidism Medical History Myelopathy concurrent with and due to spinal stenosis of cervical region Dialysis patient tues/ thurs/ sat to [place] AV fistula left upper arm Paresthesias in left hand Upper back pain DVT prophylaxis Volume overload Hyperkalemia Chronic kidney insufficiency follows Dr. 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 Gastroesophageal reflux disease Hypercholesterolemia Legally blind Osteoporosis with fracture Tinnitus Vitamin D deficiency Diabetic nephropathy Hypertension Surgical History History of tooth extraction History of esophagogastroduodenoscopy (EGD) History of colonoscopy History of bilateral oophorectomy Hx of cataract surgery R/L Family History Mother Diabetes Father Myocardial infarction Sister Healthy adult Denies family history of Ovarian cancer Prostate cancer Kidney disease Breast cancer Colorectal cancer Social History Smoking Status: Former smoker Tobacco Type: Cigarettes Age Started Using Tobacco: 17; Age Quit Using Tobacco: 58; packs per day: 0.25; Second Hand Exposure: No; Do You Dip or Chew Tobacco: No; Hx Alcohol Use: No Hx Substance Use: No Preferred Language: Kazakh Communication Ability: Effective Communication Ability Comment: legally blind, uses magnifier to read Visual Impairment: Blindness Hearing Ability: Normal Health Sciences Program Coordinator Required: No Beliefs That Will Affect Care: None marital status: single Current Living Situation: Alone current occupational status: retired 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 Mood affect appear normal. She answered all questions appropriately. sitting comfortably in emergency department wheelchair HEENT: Sclerae are anicteric. Mucous membranes moist Lungs: good air movement throughout, fine crackles at the bases left greater than right Cardiac: The rhythm was regular. S1 and S2 were normal. 2/6 ANGELICA mostly at the apex Extremities: fistula on the left upper arm Patient has bilateral radial pulses that are equal in intensity. There is no evidence cyanosis or clubbing. no edema Abdomen: bowel sounds normal Skin: There are no rashes noted on examination today. Neuro: moves all extremities spontaneously, strength normal, no focal deficits Results & Data Results & Data Vital Signs (Past 12 Hours) Vital Signs Temp Pulse Pulse Resp BP BP Pulse Ox 12/21/24 18:00 174/120 H 12/21/24 18:00 174/120 H 12/21/24 18:00 95 H 15 98 12/21/24 17:30 174/80 H 12/21/24 17:30 174/80 H 12/21/24 17:30 96 H 20 174/80 H 96 12/21/24 17:06 102 H 24 93 12/21/24 16:33 95 H 21 173/82 H 12/21/24 16:04 91 H 12/21/24 15:00 84 18 191/87 H 94 12/21/24 14:30 82 20 177/84 H 96 12/21/24 13:09 36.8 C 92 H 20 178/96 H 97 O2 Del Method 12/21/24 18:00 12/21/24 18:00 12/21/24 18:00 12/21/24 17:30 12/21/24 17:30 12/21/24 17:30 12/21/24 17:06 12/21/24 16:33 12/21/24 16:04 12/21/24 15:00 12/21/24 14:30 Room Air 12/21/24 13:09 Room Air Laboratory Results 12/21/24 12/21/24 17:05 14:08 WBC 7.60 RBC 3.01 L Hgb 9.5 L Hct 28.3 L MCV 94.0 MCH 31.6 MCHC 33.6 RDW Std Deviation 52.5 H RDW Coeff of Yin 15.5 H Plt Count 185 MPV 9.7 Immature Gran % (Auto) 0.7 Neut % (Auto) 84.8 Lymph % (Auto) 7.2 [place] % (Auto) 6.6 Eos % (Auto) 0.3 Baso % (Auto) 0.4 Neut # (Auto) 6.45 Lymph # (Auto) 0.55 L [place] # (Auto) 0.50 Eos # (Auto) 0.02 Baso # (Auto) 0.03 Immature Gran # (Auto) 0.05 Sodium 138 Potassium 5.6 H Chloride 96 L Carbon Dioxide 23 Anion Gap 19 H BUN 94 H Creatinine 6.85 H* Est Cr Clr Drug Dosing Not Reportable eGFR 5.52 BUN/Creatinine Ratio 13.7 Glucose 190 H Calcium 9.9 Total Bilirubin 0.7 AST 15 ALT 15 Alkaline Phosphatase 58 Total Protein 7.3 Albumin 4.0 Globulin 3.3 Albumin/Globulin Ratio 1.2 Urine Color Yellow Urine Appearance Clear Urine pH 8.0 H Ur Specific [place] 1.016 Urine Protein 3+ H Urine Glucose (UA) 2+ H Urine Ketones Trace H Urine Blood Negative Urine Nitrite Negative Urine Bilirubin Negative Urine Urobilinogen Negative Ur Leukocyte Esterase Negative Urine WBC (Auto) 0-5 Urine RBC (Auto) 0-2 U Hyaline Cast (Auto) 0-2 U Epithel Cells (Auto) 0-2 Urine Bacteria (Auto) None Seen Urine Comment SARS-CoV-2 (PCR) NEGATIVE Influenza Type A (PCR) Negative Influenza Type B (PCR) Negative RSV (RT-PCR) Negative Diagnostic Findings Chest X-Ray 12/21/24 13:14 XR chest 1V portable CLINICAL HISTORY: cough COMPARISON STUDY: 07/12/2021 FINDINGS: There is stable cardiomegaly with mild pulmonary vascular congestion. No consolidation or pleural effusion. No pneumothorax. Stable old fracture proximal left humerus. IMPRESSION: Mild CHF. ACT 112: Negative or not required by law. Electronically signed by: Dionisio Sales M.D. 12/21/2024 2:34 PM KUB X-Ray 12/21/24 14:43 KUB HISTORY: vomiting COMPARISON STUDY: None FINDINGS: There is moderate retained stool. No bowel obstruction seen. No gross free air. IMPRESSION: No acute findings. ACT 112: Negative or not required by law. The above report was generated using voice recognition software. It may contain grammatical, syntax or spelling errors. Electronically signed by: Dionisio Sales M.D. 12/21/2024 3:49 PM ECG Additional Comments: sinus rhythm with first-degree AV block, voltage criteria for LVH, chronic elevation of the ST segment V1 through V3 present on prior studies, slight peaking of the T waves in anterior leads Code Status & VTE Plan Code Status DNR/DNI per her wishes PG Care Time/CCT Total # of Minutes Spent Total Time Spent with Patient: Total time spent is greater than 50% in coordination of care (as documented) at patient's floor/unit and/or counseling patient: Coding Level of Care Code 12195 INT INP/OBS CARE 2/55MIN Diagnoses Cardiac LV ejection fraction 21-30% R93.1 Legally blind H54.8 History of SCC (squamous cell carcinoma) of skin Z85.828 Pure hypercholesterolemia E78.00 Hyperlipidemia type: pure hypercholesterolemia SNHL (sensorineural hearing loss) H90.5 ESRD on hemodialysis N18.6; Z99.2 Cardiomyopathy I42.9 Renovascular hypertension I15.0 Hypertension type: renovascular hypertension Secondary hyperparathyroidism N25.81 Volume overload state of heart E87.79 (4) Hyperlipidemia Hyperlipidemia type: pure hypercholesterolemia Qualified Code(s): E78.00 - Pure hypercholesterolemia, unspecified (8) Hypertension Hypertension type: renovascular hypertension Qualified Code(s): I15.0 - Renovascular hypertension
[2024-12-21] MEDS: SODIUM ZIRCONIUM CYCLOSILICATE 10 GM PACKET PO STA (19:58)
[2024-12-21] MEDS: SODIUM ZIRCONIUM CYCLOSILICATE 10 GM PACKET ONE (19:58)
[2024-12-21] MEDS ORDERED: ACETAMINOPHEN 325 MG TAB PO PRN (20:50)
[2024-12-21] MEDS ORDERED: PHARMACY GLYCEMIC MGMT CONSULT PRN (20:50)
[2024-12-21] MEDS ORDERED: GLUCOSE 10 TAB/TUBE PO PRN (20:50)
[2024-12-21] MEDS ORDERED: GLUCAGON FOR INJ 1 MG VIAL SQ PRN (20:50)
[2024-12-21] MEDS ORDERED: POLYETHYLENE (MIRALAX) 17 GM PACK PO PRN (20:50)
[2024-12-21] MEDS ORDERED: CARBOHYDRATES FOR HYPOGLYCEMIA PO PRN (20:50)
[2024-12-21] MEDS ORDERED: GLUCOSE 40% GEL 15 GM TUBE PO PRN (20:50)
[2024-12-21] MEDS ORDERED: DEXTROSE 50% 50 ML SYRINGE IV PRN (20:50)
[2024-12-21] MEDS: LOSARTAN POTASSIUM 50 MG TAB PO SCH (21:12)
[2024-12-21] MEDS: SODIUM ZIRCONIUM CYCLOSILICATE 10 GM PACKET PO SCH (21:12)
[2024-12-21] MEDS: ASPIRIN 81 MG ECTAB PO SCH (21:13)
[2024-12-21] MEDS: METOPROLOL SUCC 50MG EXT REL TAB PO SCH (21:13)
[2024-12-21] MEDS: ATORVASTATIN 10 MG TAB PO SCH (21:13)
[2024-12-21] MEDS: INSULIN ASPART PER UNIT CHARGE SC SCH (21:18)
[2024-12-22 07:57] VITALS: RESP 18; O2SAT 94
[2024-12-22] MEDS: ONDANSETRON INJ 2 MG/ML 2 ML VIAL IV PRN (08:03)
[2024-12-22] MEDS: [UNRECOGNIZED DRUG - OTHER] PO SCH (08:15)
[2024-12-22] MEDS: ZINC PO SCH (08:15)
[2024-12-22] MEDS: CHOLECALCIFEROL 25 MCG (1000 UNITS) TAB PO SCH (08:23)
[2024-12-22] MEDS: SEVELAMER CARBONATE 800 MG TAB PO SCH (08:23)
[2024-12-22] MEDS: NEPHROCAPS PO SCH (08:23)
[2024-12-22 09:23] VITALS: TEMP 98.2
--- NOTE | 2024-12-22 10:23 | Nephrology Consultation ---
Date of Consultation December 22, 2024 Assessment & Plan (1) ESRD on hemodialysis: Orders for HD today were entered into the EHR and reviewed with the freelance designer. Tory was seen and evaluated prior to and during her dialysis treatment. She is tolerating HD well. Outpatient Rx: 2.75 hours Fx CorAl 80, 350/500, 2K 137Na 2.0Ca 35HCO3; EDW 63.5. Treatment time extended today to allow for additional UF. Clearance is acceptable. AVF functioning well. Medications appropriate for kidney function. (2) Acute hyperkalemia: Missed HD on Thursday. No concerning EKG changes. Lokelma provided overnight. Binder was stopped this AM. HD coordinated. Resume renal dietary restriction. (3) Hypertension: Hypervolemic. BP improving with UF. Remains on losartan per home Rx of 50 mg daily. (4) Anemia: Chronic, stable. Maintained on Micera and IV iron with HD. (5) Chronic kidney disease-mineral and bone disorder: Renal diet and Renvela QAC for hyperphosphatemia. History of Present Illness Reason for Consultation: ESRD; dialysis dependent Requesting Physician: Lorne Carlson MD Attending Physician: Lorne Carlson MD History of Present Illness Tory Rodriguez is an 84 year-old female with ESRD. Tory is on chronic maintenance hemodialysis at [facility]. She dialyzes under my care on a TTS schedule. Tory has been tolerating HD well. She completed her scheduled treatment on Thursday without complications. I discussed the patient with staff at the dialysis facility. Tory's renal impairment is due to diabetic nephropathy. 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 HD Rx is 2.75 hours Fx CorAl 80, 350/500, 2K 137Na 2.0Ca 35HCO3; EDW 63.5. Ms. Rodriguez underwent L BC AVF by Dr. Mercedes. AVF is functioning well. Tory presented to the ER yesterday with cough and persistent N/V. Symptoms started on Thursday. She missed dialysis on Thursday due to symptoms. Tory was admitted to [facility] yesterday with hyperkalemia and mild volume overload. Symptoms of nausea/vomiting improving with antiemetics. Allergies Allergy/AdvReac Type Severity Reaction Status Date / Time No Known Allergies Allergy Verified 12/21/24 17:54 Home Medications Medication Instructions Recorded Confirmed Type acetaminophen 500 mg tablet 1,000 mg PO BID 10/11/18 12/21/24 History (Tylenol Extra Strength) cholecalciferol (vitamin D3) 50 2,000 units PO QAM 10/14/19 12/21/24 History mcg (2,000 unit) tablet aspirin 81 mg tablet,delayed 81 mg PO DAILY 07/30/20 12/21/24 History release losartan 50 mg tablet 50 mg PO DAILY #90 tabs 12/22/23 12/21/24 Rx sevelamer carbonate 800 mg tablet 800 mg PO TIDM 08/19/24 12/21/24 History atorvastatin 10 mg tablet 10 mg PO HS #90 tabs 08/29/24 12/21/24 Rx metoprolol succinate 50 mg 50 mg PO DAILY #90 tabs 11/02/24 12/21/24 Rx tablet,extended release 24 hr vitamin B complex with C-folic 2 tab PO DAILY 12/21/24 12/21/24 History acid 0.8 mg-zinc citrate 15 mg tablet (Dialyvite 800 with Zinc 15) Patient History Medical History Myelopathy concurrent with and due to spinal stenosis of cervical region Dialysis patient tues/ thurs/ sat to [place] AV fistula left upper arm Paresthesias in left hand Upper back pain DVT prophylaxis Volume overload Hyperkalemia Chronic kidney insufficiency follows Dr. 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 Gastroesophageal reflux disease Hypercholesterolemia Legally blind Osteoporosis with fracture Tinnitus Vitamin D deficiency Diabetic nephropathy Hypertension Surgical History History of tooth extraction History of esophagogastroduodenoscopy (EGD) History of colonoscopy History of bilateral oophorectomy Hx of cataract surgery R/L Family History Mother Diabetes Father Myocardial infarction Sister Healthy adult Denies family history of Ovarian cancer Prostate cancer Kidney disease Breast cancer Colorectal cancer Social History Smoking Status: Former smoker Tobacco Type: Cigarettes Age Started Using Tobacco: 17; Age Quit Using Tobacco: 58; packs per day: 0.25; Smoking End Date: 1999; Second Hand Exposure: No; Do You Dip or Chew Tobacco: No; Tobacco Cessation Education Requested by Patient: No Hx Alcohol Use: Yes Alcohol type: beer and wine Hx Substance Use: No Preferred Language: Moroccan Communication Ability: Effective Communication Ability Comment: legally blind, uses magnifier to read Visual Impairment: Blindness Hearing Ability: Normal Hand Drawer In Required: No Beliefs That Will Affect Care: None marital status: single Current Living Situation: Family Current Living Situation Comment: pt reports living at home w/ sister current occupational status: retired 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 Other Information That Helps Us Care for You: No Feels Safe at Home: Yes Safety Concerns: Feels Safe At This Time Childhood Exposure to Second-Hand Smoke: No Diet: regular caffeine: Yes Dental Care, Regularly: Yes Physical Activity Frequency: Does not Exercise Seatbelt Use: always Sunscreen Use: No Assistive Devices: Cane and Walker Review of Systems Review of Systems: All systems reviewed & are unremarkable except as noted in HPI & below Physical Exam Constitutional: well developed; no acute distress Eyes: no scleral abnormality and no corneal abnormality ENMT: Mouth: no oral mucosal abnormality and oral mucous membranes not dry Neck: normal visual inspection and trachea midline Respiratory: normal respiratory effort Auscultation: lungs clear to auscultation bilaterally Cardiovascular: Rate/Rhythm: regular rate Heart Sounds: normal S1 and normal S2 Extremities: + AV fistula; no edema Musculoskeletal: Extremities: no cyanosis and no clubbing Skin: normal turgor; no lesions Neurologic: Motor/Sensory: no tremor and no asterixis Psychiatric: Orientation: alert and oriented x 3 Results & Data Vital Signs (Past 12 Hours) Vital Signs Temp Pulse Pulse Pulse Resp BP BP 12/22/24 09:30 70 152/59 H 12/22/24 09:08 80 173/70 H 12/22/24 09:05 36.8 C 80 12/22/24 08:26 172/86 H 12/22/24 07:56 36.3 C L 74 18 190/65 H 12/22/24 03:57 36.8 C 75 16 163/64 H Pulse Ox O2 Del Method 12/22/24 09:30 12/22/24 09:08 12/22/24 09:05 12/22/24 08:26 12/22/24 07:56 94 Room Air 12/22/24 03:57 95 Room Air Laboratory Results Laboratory Results - last 24 hr 12/21/24 12/21/24 12/21/24 14:08 17:05 21:11 WBC 7.60 RBC 3.01 L Hgb 9.5 L Hct 28.3 L MCV 94.0 MCH 31.6 MCHC 33.6 RDW Std Deviation 52.5 H RDW Coeff of Yin 15.5 H Plt Count 185 MPV 9.7 Immature Gran % (Auto) 0.7 Neut % (Auto) 84.8 Lymph % (Auto) 7.2 [place] % (Auto) 6.6 Eos % (Auto) 0.3 Baso % (Auto) 0.4 Neut # (Auto) 6.45 Lymph # (Auto) 0.55 L [place] # (Auto) 0.50 Eos # (Auto) 0.02 Baso # (Auto) 0.03 Immature Gran # (Auto) 0.05 Sodium 138 Potassium 5.6 H Chloride 96 L Carbon Dioxide 23 Anion Gap 19 H BUN 94 H Creatinine 6.85 H* Est Cr Clr Drug Dosing Not Reportable eGFR 5.52 BUN/Creatinine Ratio 13.7 Glucose 190 H POC Glucose 237 H Calcium 9.9 Total Bilirubin 0.7 AST 15 ALT 15 Alkaline Phosphatase 58 Total Protein 7.3 Albumin 4.0 Globulin 3.3 Albumin/Globulin Ratio 1.2 Urine Color Yellow Urine Appearance Clear Urine pH 8.0 H Ur Specific [place] 1.016 Urine Protein 3+ H Urine Glucose (UA) 2+ H Urine Ketones Trace H Urine Blood Negative Urine Nitrite Negative Urine Bilirubin Negative Urine Urobilinogen Negative Ur Leukocyte Esterase Negative Urine WBC (Auto) 0-5 Urine RBC (Auto) 0-2 U Hyaline Cast (Auto) 0-2 U Epithel Cells (Auto) 0-2 Urine Bacteria (Auto) None Seen Urine Comment SARS-CoV-2 (PCR) NEGATIVE Influenza Type A (PCR) Negative Influenza Type B (PCR) Negative RSV (RT-PCR) Negative 12/22/24 08:11 WBC RBC Hgb Hct MCV MCH MCHC RDW Std Deviation RDW Coeff of Yin Plt Count MPV Immature Gran % (Auto) Neut % (Auto) Lymph % (Auto) [place] % (Auto) Eos % (Auto) Baso % (Auto) Neut # (Auto) Lymph # (Auto) [place] # (Auto) Eos # (Auto) Baso # (Auto) Immature Gran # (Auto) Sodium Potassium Chloride Carbon Dioxide Anion Gap BUN Creatinine Est Cr Clr Drug Dosing eGFR BUN/Creatinine Ratio Glucose POC Glucose 112 H Calcium Total Bilirubin AST ALT Alkaline Phosphatase Total Protein Albumin Globulin Albumin/Globulin Ratio Urine Color Urine Appearance Urine pH Ur Specific [place] Urine Protein Urine Glucose (UA) Urine Ketones Urine Blood Urine Nitrite Urine Bilirubin Urine Urobilinogen Ur Leukocyte Esterase Urine WBC (Auto) Urine RBC (Auto) U Hyaline Cast (Auto) U Epithel Cells (Auto) Urine Bacteria (Auto) Urine Comment SARS-CoV-2 (PCR) Influenza Type A (PCR) Influenza Type B (PCR) RSV (RT-PCR) Diagnostic Findings XR chest 1V portable COMPARISON STUDY: 07/12/2021 FINDINGS: There is stable cardiomegaly with mild pulmonary vascular congestion. No consolidation or pleural effusion. No pneumothorax. Stable old fracture proximal left humerus. IMPRESSION: Mild CHF. PG Care Time/CCT Total # of Minutes Spent Total Time Spent with Patient: Total time spent is greater than 50% in coordination of care (as documented) at patient's floor/unit and/or counseling patient: Coding Level of Care Code 75726 IN/OBS CONSULT LVL 4,60M Diagnoses ESRD on hemodialysis N18.6; Z99.2 Acute hyperkalemia E87.5 Renovascular hypertension I15.0 Hypertension type: renovascular hypertension Anemia D64.9 Chronic kidney disease-mineral and bone disorder N18.9; E83.9; M89.9 (3) Hypertension Hypertension type: renovascular hypertension Qualified Code(s): I15.0 - Renovascular hypertension
[2024-12-22 12:30] VITALS: BP 161/62
[2024-12-22 13:48] VITALS: PULSE 74
--- NOTE | 2024-12-22 13:48 | Discharge Summary ---
Discharge Summary Date of Service December 22, 2024 Principal Dx & Hospital Course #1 = Principal Diagnosis (1) Cardiac LV ejection fraction 21-30%: (2) Legally blind: (3) History of SCC (squamous cell carcinoma) of skin: (4) Hyperlipidemia: (5) SNHL (sensorineural hearing loss): (6) ESRD on hemodialysis: (7) Cardiomyopathy: (8) Hypertension: (9) Secondary hyperparathyroidism: (10) Volume overload state of heart: Plan #end-stage renal disease, dialysis dependent #secondary hyperparathyroidism - electively missed dialysis yesterday, was not feeling well. This is not an unusual thing for her to do on a however this 1 was earlier in the week - consulted nephrology, plan is to dialyze on the inpatient side, appreciate recommendations - [place] for hyperkalemia as below - tolerated dialysis well. Extended run to catch her up. Okay to discharge from a nephrology standpoint resume her normal Thursday dialysis schedule #type 2 diabetes - glucose 190 on admission, consulted pharmacy for glycemic management. Mostly dietary at home - resume outpatient management of #nausea vomiting - improved since arrival to the emergency department, will continue with Zofran as needed for any recurrence - resolved at time of discharge #hyperkalemia - no significant EKG change, likely palliated by her emesis, Lokelma was started to the emergency department, will continue until dialysis complete - Lokelma to manage through the initial night, discontinued with dialysis and afterwards, no reason to continue #hypertension #diastolic hypertension - moderately elevated at this time, she missed all of her morning medicines, will start with her losartan and metoprolol tonight. Hydralazine as needed as needed for significant elevation #mixed cardiomyopathy #HFrEF - follows with cardiology, mild volume overload state, admit for dialysis as above, he is making some urine at this time. - No chest pain, lower extremity edema or significant signs of decompensation - no mxa overload state after dialysis, at risk given her underlying cardiomyopathy. #hyperlipidemia - continue statin #sensorineural hearing loss #legal blindness - supportive measures, she was able to communicate with speaking in a clear loud voice. 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 in May of this year, Mohs procedure several years ago #FEN - renal/ diabetic diet #CODE STATUS - DNR/DNI per her wishes Admission HPI Per Admitting Provider nausea vomiting, shortness of breath Discharge Plan Discharge Items Patient Disposition: Home - Self-Care Reason For Visit: VOLUME OVERLOAD, END-STAGE RENAL DISEASE Discharge Diagnosis: ESRD, Hyperkalemia Condition on Discharge: Fair Activity: Resume your previous activity Non-emergency contact: Primary Care Provider and Gynaecological Oncologist Call non-emergency contact if: you have any medication questions, your symptoms worsen and you have a fever Follow-up/Referrals: Felice Stubbs MD [Primary Care Provider] - Diet: Carb Consistent or DM2 Addtl Attending Provider Instructions: Resume prior dialysis schedule as planned, avoid skipping dialysis days Pending Studies at Discharge: No Stand-Alone Forms: My [employer], Smoking Cessation Medications and DC Order Prescriptions: Continued losartan 50 mg tablet 50 mg PO DAILY Qty: 90 3RF atorvastatin 10 mg tablet 10 mg PO HS Qty: 90 3RF metoprolol succinate 50 mg tablet extended release 24 hr 50 mg PO DAILY Qty: 90 3RF acetaminophen [Tylenol Extra Strength] 500 mg tablet 1,000 mg PO BID sevelamer carbonate 800 mg tablet 800 mg PO TIDM Patient Comments: she is to take TID, but only takes once daily cholecalciferol (vitamin D3) 2,000 unit tablet 2,000 units PO QAM aspirin 81 mg Tablet,Delayed Release (Dr/Ec) 81 mg PO DAILY Dialyvite 800 with Zinc 15 0.8-15 mg tablet 2 tab PO DAILY Discharge Orders: Discharge Order (Routine); Ordered 12/22/24 Ordered By: Lorne Edwards/Other Patient Handouts: Hemodialysis Admission Data Admit Date/Time: 12/21/24 18:44 Attending Provider: Lorne Carlson Admit Provider: Lorne Carlson Primary Care Provider: Felice Stubbs Other Providers: Lorne Carlson; [facility] Stay Data Consultations 12/21/24 18:12 ED Decision to Admit Stat 12/21/24 20:50 Consult Nephrology Routine Pending Results Patient Have Any Pending Studies at Discharge: No Discharge Instructions Given to Patient (Per Discharging Provider) Resume prior dialysis schedule as planned, avoid skipping dialysis days Total Time Total Time Spent Total Time Spent (In Minutes): 25 minutes coordinating with nephrology, reviewing outpatient care plan and reinforcing the need for dialysis with the patient Coding Level of Care Code 99579 IN/OBS DISCH 30 MIN/LESS Diagnoses Cardiac LV ejection fraction 21-30% R93.1 Legally blind H54.8 History of SCC (squamous cell carcinoma) of skin Z85.828 Pure hypercholesterolemia E78.00 Hyperlipidemia type: pure hypercholesterolemia SNHL (sensorineural hearing loss) H90.5 ESRD on hemodialysis N18.6; Z99.2 Cardiomyopathy I42.9 Renovascular hypertension I15.0 Hypertension type: renovascular hypertension Secondary hyperparathyroidism N25.81 Volume overload state of heart E87.79
== END 2024-12-22 14:47 | disposition home or self-care (01) ==
LOC: ED 12:54 → 2S 12:54

== ENCOUNTER 2024-12-22 15:50 | Inpatient (IN) ==
[2024-12-22 16:24] LABS: Hematocrit (blood only) 27.4 % (37.0-47.0); Hemoglobin 9.6 g/dl (12.0-16.0); Immature Granulocytes # (auto) 0.06 K/uL (0.01-0.20); Immature Granulocytes % (auto) 0.8 %; Mean Corpuscular Hemoglobin 32.3 pg (25.0-34.0); Mean Corpuscular Volume 92.3 fL (80.0-100.0); Platelet Count 179 K/uL (130-400); RDW Standard Deviation 49.6 fL (36.4-46.3); Red Blood Count 2.97 M/uL (4.20-5.40); White Blood Count 7.13 K/ul (4.8-10.8)
[2024-12-22 16:52] LABS: INR 1.1 (0.9-1.1); Partial Thromboplastin Time 24 Seconds (21-31); Prothrombin Time 11.1 Seconds (9.0-12.0)
[2024-12-22 16:59] LABS: Anion Gap 15.0 (3-11); Blood Urea Nitrogen 34.0 mg/dl (6-23); Calcium 9.5 mg/dl (8.6-10.3); Carbon Dioxide 29.0 mmol/L (21-32); Chloride 93.0 mmol/L (98-107); Creatinine Clr Calc Pharmacy 11.4 ml/min; Glucose 214.0 mg/dl (70-99(Fasting)); Lipase 4.0 U/L (11-82); Potassium 3.9 mmol/L (3.5-5.1); Sodium 137.0 mmol/L (136-145)
--- NOTE | 2024-12-22 17:07 | XRay Report ---
Clinical History: Pain after fall One view of the pelvis is submitted for review. Findings: No fracture or dislocation is seen. No significant arthritic changes are noted. No other osseous abnormality is identified. There are no radiopaque foreign bodies. Vascular calcifications are present Impression: No definite fracture Electronically signed by Willie Azar 12-22-2024 5:07 PM
--- NOTE | 2024-12-22 17:11 | XRay Report ---
Clinical History: Chest pain Technique: A frontal view of the chest was obtained Comparison is made to the prior examination dated 07/12/2021 Findings: There are no confluent pulmonary infiltrates. The heart is mildly enlarged. No pleural effusion or pneumothorax is seen. There is mild diffuse interstitial prominence, concerning for pulmonary edema There is an old healed fracture of the left humeral neck. There is thoracic scoliosis and degenerative disc disease Impression: Cardiomegaly and mild pulmonary edema ACT 112: Positive. There are findings on this exam that require communication between the performing entity and the patient following Patient Test Result Information Act ([place] ACT 112) guidelines. Electronically signed by Willie Azar 12-22-2024 5:08 PM
--- NOTE | 2024-12-22 17:11 | CT Scan Report ---
EXAMINATION: Head CT without CLINICAL HISTORY: Falling while attempting to get out of the car today after being discharged from the hospital. Reports hitting head with no loss of consciousness, no blood thinner use PRIORS: 07/12/2021 TECHNIQUE: Contiguous axial images were obtained through the head without the use of intravenous contrast. Sagittal and coronal reformations are supplied. FINDINGS: Appropriate parenchymal volume is noted. Borjas-white differentiation is preserved. No edema or midline shift. Soft tissue hematoma in the right superior occipital region, appearing in the interval. No intra-axial or extra-axial hemorrhage. Ventricles mildly prominent, unchanged. Brainstem and cerebellum have a normal appearance. Calvarium unremarkable. Paranasal sinuses and mastoid air cells are well-pneumatized. Globes are intact. No retrobulbar abnormality. IMPRESSION: 1. No CT evidence of an acute intracranial abnormality. 2. Moderate scalp soft tissue swelling and hematoma involving the right superior posterior head. ACT 112: Positive. There are findings on this examination that require communication between the performing entity and the patient following Patient Test Result Information Act ([place] ACT 112) guidelines. Electronically signed by Chantelle Donovan 12-22-2024 5:07 PM
--- NOTE | 2024-12-22 17:12 | CT Scan Report ---
EXAMINATION: Abdomen and pelvis CT without CLINICAL HISTORY: Following attempted to get out of car after being discharged from hospital. Hit head. PRIORS: None TECHNIQUE: Contiguous axial images were obtained through the abdomen and pelvis without the use of intravenous contrast. Sagittal and coronal reformations are supplied. FINDINGS: Heart size is enlarged. Hypoventilatory changes at the lung bases. Chest CT dictated under separate heading. Evaluation of limited without intravenous contrast. Allowing for this, no solid organ laceration, subcapsular hematoma or hemoperitoneum. The gallbladder, atrophic pancreas, spleen, stomach, adrenals, are morphologically unremarkable. Advanced atherosclerotic disease of the aorta present. Kidneys are atrophic with multiple round lesions noted, not further characterized. Urinary bladder distends normally. Atrophic uterus is present. Moderate amount of formed stool and gas present. Possible barium or contrast present in the ascending colon likely from prior examination. No retroperitoneal hemorrhage. No subcutaneous soft tissue swelling or hematoma. Moderate osseous demineralization noted. No high-grade compression fracture of the lumbar spine. No displaced sacral fracture. Mild lumbar scoliosis, convex to the left. Allowing for osseous demineralization, no displaced hip or obturator ring fracture. IMPRESSION: No CT evidence of an acute or traumatic abnormality in the abdomen or pelvis. Electronically signed by Chantelle Donovan 12-22-2024 5:12 PM
--- NOTE | 2024-12-22 17:15 | CT Scan Report ---
EXAM: CT cervical spine CLINICAL HISTORY: Fall while getting out of car. TECHNIQUE: Contiguous axial images were obtained through the cervical spine without the use of intravenous contrast. Sagittal and coronal reformations are supplied. PRIORS: MR 2020 FINDINGS: Advanced osseous demineralization noted. Bone stock is normal. Lordotic straightening is noted. Approximately 4 mm of anterolisthesis on C7-T1 present, unchanged. Multiple cystic changes in the dens with no displaced fracture identified. No acute cervical spine fracture or facet dislocation. Vertebral body fusion at C5-C6 No prevertebral soft tissue swelling. Advanced degenerative change noted at all levels with intervertebral disc space loss, endplate changes, anterior and posterior osteophytes. Visualized trachea is patent. IMPRESSION: No CT evidence of an acute osseous abnormality. Osseous demineralization with advanced degenerative changes above. Electronically signed by Chantelle Donovan 12-22-2024 5:15 PM
--- NOTE | 2024-12-22 17:18 | CT Scan Report ---
EXAMINATION: Chest CT without CLINICAL HISTORY: Fall getting out of car, hit head COMPARISON: Chest radiograph today, 07/13/2019 TECHNIQUE: Contiguous axial images were obtained through the chest without the use of intravenous contrast. Sagittal and coronal reformations are supplied. FINDINGS: Diminished lung volumes noted. No pneumothorax, pulmonary contusion or large pleural effusion. Heart size is moderately enlarged. Advanced atherosclerotic disease present. No pericardial effusion. Small hiatal hernia. Trachea patent. No radiopaque foreign body. Thyroid not enlarged. No soft tissue swelling or hematoma of the chest wall. Left arm in the [id number]. Moderate osseous demineralization noted. No high-grade compression fracture, allowing for osseous demineralization. No sternal fracture. The clavicles, ribs, and scapula show no acute fracture. Advanced degenerative change of the shoulders. No high-grade compression fracture of the thoracic spine. IMPRESSION: No CT evidence of an acute or traumatic abnormality in the chest. Electronically signed by Chantelle Donovan 12-22-2024 5:18 PM
--- NOTE | 2024-12-22 18:54 | History & Physical Report ---
Date of Service December 22, 2024 Assessment & Plan (1) Fall: (2) Volume overload state of heart: (3) Diabetes: (4) Diabetes mellitus type 2 with complications: (5) HFrEF (heart failure with reduced ejection fraction): (6) Coronary artery disease: Plan 84 y/o with ESRD who was treated in hospital 12/21 after missed dialysis with hyperkalemia, volume overload and nausea, home later same day after inpatient dialysis. She comes back in after falling while trying to get out of a car. She did hit head, no LOC. She did complete outpatient HD today. # mechanical fall, trauma alert - symptomatic of hematoma vertex of right head, some right sided low back and hip pain. It seems like she is having some sciatica type pain and also pain radiating to right groin. No deformity on exam tolerates range of motion of the hip very well - CT head, neck, chest abdomen and pelvis done in the ED no acute injuries. Also had unremarkable pelvis and chest x-ray - we will see how she does with weight bearing on the right leg, if hip remains significantly painful she may need more imaging - check orthostatic vital signs, reviewed med list PT/OT evaluations - on aspirin but not anticoagulated. A.m. CBC to check for stability of her anemia - increase her scheduled Tylenol to 1 g 3 times daily and added as needed tramadol for acute low back pain and right hip pain #mild hypoxia - CXR with some pulmonary edema and bibasilar crackles on exam, BNP very elevated. May be relatively volume overloaded. No evidence of pneumonia, PE unlikely #end-stage renal disease, dialysis dependent [facility] AVF #secondary hyperparathyroidism - continue sevelamer, dialysis, consult nephrology if remaining in hospital past Thursday #type 2 diabetes - continue diabetic renal diet, metformin, low-dose Premeal/correctional aspart insulin #hypertension - moderately elevated at this time, continue losartan and metoprolol #HFrEF, mixed cardiomyopathy EF 20-30% #HFrEF #CAD, HLD #Mildly elevated HS troponin without evidence of ACS may be demand ischemia from HFrEF and mild volume overload, also poor clearance of troponin in ESRD - follows with cardiology, mild volume overload state - check serial troponin, repeat EKG in AM - continue ASA, metoprolol, losartan, atorvastatin #sensorineural hearing loss #legal blindness, from diabetic retinopathy - supportive measures, she is able to communicate with speaking in a clear loud voice. She does have some vision though poor #metastatic squamous cell carcinoma - status post stereotactic radiation therapy to the head and neck in May of this year, Mohs procedure several years ago #CODE STATUS - DNR/DNI per her wishes - confirmed today History of Present Illness Chief Complaint: Fall, struck head Primary Care Provider: Felice Stubbs MD 84-year-old woman with ESRD on dialysis, coronary artery disease hypertension HFrEF who came to the ED after a mechanical fall Was hospitalized 12/21 for missed dialysis due to malaise, hyperkalemia, nausea/vomiting resolved after dialysis and went home. she did go to her usual outpatient dialysis today and completed the treatment. She was getting out of a car and she fell backward landing on her back and hitting the back of her head. She had no loss of consciousness. No lightheadedness/dizziness vertigo or headache, her vision is chronically poor unchanged from usual, no neck pain. She does have right-sided low back pain with some radiation down the back of her thigh and she has some right hip pain radiating to the groin. No shortness of breath cough or chest pain. No abdominal pain no further nausea and vomiting no diarrhea. Typically does not make urine though made some during last admission which is unusual. Urinalysis 12/21 was negative for pyuria. Allergies Allergy/AdvReac Type Severity Reaction Status Date / Time No Known Allergies Allergy Verified 12/21/24 17:54 Home Medications Medication Instructions Recorded Confirmed Type acetaminophen 500 mg tablet 1,000 mg PO BID 10/11/18 12/22/24 History (Tylenol Extra Strength) cholecalciferol (vitamin D3) 50 2,000 units PO QAM 10/14/19 12/22/24 History mcg (2,000 unit) tablet aspirin 81 mg tablet,delayed 81 mg PO DAILY 07/30/20 12/22/24 History release losartan 50 mg tablet 50 mg PO DAILY #90 tabs 12/22/23 12/22/24 Rx sevelamer carbonate 800 mg tablet 800 mg PO TIDM 08/19/24 12/22/24 History atorvastatin 10 mg tablet 10 mg PO HS #90 tabs 08/29/24 12/22/24 Rx metoprolol succinate 50 mg 50 mg PO DAILY #90 tabs 11/02/24 12/22/24 Rx tablet,extended release 24 hr vitamin B complex with C-folic 2 tab PO DAILY 12/21/24 12/22/24 History acid 0.8 mg-zinc citrate 15 mg tablet (Dialyvite 800 with Zinc 15) Past Med/Surg History Problem List (Updated 12/22/24 @ 19:44 by Jael Soto MD) Coronary artery disease HFrEF (heart failure with reduced ejection fraction) Fall Acute hyperkalemia (Acute) Vomiting (Acute) Volume overload state of heart Cardiac LV ejection fraction 21-30% Renal cyst Legally blind READS WITH MAGNIFYING GLASSES Osteoarthritis of left glenohumeral 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 Quinones Anemia Hypertension Per records Generalized weakness (Acute) Chronic kidney disease-mineral and bone disorder Secondary hyperparathyroidism Medical History Myelopathy concurrent with and due to spinal stenosis of cervical region Dialysis patient tues/ thurs/ sat to [facility] fistula left upper arm Paresthesias in left hand Upper back pain DVT prophylaxis Volume overload Hyperkalemia Chronic kidney insufficiency follows Dr. 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 Gastroesophageal reflux disease Hypercholesterolemia Legally blind Osteoporosis with fracture Tinnitus Vitamin D deficiency Diabetic nephropathy Hypertension Surgical History History of tooth extraction History of esophagogastroduodenoscopy (EGD) History of colonoscopy History of bilateral oophorectomy Hx of cataract surgery R/L Family History Mother Diabetes Father Myocardial infarction Sister Healthy adult Denies family history of Ovarian cancer Prostate cancer Kidney disease Breast cancer Colorectal cancer Social History Smoking Status: Former smoker Tobacco Type: Cigarettes Age Started Using Tobacco: 17; Age Quit Using Tobacco: 58; packs per day: 0.25; Second Hand Exposure: No; Do You Dip or Chew Tobacco: No; Hx Alcohol Use: Yes Alcohol type: beer and wine Hx Substance Use: No Preferred Language: Italian Communication Ability: Effective Communication Ability Comment: legally blind, uses magnifier to read Visual Impairment: Blindness Hearing Ability: Normal Transfer Worker Required: No Beliefs That Will Affect Care: None marital status: single Current Living Situation: Family Current Living Situation Comment: pt reports living at home w/ sister current occupational status: retired 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 Ecchymosis right posterior vertex of her head, no deformity of the skull RESP: normal WOB, bibasilar crackles no wheezing CV: regular with systolic murmur ABD: soft/nt/nd +BT : no walker extremities: She has some bruising right upper extremity, no deformity of her lower back or right hip she tolerates a full range of motion at the right hip without pain SKIN: warm and dry, no generalized rashes NEURO: AOx person, place, and situation. vague historian and a bit forgetful Face symmetric, speech normal, moves 4 ext spontaneously and equally. Essential tremor especially left upper extremity Results & Data Results & Data Vital Signs (Past 12 Hours) Vital Signs Temp Pulse Pulse Resp BP BP Pulse Ox 12/22/24 18:12 78 27 H 98 12/22/24 18:08 76 20 183/122 H 94 12/22/24 18:08 74 20 88 L 12/22/24 18:01 178/122 H 12/22/24 17:57 77 17 97 12/22/24 17:52 74 12/22/24 17:48 74 23 12/22/24 17:21 75 20 178/122 H 94 12/22/24 16:21 93 12/22/24 16:21 36.9 C 74 20 183/68 H 99 12/22/24 16:21 36.9 C 76 20 183/63 H 93 12/22/24 15:57 80 16 96 12/22/24 15:43 36.9 C 84 20 185/77 H 97 O2 Del Method O2 Flow Rate 12/22/24 18:12 12/22/24 18:08 Nasal Cannula 2 12/22/24 18:08 Room Air 12/22/24 18:01 12/22/24 17:57 12/22/24 17:52 12/22/24 17:48 12/22/24 17:21 Nasal Cannula 2 12/22/24 16:21 Nasal Cannula 2 12/22/24 16:21 Nasal Cannula 2 12/22/24 16:21 Nasal Cannula 2 12/22/24 15:57 Nasal Cannula 2 12/22/24 15:43 Nasal Cannula 2 Laboratory Results 12/22/24 16:10 12/22/24 16:10 iCa 1.07 / Ca 9.5 Tn 56 BNP 4313 INR 1.1 lipase 4 EKG - personally interpreted tracing - normal sinus, LVH, ST depressions lateral leads. Lateral ST depressions similar to EKG yesterday personally reviewed chest x-ray film and has cardiomegaly and some pulmonary edema Diagnostic Findings Chest X-Ray 12/22/24 15:57 Clinical History: Chest pain Technique: A frontal view of the chest was obtained Comparison is made to the prior examination dated 07/12/2021 Findings: There are no confluent pulmonary infiltrates. The heart is mildly enlarged. No pleural effusion or pneumothorax is seen. There is mild diffuse interstitial prominence, concerning for pulmonary edema There is an old healed fracture of the left humeral neck. There is thoracic scoliosis and degenerative disc disease Impression: Cardiomegaly and mild pulmonary edema ACT 112: Positive. There are findings on this exam that require communication between the performing entity and the patient following Patient Test Result Information Act ([place] ACT 112) guidelines. Electronically signed by Willie Azar 12-22-2024 5:08 PM Pelvis X-Ray 12/22/24 16:01 Clinical History: Pain after fall One view of the pelvis is submitted for review. Findings: No fracture or dislocation is seen. No significant arthritic changes are noted. No other osseous abnormality is identified. There are no radiopaque foreign bodies. Vascular calcifications are present Impression: No definite fracture Electronically signed by Willie Azar 12-22-2024 5:07 PM Abdomen/Pelvis CT 12/22/24 16:20 EXAMINATION: Abdomen and pelvis CT without CLINICAL HISTORY: Following attempted to get out of car after being discharged from hospital. Hit head. PRIORS: None TECHNIQUE: Contiguous axial images were obtained through the abdomen and pelvis without the use of intravenous contrast. Sagittal and coronal reformations are supplied. FINDINGS: Heart size is enlarged. Hypoventilatory changes at the lung bases. Chest CT dictated under separate heading. Evaluation of limited without intravenous contrast. Allowing for this, no solid organ laceration, subcapsular hematoma or hemoperitoneum. The gallbladder, atrophic pancreas, spleen, stomach, adrenals, are morphologically unremarkable. Advanced atherosclerotic disease of the aorta present. Kidneys are atrophic with multiple round lesions noted, not further characterized. Urinary bladder distends normally. Atrophic uterus is present. Moderate amount of formed stool and gas present. Possible barium or contrast present in the ascending colon likely from prior examination. No retroperitoneal hemorrhage. No subcutaneous soft tissue swelling or hematoma. Moderate osseous demineralization noted. No high-grade compression fracture of the lumbar spine. No displaced sacral fracture. Mild lumbar scoliosis, convex to the left. Allowing for osseous demineralization, no displaced hip or obturator ring fracture. IMPRESSION: No CT evidence of an acute or traumatic abnormality in the abdomen or pelvis. Electronically signed by Chantelle Donovan 12-22-2024 5:[address] 12/22/24 16:20 EXAM: CT cervical spine CLINICAL HISTORY: Fall while getting out of car. TECHNIQUE: Contiguous axial images were obtained through the cervical spine without the use of intravenous contrast. Sagittal and coronal reformations are supplied. PRIORS: MR 2020 FINDINGS: Advanced osseous demineralization noted. Bone stock is normal. Lordotic straightening is noted. Approximately 4 mm of anterolisthesis on C7-T1 present, unchanged. Multiple cystic changes in the dens with no displaced fracture identified. No acute cervical spine fracture or facet dislocation. Vertebral body fusion at C5-C6 No prevertebral soft tissue swelling. Advanced degenerative change noted at all levels with intervertebral disc space loss, endplate changes, anterior and posterior osteophytes. Visualized trachea is patent. IMPRESSION: No CT evidence of an acute osseous abnormality. Osseous demineralization with advanced degenerative changes above. Electronically signed by Chantelle Donovan 12-22-2024 5:[address] 12/22/24 16:20 EXAMINATION: Chest CT without CLINICAL HISTORY: Fall getting out of car, hit head COMPARISON: Chest radiograph today, 07/13/2019 TECHNIQUE: Contiguous axial images were obtained through the chest without the use of intravenous contrast. Sagittal and coronal reformations are supplied. FINDINGS: Diminished lung volumes noted. No pneumothorax, pulmonary contusion or large pleural effusion. Heart size is moderately enlarged. Advanced atherosclerotic disease present. No pericardial effusion. Small hiatal hernia. Trachea patent. No radiopaque foreign body. Thyroid not enlarged. No soft tissue swelling or hematoma of the chest wall. Left arm in the [id number]. Moderate osseous demineralization noted. No high-grade compression fracture, allowing for osseous demineralization. No sternal fracture. The clavicles, ribs, and scapula show no acute fracture. Advanced degenerative change of the shoulders. No high-grade compression fracture of the thoracic spine. IMPRESSION: No CT evidence of an acute or traumatic abnormality in the chest. Electronically signed by Chantelle Donovan 12-22-2024 5:[address] 12/22/24 16:20 EXAMINATION: Head CT without CLINICAL HISTORY: Falling while attempting to get out of the car today after being discharged from the hospital. Reports hitting head with no loss of consciousness, no blood thinner use PRIORS: 07/12/2021 TECHNIQUE: Contiguous axial images were obtained through the head without the use of intravenous contrast. Sagittal and coronal reformations are supplied. FINDINGS: Appropriate parenchymal volume is noted. Borjas-white differentiation is preserved. No edema or midline shift. Soft tissue hematoma in the right superior occipital region, appearing in the interval. No intra-axial or extra-axial hemorrhage. Ventricles mildly prominent, unchanged. Brainstem and cerebellum have a normal appearance. Calvarium unremarkable. Paranasal sinuses and mastoid air cells are well-pneumatized. Globes are intact. No retrobulbar abnormality. IMPRESSION: 1. No CT evidence of an acute intracranial abnormality. 2. Moderate scalp soft tissue swelling and hematoma involving the right superior posterior head. ACT 112: Positive. There are findings on this examination that require communication between the performing entity and the patient following Patient Test Result Information Act ([place] ACT 112) guidelines. Electronically signed by Chantelle Donovan 12-22-2024 5:07 PM PG Care Time/CCT Total # of Minutes Spent Total Time Spent with Patient: Total time spent is greater than 50% in coordination of care (as documented) at patient's floor/unit and/or counseling patient: Coding Level of Care Code 66037 INT INP/OBS CARE 2/55MIN Diagnoses Fall W19.XXXA Volume overload state of heart E87.79 Type 2 diabetes mellitus with chronic kidney disease on chronic dialysis, without long-term current use of insulin E11.22; N18.6; Z99.2 Diabetes mellitus type: type 2 Diabetes mellitus buttermaker continuous churn insulin use: without usp use Diabetes mellitus complication status: with kidney complications Diabetes mellitus complication detail: with chronic kidney disease Chronic kidney disease stage: on chronic dialysis Diabetes mellitus type 2 with complications E11.8 HFrEF (heart failure with reduced ejection fraction) I50.20 Coronary artery disease I25.10 (3) Diabetes Diabetes mellitus type: type 2 Diabetes mellitus buttermaker continuous churn insulin use: w ithout buttermaker continuous churn use Diabetes mellitus complication status: with kidney complications Diabetes mellitus complication detail: with chronic kidney disease Chronic kidney disease stage: on chronic dialysis Qualified Code(s): E 11.22 - Type 2 diabetes mellitus with diabetic chronic kidney disease; N18.6 - End stage renal disease; Z99.2 - Dependence on renal dialysis
[2024-12-22] MEDS ORDERED: GLUCOSE 10 TAB/TUBE PO PRN (20:41)
[2024-12-22] MEDS ORDERED: DEXTROSE 50% 50 ML SYRINGE IV PRN (20:41)
[2024-12-22] MEDS ORDERED: GLUCAGON FOR INJ 1 MG VIAL SQ PRN (20:41)
[2024-12-22] MEDS ORDERED: POLYETHYLENE (MIRALAX) 17 GM PACK PO PRN (20:41)
[2024-12-22] MEDS ORDERED: GLUCOSE 40% GEL 15 GM TUBE PO PRN (20:41)
[2024-12-22] MEDS ORDERED: CARBOHYDRATES FOR HYPOGLYCEMIA PO PRN (20:41)
[2024-12-22] MEDS: INSULIN ASPART PER UNIT CHARGE SC SCH (20:59)
[2024-12-22] MEDS: ATORVASTATIN 10 MG TAB PO SCH (21:02)
[2024-12-22] MEDS: HEPARIN SOD 5,000 UNIT/0.5 ML VIAL SQ SCH (21:02)
[2024-12-22] MEDS: ACETAMINOPHEN 500 MG TAB PO SCH (21:02)
--- NOTE | 2024-12-23 00:07 | Emergency Department Note ---
History of Present Illness General Chief complaint: Trauma Stated complaint: FALL Time Seen by Provider: 12/22/24 15:53 History of Present Illness Provider complaint: Fall Maximum Pain Intensity: 3 84-year-old female end-stage renal disease on hemodialysis Thursday presents emergency department for fall. Patient did hit her head. Unsure of any LOC. Patient reports difficulty breathing. Patient states she feels very weak after dialysis. Home Medications Medication Instructions Recorded Confirmed Type acetaminophen 500 mg tablet 1,000 mg PO BID 10/11/18 12/22/24 History (Tylenol Extra Strength) cholecalciferol (vitamin D3) 50 2,000 units PO QAM 10/14/19 12/22/24 History mcg (2,000 unit) tablet aspirin 81 mg tablet,delayed 81 mg PO DAILY 07/30/20 12/22/24 History release losartan 50 mg tablet 50 mg PO DAILY #90 tabs 12/22/23 12/22/24 Rx sevelamer carbonate 800 mg tablet 800 mg PO TIDM 08/19/24 12/22/24 History atorvastatin 10 mg tablet 10 mg PO HS #90 tabs 08/29/24 12/22/24 Rx metoprolol succinate 50 mg 50 mg PO DAILY #90 tabs 11/02/24 12/22/24 Rx tablet,extended release 24 hr vitamin B complex with C-folic 2 tab PO DAILY 12/21/24 12/22/24 History acid 0.8 mg-zinc citrate 15 mg tablet (Dialyvite 800 with Zinc 15) Allergies Allergy/AdvReac Type Severity Reaction Status Date / Time No Known Allergies Allergy Verified 12/21/24 17:54 Past Med/Surg History Problem List (Updated 12/23/24 @ 00:07 by Jt Park MD) CHI (closed head injury) (Acute) Fall (Acute) Hypoxia (Acute) Coronary artery disease HFrEF (heart failure with reduced ejection fraction) Fall Acute hyperkalemia (Acute) Vomiting (Acute) Volume overload state of heart Cardiac LV ejection fraction 21-30% Renal cyst Legally blind READS WITH MAGNIFYING GLASSES Osteoarthritis of left glenohumeral 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 Quinones Anemia Hypertension Per records Generalized weakness (Acute) Chronic kidney disease-mineral and bone disorder Secondary hyperparathyroidism Medical History Myelopathy concurrent with and due to spinal stenosis of cervical region Dialysis patient tues/ thurs/ sat to [facility] AV fistula left upper arm Paresthesias in left hand Upper back pain DVT prophylaxis Volume overload Hyperkalemia Chronic kidney insufficiency follows Dr. 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 Gastroesophageal reflux disease Hypercholesterolemia Legally blind Osteoporosis with fracture Tinnitus Vitamin D deficiency Diabetic nephropathy Hypertension Surgical History History of tooth extraction History of esophagogastroduodenoscopy (EGD) History of colonoscopy History of bilateral oophorectomy Hx of cataract surgery R/L Family History Mother Diabetes Father Myocardial infarction Sister Healthy adult Denies family history of Ovarian cancer Prostate cancer Kidney disease Breast cancer Colorectal cancer Social History Smoking Status: Former smoker Tobacco Type: Cigarettes Age Started Using Tobacco: 17; Age Quit Using Tobacco: 58; packs per day: 0.25; Smoking End Date: 1999; Second Hand Exposure: No; Do You Dip or Chew Tobacco: No; Hx Alcohol Use: Yes Alcohol type: beer and wine Hx Substance Use: No Preferred Language: Yi Communication Ability: Effective Communication Ability Comment: legally blind, uses magnifier to read Visual Impairment: Blindness Hearing Ability: Normal Performance Improvement Director Required: No Beliefs That Will Affect Care: None marital status: single Current Living Situation: Family Current Living Situation Comment: lives with sister current occupational status: retired 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 Other Information That Helps Us Care for You: No Feels Safe at Home: Yes Childhood Exposure to Second-Hand Smoke: No Diet: regular caffeine: Yes Dental Care, Regularly: Yes Physical Activity Frequency: Does not Exercise Seatbelt Use: always Sunscreen Use: No Assistive Devices: Cane and Walker Physical Exam Vital Signs Vital Signs - 24 hr 12/22/24 15:43 12/22/24 15:57 12/22/24 16:21 Temperature 36.9 C 36.9 C Temperature Source Oral Pulse Rate 84 80 76 Pulse Rate [Left] Pulse Rate from SpO2 Sensor Respiratory Rate 20 16 20 Blood Pressure 185/77 H 183/63 H Blood Pressure [Left Arm] Blood Pressure Mean 113 Blood Pressure Mean [Left Arm] Pulse Oximetry 97 96 93 Oxygen Delivery Method Nasal Cannula Nasal Cannula Nasal Cannula Oxygen Flow Rate 2 2 2 Sepsis Recent Fever Within 48 Hours No Sepsis New/Unexplained Change in Mental Status N/A Sepsis Action Taken by Nursing No Action Required 12/22/24 16:21 12/22/24 16:21 12/22/24 17:21 Temperature 36.9 C Temperature Source Oral Pulse Rate Pulse Rate [Left] 74 75 Pulse Rate from SpO2 Sensor Respiratory Rate 20 20 Blood Pressure Blood Pressure [Left Arm] 183/68 H 178/122 H Blood Pressure Mean Blood Pressure Mean [Left Arm] 106 140 Pulse Oximetry 99 93 94 Oxygen Delivery Method Nasal Cannula Nasal Cannula Nasal Cannula Oxygen Flow Rate 2 2 2 Sepsis Recent Fever Within 48 Hours Sepsis New/Unexplained Change in Mental Status Sepsis Action Taken by Nursing 12/22/24 17:48 12/22/24 17:52 12/22/24 17:57 Temperature Temperature Source Pulse Rate 74 74 77 Pulse Rate [Left] Pulse Rate from SpO2 Sensor 77 Respiratory Rate 23 17 Blood Pressure Blood Pressure [Left Arm] Blood Pressure Mean Blood Pressure Mean [Left Arm] Pulse Oximetry 97 Oxygen Delivery Method Oxygen Flow Rate Sepsis Recent Fever Within 48 Hours Sepsis New/Unexplained Change in Mental Status Sepsis Action Taken by Nursing 12/22/24 18:01 12/22/24 18:08 12/22/24 18:08 Temperature Temperature Source Pulse Rate Pulse Rate [Left] 74 76 Pulse Rate from SpO2 Sensor Respiratory Rate 20 20 Blood Pressure 178/122 H Blood Pressure [Left Arm] 183/122 H Blood Pressure Mean 151 Blood Pressure Mean [Left Arm] 142 Pulse Oximetry 88 L 94 Oxygen Delivery Method Room Air Nasal Cannula Oxygen Flow Rate 2 Sepsis Recent Fever Within 48 Hours Sepsis New/Unexplained Change in Mental Status Sepsis Action Taken by Nursing 12/22/24 18:12 12/22/24 18:18 12/22/24 18:32 Temperature Temperature Source Pulse Rate 78 74 Pulse Rate [Left] Pulse Rate from SpO2 Sensor 77 74 Respiratory Rate 27 H 24 Blood Pressure 184/109 H Blood Pressure [Left Arm] Blood Pressure Mean 148 Blood Pressure Mean [Left Arm] Pulse Oximetry 98 99 Oxygen Delivery Method Oxygen Flow Rate Sepsis Recent Fever Within 48 Hours Sepsis New/Unexplained Change in Mental Status Sepsis Action Taken by Nursing 12/22/24 18:32 12/22/24 19:00 12/22/24 19:06 Temperature Temperature Source Pulse Rate 77 Pulse Rate [Left] 77 Pulse Rate from SpO2 Sensor 76 Respiratory Rate 20 21 Blood Pressure 184/109 H Blood Pressure [Left Arm] 185/112 H Blood Pressure Mean 148 Blood Pressure Mean [Left Arm] 136 Pulse Oximetry 96 97 Oxygen Delivery Method Nasal Cannula Oxygen Flow Rate 2 Sepsis Recent Fever Within 48 Hours Sepsis New/Unexplained Change in Mental Status Sepsis Action Taken by Nursing 12/22/24 19:18 Temperature Temperature Source Pulse Rate 76 Pulse Rate [Left] Pulse Rate from SpO2 Sensor 74 Respiratory Rate 18 Blood Pressure 184/109 H Blood Pressure [Left Arm] Blood Pressure Mean 134 Blood Pressure Mean [Left Arm] Pulse Oximetry 98 Oxygen Delivery Method Oxygen Flow Rate Sepsis Recent Fever Within 48 Hours Sepsis New/Unexplained Change in Mental Status Sepsis Action Taken by Nursing Primary Survey Airway: Intact Breathing: Normal, breath sounds equal bilaterally Circulation: Skin warm, distal pulses 2+, capillary refill less than 2 seconds Disability Pupils: Equal and reactive to light, 2 mm, brisk Secondary Survey GEN: Well developed and well-nourished HEAD: Normocephallic atruamatic EYES: Pupils round reactive to light, conjunctiva clear, extraocular movements intact, no raccoons eyes ENT: no hadley's sign, nares patent, oropharynx clear NECK: No JVD, midline trachea, no cervical spine tenderness HEART: Regular rate and rhythm LUNGS: Clear to auscultation bilaterally. CHEST: Chest wall non-tender, no bruising/deformity ABD: soft, non-tender, no rebound or guarding, MUSC: Pelvis stable. No step offs or deformities, T-L spine non tender. Left upper extremity AV fistula with palpable thrill NEURO: CNII-XII grossly intact, no sensory deficits Course Course 1553: The patient was evaluated in room A12. A complete history and physical exam was performed Cardiac monitoring: An order was placed for continuous cardiac monitoring. The monitor shows a rate of 80 with sinus rhythm interpreted by me Patient found to be hypoxic on room air supplemental oxygen via nasal cannula applied to the patient which improved his oxygen saturation. [facility] trauma alert activated on the patient given the patient's hypoxia. 1614: Chest x-ray reviewed by me shows cardiomegaly with mild cephalization. Patient's oxygen saturations stable on nasal cannula. Patient will be taken for CT. 1645: CT of the head viewed by me shows no ICH. CT of the chest viewed by me shows no pneumothorax. 1810: Vital signs stable supplemental oxygen via nasal cannula. Labs are unremarkable. Imaging shows no acute traumatic injury. Patient C-spine cleared. Patient will be admitted to the [facility] hospitalist team as she states she is very weak after dialysis and her hypoxia. Administered Medications Acetaminophen (Acetaminophen 500 Mg Tab) 1,000 mg PO Q8H NEIL Stop: 01/21/25 20:40 Last Admin: 12/22/24 21:02 Dose: 1,000 mg Documented By: JENNIFER Atorvastatin Calcium (Atorvastatin 10 Mg Tab) 10 mg PO HS NEIL Stop: 01/21/25 20:59 Last Admin: 12/22/24 21:02 Dose: 10 mg Documented By: JENNIFER Heparin Sodium (Porcine) (Heparin Sod 5,000 Unit/0.5 Ml Vial) 5,000 units SQ Q12 NEIL Stop: 01/21/25 20:59 Last Admin: 12/22/24 21:02 Dose: 5,000 units Documented By: JENNIFER Insulin Aspart (Insulin Aspart Per Unit Charge) 0 units SC ACHS NEIL Stop: 01/21/25 20:59 Last Admin: 12/22/24 20:59 Dose: Not Given Documented By: JENNIFER Critical Care Time Critical Care Time: Yes Total Critical Care Time: 48 I have personally spent greater than 48 minutes of critical care time in the direct management of this patient. This includes bedside care, interpretation of diagnostic studies, and testing, discussion with consultants, patient, and family members, and other required patient management activities. This 48 minutes is in excess of all separately billable procedures. Medical Decision Making Medical Records Attestation: I reviewed the patient's medical records. Laboratory Data Attestation: I reviewed the patient's lab results. 12/22/24 16:10 12/22/24 16:10 Lab Results 1012/22/24 12/22/24 Range/Units 16:10 16:13 17:34 WBC 7.13 (4.8-10.8) K/ul RBC 2.97 L (4.20-5.40) M/uL Hgb 9.6 L (12.0-16.0) g/dl POC Hgb 10.2 L (12.0-16.0) g/dl Hct 27.4 L (37.0-47.0) % POC Hct 30 L (37-47) % MCV 92.3 (80.0-100.0) fL MCH 32.3 (25.0-34.0) pg MCHC 35.0 (32.0-36.0) g/dL RDW Std Deviation 49.6 H (36.4-46.3) fL RDW Coeff of Yin 15.1 H (11.5-14.5) % Plt Count 179 (130-400) K/uL MPV 9.8 (9.4-12.4) fL Immature Gran % (Auto) 0.8 % Neut % (Auto) 80.2 % Lymph % (Auto) 10.2 % [place] % (Auto) 7.4 % Eos % (Auto) 1.0 % Baso % (Auto) 0.4 % Neut # (Auto) 5.71 (1.40-6.50) K/uL Lymph # (Auto) 0.73 L (1.20-3.40) K/uL [place] # (Auto) 0.53 (0.11-0.59) K/uL Eos # (Auto) 0.07 (0.00-0.50) K/uL Baso # (Auto) 0.03 (0.00-0.20) K/uL Immature Gran # (Auto) 0.06 (0.01-0.20) K/uL PT 11.1 (9.0-12.0) Seconds INR 1.1 (0.9-1.1) APTT 24 (21-31) Seconds PTT Ratio 0.9 POC Sodium 134 L (135-144) mmol/L Sodium 137 (136-145) mmol/L POC Potassium 3.8 (3.3-5.0) mmol/L Potassium 3.9 D (3.5-5.1) mmol/L POC Chloride 94 L (101-112) mmol/L Chloride 93 L (98-107) mmol/L Carbon Dioxide 29 (21-32) mmol/L POC Total CO2 29 (24-31) mmol/L Anion Gap 15 H (3-11) POC Anion Gap 17.0 (16-25) mmol/L POC BUN 31 H (7-18) mg/dl BUN 34 H D (6-23) mg/dl Creatinine 3.47 H D (0.6-1.2) mg/dl POC Creatinine 3.8 H (0.6-1.3) mg/dl Est Cr Clr Drug Dosing 11.4 ml/min eGFR 12.48 BUN/Creatinine Ratio 9.8 L (10-20) Glucose 214 H (70-99(Fasting)) mg/dl POC Glucose (other) 209 H (70-99) mg/dl Calcium 9.5 (8.6-10.3) mg/dl POC Ioniz Calcium Bob 1.07 L (1.12-1.32) mmol/l Troponin I High Sens 55.8 H* (0-14) pg/ml B-Natriuretic Peptide 4313 H (0-100) pg/ml Lipase 4 L (11-82) U/L 12/22/24 Range/Units 19:02 WBC (4.8-10.8) K/ul RBC (4.20-5.40) M/uL Hgb (12.0-16.0) g/dl POC Hgb (12.0-16.0) g/dl Hct (37.0-47.0) % POC Hct (37-47) % MCV (80.0-100.0) fL MCH (25.0-34.0) pg MCHC (32.0-36.0) g/dL RDW Std Deviation (36.4-46.3) fL RDW Coeff of Yin (11.5-14.5) % Plt Count (130-400) K/uL MPV (9.4-12.4) fL Immature Gran % (Auto) % Neut % (Auto) % Lymph % (Auto) % [place] % (Auto) % Eos % (Auto) % Baso % (Auto) % Neut # (Auto) (1.40-6.50) K/uL Lymph # (Auto) (1.20-3.40) K/uL [place] # (Auto) (0.11-0.59) K/uL Eos # (Auto) (0.00-0.50) K/uL Baso # (Auto) (0.00-0.20) K/uL Immature Gran # (Auto) (0.01-0.20) K/uL PT (9.0-12.0) Seconds INR (0.9-1.1) APTT (21-31) Seconds PTT Ratio POC Sodium (135-144) mmol/L Sodium (136-145) mmol/L POC Potassium (3.3-5.0) mmol/L Potassium (3.5-5.1) mmol/L POC Chloride (101-112) mmol/L Chloride (98-107) mmol/L Carbon Dioxide (21-32) mmol/L POC Total CO2 (24-31) mmol/L Anion Gap (3-11) POC Anion Gap (16-25) mmol/L POC BUN (7-18) mg/dl BUN (6-23) mg/dl Creatinine (0.6-1.2) mg/dl POC Creatinine (0.6-1.3) mg/dl Est Cr Clr Drug Dosing ml/min eGFR BUN/Creatinine Ratio (10-20) Glucose (70-99(Fasting)) mg/dl POC Glucose (other) (70-99) mg/dl Calcium (8.6-10.3) mg/dl POC Ioniz Calcium Bob (1.12-1.32) mmol/l Troponin I High Sens 57.5 H* (0-14) pg/ml B-Natriuretic Peptide (0-100) pg/ml Lipase (11-82) U/L Imaging Data Attestation: I personally reviewed and interpreted this imaging study as follows: My Impression: Chest x-ray reviewed by me shows cardiomegaly with mild cephalization. Patient's oxygen saturations stable on nasal cannula. Patient will be taken for CT. CT of the head viewed by me shows no ICH. CT of the chest viewed by me shows no pneumothorax. Radiologist's Impression: Chest X-Ray 12/22/24 15:57 Clinical History: Chest pain Technique: A frontal view of the chest was obtained Comparison is made to the prior examination dated 07/12/2021 Findings: There are no confluent pulmonary infiltrates. The heart is mildly enlarged. No pleural effusion or pneumothorax is seen. There is mild diffuse interstitial prominence, concerning for pulmonary edema There is an old healed fracture of the left humeral neck. There is thoracic scoliosis and degenerative disc disease Impression: Cardiomegaly and mild pulmonary edema ACT 112: Positive. There are findings on this exam that require communication between the performing entity and the patient following Patient Test Result Information Act ([place] ACT 112) guidelines. Electronically signed by Willie Azar 12-22-2024 5:08 PM Pelvis X-Ray 12/22/24 16:01 Clinical History: Pain after fall One view of the pelvis is submitted for review. Findings: No fracture or dislocation is seen. No significant arthritic changes are noted. No other osseous abnormality is identified. There are no radiopaque foreign bodies. Vascular calcifications are present Impression: No definite fracture Electronically signed by Willie Azar 12-22-2024 5:07 PM Abdomen/Pelvis CT 12/22/24 16:20 EXAMINATION: Abdomen and pelvis CT without CLINICAL HISTORY: Following attempted to get out of car after being discharged from hospital. Hit head. PRIORS: None TECHNIQUE: Contiguous axial images were obtained through the abdomen and pelvis without the use of intravenous contrast. Sagittal and coronal reformations are supplied. FINDINGS: Heart size is enlarged. Hypoventilatory changes at the lung bases. Chest CT dictated under separate heading. Evaluation of limited without intravenous contrast. Allowing for this, no solid organ laceration, subcapsular hematoma or hemoperitoneum. The gallbladder, atrophic pancreas, spleen, stomach, adrenals, are morphologically unremarkable. Advanced atherosclerotic disease of the aorta present. Kidneys are atrophic with multiple round lesions noted, not further characterized. Urinary bladder distends normally. Atrophic uterus is present. Moderate amount of formed stool and gas present. Possible barium or contrast present in the ascending colon likely from prior examination. No retroperitoneal hemorrhage. No subcutaneous soft tissue swelling or hematoma. Moderate osseous demineralization noted. No high-grade compression fracture of the lumbar spine. No displaced sacral fracture. Mild lumbar scoliosis, convex to the left. Allowing for osseous demineralization, no displaced hip or obturator ring fracture. IMPRESSION: No CT evidence of an acute or traumatic abnormality in the abdomen or pelvis. Electronically signed by Chantelle Donovan 12-22-2024 5:[address] 12/22/24 16:20 EXAM: CT cervical spine CLINICAL HISTORY: Fall while getting out of car. TECHNIQUE: Contiguous axial images were obtained through the cervical spine without the use of intravenous contrast. Sagittal and coronal reformations are supplied. PRIORS: MR 2020 FINDINGS: Advanced osseous demineralization noted. Bone stock is normal. Lordotic straightening is noted. Approximately 4 mm of anterolisthesis on C7-T1 present, unchanged. Multiple cystic changes in the dens with no displaced fracture identified. No acute cervical spine fracture or facet dislocation. Vertebral body fusion at C5-C6 No prevertebral soft tissue swelling. Advanced degenerative change noted at all levels with intervertebral disc space loss, endplate changes, anterior and posterior osteophytes. Visualized trachea is patent. IMPRESSION: No CT evidence of an acute osseous abnormality. Osseous demineralization with advanced degenerative changes above. Electronically signed by Chantelle Donovan 12-22-2024 5:[address] 12/22/24 16:20 EXAMINATION: Chest CT without CLINICAL HISTORY: Fall getting out of car, hit head COMPARISON: Chest radiograph today, 07/13/2019 TECHNIQUE: Contiguous axial images were obtained through the chest without the use of intravenous contrast. Sagittal and coronal reformations are supplied. FINDINGS: Diminished lung volumes noted. No pneumothorax, pulmonary contusion or large pleural effusion. Heart size is moderately enlarged. Advanced atherosclerotic disease present. No pericardial effusion. Small hiatal hernia. Trachea patent. No radiopaque foreign body. Thyroid not enlarged. No soft tissue swelling or hematoma of the chest wall. Left arm in the [id number]. Moderate osseous demineralization noted. No high-grade compression fracture, allowing for osseous demineralization. No sternal fracture. The clavicles, ribs, and scapula show no acute fracture. Advanced degenerative change of the shoulders. No high-grade compression fracture of the thoracic spine. IMPRESSION: No CT evidence of an acute or traumatic abnormality in the chest. Electronically signed by Chantelle Donovan 12-22-2024 5:[address] 12/22/24 16:20 EXAMINATION: Head CT without CLINICAL HISTORY: Falling while attempting to get out of the car today after being discharged from the hospital. Reports hitting head with no loss of consciousness, no blood thinner use PRIORS: 07/12/2021 TECHNIQUE: Contiguous axial images were obtained through the head without the use of intravenous contrast. Sagittal and coronal reformations are supplied. FINDINGS: Appropriate parenchymal volume is noted. Borjas-white differentiation is preserved. No edema or midline shift. Soft tissue hematoma in the right superior occipital region, appearing in the interval. No intra-axial or extra-axial hemorrhage. Ventricles mildly prominent, unchanged. Brainstem and cerebellum have a normal appearance. Calvarium unremarkable. Paranasal sinuses and mastoid air cells are well-pneumatized. Globes are intact. No retrobulbar abnormality. IMPRESSION: 1. No CT evidence of an acute intracranial abnormality. 2. Moderate scalp soft tissue swelling and hematoma involving the right superior posterior head. ACT 112: Positive. There are findings on this examination that require communication between the performing entity and the patient following Patient Test Result Information Act ([place] ACT 112) guidelines. Electronically signed by Chantelle Donovan 12-22-2024 5:07 PM ECG Data Attestation: I personally reviewed and interpreted this ECG as follows: Additional Comments: Sinus rhythm with a rate of 80. [place] QRS and QTc intervals are within normal limits. No ST elevation. Mild ST depression in leads V5 V6. T wave inversion in lead aVL only. Peaked T waves in lead V2 only. Artifact and baseline wander present. [facility] Narrative 1553: The patient was evaluated in room A12. A complete history and physical exam was performed Cardiac monitoring: An order was placed for continuous cardiac monitoring. The monitor shows a rate of 80 with sinus rhythm interpreted by me Patient found to be hypoxic on room air supplemental oxygen via nasal cannula applied to the patient which improved his oxygen saturation. [facility] trauma alert activated on the patient given the patient's hypoxia. 1614: Chest x-ray reviewed by wy shows cardiomegaly with mild cephalization. Patient's oxygen saturations stable on nasal cannula. Patient will be taken for CT. 1645: CT of the head viewed by wy shows no ICH. CT of the chest viewed by wy shows no pneumothorax. 1810: Vital signs stable supplemental oxygen via nasal cannula. Labs are unremarkable. Imaging shows no acute traumatic injury. Patient C-spine cleared. Patient will be admitted to the [facility] hospitalist team as she states she is very weak after dialysis and her hypoxia. Impression & Plan Hypoxia, Fall, CHI (closed head injury) Discharge Plan Visit Data Chief Complaint: Trauma Stated Complaint: FALL ED Provider: Jt Park Discharge Problem: Hypoxia, Fall, CHI (closed head injury) Patient Disposition: Admitted As Inpatient Condition: Serious Discharge Instructions Interventions: ED Discharge Assessment Last Done: 12/22/24 20:17
[2024-12-23 06:30] LABS: Hematocrit (blood only) 25.7 % (37.0-47.0); Hemoglobin 8.8 g/dl (12.0-16.0); Mean Corpuscular Hemoglobin 31.9 pg (25.0-34.0); Mean Corpuscular Volume 93.1 fL (80.0-100.0); Platelet Count 158 K/uL (130-400); RDW Standard Deviation 50.4 fL (36.4-46.3); Red Blood Count 2.76 M/uL (4.20-5.40); White Blood Count 6.95 K/ul (4.8-10.8)
[2024-12-23 06:55] LABS: Anion Gap 16.0 (3-11); Blood Urea Nitrogen 47.0 mg/dl (6-23); Calcium 9.0 mg/dl (8.6-10.3); Carbon Dioxide 25.0 mmol/L (21-32); Chloride 97.0 mmol/L (98-107); Creatinine Clr Calc Pharmacy 8.4 ml/min; Glucose 111.0 mg/dl (70-99(Fasting)); Magnesium 2.2 mg/dl (1.7-2.4); Potassium 3.6 mmol/L (3.5-5.1); Sodium 138.0 mmol/L (136-145)
[2024-12-23] MEDS: ASPIRIN 81 MG ECTAB PO SCH (08:35)
[2024-12-23] MEDS: CHOLECALCIFEROL 25 MCG (1000 UNITS) TAB PO SCH (08:35)
[2024-12-23] MEDS: SEVELAMER CARBONATE 800 MG TAB PO SCH (08:35)
[2024-12-23] MEDS: METOPROLOL SUCC 50MG EXT REL TAB PO SCH (08:36)
[2024-12-23] MEDS: NEPHROCAPS PO SCH (08:37)
[2024-12-23] MEDS: LOSARTAN POTASSIUM 50 MG TAB PO SCH (08:38)
[2024-12-23] MEDS: ONDANSETRON INJ 2 MG/ML 2 ML VIAL IV PRN (14:27)
--- NOTE | 2024-12-23 14:33 | Hospitalist Progress Note ---
Date of Service December 23, 2024 Assessment & Plan (1) Fall: (2) Volume overload state of heart: (3) Diabetes: (4) Diabetes mellitus type 2 with complications: (5) HFrEF (heart failure with reduced ejection fraction): (6) Coronary artery disease: Plan 84 y/o with ESRD who was treated in hospital 12/21 after missed dialysis with hyperkalemia, volume overload and nausea, home later same day after inpatient dialysis. She comes back in after falling while trying to get out of a car. She did hit head, no LOC. She did complete outpatient HD 12/22. # mechanical fall, trauma alert - symptomatic of hematoma vertex of right head, some right sided low back and hip pain. It seemed like she is having some sciatica type pain and also pain radiating to right groin. - CT head, neck, chest abdomen and pelvis done in the ED no acute injuries. Also had unremarkable pelvis and chest x-ray - 24h tertiary trauma survey done today, no additional injuries identified - orthostatic vital signs - she did have a drop in bp from 150/x --> 120/61 with standing which was symptomatic of lightheadedness PT/OT evaluations completed - no note yet but mobility poor per nursing and can't stand unassisted from EOB with walker, anticipate rehab stay - on aspirin but not anticoagulated. Hg has decreased but may be dilutional drop. Recheck in AM and monitor for ssx of bleeding - cont scheduled Tylenol to 1 g 3 times daily and added as needed tramadol - seems to be bearing weight well on RLE. consider further imaging #hypoxia - mildly volume overloaded. She may use nocturnal O2 at home, unclear. discuss with spray maker. Chest CT noncon on 12/22 remarkable only for low lung volumes. No pleural effusions or infiltrates. #end-stage renal disease, dialysis dependent TUTHSat, LUE AVF #secondary hyperparathyroidism - continue sevelamer, dialysis, consult nephrology since she will not be able to discharge today #type 2 diabetes - continue diabetic renal diet, metformin, low-dose Premeal/correctional aspart insulin - BG at goal except for one high at 204, no dose changes today #hypertension - moderately elevated at this time, continue losartan and metoprolol - symptomatically orthostatic and will reduce metoprolol dose #HFrEF, mixed cardiomyopathy EF 20-30% #HFrEF #CAD, HLD #Mildly elevated HS troponin and flat trend without evidence of ACS. EKG - personally reviewed - LVH with repol abnormality, anterolateral ST depressions, lateral TWIs. may be demand ischemia from HFrEF and mild volume overload, also poor clearance of troponin in ESRD. - follows with cardiology, mild volume overload state - continue ASA, metoprolol, losartan, atorvastatin - will update TTE since she may have increased strain pattern on EKG, orthostasis, low EF #sensorineural hearing loss #legal blindness, from diabetic retinopathy - supportive measures, she is able to communicate with speaking in a clear loud voice. She does have some vision though poor #metastatic squamous cell carcinoma - status post stereotactic radiation therapy to the head and neck in May of this year, Mohs procedure several years ago DVT ppx - SQ heparin q12h Admission and Anticipated Discharge Date Admission Date: December 22, 2024 Subjective Tory seems to be more comfortable today though she still has right hip pain radiating to the groin when she is standing up and walking. She is able to bear weight the nursing staff reports that she only went a few steps with physical therapy and needed a lot of assist to pivot transfer to the chair. She was found to be hypoxic while sleeping and while laying flat today though not hypoxic when sitting upright or standing/walking Physical Exam 2 Physical Exam: Last 24h vitals reviewed GEN: initially lying flat on bed and O2 sats in the mid 80s, increased to 94% once sitting up and then standing upright HEENT: pupils equal, sclerae anicteric, moist MM. Ecchymosis right posterior vertex of her head, no deformity of the skull-unchanged RESP: normal WOB, bibasilar crackles no wheezingunchanged CV: regular with systolic murmur ABD: soft/nt/nd +BTUnchanged, no abdominal or lower back bruising : no walker extremities: continues to have hematoma/ecchymosis ecchymosis right posterior head as noted above, neck is supple no tenderness of CT or L-spine. She has some right forearm and wrist bruising however no deformity, left upper extremity also normal with no deformity, she tolerates bilateral pressure on her pelvic ala with some mild discomfort on the left but nothing on the right. Both lower extremities no deformity or apparent injury. She tolerates range of motion of her right hip with some mild pain when externally rotated. No tenderness over the right greater trochanter. She is able to stand up with assistance and a walker and weight-bear on the right leg without difficulty. SKIN: warm and dry, no generalized rashes NEURO: AOx person, place, and situation. vague historian and a bit forgetful Face symmetric, speech normal, moves 4 ext spontaneously and equally. Essential tremor Results & Data Results & Data Vital Signs (Past 12 Hours) Vital Signs Temp Pulse Pulse Resp BP BP Pulse Ox 12/23/24 12:38 36.8 C 61 18 129/66 91 12/23/24 09:00 12/23/24 08:00 110/62 12/23/24 05:41 62 12/23/24 02:57 36.9 C 80 18 145/66 H 93 O2 Del Method 12/23/24 12:38 Room Air 12/23/24 09:00 Room Air 12/23/24 08:00 12/23/24 05:41 12/23/24 02:57 Room Air Laboratory Results 12/23/24 05:58 12/23/24 05:58 high-sensitivity troponin went from 55-61-57 Hg 9.6-->8.8 without evidence of bleeding potassium normal, expected rise in BUN/Cr PG Care Time/CCT Total # of Minutes Spent Total Time Spent with Patient: Total time spent is greater than 50% in coordination of care (as documented) at patient's floor/unit and/or counseling patient: Coding Level of Care Code 81790 SUB INP/OBS CARE 3/50MIN Diagnoses Fall W19.XXXA Volume overload state of heart E87.79 Type 2 diabetes mellitus with chronic kidney disease on chronic dialysis, without long-term current use of insulin E11.22; N18.6; Z99.2 Diabetes mellitus type: type 2 Diabetes mellitus meterman insulin use: without meterman use Diabetes mellitus complication status: with kidney complications Diabetes mellitus complication detail: with chronic kidney disease Chronic kidney disease stage: on chronic dialysis Diabetes mellitus type 2 with complications E11.8 HFrEF (heart failure with reduced ejection fraction) I50.20 Coronary artery disease I25.10 (3) Diabetes Diabetes mellitus type: type 2 Diabetes mellitus meterman insulin use: w [facility] custodial use Diabetes mellitus complication status: with kidney complications Diabetes mellitus complication detail: with chronic kidney disease Chronic kidney disease stage: on chronic dialysis Qualified Code(s): E 11.22 - Type 2 diabetes mellitus with diabetic chronic kidney disease; N18.6 - End stage renal disease; Z99.2 - Dependence on renal dialysis
--- NOTE | 2024-12-23 16:38 | XRay Report ---
Exam: KUB. History: Emesis. Comparison: CT abdomen and pelvis correlate December 22, 2024. Comparison December 22 and 2024. Findings: Densities likely representing residual contrast large bowel. Calcified atheromatous changes abdominal aorta. Bowel gas pattern is nonobstructive. Amorphous densities consistent with moderate stool-filled large bowel. No gas projects over the liver. No discrete mass. Impression: Moderate stool-filled large bowel with nonobstructive bowel gas pattern. No findings to indicate source for patient's symptoms. Electronically signed by Ji Read 12-23-2024 4:38 PM
--- NOTE | 2024-12-23 16:45 | Nephrology Consultation ---
Date of Consultation December 23, 2024 Assessment & Plan (1) ESRD on hemodialysis: IHD TTS. Completed dialysis yesterday with adequate UF and clearance. Electrolytes normal. Volume status controlled. Next HD tomorrow. Outpatient Rx: 2.75 hours Fx CorAl 80, 350/500, 2K 137Na 2.0Ca 35HCO3; EDW 63.5. AVF has been functioning well. Medications appropriate for kidney function. Renal diet. (2) Hypertension: BP acceptable. Remains on losartan and metoprolol per home Rx. Noted orthostatic changes in BP. Avoid overtreatment. (3) Anemia: Chronic, stable. Maintained on Micera and IV iron with HD. (4) Chronic kidney disease-mineral and bone disorder: Renal diet and Renvela QAC for hyperphosphatemia. (5) CHI (closed head injury): Scalp hematoma. No intracranial bleed. Heparin will be held with dialysis while inpatient. (6) HFrEF (heart failure with reduced ejection fraction): Not currently decompensated. History of Present Illness Reason for Consultation: dialysis patient TuThSat Requesting Physician: Jael Soto MD Attending Physician: Jael Soto MD History of Present Illness Tory Rodriguez is an 84 year-old female with ESRD. Tory is on chronic maintenance hemodialysis at [facility]. She dialyzes under my care on a TTS schedule. Tory has been tolerating HD well. Unfortunately, she missed her scheduled treatment on Thursday due to nausea and vomiting. She was referred to the ER for evaluation of her symptoms yesterday. Tory was admitted following ER evaluation on 12/21 with mild hyperkalemia and volume overload. She received hemodialysis as an inpatient yesterday and was discharged home yesterday afternoon. Unfortunately, Tory suffered a fall with head injury immediately following HD. She believes that she fell because she was transferring from a car that she is not familiar with and she typically uses a doorhandle for support which was not in the same location. Tory's renal impairment is due to diabetic nephropathy. 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 HD Rx is 2.75 hours Fx CorAl 80, 350/500, 2K 137Na 2.0Ca 35HCO3; EDW 63.5. Ms. Rodriguez underwent L BC AVF by Dr. Mercedes. AVF is functioning well. Symptoms of nausea/vomiting improving with antiemetics in the ER on Thursday. Tory has struggled with intermittent nausea and occasional vomiting for several months. She reports symptoms typically occur in the morning after meals and after taking her medications. She has not identified a specific trigger. It was not until last weekend that she had experienced multiple days of symptoms. She does not believe that her phosphate binder contributes to the symptoms. She does believe that symptoms are related to one of the other medications that she takes in the morning. She developed a sensation of abdominal discomfort and vomited this afternoon after eating some ice cream. Nausea persists now. Allergies Allergy/AdvReac Type Severity Reaction Status Date / Time No Known Allergies Allergy Verified 12/21/24 17:54 Home Medications Medication Instructions Recorded Confirmed Type acetaminophen 500 mg tablet 1,000 mg PO BID 10/11/18 12/22/24 History (Tylenol Extra Strength) cholecalciferol (vitamin D3) 50 2,000 units PO QAM 10/14/19 12/22/24 History mcg (2,000 unit) tablet aspirin 81 mg tablet,delayed 81 mg PO DAILY 07/30/20 12/22/24 History release losartan 50 mg tablet 50 mg PO DAILY #90 tabs 12/22/23 12/22/24 Rx sevelamer carbonate 800 mg tablet 800 mg PO TIDM 08/19/24 12/22/24 History atorvastatin 10 mg tablet 10 mg PO HS #90 tabs 08/29/24 12/22/24 Rx metoprolol succinate 50 mg 50 mg PO DAILY #90 tabs 11/02/24 12/22/24 Rx tablet,extended release 24 hr vitamin B complex with C-folic 2 tab PO DAILY 12/21/24 12/22/24 History acid 0.8 mg-zinc citrate 15 mg tablet (Dialyvite 800 with Zinc 15) Patient History Medical History Myelopathy concurrent with and due to spinal stenosis of cervical region Dialysis patient tues/ thurs/ sat to [place] AV fistula left upper arm Paresthesias in left hand Upper back pain DVT prophylaxis Volume overload Hyperkalemia Chronic kidney insufficiency follows Dr. 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 Gastroesophageal reflux disease Hypercholesterolemia Legally blind Osteoporosis with fracture Tinnitus Vitamin D deficiency Diabetic nephropathy Hypertension Surgical History History of tooth extraction History of esophagogastroduodenoscopy (EGD) History of colonoscopy History of bilateral oophorectomy Hx of cataract surgery R/L Family History Mother Diabetes Father Myocardial infarction Sister Healthy adult Denies family history of Ovarian cancer Prostate cancer Kidney disease Breast cancer Colorectal cancer Social History Smoking Status: Former smoker Tobacco Type: Cigarettes Age Started Using Tobacco: 17; Age Quit Using Tobacco: 58; packs per day: 0.25; Smoking End Date: 1999; Second Hand Exposure: No; Do You Dip or Chew Tobacco: No; Hx Alcohol Use: Yes Alcohol type: beer and wine Hx Substance Use: No Preferred Language: Qatari Communication Ability: Effective Communication Ability Comment: legally blind, uses magnifier to read Visual Impairment: Blindness Hearing Ability: Normal Manufactured Buildings Supervisor Required: No Beliefs That Will Affect Care: None marital status: single Current Living Situation: Family Current Living Situation Comment: lives with sister current occupational status: retired 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 Other Information That Helps Us Care for You: No Feels Safe at Home: Yes Childhood Exposure to Second-Hand Smoke: No Diet: regular caffeine: Yes Dental Care, Regularly: Yes Physical Activity Frequency: Does not Exercise Seatbelt Use: always Sunscreen Use: No Assistive Devices: Walker Review of Systems Review of Systems: All systems reviewed & are unremarkable except as noted in HPI & below Constitutional: no fever and no chills Cardiovascular: no chest pain, no palpitations, no lightheadedness, no syncope and no edema Gastrointestinal: + early satiety, + nausea and + vomiting ; no abdominal pain, no pain with swallowing, no dysphagia and no diarrhea/loose stools Neurologic: + unsteadiness and + headache(s); no diz ziness Physical Exam Constitutional: well developed; no acute distress Eyes: no scleral abnormality and no corneal abnormality ENMT: Mouth: no oral mucosal abnormality and oral mucous membranes not dry Neck: normal visual inspection and trachea midline Respiratory: normal respiratory effort Auscultation: lungs clear to auscultation bilaterally Cardiovascular: Rate/Rhythm: regular rate Heart Sounds: normal S1 and normal S2 Extremities: + AV fistula; no edema Musculoskeletal: Extremities: no cyanosis and no clubbing Skin: normal turgor; no lesions Neurologic: Motor/Sensory: no tremor and no asterixis Psychiatric: Orientation: alert and oriented x 3 Results & Data Vital Signs (Past 12 Hours) Vital Signs Temp Pulse Pulse Resp BP BP Pulse Ox 12/23/24 15:50 36.9 C 68 18 168/65 H 90 12/23/24 13:15 56 L 12/23/24 12:38 36.8 C 61 18 129/66 91 12/23/24 09:00 12/23/24 08:00 110/62 12/23/24 05:41 62 O2 Del Method 12/23/24 15:50 Room Air 12/23/24 13:15 12/23/24 12:38 Room Air 12/23/24 09:00 Room Air 12/23/24 08:00 12/23/24 05:41 Laboratory Results Laboratory Results - last 24 hr 12/22/24 12/22/24 12/22/24 16:10 17:34 19:02 WBC RBC Hgb Hct MCV MCH MCHC RDW Std Deviation RDW Coeff of Yin Plt Count MPV PT 11.1 INR 1.1 APTT 24 PTT Ratio 0.9 Sodium 137 Potassium 3.9 D Chloride 93 L Carbon Dioxide 29 Anion Gap 15 H BUN 34 H D Creatinine 3.47 H D Est Cr Clr Drug Dosing 11.4 eGFR 12.48 BUN/Creatinine Ratio 9.8 L Glucose 214 H POC Glucose Calcium 9.5 Phosphorus Magnesium Troponin I High Sens 55.8 H* 57.5 H* B-Natriuretic Peptide 4313 H Lipase 4 L 12/22/24 12/23/24 12/23/24 20:50 05:58 07:24 WBC 6.95 RBC 2.76 L Hgb 8.8 L Hct 25.7 L MCV 93.1 MCH 31.9 MCHC 34.2 RDW Std Deviation 50.4 H RDW Coeff of Yin 15.0 H Plt Count 158 MPV 10.0 PT INR APTT PTT Ratio Sodium 138 Potassium 3.6 Chloride 97 L Carbon Dioxide 25 Anion Gap 16 H BUN 47 H Creatinine 4.65 H* D Est Cr Clr Drug Dosing 8.4 eGFR 8.79 BUN/Creatinine Ratio 10.1 Glucose 111 H POC Glucose 160 H 114 H Calcium 9.0 Phosphorus 5.8 H Magnesium 2.2 Troponin I High Sens 61.5 H* B-Natriuretic Peptide Lipase 12/23/24 12/23/24 11:08 16:11 WBC RBC Hgb Hct MCV MCH MCHC RDW Std Deviation RDW Coeff of Yin Plt Count MPV PT INR APTT PTT Ratio Sodium Potassium Chloride Carbon Dioxide Anion Gap BUN Creatinine Est Cr Clr Drug Dosing eGFR BUN/Creatinine Ratio Glucose POC Glucose 204 H 142 H Calcium Phosphorus Magnesium Troponin I High Sens B-Natriuretic Peptide Lipase Diagnostic Findings Abdomen and pelvis CT without PRIORS: None TECHNIQUE: Contiguous axial images were obtained through the abdomen and pelvis without the use of intravenous contrast. Sagittal and coronal reformations are supplied. FINDINGS: Heart size is enlarged. Hypoventilatory changes at the lung bases. Chest CT dictated under separate heading. Evaluation of limited without intravenous contrast. Allowing for this, no solid organ laceration, subcapsular hematoma or hemoperitoneum. The gallbladder, atrophic pancreas, spleen, stomach, adrenals, are morphologically unremarkable. Advanced atherosclerotic disease of the aorta present. Kidneys are atrophic with multiple round lesions noted, not further characterized. Urinary bladder distends normally. Atrophic uterus is present. Moderate amount of formed stool and gas present. Possible barium or contrast present in the ascending colon likely from prior examination. No retroperitoneal hemorrhage. No subcutaneous soft tissue swelling or hematoma. Moderate osseous demineralization noted. No high-grade compression fracture of the lumbar spine. No displaced sacral fracture. Mild lumbar scoliosis, convex to the left. Allowing for osseous demineralization, no displaced hip or obturator ring fracture. IMPRESSION: No CT evidence of an acute or traumatic abnormality in the abdomen or pelvis. KUB HISTORY: vomiting COMPARISON STUDY: None FINDINGS: There is moderate retained stool. No bowel obstruction seen. No gross free air. IMPRESSION: No acute findings. PG Care Time/CCT Total # of Minutes Spent Total Time Spent with Patient: Total time spent is greater than 50% in coordination of care (as documented) at patient's floor/unit and/or counseling patient: Coding Level of Care Code 13167 IN/OBS CONSULT LVL 4,60M Diagnoses ESRD on hemodialysis N18.6; Z99.2 Renovascular hypertension I15.0 Hypertension type: renovascular hypertension Anemia D64.9 Chronic kidney disease-mineral and bone disorder N18.9; E83.9; M89.9 CHI (closed head injury) S09.90XA HFrEF (heart failure with reduced ejection fraction) I50.20 (2) Hypertension Hypertension type: renovascular hypertension Qualified Code(s): I15.0 - Renovascular hypertension
--- NOTE | 2024-12-23 18:56 | Communication Note ---
Date of Service: December 23, 2024 Nausea vomiting today, new CT abdomen/pelvis yesterday unremarkable though was noncontrast Obtained KUB - personally reviewed film - no obstruction, lots of stool Possibly related to constipation, increased bowel regimen Monitor sx and exam
[2024-12-23] MEDS: MELATONIN 3 MG TAB PO PRN (20:16)
[2024-12-23] MEDS: SENNA 8.6 MG TAB PO SCH (20:16)
[2024-12-24 06:57] LABS: Hematocrit (blood only) 25.3 % (37.0-47.0); Hemoglobin 8.6 g/dl (12.0-16.0); Mean Corpuscular Hemoglobin 32.1 pg (25.0-34.0); Mean Corpuscular Volume 94.4 fL (80.0-100.0); Platelet Count 171 K/uL (130-400); RDW Standard Deviation 51.7 fL (36.4-46.3); Red Blood Count 2.68 M/uL (4.20-5.40); White Blood Count 6.74 K/ul (4.8-10.8)
[2024-12-24 07:32] LABS: Anion Gap 16.0 (3-11); Blood Urea Nitrogen 64.0 mg/dl (6-23); Calcium 9.1 mg/dl (8.6-10.3); Carbon Dioxide 27.0 mmol/L (21-32); Chloride 92.0 mmol/L (98-107); Creatinine Clr Calc Pharmacy 6.5 ml/min; Glucose 118.0 mg/dl (70-99(Fasting)); Magnesium 2.3 mg/dl (1.7-2.4); Potassium 4.1 mmol/L (3.5-5.1); Sodium 135.0 mmol/L (136-145)
[2024-12-24] MEDS: METOPROLOL SUCC 25MG EXT REL TAB PO SCH (08:38)
[2024-12-24] MEDS: POLYETHYLENE (MIRALAX) 17 GM PACK PO SCH (08:44)
--- NOTE | 2024-12-24 08:59 | CT Scan Report ---
CT SCAN OF THE RIGHT FEMUR WITHOUT IV CONTRAST CLINICAL HISTORY: Fall. Right hip pain. COMPARISON STUDY: Pelvic x-ray dated 12/22/2024. Pelvic CT dated 12/22/2024. TECHNIQUE: CT scan of the right femur is performed from the bony pelvis to the knee. Images are revi ewed in the axial, sagittal, and coronal planes. IV contrast was not administered for this examinatio n. A dose lowering technique was utilized adhering to the principles of ALARA. CT DOSE: 814.22 mGy.cm FINDINGS: The skeletal structures are osteopenic. There is a nondisplaced fracture of the right infer ior pubic ring seen on axial image #318 with mild surrounding edema. There is no evidence of right fe moral fracture. There is no avascular necrosis of the right femoral head. No lytic or blastic lesion is seen. The right hip and knee joints appear maintained degenerative arthritic change. Chondrocalcin osis is observed in the knee. There is a small right knee joint effusion with calcified joint bodies. There is atherosclerotic calcification of the right femoral and popliteal arteries. No intramuscular hemorrhage is identified. There is asymmetric atrophy noted in the right hamstrings musculature. No right pelvic sidewall or inguinal lymphadenopathy is seen. A popliteal cyst measures up to 2.7 cm. IMPRESSION: 1. There is no evidence of right femoral fracture. 2. Acute fracture of the right inferior pubic ring. 3. Right knee joint effusion and popliteal cyst. ACT 112: Negative or not required by law. Electronically signed by: Paras Nichole M.D. 12/24/2024 8:57 AM
--- NOTE | 2024-12-24 09:08 | Nephrology Progress Note ---
Date of Service December 24, 2024 Assessment & Plan (1) ESRD on hemodialysis: Plan: * ESKD due to DKD * Outpatient HD Rx (TTS 2.75hr 2K 2Ca Fx CorAL 80 EDW 63.5kg) * Will provide HD today and avoid heparin due to recent head trauma/fall * Continue nephrocaps, protect L arm AVF * Dialysis diet (2) Hypertension: Plan: * BP acceptable * Continue losartan and metoprolol (3) Anemia: Plan: * Will provide CHRIS w/ HD today (4) CHI (closed head injury): Plan: * 12/22/24 CT: Scalp hematoma. No CT evidence of an acute intracranial abnormality. Admission and Anticipated Discharge Date Admission Date: December 22, 2024 Subjective Ms. Rodriguez was evaluated in her hospital room this morning. She was breathing comfortably flat in bed on RA. She denied angina, dyspnea. She reports that her recent fall was mechanical and not syncopal Review of Systems Constitutional: no fever Eyes: + problem reported legally blind Ear, Nose, Mouth, Throat: no problem reported Respiratory: no cough and no dyspnea Cardiovascular: no chest pain and no palpitations Gastrointestinal: no abdominal pain, no nausea, no vomiting and no diarrhea/loose stools Neurologic: + unsteadiness and + headache(s); no diz ziness Physical Exam Constitutional: not in distress Eyes: PERRL ENMT: external ear and nose normal, oropharynx normal Neck: trachea midline, no thyromegaly Respiratory: normal respiratory effort, lungs clear to auscultation Cardiovascular: RRR, no murmur, no edema L AVF + bruit Gastrointestinal (Abdomen): normal bowel sounds, soft, nontender, no hepatosplenomegaly Musculoskeletal: Extremities: no cyanosis and no clubbing Skin: no rashes, warm and dry Neurologic: no focal motor deficits Results & Data Vital Signs (Past 12 Hours) Vital Signs Temp Pulse Resp BP BP Pulse Ox O2 Del Method 12/24/24 08:14 36.7 C 61 18 146/64 H 98 Room Air 12/24/24 07:56 98 Nasal Cannula 12/24/24 00:00 36.7 C 63 18 146/60 H 98 Nasal Cannula O2 Flow Rate 12/24/24 08:14 12/24/24 07:56 1 12/24/24 00:00 1 Laboratory Results Laboratory Results - last 24 hr 12/23/24 12/23/24 12/23/24 11:08 16:11 20:33 WBC RBC Hgb Hct MCV MCH MCHC RDW Std Deviation RDW Coeff of Yin Plt Count MPV Sodium Potassium Chloride Carbon Dioxide Anion Gap BUN Creatinine Est Cr Clr Drug Dosing eGFR BUN/Creatinine Ratio Glucose POC Glucose 204 H 142 H 178 H Calcium Phosphorus Magnesium 12/24/24 12/24/24 06:04 07:27 WBC 6.74 RBC 2.68 L Hgb 8.6 L Hct 25.3 L MCV 94.4 MCH 32.1 MCHC 34.0 RDW Std Deviation 51.7 H RDW Coeff of Yin 14.9 H Plt Count 171 MPV 9.8 Sodium 135 L Potassium 4.1 Chloride 92 L Carbon Dioxide 27 Anion Gap 16 H BUN 64 H Creatinine 6.01 H* D Est Cr Clr Drug Dosing 6.5 eGFR 6.46 BUN/Creatinine Ratio 10.6 Glucose 118 H POC Glucose 112 H Calcium 9.1 Phosphorus 7.3 H Magnesium 2.3 PG Care Time/CCT Total # of Minutes Spent Total Time Spent with Patient: 50 min provided reviewing admission H&P, nephrology consult, laboratory testing, interview and examination of patient, entering laboratory orders, reviewing current HD orders, coordinating HD w/ clinical documentation specialist HD RN, updating medical record Coding Level of Care Code 41999 SUB INP/OBS CARE 3/50MIN Diagnoses ESRD on hemodialysis N18.6; Z99.2 Renovascular hypertension I15.0 Hypertension type: renovascular hypertension Anemia D64.9 CHI (closed head injury) S09.90XA (2) Hypertension Hypertension type: renovascular hypertension Qualified Code(s): I15.0 - Renovascular hypertension
[2024-12-24] MEDS: IRON SUCROSE 50 MG in SYRINGE 0 ML IV ONE (11:49)
[2024-12-24] MEDS: EPOETIN ALFA 20,000 UNITS/ML VIAL IV ONE (11:50)
--- NOTE | 2024-12-24 16:43 | XCELERA ---
[id number]
--- NOTE | 2024-12-24 17:02 | Hospitalist Progress Note ---
Date of Service December 24, 2024 Assessment & Plan (1) Fall: (2) Volume overload state of heart: (3) Diabetes: (4) Diabetes mellitus type 2 with complications: (5) HFrEF (heart failure with reduced ejection fraction): (6) Coronary artery disease: Plan 84 y/o with ESRD who was treated in hospital 12/21 after missed dialysis with hyperkalemia, volume overload and nausea, home later same day after inpatient dialysis. She comes back in after falling while trying to get out of a car. She did hit head, no LOC. She did complete outpatient HD 12/22. # Pelvic fracture Mechanical fall causing painful hematoma on the back of her head. Persistent right hip pain radiating to the groin. Antalgic gait observed during PT evaluation yesterday, limited mobility. CT results show fracture of right inferior pubic ramus, explaining right groin pain. Diagnostic plan: Ordered right-sided CT scan of femur/hip to rule out occult fracture. Treatment plan: Nonoperative fracture. Pain control with scheduled acetaminophen and opioids as needed. Continue PT and OT. Requires rehab stay, amenable to plan. Care coordination to be discussed. # End-stage renal disease # hypoxia Dialysis-dependent. Hypoxia stable, possible mild volume overload, possible atelectasis. No pleural effusions or infiltrates on CT. Diagnostic plan: Consulted Dr. Rock, dialysis today. Usual dialysis schedule: Thursday, , Thursday. Treatment plan: Assess response to dialysis and increased mobility. # Type 2 diabetes mellitus Blood glucose levels reviewed since yesterday, at goal (<180). Treatment plan: No changes to premeal/correctional aspart insulin regimen. # Hypertension with orthostatic hypotension Blood pressure moderately elevated. Treatment plan: Continue losartan and reduced dose metoprolol succinate. #HFrEF, mixed cardiomyopathy EF 20-30% #HFrEF #CAD, HLD #Mildly elevated HS troponin and flat trend without evidence of ACS. EKG - personally reviewed - LVH with repol abnormality, anterolateral ST depressions, lateral TWIs. may be demand ischemia from HFrEF and mild volume overload, also poor clearance of troponin in ESRD. - follows with cardiology, mild volume overload state - continue ASA, metoprolol, losartan, atorvastatin - will update TTE since she may have increased strain pattern on EKG, orthostasis, low EF - Echo: EF 30-35% mod-severe global LV hypokinesis, normal volume status based on IVC #sensorineural hearing loss #legal blindness, from diabetic retinopathy - supportive measures, she is able to communicate with speaking in a clear loud voice. She does have some vision though poor #metastatic squamous cell carcinoma - status post stereotactic radiation therapy to the head and neck in May of this year, Mohs procedure several years ago DVT ppx - SQ heparin q12h PT/OT rec rehab - discussed and she is amenable. [facility] past years Admission and Anticipated Discharge Date Admission Date: December 24, 2024 Subjective presenting with a mechanical fall, persistent right hip pain, end-stage renal disease, type 2 diabetes, and hypertension. She experienced a mechanical fall resulting in a painful hematoma on the back of her head and persistent right hip pain radiating to the groin. Antalgic gait observed during PT evaluation yesterday, with limited mobility. Ordered right- sided CT scan of femur/hip to exclude occult fracture. Tory is currently on HD, no dyspnea/cough/CP. R groin still painful. Back of head still painful. No headache. Chronic nausea was worse yesterday. Has it a fter breakfast. She has end-stage renal disease, dependent on dialysis. Consulted Dr. Rock, dialysis scheduled for today. Usual dialysis schedule: Thursday, , Thursday. She has type 2 diabetes. Blood glucose levels since yesterday within target range (<180). No changes to premeal/correctional aspart insulin. She has hypertension with orthostatic hypotension. Blood pressure moderately el evated. Continue losartan and reduced dose metoprolol succinate. Physical Exam Physical Exam: General Appearance: Awake, alert, and oriented. Appears comfortable. Vital signs: Reviewed past 24h vital signs in EMR, unremarkable. HEENT: Within normal limits. Respiratory: Lungs clear to auscultation bilaterally. Cardiovascular: Regular heart rhythm, no murmurs. Gastrointestinal: Soft, nontender, nondistended. Bowel sounds present. Extremities: Dialysis fistula in left upper extremity accessed. Extremities warm and well perfused. No lower extremity edema. Skin: Warm and dry without rashes. Neurological: Normal. Psychiatric: Normal. Results & Data Results & Data Vital Signs (Past 12 Hours) Vital Signs Temp Pulse Pulse Pulse Resp BP BP 12/24/24 16:32 37.0 C 73 18 161/86 H 12/24/24 12:15 36.7 C 58 L 12/24/24 12:00 59 L 122/61 12/24/24 11:30 59 L 104/55 L 12/24/24 11:00 55 L 116/42 L 12/24/24 10:30 54 L 102/53 L 12/24/24 10:00 57 L 106/43 L 12/24/24 09:30 63 145/57 H 12/24/24 09:11 66 138/75 12/24/24 09:05 36.5 C 68 12/24/24 08:14 36.7 C 61 18 146/64 H 12/24/24 07:56 BP Pulse Ox O2 Del Method O2 Flow Rate 12/24/24 16:32 91 Room Air 12/24/24 12:15 121/69 12/24/24 12:00 12/24/24 11:30 12/24/24 11:00 12/24/24 10:30 12/24/24 10:00 12/24/24 09:30 12/24/24 09:11 12/24/24 09:05 12/24/24 08:14 98 Room Air 12/24/24 07:56 98 Nasal Cannula 1 Laboratory Results - Laboratory Studies: - WBC: 6 - Hgb: 8.6 - Na: 135 - BUN: 64 - Cr: 6 - Phos: 7.3 - M.3 - Imaging: - KUB (12/23/2024): Nonobstructive, moderate stool - CT hip: Fracture of right inferior pubic ramus, No femur fracture PG Care Time/CCT Total # of Minutes Spent Total Time Spent with Patient: Total time spent is greater than 50% in coordination of care (as documented) at patient's floor/unit and/or counseling patient: Coding Level of Care Code 22984 SUB INP/OBS CARE 3/50MIN Diagnoses Fall W19.XXXA Volume overload state of heart E87.79 Type 2 diabetes mellitus with chronic kidney disease on chronic dialysis, without long-term current use of insulin E11.22; N18.6; Z99.2 Diabetes mellitus type: type 2 Diabetes mellitus lobsterman insulin use: without mcfp use Diabetes mellitus complication status: with kidney complications Diabetes mellitus complication detail: with chronic kidney disease Chronic kidney disease stage: on chronic dialysis Diabetes mellitus type 2 with complications E11.8 HFrEF (heart failure with reduced ejection fraction) I50.20 Coronary artery disease I25.10 (3) Diabetes Diabetes mellitus type: type 2 Diabetes mellitus lobsterman insulin use: without mcfp use Diabetes mellitus complication status: with kidney complications Diabetes mellitus complication detail: with chronic kidney disease Chronic kidney disease stage: on chronic dialysis Qualified Code(s): E11.22 - Type 2 diabetes mellitus with diabetic chronic kidney disease; N18.6 - End stage renal disease; Z99.2 - Dependence on renal dialysis
[2024-12-24] MEDS: CALCIUM CARBONATE 500 MG CHEWABLE TAB PO PRN (17:11)
[2024-12-25 06:48] LABS: Hematocrit (blood only) 24.2 % (37.0-47.0); Hemoglobin 7.9 g/dl (12.0-16.0); Mean Corpuscular Hemoglobin 31.5 pg (25.0-34.0); Mean Corpuscular Volume 96.4 fL (80.0-100.0); Platelet Count 192 K/uL (130-400); RDW Standard Deviation 53.1 fL (36.4-46.3); Red Blood Count 2.51 M/uL (4.20-5.40); White Blood Count 6.30 K/ul (4.8-10.8)
--- NOTE | 2024-12-25 08:47 | Nephrology Progress Note ---
Date of Service December 25, 2024 Assessment & Plan (1) ESRD on hemodialysis: Plan: * ESKD due to DKD * Outpatient HD Rx (TTS 2.75hr 2K 2Ca Fx CorAL 80 EDW 63.5kg) * Volume status and electrolyte balance are acceptable. No acute indication for HD today * Continue nephrocaps, protect L arm AVF * Dialysis diet (2) Hypertension: Plan: * BP has been variable * Continue losartan and metoprolol (3) Anemia: Plan: * Hgb 7.9, iron sat 35%, ferritin 1434 * Received 20,000 units epogen IV w/ HD yesterday * Monitor H&H (4) CHI (closed head injury): Plan: * 12/22/24 CT: Scalp hematoma. No CT evidence of an acute intracranial abnormality. Admission and Anticipated Discharge Date Admission Date: December 24, 2024 Subjective Ms. Rodriguez was evaluated in her hospital room this morning. She was dialyzed yesterday for 1L UF without complication. She denied angina, dyspnea. Review of Systems Constitutional: no fever Eyes: + problem reported legally blind Ear, Nose, Mouth, Throat: no problem reported Respiratory: no cough and no dyspnea Cardiovascular: no chest pain and no palpitations Gastrointestinal: no abdominal pain, no nausea, no vomiting and no diarrhea/loose stools Neurologic: + unsteadiness and + headache(s); no diz ziness Physical Exam Constitutional: not in distress Eyes: PERRL ENMT: external ear and nose normal, oropharynx normal Neck: trachea midline, no thyromegaly Respiratory: normal respiratory effort, lungs clear to auscultation Cardiovascular: RRR, no murmur, no edema L arm AVF + bruit Gastrointestinal (Abdomen): normal bowel sounds, soft, nontender, no hepatosplenomegaly Musculoskeletal: Extremities: no cyanosis and no clubbing Skin: no rashes, warm and dry Neurologic: no focal motor deficits Results & Data Vital Signs (Past 12 Hours) Vital Signs Temp Pulse Resp BP Pulse Ox O2 Del Method O2 Flow Rate 12/25/24 07:37 36.8 C 60 16 160/52 H 94 Room Air 12/24/24 23:44 37.4 C 70 18 133/60 94 Nasal Cannula 2 Laboratory Results Laboratory Results - last 24 hr 12/24/24 12/24/24 12/24/24 12:42 16:27 20:14 WBC RBC Hgb Hct MCV MCH MCHC RDW Std Deviation RDW Coeff of Yin Plt Count MPV Sodium Potassium Chloride Carbon Dioxide Anion Gap BUN Creatinine Est Cr Clr Drug Dosing eGFR BUN/Creatinine Ratio Glucose POC Glucose 111 H 159 H 140 H Calcium 12/25/24 12/25/24 05:43 07:21 WBC 6.30 RBC 2.51 L Hgb 7.9 L Hct 24.2 L MCV 96.4 MCH 31.5 MCHC 32.6 RDW Std Deviation 53.1 H RDW Coeff of Yin 15.2 H Plt Count 192 MPV 9.9 Sodium Pending Potassium Pending Chloride Pending Carbon Dioxide Pending Anion Gap Pending BUN Pending Creatinine Pending Est Cr Clr Drug Dosing Pending eGFR Pending BUN/Creatinine Ratio Pending Glucose Pending POC Glucose 108 H Calcium Pending Laboratory Results - last 24 hr 12/24/24 12/24/24 12/24/24 12:42 16:27 20:14 WBC RBC Hgb Hct MCV MCH MCHC RDW Std Deviation RDW Coeff of Yin Plt Count MPV Sodium Potassium Chloride Carbon Dioxide Anion Gap BUN Creatinine Est Cr Clr Drug Dosing eGFR BUN/Creatinine Ratio Glucose POC Glucose 111 H 159 H 140 H Calcium Iron TIBC Transferrin Transferrin % Sat Ferritin 12/25/24 12/25/24 05:43 07:21 WBC 6.30 RBC 2.51 L Hgb 7.9 L Hct 24.2 L MCV 96.4 MCH 31.5 MCHC 32.6 RDW Std Deviation 53.1 H RDW Coeff of Yin 15.2 H Plt Count 192 MPV 9.9 Sodium 137 Potassium 4.3 Chloride 98 Carbon Dioxide 27 Anion Gap 12 H BUN 30 H D Creatinine 3.91 H D Est Cr Clr Drug Dosing 10.0 eGFR 10.82 BUN/Creatinine Ratio 7.7 L Glucose 107 H POC Glucose 108 H Calcium 9.3 Iron 72 TIBC 207 L Transferrin 148 L Transferrin % Sat 35 Ferritin 1433.9 H PG Care Time/CCT Total # of Minutes Spent Total Time Spent with Patient: 50 min provided reviewing progress notes, laboratory testing, interview and examination of patient, entering laboratory orders for am, ordering iron studies for today, updating medical record Coding Level of Care Code 73053 SUB INP/OBS CARE 3/50MIN Diagnoses ESRD on hemodialysis N18.6; Z99.2 Renovascular hypertension I15.0 Hypertension type: renovascular hypertension Anemia D64.9 CHI (closed head injury) S09.90XA (2) Hypertension Hypertension type: renovascular hypertension Qualified Code(s): I15.0 - Renovascular hypertension
[2024-12-25 09:50] LABS: Anion Gap 12.0 (3-11); Blood Urea Nitrogen 30.0 mg/dl (6-23); Calcium 9.3 mg/dl (8.6-10.3); Carbon Dioxide 27.0 mmol/L (21-32); Chloride 98.0 mmol/L (98-107); Creatinine Clr Calc Pharmacy 10.0 ml/min; Ferritin 1433.9 ng/ml (8-388); Glucose 107.0 mg/dl (70-99(Fasting)); Iron 72.0 mcg/dl (35-150); Potassium 4.3 mmol/L (3.5-5.1); Sodium 137.0 mmol/L (136-145); Total Iron Binding Cap Calc 207.0 mcg/dl (250-450); Transferrin 148.0 mg/dl (200-360); Transferrin (FE) Percent Satur 35.0 % (15-50)
--- NOTE | 2024-12-25 16:16 | Hospitalist Progress Note ---
Date of Service December 25, 2024 Assessment & Plan (1) Fall: (2) Volume overload state of heart: (3) Diabetes: (4) Diabetes mellitus type 2 with complications: (5) HFrEF (heart failure with reduced ejection fraction): (6) Coronary artery disease: Plan 84 y/o with ESRD who was treated in hospital 12/21 after missed dialysis with hyperkalemia, volume overload and nausea, home later same day after inpatient dialysis. She comes back in after falling while trying to get out of a car. She did hit head, no LOC. She did complete outpatient HD 12/22. # Pelvic fracture Mechanical fall causing painful hematoma on the back of her head and fracture of right inferior pubic ramus. this is a nonoperative fracture, weight-bear as tolerated, PT/OT recommended, pain control PT and OT are recommending rehab, await reassessment tomorrow # End-stage renal disease # hypoxia Dialysis-dependent. hypoxia resolved, may have been mild volume overload or atelectasis Consulted Dr. Rock. Usual dialysis schedule: Thursday, , Thursday. # anemia of ESRD, possible component of acute blood loss anemia from pelvic fracture, volume shifts related to ESRD on dialysis - hemoglobin decreased from 9.5 on admission to 7.9, CBC in a.m. if continued decrease repeat CT abdomen and pelvis to assess for pelvic or retroperitoneal bleeding. Has been hemodynamically stable reconnaissance man gave CHRIS yesterday, iron stores are replete # Type 2 diabetes mellitus Blood glucose levels reviewed since yesterday, at goal except for 1 high Treatment plan: continue current Premeal/correctional aspart insulin # Hypertension with orthostatic hypotension Blood pressure moderately elevated. Treatment plan: Continue losartan and reduced dose metoprolol succinate. reassess with PT anticipate tomorrow #HFrEF, mixed cardiomyopathy EF 20-30% #HFrEF #CAD, HLD #Mildly elevated HS troponin and flat trend without evidence of ACS. may be demand ischemia from fracture, HFrEF and hypoxia mild volume overload, also poor clearance of troponin in ESRD. - follows with cardiology, mild volume overload state resolved - Echo: EF 30-35% mod-severe global LV hypokinesis, normal volume status based on IVC - continue ASA, metoprolol, losartan, atorvastatin #sensorineural hearing loss #legal blindness, from diabetic retinopathy - supportive measures, she is able to communicate with speaking in a clear loud voice. She does have some vision though poor #metastatic squamous cell carcinoma - status post stereotactic radiation therapy to the head and neck in May of this year, Mohs procedure several years ago DVT ppx - SQ heparin q12h PT/OT rec rehab - discussed and she is amenable. She has [facility] past years Admission and Anticipated Discharge Date Admission Date: December 24, 2024 Mirtha Spears is sitting up in the chair by the window and her sister is visiting. Her breathing does feel better than on admission she is not short of breath she is no longer on oxygen she has no cough. She continues to have right groin pain and exacerbated with standing and walking. She has not seen PT today so the only mobility she has had is to stand up and get into the chair with the nursing staff Physical Exam Physical Exam: General Appearance: Awake, alert, and oriented. Appears comfortable. sitting up in the chair visiting with her sister Vital signs: Reviewed past 24h vital signs in EMR, unremarkable. HEENT: Within normal limits. Respiratory: Lungs clear to auscultation bilaterally. no rhonchi rales or wheezes normal work of breathing Cardiovascular: Regular heart rhythm, no murmurs. Gastrointestinal: Soft, nontender, nondistended. Bowel sounds present. Extremities: Dialysis fistula in left upper extremity. no lower extremity edema Skin: Warm and dry without rashes. Neurological: she is hard of hearing and has low vision, these are at baseline Psychiatric: Normal. Results & Data Results & Data Vital Signs (Past 12 Hours) Vital Signs Temp Pulse Pulse Resp BP Pulse Ox O2 Del Method 12/25/24 15:25 36.7 C 54 L 18 160/67 H 96 Room Air 12/25/24 07:37 36.8 C 60 16 160/52 H 94 Room Air Laboratory Results white blood count is 6 hemoglobin has decreased to 7.9 sodium and potassium are normal BUN and creatinine are elevated as expected for ESRD iron is 72 transferrin is 148 transferrin sat is 35% which is normal ferritin is 1434 PG Care Time/CCT Total # of Minutes Spent Total Time Spent with Patient: Total time spent is greater than 50% in coordination of care (as documented) at patient's floor/unit and/or counseling patient: Coding Level of Care Code 22020 SUB INP/OBS CARE 2/35MIN Diagnoses Fall W19.XXXA Volume overload state of heart E87.79 Type 2 diabetes mellitus with chronic kidney disease on chronic dialysis, without long-term current use of insulin E11.22; N18.6; Z99.2 Diabetes mellitus type: type 2 Diabetes mellitus buttermaker insulin use: without buttermaker use Diabetes mellitus complication status: with kidney complications Diabetes mellitus complication detail: with chronic kidney disease Chronic kidney disease stage: on chronic dialysis Diabetes mellitus type 2 with complications E11.8 HFrEF (heart failure with reduced ejection fraction) I50.20 Coronary artery disease I25.10 (3) Diabetes Diabetes mellitus type: type 2 Diabetes mellitus buttermaker insulin use: without buttermaker use Diabetes mellitus complication status: with kidney complications Diabetes mellitus complication detail: with chronic kidney disease Chronic kidney disease stage: on chronic dialysis Qualified Code(s): E11.22 - Type 2 diabetes mellitus with diabetic chronic kidney disease; N18.6 - End stage renal disease; Z99.2 - Dependence on renal dialysis
--- NOTE | 2024-12-25 23:23 | Electrocardiogram Report ---
Test Reason : Blood Pressure : */* mmHG Vent. Rate : 67 BPM Atrial Rate : 67 BPM P-R Int : 176 ms QRS Dur : 100 ms QT Int : 442 ms P-R-T Axes : * -17 218 degrees QTcB Int : 467 ms Normal sinus rhythm Left ventricular hypertrophy with repolarization abnormality ( R in aVL , Sokolow-Kay , Romhilt-Kathleen s ) Abnormal ECG When compared with ECG of 23-Dec-2024 06:11, (unconfirmed) Prior tracing appears to have L arm L leg lead reversal Confirmed by Brandon Benjamin ([id number]) on 12/25/2024 11:23:20 PM Referred By: REFERRED SELF Confirmed By: Brandon Benjamin
--- NOTE | 2024-12-25 23:25 | Electrocardiogram Report ---
Test Reason : Blood Pressure : */* mmHG Vent. Rate : 68 BPM Atrial Rate : 68 BPM P-R Int : 170 ms QRS Dur : 106 ms QT Int : 442 ms P-R-T Axes : 6 73 235 degrees QTcB Int : 469 ms Suspect L arm L leg lead reversal Normal sinus rhythm Moderate voltage criteria for LVH, may be normal variant ( Sokolow-Kay , Leif product ) Abnormal ECG When compared with ECG of 22-Dec-2024 16:08, (unconfirmed) Questionable change in QRS axis Confirmed by Brandon Benjamin ([id number]) on 12/25/2024 11:25:08 PM Referred By: REFERRED SELF Confirmed By: Brandon Benjamin
--- NOTE | 2024-12-26 00:24 | Electrocardiogram Report ---
Test Reason : Blood Pressure : */* mmHG Vent. Rate : 80 BPM Atrial Rate : 80 BPM P-R Int : 176 ms QRS Dur : 108 ms QT Int : 412 ms P-R-T Axes : * -18 169 degrees QTcB Int : 475 ms Normal sinus rhythm Moderate voltage criteria for LVH, may be normal variant ( R in aVL , Leif product ) Marked ST abnormality, possible lateral subendocardial injury Abnormal ECG When compared with ECG of 21-Dec-2024 17:20, (unconfirmed) MD interval has decreased Criteria for Anteroseptal infarct are no longer Present ST no longer elevated in Anterior leads T wave inversion now evident in Inferior leads Confirmed by Brandon Benjamin ([id number]) on 12/26/2024 12:23:52 AM Referred By: Confirmed By: Brandon Benjamin
[2024-12-26 06:45] LABS: Hematocrit (blood only) 25.5 % (37.0-47.0); Hemoglobin 8.3 g/dl (12.0-16.0); Mean Corpuscular Hemoglobin 31.0 pg (25.0-34.0); Mean Corpuscular Volume 95.1 fL (80.0-100.0); Platelet Count 202 K/uL (130-400); RDW Standard Deviation 52.0 fL (36.4-46.3); Red Blood Count 2.68 M/uL (4.20-5.40); White Blood Count 6.74 K/ul (4.8-10.8)
[2024-12-26 07:24] LABS: Anion Gap 12.0 (3-11); Blood Urea Nitrogen 49.0 mg/dl (6-23); Calcium 9.3 mg/dl (8.6-10.3); Carbon Dioxide 28.0 mmol/L (21-32); Chloride 96.0 mmol/L (98-107); Creatinine Clr Calc Pharmacy 7.0 ml/min; Glucose 112.0 mg/dl (70-99(Fasting)); Potassium 4.7 mmol/L (3.5-5.1); Sodium 136.0 mmol/L (136-145)
--- NOTE | 2024-12-26 08:59 | Nephrology Progress Note ---
Date of Service December 26, 2024 Assessment & Plan (1) ESRD on hemodialysis: Plan: * ESKD due to DKD * Outpatient HD Rx (TTS 2.75hr 2K 2Ca Fx CorAL 80 EDW 63.5kg) * Volume status and electrolyte balance are acceptable. No acute indication for HD today. Will plan next HD for am * Continue nephrocaps, protect L arm AVF * Dialysis diet (2) Hypertension: Plan: * BP has been variable * Continue losartan and metoprolol (3) Anemia: Plan: * Hgb improved 7.9-->8.3, iron sat 35%, ferritin 1434 * Will provide Epogen 10,000 units w/ HD tomorrow * Monitor H&H (4) CHI (closed head injury): Plan: * 12/22/24 CT: Scalp hematoma. No CT evidence of an acute intracranial abnormality. Admission and Anticipated Discharge Date Admission Date: December 24, 2024 Subjective Ms. Rodriguez was evaluated in her hospital room this morning. She was sitting up in a chair and denied angina, dyspnea. She was anxious to attempt PT today Review of Systems Constitutional: no fever Eyes: + problem reported legally blind Ear, Nose, Mouth, Throat: no problem reported Respiratory: no cough and no dyspnea Cardiovascular: no chest pain and no palpitations Gastrointestinal: no abdominal pain, no nausea, no vomiting and no diarrhea/loose stools Neurologic: + unsteadiness and + headache(s); no diz ziness Physical Exam Constitutional: not in distress Eyes: PERRL ENMT: external ear and nose normal, oropharynx normal Neck: trachea midline, no thyromegaly Respiratory: normal respiratory effort, lungs clear to auscultation Cardiovascular: RRR, no murmur, no edema Gastrointestinal (Abdomen): normal bowel sounds, soft, nontender, no hepatosplenomegaly Musculoskeletal: Extremities: no cyanosis and no clubbing Skin: no rashes, warm and dry Neurologic: no focal motor deficits Results & Data Vital Signs (Past 12 Hours) Vital Signs Temp Pulse Pulse Resp BP Pulse Ox O2 Del Method 12/26/24 07:14 36.7 C 73 16 153/64 H 92 Room Air 12/25/24 23:50 36.9 C 79 14 157/66 H 96 Room Air Laboratory Results Laboratory Results - last 24 hr 12/25/24 12/25/24 12/25/24 05:43 11:21 16:25 WBC RBC Hgb Hct MCV MCH MCHC RDW Std Deviation RDW Coeff of Yin Plt Count MPV Sodium 137 Potassium 4.3 Chloride 98 Carbon Dioxide 27 Anion Gap 12 H BUN 30 H D Creatinine 3.91 H D Est Cr Clr Drug Dosing 10.0 eGFR 10.82 BUN/Creatinine Ratio 7.7 L Glucose 107 H POC Glucose 238 H 200 H Calcium 9.3 Iron 72 TIBC 207 L Transferrin 148 L Transferrin % Sat 35 Ferritin 1433.9 H 12/25/24 12/26/24 12/26/24 20:35 06:21 07:45 WBC 6.74 RBC 2.68 L Hgb 8.3 L Hct 25.5 L MCV 95.1 MCH 31.0 MCHC 32.5 RDW Std Deviation 52.0 H RDW Coeff of Yin 15.2 H Plt Count 202 MPV 9.8 Sodium 136 Potassium 4.7 Chloride 96 L Carbon Dioxide 28 Anion Gap 12 H BUN 49 H Creatinine 5.57 H* D Est Cr Clr Drug Dosing 7.0 eGFR 7.07 BUN/Creatinine Ratio 8.8 L Glucose 112 H POC Glucose 226 H 123 H Calcium 9.3 Iron TIBC Transferrin Transferrin % Sat Ferritin PG Care Time/CCT Total # of Minutes Spent Total Time Spent with Patient: 50 min provided reviewing progress notes, laboratory testing, interview and examination of patient, entering laboratory orders for am, updating medical record Coding Level of Care Code 04358 SUB INP/OBS CARE 3/50MIN Diagnoses ESRD on hemodialysis N18.6; Z99.2 Renovascular hypertension I15.0 Hypertension type: renovascular hypertension Anemia D64.9 CHI (closed head injury) S09.90XA (2) Hypertension Hypertension type: renovascular hypertension Qualified Code(s): I15.0 - Renovascular hypertension
--- NOTE | 2024-12-26 20:57 | Hospitalist Progress Note ---
Date of Service December 26, 2024 Assessment & Plan (1) Pelvic fracture: (2) Fall: (3) Volume overload state of heart: (4) Diabetes: (5) Diabetes mellitus type 2 with complications: (6) HFrEF (heart failure with reduced ejection fraction): (7) Coronary artery disease: Plan 84 y/o with ESRD who was treated in hospital 12/21 after missed dialysis with hyperkalemia, volume overload and nausea, home later same day after inpatient dialysis. She comes back in after falling while trying to get out of a car. She did hit head, no LOC. She did complete outpatient HD 12/22. # Pelvic fracture Mechanical fall causing painful hematoma on the back of her head and fracture of right inferior pubic ramus. this is a nonoperative fracture, weight-bear as tolerated, PT/OT recommended, pain control PT and OT are recommending rehab, discharge to [facility] tomorrow if bed available # End-stage renal disease # hypoxia Dialysis-dependent. hypoxia resolved, may have been mild volume overload or atelectasis Consulted Dr. Rock. Usual dialysis schedule: Thursday, , Thursday. requested dialysis early side tomorrow so that she would be able to discharge continue dialysis at [facility] which uses a Thursday schedule # anemia of ESRD, possible component of acute blood loss anemia from pelvic fracture, volume shifts related to ESRD on dialysis - hemoglobin decreased from 9.5 on admission better than yesterday now 8.3, stable pediatric physiatrist gave CHRIS yesterday, iron stores are replete # Type 2 diabetes mellitus Blood glucose levels are at goal Treatment plan: continue current Premeal/correctional aspart insulin # Hypertension with orthostatic hypotension Blood pressure moderately elevated. Treatment plan: Continue losartan and reduced dose metoprolol succinate. reassess with PT #HFrEF, mixed cardiomyopathy EF 20-30% #HFrEF #CAD, HLD #Mildly elevated HS troponin and flat trend without evidence of ACS. may be demand ischemia from fracture, HFrEF and hypoxia mild volume overload, also poor clearance of troponin in ESRD. - follows with cardiology, mild volume overload state resolved - Echo: EF 30-35% mod-severe global LV hypokinesis, normal volume status based on IVC - continue ASA, metoprolol, losartan, atorvastatin #sensorineural hearing loss #legal blindness, from diabetic retinopathy - supportive measures, she is able to communicate with speaking in a clear loud voice. She does have some vision though poor #metastatic squamous cell carcinoma - status post stereotactic radiation therapy to the head and neck in May of this year, Mohs procedure several years ago DVT ppx - SQ heparin q12h Admission and Anticipated Discharge Date Admission Date: December 24, 2024 Subjective The patient is a 89-year-old female presenting with right hip/groin pain. She feels well overall, with no dyspnea, but experiences persistent right hip/groin pain, worsened by standing and present even at rest. Physical Exam Physical Exam: General Appearance: The patient is awake, alert, and oriented x4, sitting in a chair. Vital signs: Reviewed past 24h vital signs in EMR, unremarkable. HEENT: Within normal limits. Respiratory: Lungs clear to auscultation bilaterally except for mild bibasilar crackles anteriorly. Cardiovascular: Heart has regular rate and rhythm with a systolic murmur. Gastrointestinal: Abdomen is soft, nontender, and nondistended. Extremities: Lower extremities are warm and well perfused with mild edema. Skin: Skin is warm, dry, and well perfused. No rashes. Neurological: Normal. Psychiatric: Normal. Results & Data Results & Data Vital Signs (Past 12 Hours) Vital Signs Temp Pulse Resp BP Pulse Ox O2 Del Method 12/26/24 14:52 36.6 C 55 L 16 144/72 H 95 Room Air PG Care Time/CCT Total # of Minutes Spent Total Time Spent with Patient: Total time spent is greater than 50% in coordination of care (as documented) at patient's floor/unit and/or counseling patient: Coding Level of Care Code 58456 SUB INP/OBS CARE 2/35MIN Diagnoses Pelvic fracture S32.9XXA Fall W19.XXXA Volume overload state of heart E87.79 Type 2 diabetes mellitus with chronic kidney disease on chronic dialysis, without long-term current use of insulin E11.22; N18.6; Z99.2 Diabetes mellitus type: type 2 Diabetes mellitus retirement insulin use: without retirement use Diabetes mellitus complication status: with kidney complications Diabetes mellitus complication detail: with chronic kidney disease Chronic kidney disease stage: on chronic dialysis Diabetes mellitus type 2 with complications E11.8 HFrEF (heart failure with reduced ejection fraction) I50.20 Coronary artery disease I25.10 (4) Diabetes Diabetes mellitus type: type 2 Diabetes mellitus surgery teacher insulin use: without retirement use Diabetes mellitus complication status: with kidney complications Diabetes mellitus complication detail: with chronic kidney disease Chronic kidney disease stage: on chronic dialysis Qualified Code(s): E11.22 - Type 2 diabetes mellitus with diabetic chronic kidney disease; N18.6 - End stage renal disease; Z99.2 - Dependence on renal dialysis
[2024-12-27] MEDS ORDERED: SODIUM CHLORIDE 0.9% 1,000 ML IV PRN (07:00)
--- NOTE | 2024-12-27 08:48 | Nephrology Progress Note ---
Date of Service December 27, 2024 Assessment & Plan (1) ESRD on hemodialysis: Plan: * ESKD due to DKD * Outpatient HD Rx (TTS 2.75hr 2K 2Ca Fx CorAL 80 EDW 63.5kg) * Will provide HD today according to outpatient HD prescription. Orders have been placed in EMR and HD RN notified * Continue nephrocaps, protect L arm AVF * Dialysis diet (2) Hypertension: Plan: * BP has been variable * Continue losartan and metoprolol (3) Anemia: Plan: * Hgb improved 7.9-->8.3, iron sat 35%, ferritin 1434 * Will provide Epogen 10,000 units w/ HD today * Monitor H&H (4) CHI (closed head injury): Plan: * 12/22/24 CT: Scalp hematoma. No CT evidence of an acute intracranial abnormality. Admission and Anticipated Discharge Date Admission Date: December 24, 2024 Subjective Ms. Rodriguez was evaluated in her hospital room this morning. She was able to walk 6 ft using a rolling walker but fatigued easily yesterday. She hopes to transfer to [facility] to continue w/ PT Review of Systems Constitutional: no fever Eyes: + problem reported legally blind Ear, Nose, Mouth, Throat: no problem reported Respiratory: no cough and no dyspnea Cardiovascular: no chest pain and no palpitations Gastrointestinal: no abdominal pain, no nausea, no vomiting and no diar sharon/loose stools Neurologic: + unsteadiness; no dizziness Physical Exam Constitutional: not in distress Eyes: PERRL ENMT: external ear and nose normal, oropharynx normal Neck: trachea midline, no thyromegaly Respiratory: normal respiratory effort, lungs clear to auscultation Cardiovascular: RRR, no murmur, no edema AVF + bruit Gastrointestinal (Abdomen): normal bowel sounds, soft, nontender, no hepatosplenomegaly Musculoskeletal: Extremities: no cyanosis and no clubbing Skin: no rashes, warm and dry Neurologic: no focal motor deficits Results & Data Vital Signs (Past 12 Hours) Vital Signs Temp Pulse Pulse Resp BP BP Pulse Ox 12/27/24 07:20 36.8 C 73 16 164/71 H 95 12/26/24 23:10 37.1 C 74 18 158/76 H 94 O2 Del Method 12/27/24 07:20 Room Air 12/26/24 23:10 Room Air Laboratory Results Laboratory Results - last 24 hr 12/26/24 12/26/24 12/26/24 11:15 16:25 20:24 POC Glucose 180 H 178 H 177 H 12/27/24 07:37 POC Glucose 140 H PG Care Time/CCT Total # of Minutes Spent Total Time Spent with Patient: 50 min provided to review progress notes, laboratory testing, interview and examination of patient, entering dialysis orders, coordinate HD w/ occupational therapy assistant RN, update medical record Coding Level of Care Code 93953 SUB INP/OBS CARE 3/50MIN Diagnoses ESRD on hemodialysis N18.6; Z99.2 Renovascular hypertension I15.0 Hypertension type: renovascular hypertension Anemia D64.9 CHI (closed head injury) S09.90XA (2) Hypertension Hypertension type: renovascular hypertension Qualified Code(s): I15.0 - Renovascular hypertension
[2024-12-27] MEDS: EPOETIN ALFA 10,000 UNITS/ML VIAL IV ONE (10:46)
--- NOTE | 2024-12-27 11:28 | Discharge Summary ---
Discharge Summary Date of Service December 27, 2024 Principal Dx & Hospital Course #1 = Principal Diagnosis (1) Pelvic fracture: (2) Fall: (3) Volume overload state of heart: (4) Diabetes: (5) Diabetes mellitus type 2 with complications: (6) HFrEF (heart failure with reduced ejection fraction): (7) Coronary artery disease: Plan 84 y/o with ESRD who was treated in hospital 12/21 after missed dialysis with hyperkalemia, volume overload and nausea, home later same day after inpatient dialysis. She comes back in after falling while trying to get out of a car. She did hit head, no LOC. She did complete outpatient HD 12/22. # Pelvic fracture Mechanical fall causing painful hematoma on the back of her head and fracture of right inferior pubic ramus. this is a nonoperative fracture, weight-bear as tolerated, PT/OT recommended, pain control PT and OT are recommending rehab, [facility] Scheduled APAP and infrequent tramadol for pain control # End-stage renal disease # hypoxia # anemia of ESRD Dialysis-dependent. hypoxia resolved, related to mild volume overload and atelectasis Consulted Dr. Rock. Usual dialysis schedule: Thursday, , Thursday. Last HD was this AM Access: LUE AVF Continue sevelamer Anemia improved, given CHRIS per gear changer # anemia of ESRD, possible component of acute blood loss anemia from pelvic fracture, volume shifts related to ESRD on dialysis - hemoglobin decreased from 9.5 on admission better than yesterday now 8.3, stable gear changer gave CHRIS, iron stores are replete # Type 2 diabetes mellitus - diet controlled, last A1c in August was 6.8% Blood glucose levels are at goal - mostly near 140 Treatment plan: continue diabetic diet, periodically monitor BG, consider continuing short acting PRN insulin while in rehab # Hypertension with orthostatic hypotension Blood pressure moderately elevated. Treatment plan: Continue losartan and reduced dose metoprolol succinate. reassess with PT #HFrEF, mixed cardiomyopathy EF 20-30% #HFrEF #CAD, HLD #Mildly elevated HS troponin and flat trend without evidence of ACS. may be demand ischemia from fracture, HFrEF and hypoxia mild volume overload, also poor clearance of troponin in ESRD. - follows with cardiology, mild volume overload state resolved - Echo: EF 30-35% mod-severe global LV hypokinesis, normal volume status based on IVC - continue ASA, metoprolol, losartan, atorvastatin #sensorineural hearing loss #legal blindness, from diabetic retinopathy - supportive measures, she is able to communicate with speaking in a clear loud voice. She does have some vision though poor #metastatic squamous cell carcinoma - status post stereotactic radiation therapy to the head and neck in May of this year, Mohs procedure several years ago Admission HPI Per Admitting Provider 84-year-old woman with ESRD on dialysis, coronary artery disease hypertension HFrEF who came to the ED after a mechanical fall Was hospitalized 12/21 for missed dialysis due to malaise, hyperkalemia, nausea/vomiting resolved after dialysis and went home. she did go to her usual outpatient dialysis today and completed the treatment. She was getting out of a car and she fell backward landing on her back and hitting the back of her head. She had no loss of consciousness. No lightheadedness/dizziness vertigo or headache, her vision is chronically poor unchanged from usual, no neck pain. She does have right-sided low back pain with some radiation down the back of her thigh and she has some right hip pain radiating to the groin. No shortness of breath cough or chest pain. No abdominal pain no further nausea and vomiting no diarrhea. Typically does not make urine though made some during last admission which is unusual. Urinalysis 12/21 was negative for pyuria. Discharge Exam General Appearance: Awake, alert, and oriented x4. Vital signs: Reviewed past 24h vital signs in EMR, unremarkable. HEENT: Chronic low vision and very hard of hearing. Respiratory: Lungs clear to auscultation anteriorly. Cardiovascular: Regular heart rhythm, no murmur. Gastrointestinal: Abdomen soft, nontender, nondistended, bowel sounds present. Extremities: Extremities warm, well perfused, no peripheral edema. On HD, LUE AVF Skin: Warm and dry, no rash. Neurological: Alert and oriented to situation. Face symmetric. Normal speech. Moves all four extremities spontaneously. Psychiatric: Normal. Discharge Plan Discharge Items Patient Disposition: Transfer Inpatient Rehab Fac Reason For Visit: FALL, TRAUMA ALERT Discharge Diagnosis: right pelvic fracture, hypoxia due to mild volume overload, ESRD on HD Condition on Discharge: Fair Activity: Resume your previous activity Weightbearing: Full weightbearing Non-emergency contact: Primary Care Provider and Cover Stripper Call non-emergency contact if: you have any medication questions and your symptoms worsen Follow-up/Referrals: Stubbs,Christopher E., MD [Primary Care Provider] - Diet: Carb Consistent or DM2 and Dialysis Renal Addtl Attending Provider Instructions: Mechanical fall resulting in scalp hematoma and pelvic fracture ESRD on HD with mild hypoxia from volume overload, resolved with dialysis Legally blind and also hard of hearing Orthostatic hypotension - metoprolol reduced History of diabetes, diet-controlled, last A1c 6.8%. Consider low dose prn aspart insulin, however only received minimal insulin in hospital (1-2 units premeal) WBAT, PT/OT evaluate and treat LUE AVF precautions - no BP checks or IVs on LUE Pending Studies at Discharge: No Stand-Alone Forms: My [facility] Skilled Items Patient informed of condition?: Yes DNR: Yes Discharge Level of Care: Acute rehab Communicable Disease: No Discharge Prognosis: Improving Lines: None Urinary Catheter: No Medications and DC Order Prescriptions: New acetaminophen [Tylenol Extra Strength] 500 mg Tablet 1,000 mg PO Q8H Qty: 0 0RF metoprolol succinate 25 mg Tablet Extended Release 24 Hr 25 mg PO QAM Qty: 0 0RF sennosides [Senna Lax] 8.6 mg Tablet 8.6 mg PO HS Qty: 0 0RF polyethylene glycol 3350 [Miralax] 17 gram Powder In Packet 17 g PO BID Qty: 0 0RF calcium carbonate [Tums] 200 mg calcium (500 mg) Tablet,Chewable 1,500 mg PO BID PRNQty: 0 0RF melatonin 3 mg Tablet 3 mg PO HS PRNQty: 0 0RF tramadol 50 mg Tablet 50 mg PO Q4H PRNQty: 0 0RF Continued losartan 50 mg tablet 50 mg PO DAILY Qty: 90 3RF atorvastatin 10 mg tablet 10 mg PO HS Qty: 90 3RF sevelamer carbonate 800 mg tablet 800 mg PO TIDM Patient Comments: she is to take TID, but only takes once daily cholecalciferol (vitamin D3) 2,000 unit tablet 2,000 units PO QAM aspirin 81 mg Tablet,Delayed Release (Dr/Ec) 81 mg PO DAILY Dialyvite 800 with Zinc 15 0.8-15 mg tablet 2 tab PO DAILY Discontinued metoprolol succinate 50 mg tablet extended release 24 hr 50 mg PO DAILY Qty: 90 3RF acetaminophen [Tylenol Extra Strength] 500 mg tablet 1,000 mg PO BID Discharge Orders: Discharge Order (Routine); Ordered 12/27/24 Ordered By: Jael Soto Admission Data Admit Date/Time: 12/24/24 12:49 Attending Provider: Jael Soto Admit Provider: Jael Soto Primary Care Provider: Felice Stubbs [facility]: [email or web address]; Talha Epstein; [facility] Stay Data Consultations 12/22/24 18:09 ED Decision to Admit Stat 12/23/24 14:25 Consult Nephrology Routine Diagnostic Imagining Performed 12/22/24 16:20 CT abd pelvis wo con Stat CT cervical spine wo con Stat CT chest diagnostic wo con Stat CT head/brain wo con Stat 12/24/24 08:05 CT femur RT wo con Urgent Pending Results Patient Have Any Pending Studies at Discharge: No Discharge Instructions Given to Patient (Per Discharging Provider) Mechanical fall resulting in scalp hematoma and pelvic fracture ESRD on HD with mild hypoxia from volume overload, resolved with dialysis Legally blind and also hard of hearing Orthostatic hypotension - metoprolol reduced History of diabetes, diet-controlled, last A1c 6.8%. Consider low dose prn aspart insulin, however only received minimal insulin in hospital (1-2 units premeal) WBAT, PT/OT evaluate and treat LUE AVF precautions - no BP checks or IVs on LUE Total Time Total Time Spent Total Time Spent (In Minutes): I personally spent: 40 minutes today on clinical care activities including: reviewing chart notes and vital signs reviewing labs discussion with child care supervisor examining and counseling the patient writing dc orders discharge instructions documentation Coding Level of Care Code 15970 INP/OBS DISCH >30 MIN Diagnoses Pelvic fracture S32.9XXA Fall W19.XXXA Volume overload state of heart E87.79 Type 2 diabetes mellitus with chronic kidney disease on chronic dialysis, without long-term current use of insulin E11.22; N18.6; Z99.2 Diabetes mellitus type: type 2 Diabetes mellitus assisted insulin use: without long term care social worker use Diabetes mellitus complication status: with kidney complications Diabetes mellitus complication detail: with chronic kidney disease Chronic kidney disease stage: on chronic dialysis Diabetes mellitus type 2 with complications E11.8 HFrEF (heart failure with reduced ejection fraction) I50.20 Coronary artery disease I25.10
[2024-12-27 13:10] VITALS: RESP 18; TEMP 97.9; O2SAT 97
[2024-12-27] MEDS: HEPARIN SOD (PORCINE) 1000 UNIT/ML IV ONE (13:12)
[2024-12-27] MEDS: HEPARIN SOD (PORCINE) 1000 UNIT/ML IV SCH (13:12)
[2024-12-27 17:16] VITALS: BP 158/76; PULSE 74
== END 2024-12-27 17:15 | DRG 535 ==
LOC: 2E 15:50 → ED 15:50 → 2E 20:17 → 3E 12-24 17:43